=== PATIENT | female | born 2005 | race Caucasian/White ===

== ENCOUNTER 2023-03-03 09:05 | Outpatient (OUT) | payer BC, SELFPAY ==
[2023-03-03 09:48] LABS: Basophils Percent Auto 0.4 % (0.2-2.0); Eosinophils Absolute Auto 0.1 10^3/uL (0.0-0.7); Eosinophils Percent Auto 1.7 % (0.9-7.0); Hematocrit 43.6 % (36.0-48.0); Immature Granulocytes Abs Auto 0.01 10^3/uL (0.00-0.03); Immature Granulocytes Pct Auto 0.1 % (0.0-0.5); Lymphocytes Absolute Auto 4.3 10^3/uL (1.2-3.8); Lymphocytes Percent Auto 54.5 % (20.5-60.0); Mean Corpuscular HGB Conc 32.1 g/dL (29.9-35.2); Mean Corpuscular Hemoglobin 28.1 pg (26.7-34.0); Mean Corpuscular Volume 87.6 fL (81.0-99.0); Mean Platelet Volume 8.7 fL (9.5-13.5); Monocytes Absolute Auto 0.7 10^3/uL (0.3-0.8); Monocytes Percent Auto 8.8 % (1.7-12.0); Neutrophils Absolute Auto 2.7 10^3/uL (1.4-6.5); Neutrophils Percent Auto 34.5 % (43.0-75.0); Platelet Count 409 10^3/uL (150-450); Red Blood Count 4.98 10^6/uL (4.20-5.40); Red Cell Distribution Width 12.9 % (11.0-15.0); White Blood Count 7.8 10^3/uL (4.0-11.0)
[2023-03-03 10:15] LABS: Estimated Average Glucose 103 mg/dL; Glycohemoglobin A1C 5.2 % (4.5-6.2)
[2023-03-03 10:47] LABS: Alanine Aminotransferase 26 U/L (14-59); Albumin Level 3.8 g/dL (3.4-5.0); Alkaline Phosphatase 87 U/L (46-116); Anion Gap 12.9; Aspartate Amino Transferase 14 U/L (15-37); BUN Creatinine Ratio 22.7; Bilirubin Total 0.5 mg/dL (0.2-1.0); Carbon Dioxide 26.8 mmol/L (21.0-32.0); Chloride 100 mmol/L (98-107); Chol HDL Ratio 3.4; Cholesterol 204 mg/dL (104-227); Estimated GFR (African America >60 (>=60); Estimated GFR (Non-African Ame >60 (>=60); Free T3 3.13 pg/mL (2.91-4.70); Globulin 3.9 g/dL; Glucose 90 mg/dL (74-106); HDL Cholesterol 60 mg/dL (29-69); LDL Cholesterol Calculated 133.2 mg/dL; Potassium 3.7 mmol/L (3.5-5.1); Sodium 136 mmol/L (136-145); Total Protein 7.7 g/dL (6.4-8.2); Triglycerides 54 mg/dL (53-208); VLDL CHOLESTEROL 10.8 mg/dL
[2023-03-04 10:08] LABS: Insulin 9.1 uIU/mL (2.6-24.9)
== END 2023-03-03 09:06 | disposition home or self-care (01) ==
LOC: LAB 09:09
PROVIDERS: PCP Family Medicine; Visit Provider Family Medicine
DX: F32.9 Major depressive disorder, single episode, unspecified (principal); F41.9 Anxiety disorder, unspecified; G47.00 Insomnia, unspecified; E78.5 Hyperlipidemia, unspecified; R73.09 Other abnormal glucose; D64.9 Anemia, unspecified
CPT/HCPCS: 36415; 80053; 80061; 83036; 83525; 83540; 84436; 84443; 84481; 85025

== ENCOUNTER 2023-03-29 04:20 | Emergency (ER) | payer BC, SELFPAY ==
[2023-03-29 04:23] VITALS: BP 147/101; PULSE 127; RESP 18; TEMP 36.9; O2SAT 100; BMI 42.3
--- OUTSIDE RECORDS SUMMARY | 2023-03-29 04:24 | XMS_ITS | CCD ---
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 And Name Role Phone FELI GRICELDA P Consulting Unavailable FELI, GRICELDA P Attending Unavailable FELI, GRICELDA P Admitting Unavailable FELI, GRICELDA P Primary Care Unavailable HOY ., DR SEGOVIA Consulting Unavailable HOY ., DR SEGOVIA Attending Unavailable HOY ., DR SEGOVIA Admitting Unavailable FELI, GRICELDA P Primary Care Unavailable FELI, GRICELDA P Primary Care Unavailable FELI, GRICELDA P Consulting Unavailable FELI, GRICELDA P Attending Unavailable FELI, GRICELDA P Admitting Unavailable Problems Active Problems Problem Classification Problem Date Documented Da te Episodic/Chronic Residual codes; unclassified (1 source) Pain, unspecified; Translations: [PAIN UNSPECIFIED] Onset: 05-24-2022 Episodic Unclassified (4 sources) CONTACT W/AND (SUSP) EXPOS COVID-19; Translations: [CONTACT W/AND (SUSP) EXPOS COVID-19] Onset: 04-21-2022 Unclassified (4 sources) COUGH, UNSPECIFIED; Translations: [COUGH, UNSPECIFIED] Onset: 04-21-2022 Past or Other Problems Problem Classification Problem Date Documented Da te Episodic/Chronic Fever of unknown origin (4 sources) Fever, unspecified; Translations: [FEVER UNSPECIFIED] Onset: 01-06-2022 Episodic Malaise and fatigue (1 source) Other fatigue; Translations: [OTHER FATIGUE] Onset: 01-09-2022 Episodic Unclassified (1 source) CONTACT W/AND (SUSP) EXPOS COVID-19; Translations: [CONTACT W/AND (SUSP) EXPOS COVID-19] Onset: 05-23-2022 Unclassified (1 source) COUGH, UNSPECIFIED; Translations: [COUGH, UNSPECIFIED] Onset: 04-20-2022 Results Test Name Value Interpretation Reference Range Facil ity Covid-19 PCR (CVDTBH)on SARS-CoV-2 (COVID-19) RNA VAISHALI+probe Ql (Unsp spec) Not detected Normal NOT DETECTED [facility] Comment on above: Result Comment: When diagnostic testing is negative, the possibility of a false negative should be considered in the context of a patient's recent exposures and the presence of clinical signs and symptoms consistent with SARS-CoV-2. This test is not yet approved or cleared by the [place] FDA. When there are no FDA-approved or cleared tests available, and other criteria are met, FDA can make tests available under an emergency access mechanism called an Emergency Use Authorization (EUA). The EUA for this test is supported by the [place] of Health and Human Service's declaration that circumstances exist to justify the emergency use of in vitro diagnostics for the detection and/or diagnosis of the virus that causes COVID-19. This EUA will remain in effect for the duration of the COVID-19 declaration justifying emergency of IVDs, unless it is terminated or revoked by the FDA (after which the test may no longer be used). Performed By: #### C VDTBH #### [facility] [address] [place] [address] Dr. Damion Caceres INFLUENZA A AND B AGon 05-23 [facility] SEE BELOW Normal [facility] Comment on above: Result Comment: Nega tive for Flu A protein angiten. Infection due to Flu A cannot be ruled out. Flu A angiten in the sample may be below the detection limit of the test. Performed By: #### I NFLUAB #### [facility] [address] [place] [address] Dr. Damion [facility]ace[facility] SEE BELOW Normal [facility] Comment on above: Result Comment: Nega tive for Flu B protein antigen. Infection due to Flu B cannot be ruled out. Flu B antigen in the sample may be below the detection limit of the test. Performed By: #### I NFLUAB #### [facility] [address] [place] [address] Dr. Damion Caceres INFLUENZA A AG Negative Normal NEGATIVE SEE COMMENT [facility] Comment on above: Performed By: #### I NFLUAB #### [facility] [address] [place] [address] Dr. Damion Caceres INFLUENZA B AG Negative Normal NEGATIVE SEE COMMENT [facility] Comment on above: Performed By: #### I NFLUAB #### [facility] [address] [address] [address] Damion Caceres Covid-19 PCR (CVDTB)on SARS-CoV-2 (COVID-19) RNA VAISHALI+probe Ql (Unsp spec) Not detected Normal NOT DETECTED [facility] Comment on above: Result Comment: When diagnostic testing is negative, the possibility of a false negative should be considered in the context of a patient's recent exposures and the presence of clinical signs and symptoms consistent with SARS-CoV-2. This test is not yet approved or cleared by the [place] FDA. When there are no FDA-approved or cleared tests available, and other criteria are met, FDA can make tests available under an emergency access mechanism called an Emergency Use Authorization (EUA). The EUA for this test is supported by the [place] of Health and Human Service's declaration that circumstances exist to justify the emergency use of in vitro diagnostics for the detection and/or diagnosis of the virus that causes COVID-19. This EUA will remain in effect for the duration of the COVID-19 declaration justifying emergency of IVDs, unless it is terminated or revoked by the FDA (after which the test may no longer be used). Performed By: #### C VDTBH #### [facility] [address] [place] [address] Dr. Damion Caceres INFLUENZA A AND B AGon 04-20 INFLUANEGH SEE BELOW Normal [facility] Comment on above: Result Comment: Nega tive for Flu A protein angiten. Infection due to Flu A cannot be ruled out. Flu A angiten in the sample may be below the detection limit of the test. Performed By: #### I NFLUAB #### [facility] [address] [place] [address] Dr. Damion Caceres INFLUBNEGH SEE BELOW Normal [facility] Comment on above: Result Comment: Nega tive for Flu B protein antigen. Infection due to Flu B cannot be ruled out. Flu B antigen in the sample may be below the detection limit of the test. Performed By: #### I NFLUAB #### [facility] [address] [place] [address] Dr. Damion Caceres INFLUENZA A AG Negative Normal NEGATIVE SEE COMMENT [facility] Comment on above: Performed By: #### I NFLUAB #### [facility] [address] [place] [address] Dr. Damion Caceres INFLUENZA B AG Negative Normal NEGATIVE SEE COMMENT [facility] Comment on above: Performed By: #### I NFLUAB #### [facility] [address] [place] [address] Dr. Damion Caceres [facility]on 12-19 SARS-CoV-2 (COVID-19) RNA VAISHALI+probe Ql (Unsp spec) Not detected Normal NOT DETECTED [facility] Comment on above: Result Comment: This test is not yet approved or cleared by the [place] FDA. When there are no FDA-approved or cleared tests available, and other criteria are met, FDA can make tests available under an emergency access mechanism called an Emergency Use Authorization (EUA). The EUA for this test is supported by the Marketing Operations Manager of Health and Human Service's (HHS's) declaration that circumstances exist to justify the emergency use of in vitro diagnostics for the detection and/or diagnosis of the virus that causes COVID-19. This EUA will remain in effect (meaning this test can be used) for the duration of the COVID-19 declaration justifying emergency of IVDs, unless it is terminated or revoked by FDA (after which the test may no longer be used). When diagnostic testing is negative, the possibility of a false negative should be considered in the context of a patient's recent exposures and the presence of clinical signs and symptoms consistent with SARS-CoV-2. Performed By: #### C VDTBH #### [facility] [address] [place] [address] Dr. Damion Caceres INFLUENZA A AND B AGon 01-06 INFLUANEGH SEE BELOW Normal [facility] Comment on above: Result Comment: Nega tive for Flu A protein angiten. Infection due to Flu A cannot be ruled out. Flu A angiten in the sample may be below the detection limit of the test. Performed By: #### I NFLUAB #### [facility] [address] [place] [address] Dr. Damion Caceres INFLUBNEGH SEE BELOW Normal [facility] Comment on above: Result Comment: Nega tive for Flu B protein antigen. Infection due to Flu B cannot be ruled out. Flu B antigen in the sample may be below the detection limit of the test. Performed By: #### I NFLUAB #### [facility] [address] [place] [address] Dr. Damion Caceres INFLUENZA A AG Negative Normal NEGATIVE SEE COMMENT [facility] Comment on above: Performed By: #### I NFLUAB #### [facility] [address] [place] [address] Dr. Damion Caceres INFLUENZA B AG Negative Normal NEGATIVE SEE COMMENT [facility] Comment on above: Performed By: #### I NFLUAB #### [facility] [address] [place] [address] Dr. Damion Caceres INTERNAL CONTROLS Within Normal Limits Normal Wi thin Normal Limits [facility] Comment on above: Performed By: #### I NFLUAB #### [facility] [address] [place] [address] Dr. Damion Caceres Encounters Encounter Date Encounter Type Care Provider Facility Start: 05-23-2022 End: 05-23-2022 ambulatory GRICELDA EDMOND Facility:[facility] Start: 04-20-2022 End: 04-20-[address] LUCA PILLAI . Facility:[facility] Start: 01-06-2022 End: 01-06-2022 ambulatory GRICELDA EDMOND Facility:[facility] Payers Date Payer Category Payer Unknown [id number] 2003 Unknown [id number] 2003 Unknown [id number] 1961 Unknown [id number] Summary Purpose Family History No Family History Records Found Advance Directives No Advanced Directives Records Found Additional Source Comments INFORMATION SOURCE (unrecogn ized section and content) DATE CREATED AUTHOR 05/25/2022 [facility] FOR RECORDS PERTAINING TO PATIENTS WHO ARE OR HAVE BEEN ENROLLED IN A CHEMICAL DEPENDENCY/SUBSTANCEABUSE PROGRAM, SOME INFORMATION MAY BE OMITTED. This clinical summary was aggregated from multiple sources. Caution should be exercised in using it in the provision of clinical care. This summary normalizes information from multiple sources, and as a consequence, information in this document may materially change the coding, format and clinical context of patient data. In addition, data may be omitted in some cases. CLINICAL DECISIONS SHOULD BE BASED ON THE PRIMARY CLINICAL RECORDS. [facility] [employer] [facility]. provides no warranty or guarantee of the accuracy or completeness of information in this document.
--- NOTE | 2023-03-29 04:41 | ED_ITS ---
HPI - Skin/Abscess/Foreign Bdy General Chief complaint: Skin/Abscess/Foreign Body Stated complaint: earring embedded in L ear Time Seen by Provider: 03/29/23 04:36 Source: patient Mode of arrival: walk-in History of Present Illness HPI narrative: patient presents complaining that the back of her ear right is now embedded in her ear lobe. States she is not sure how long it has been there but she noticed a smell. No fever Related Data Allergies Allergy/AdvReac Type Severity Reaction Status Date / Time No Known Drug Allergies Allergy Verified 03/29/23 04:29 Review of Systems ROS Status of ROS 10 or more systems reviewed and unremark able except as noted in history and below PFSH PFSH Social History Smoking status: Former smoker Exam Constitutional Vital Signs, click to edit/add: Last Vital Signs Temp 98.4 F 03/29/23 04:23 Pulse 127 H 03/29/23 04:23 Resp 18 03/29/23 04:23 BP 147/101 H 03/29/23 04:23 Pulse Ox 100 03/29/23 04:23 O2 Del Method Room Air 03/29/23 04:23 Common normals: no apparent distress, average body habitus, oriented x3, no limitations, healthy appearing and alert HENMT Common normals: normocephalic and head/scalp atraumatic Other: FB palpable left ear lobe Eye Common normals: EOMs intact bilaterally and conjunctivae normal Respiratory Common normals: normal respiratory effort Cardio Common normals: regular rate, regular rhythm, S1 normal heart sound and S2 normal heart sound Extremity Common normals: normal to inspection and full ROM Neuro Common normals: oriented x3, CN's II-XII intact bilaterally, moves all extremities and no focal motor deficits Psych Appearance: grossly normal Course Vital Signs Vital signs: Vital Signs Temperature 98.4 F 03/29/23 04:23 Pulse Rate 127 H 03/29/23 04:23 Respiratory Rate 18 03/29/23 04:23 Blood Pressure 147/101 H 03/29/23 04:23 Pulse Oximetry 100 03/29/23 04:23 Oxygen Delivery Method Room Air 03/29/23 04:23 Temperature 98.4 F 03/29/23 04:23 Pulse Rate 127 H 03/29/23 04:23 Respiratory Rate 18 03/29/23 04:23 Blood Pressure 147/101 H 03/29/23 04:23 Pulse Oximetry 100 03/29/23 04:23 Oxygen Delivery Method Room Air 03/29/23 04:23 MDM - Skin/Abscess/Foreign Bdy MDM Narrative Medical decision making narrative: patient presents with FB embedded in her left ear lobe. removed as above. no obvious drainage or smell on my exam but will cover with short course of antibiotics given her history of foul smell from the site Discharge Plan Discharge Chief Complaint: Skin/Abscess/Foreign Body Clinical Impression: Foreign body in left ear lobe Instructions: Ear Foreign Body (ED) Referrals: Catrachito Marshall MD [Primary Care Provider] - 1 week Procedures ED Procedure Instructions Procedures Procedures: FB left ear lobe. able to find FB on palpation and then with pressure push it thru and out of the ear lobe. Patient tolerated well
[2023-03-29] MEDS: AMOXICILLIN/POTASSIUM CLAV 1 TAB TABLET PO (04:54)
== END 2023-03-29 05:12 | disposition home or self-care (01) ==
LOC: ER 04:22
PROVIDERS: Emergency Provider Internal Medicine; PCP Family Medicine
DX: T16.1XXA Foreign body in right ear, initial encounter (principal); W44.E4XA Non-magnetic metal jewelry entering into or through a natural orifice, initial encounter; Z87.891 Personal history of nicotine dependence
CPT/HCPCS: 99283

== ENCOUNTER 2023-06-15 03:03 | Emergency (ER) | payer BC, SELFPAY ==
[2023-06-15 03:09] VITALS: BP 128/75; PULSE 139; RESP 18; TEMP 37.7; O2SAT 100; BMI 48.3
--- OUTSIDE RECORDS SUMMARY | 2023-06-15 03:13 | XMS_ITS | CCD ---
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 Performed By: #### C VDTB #### [facility] [address] [place] [address] Dr. Damion Caceres INFLUENZA A AND B AGon 05-[facility] SEE BELOW Normal [facility] Comment on above: Result Comment: Nega tive for Flu A protein angiten. Infection due to Flu A cannot be ruled out. Flu A angiten in the sample may be below the detection limit of the test. Performed By: #### I NFLUAB #### [facility] [address] [place] [address] Dr. Dam[facility] SEE BELOW Normal The [facility] Comment on above: Result Comment: Nega tive for Flu B protein antigen. Infection due to Flu B cannot be ruled out. Flu B antigen in the sample may be below the detection limit of the test. Performed By: #### I NFLUAB #### [facility] [address] [place] [address] Dr. Damion Caceres INFLUENZA A AG Negative Normal NEGATIVE SEE COMMENT The [facility] Comment on above: Performed By: #### I NFLUAB #### [facility] [address] [place] [address] Dr. Damion Caceres INFLUENZA B AG Negative Normal NEGATIVE SEE COMMENT The [facility] Comment on above: Performed By: #### I NFLUAB #### [facility] [address] [place] [address] Dr. Damion Caceres [facility]on SARS-CoV-2 (COVID-19) RNA VAISHALI+probe Ql (Unsp spec) Not detected Normal NOT DETECTED [facility] Comment on above: Result Comment: When diagnostic [...] for this test is supported by the [place] of Health and Human Service's declaration that [...] used). Performed By: #### C VDTBH #### [facility] [address] [place] [address] Dr. Damion Caceres INFLUENZA A AND B AGon 04-[facility] SEE BELOW Normal The [facility] Comment on above: Result Comment: Nega tive for Flu A protein angiten. Infection due to Flu A cannot be ruled out. Flu A angiten in the sample may be below the detection limit of the test. Performed By: #### I NFLUAB #### [facility] [address] [place] [address] Dr. Damion Caceres INFLUBNEG SEE BELOW Normal [facility] Comment on above: Result Comment: Nega tive for Flu B protein antigen. Infection due to Flu B cannot be ruled out. Flu B antigen in the sample may be below the detection limit of the test. Performed By: #### I NFLUAB #### [facility] [address] [address] [address] Damion Caceres INFLUENZA A AG Negative Normal NEGATIVE SEE COMMENT [facility] Comment on above: Performed By: #### I NFLUAB #### [facility] [address] [address] [address] Damion Caceres INFLUENZA B AG Negative Normal NEGATIVE SEE COMMENT [facility] Comment on above: Performed By: #### I NFLUAB #### [facility] [address] [address] [address] Damion Caceres Covid-19 PCR ([facility]on 12-19 SARS-CoV-2 (COVID-19) RNA VAISHALI+probe Ql (Unsp spec) Not detected Normal NOT DETECTED [facility] Comment on above: Result Comment: This test is not yet approved or cleared by the [place] FDA. When there are no FDA-approved or cleared tests available, and other criteria are met, FDA can make tests available under an emergency access mechanism called an Emergency Use Authorization (EUA). The EUA for this test is supported by the Plastics Scientist of Health and Human Service's (HHS's) declaration [...] SARS-CoV-2. Performed By: #### C VDTBH #### [facility] [address] [place] [address] Dr. Damion Caceres INFLUENZA A AND B AGon 01-06 INFLUANEGH SEE BELOW Normal The [facility] Comment on above: Result Comment: Nega tive for Flu A protein angiten. Infection due to Flu A cannot be ruled out. Flu A angiten in the sample may be below the detection limit of the test. Performed By: #### I NFLUAB #### [facility] [address] [place] [address] Dr. Damion Caceres [facility] SEE BELOW Normal [facility] Comment on above: Result Comment: Nega tive for Flu B protein antigen. Infection due to Flu B cannot be ruled out. Flu B antigen in the sample may be below the detection limit of the test. Performed By: #### I NFLUAB #### [facility] [address] [address] [address] Damion Caceres INFLUENZA A AG Negative Normal NEGATIVE SEE COMMENT The [facility] Comment on above: Performed By: #### I NFLUAB #### [facility] [address] [place] [address] Dr. Damion Caceres INFLUENZA B AG Negative Normal NEGATIVE SEE COMMENT The [facility] Comment on above: Performed By: #### I NFLUAB #### [facility] [address] [place] [address] Dr. Damion Caceres INTERNAL CONTROLS Within Normal Limits Normal Wi thin Normal Limits The [facility] Comment on above: Performed By: #### I NFLUAB #### [facility] [address] [place] [address] Dr. Damion Caceres Encounters Encounter Date Encounter Type Care Provider Facility Start: 05-23-2022 End: 05-23-2022 ambulatory GRCIELDA EDMOND Facility:[facility] Start: 04-20-2022 End: 04-20-[address] LUCA PILLAI . Facility:[facility] Start: 01-06-2022 End: 01-06-2022 ambulatory GRICELDA EDMOND Facility:[facility] Payers Date Payer Category Payer Unknown [id number] .. [id number] 2003 Unknown [id number] [id number] 2003 Unknown [id number] 1961 Unknown [id number] Summary Purpose Family History No Family History Records Found Advance Directives No Advanced Directives Records Found Additional Source Comments INFORMATION SOURCE (unrecogn ized section and content) DATE CREATED AUTHOR 05/25/2022 [facility] FOR RECORDS PERTAINING TO PATIENTS WHO ARE [...] BE BASED ON THE PRIMARY CLINICAL RECORDS. [facility] [employer] [facility]. provides no warranty or guarantee of the accuracy or completeness of information in this document.
--- NOTE | 2023-06-15 03:17 | ECG_ITS ---
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
[2023-06-15 03:26] VITALS: O2SAT 100
[2023-06-15 04:16] LABS: Influenza Virus A Antigen Negative; Influenza Virus B Antigen Negative; Internal Control Within Normal Limits; SARS-CoV-2 Ag NEGATIVE (NEGATIVE)
--- NOTE | 2023-06-15 04:16 | ED_ITS ---
HPI - General Adult General Chief complaint: Shortness of Breath/Dyspnea Stated complaint: sob Time Seen by Provider: 06/15/23 03:04 Source: patient Mode of arrival: walk-in Limitations: no limitations History of Present Illness HPI narrative: This 17-year-old female who keeps but denies tobacco use presents for evaluation of 2 days of generalized illness with chills, sweats, nausea, diarrhea and cough, headache, sore throat and dizziness. She denies any chest pain. She denies the possibility of . She is not on control. She has no flank pain or urinary symptoms.She states when she coughs it makes her dizzy. She has not had any syncopal events in her cough is nonproductive. Related Data Home Medications ?Medication ?Instructions ?Recorded ?Confirmed No Known Home Medications 06/15/23 06/15/23 Allergies Allergy/AdvReac Type Severity Reaction Status Date / Time No Known Drug Allergies Allergy Verified 03/29/23 04:29 Review of Systems ROS Status of ROS 10 or more systems reviewed and unremark able except as noted in history and below [facility] Social History Smoking status: Former smoker Exam Narrative Exam Narrative: Nurses note and vital signs reviewed; She has a low-grade fever, is tachycardic with a pulse of 139, blood pressure and pulse ox are normal General: Obese female in no respiratory distress Skin: Warm, dry, no pallor noted. There is no rash noted. Head: Normocephalic, atraumatic Eye: Normal conjunctiva, no drainage, EOMI. PERRL Ears, Nose, Mouth, and Throat: oral mucosa is dry, posterior pharynx is not erythematous. There is no swelling of the tongue, uvula or pharyngeal soft tissues Neck: Supple, no meningeal signs, no anterior or posterior cervical lymphadenopathy Cardiovascular: Regular Rate and Rhythm, tachycardic in the 120s-130s, no murmurs, rubs or gallops appreciated Respiratory: Patient is in no distress, she is speaking in complete sentences, she has faint expiratory wheezing and coarse breath sounds Back: non-tender, no CVA tenderness bilaterally to percussion. GI: Normal bowel sounds, no tenderness to palpation, no masses appreciated. No rebound, guarding, or rigidity noted. Musculoskeletal: The patient has no evidence of calf tenderness, no pitting edema, symmetrical pulses noted bilaterally Neurological: A&O x4, normal speech Psychiatric: Cooperative Constitutional Vital Signs, click to edit/add: Last Vital Signs Temp 99.9 F 06/15/23 03:09 Pulse 139 H 06/15/23 03:09 Resp 18 06/15/23 03:09 BP 128/75 06/15/23 03:09 Pulse Ox 100 06/15/23 03:26 O2 Del Method Room Air 06/15/23 03:26 Course Vital Signs Vital signs: Vital Signs Temperature 99.9 F 06/15/23 03:09 Pulse Rate 139 H 06/15/23 03:09 Respiratory Rate 18 06/15/23 03:09 Blood Pressure 128/75 06/15/23 03:09 Pulse Oximetry 100 06/15/23 03:09 Oxygen Delivery Method Room Air 06/15/23 03:09 Temperature 99.9 F 06/15/23 03:09 Pulse Rate 139 H 06/15/23 03:09 Respiratory Rate 18 06/15/23 03:09 Blood Pressure 128/75 06/15/23 03:09 Pulse Oximetry 100 06/15/23 03:26 Oxygen Delivery Method Room Air 06/15/23 03:26 Medical Decision Making MDM Narrative Medical decision making narrative: 17-year-old female who is morbidly obese and vapes presents for evaluation of chills, dizziness, headache, nausea and diarrhea. She also has a cough. He complains of shortness of breath and pain in her chest with coughing. She also states that when she coughs she feels dizzy. She has not passed out. She is not on control. She has no lower 70 pain or swelling. She was notably tachycardic upon arrival with a pulse in the 120s to 130s. She has expiratory wheezing. Abdomen is soft and nontender.Low-grade fever the emergency department with a normal pulse ox. EKG was a sinus tachycardia with nonspecific ST changes. An IV was placed into medicated with IV fluids and Toradol. Routine labs are ordered and are reviewed. Electrolytes are normal. She is negative for COVID 19 and influenza. Strep testing is also negative. D dimer was elevated at .92. CTA of the chest was ordered and is negative for acute findings including pneumonia or PE. CT scan she was reevaluated. She is still tachycardic although less so and states she is feeling much better with less dizziness, no chest pain and her shortness of breath has improved. She will be given Tylenol, Zofran and additional bolus of normal saline. I explained to her that her symptoms are likely viral in nature. The plan will be discharged home with Zofran, Albuterol MDI, Tylenol and Motrin for ongoing symptoms, close follow-up with her family physician and return to the emergency department for worsening symptoms or any concerns. Medical Records Medical records narrative: [place] [id number] CT Scan Report Signed Patient: JUNIOR HERRERA MR#: [id number] : 2005 Acct:[id number] Age/Sex: 17 / F ADM Date: 06/15/23 Loc: ER Attending Dr: Ordering Physician: Mary Beal Date of Service: 06/15/23 Procedure(s): CT angio chest Accession Number(s): [id number] cc: Catrachito Marshall M.D.~ [facility] [place] [id number] Patient Name: JUNIOR HERRERA MRN: [id number] date: 2005 Sex: F Assigned Patient Location: ER Current Patient Location: ER Accession/Order Number: [id number] Exam Date: 06/15/2023 05:20 Report Date: 06/15/2023 05:48 At the request of: MARY BEAL Procedure: CT angio chest EXAM: CT angio chest HISTORY: R/O PE, elevated dimer, CP and tachycardia COMPARISON: None. TECHNIQUE: Following nonionic IV contrast, thin section axial scans obtained from thoracic inlet to upper abdomen. Coronal and sagittal reformatted images and MIP images obtained. This CT exam was performed using one or more of the following dose reduction techniques: Automated exposure control, adjustment of the mA and/or kV according to patient size, or use of iterative reconstruction technique. Thin section coronal and sagittal images were reconstructed from the axial data set. On a separate workstation, 3-D reconstructions obtained. All images were reviewed and interpreted. FINDINGS: Bolus opacification of the pulmonary arteries was adequate for purposes of diagnosis. There is no central, lobar, or segmental pulmonary arterial filling defect to suggest pulmonary embolus. The lungs are free of acute cardiopulmonary disease. No hilar or mediastinal lymphadenopathy. The heart and pericardium are unremarkable. There is no pericardial effusion. The thoracic aorta and great vessels are unremarkable. The pulmonary arteries are normal in appearance and configuration. There is no pleural effusion or mass. No pulmonary nodules or masses are identified. Normal adrenals. There is no body wall mass. There is no destructive osseous process. CT/CT angio chest IMPRESSION: Normal CTA of the chest without evidence of pulmonary emboli. Lab Data Lab results reviewed: Yes I reviewed the patient's lab results Labs: Lab Results 06/15/23 06/15/23 Range/Units 03:20 04:05 WBC 9.4 (4.0-11.0) 10^3/uL RBC 4.94 (4.20-5.40) 10^6/uL Hgb 13.6 (12.0-16.0) g/dL Hct 42.0 (36.0-48.0) % MCV 85.0 (81.0-99.0) fL MCH 27.5 (26.7-34.0) pg MCHC 32.4 (29.9-35.2) g/dL RDW 13.1 (11.0-15.0) % Plt Count 396 (150-450) 10^3/uL MPV 9.2 L (9.5-13.5) fL Neut % (Auto) 79.1 H (43.0-75.0) % Lymph % (Auto) 12.0 L (20.5-60.0) % Sanborn % (Auto) 8.3 (1.7-12.0) % Eos % (Auto) 0.1 L (0.9-7.0) % Baso % (Auto) 0.4 (0.2-2.0) % Neut # (Auto) 7.4 H (1.4-6.5) 10^3/uL Lymph # (Auto) 1.1 L (1.2-3.8) 10^3/uL Sanborn # (Auto) 0.8 (0.3-0.8) 10^3/uL Eos # (Auto) 0.0 (0.0-0.7) 10^3/uL Baso # (Auto) 0.0 (0.0-0.1) 10^3/uL Abs Immat Gran (auto) 0.01 (0.00-0.03) 10^3/uL Imm/Tot Granulo (auto) 0.1 (0.0-0.5) % D-Dimer 0.92 H* (<=0.59) mg/L FEU Sodium 135 L (136-145) mmol/L Potassium 3.7 (3.5-5.1) mmol/L Chloride 102 (98-107) mmol/L Carbon Dioxide 24.0 (21.0-32.0) mmol/L Anion Gap 12.7 BUN 14.0 (6.4-19.3) mg/dL Creatinine 0.93 (0.55-1.02) mg/dL Est GFR ( Amer) >60 (>=60) Est GFR (Non-Af Amer) >60 (>=60) BUN/Creatinine Ratio 15.1 Glucose 89 (74-106) mg/dL Calcium 8.7 (8.5-10.1) mg/dL Total Bilirubin 0.6 (0.2-1.0) mg/dL AST 14 L (15-37) U/L ALT 18 (14-59) U/L Alkaline Phosphatase 97 (46-116) U/L Total Protein 7.7 (6.4-8.2) g/dL Albumin 3.7 (3.4-5.0) g/dL Globulin 4.0 g/dL Albumin/Globulin Ratio 0.9 Influenza Type A Ag Negative Influenza Type B Ag Negative SARS-CoV-2 Ag (CV2AG) Negative (NEGATIVE) Streptococcus Screen Negative ECG Data Attestation: I personally reviewed and interpreted this ECG as follows: (Sinus tachycardia 130 beats for minute, normal axis, nonspecific ST changes, interpr etation limited by patient movement, no acute ST segment elevation or T-wave inversion) Discharge Plan Discharge Stand Alone Forms: Portal Instructions Chief Complaint: Shortness of Breath/Dyspnea Clinical Impression: Acute viral syndrome Patient Disposition: Home, Self-Care Time of Disposition Decision: 06:27 Condition: Good Prescriptions / Home Meds: No Action No Known Home Medications Print Language: Kosovan Instructions: Viral Syndrome (ED) Referrals: Catrachito Marshall MD [Primary Care Provider] - 1 week
[2023-06-15 04:21] LABS: Internal Control Within Normal Limits; Strep A Antigen Screen Negative
[2023-06-15 04:31] LABS: Alanine Aminotransferase 18 U/L (14-59); Albumin Globulin Ratio 0.9; Albumin Level 3.7 g/dL (3.4-5.0); Alkaline Phosphatase 97 U/L (46-116); Anion Gap 12.7; Aspartate Amino Transferase 14 U/L (15-37); BUN Creatinine Ratio 15.1; Bilirubin Total 0.6 mg/dL (0.2-1.0); Calcium 8.7 mg/dL (8.5-10.1); Chloride 102 mmol/L (98-107); Estimated GFR (African America >60 (>=60); Estimated GFR (Non-African Ame >60 (>=60); Glucose 89 mg/dL (74-106); Potassium 3.7 mmol/L (3.5-5.1); Sodium 135 mmol/L (136-145); Total Protein 7.7 g/dL (6.4-8.2)
[2023-06-15 04:34] LABS: D Dimer 0.92 mg/L FEU (<=0.59)
[2023-06-15] MEDS: KETOROLAC TROMETHAMINE 30 MG/ML VIAL IVP (04:35)
[2023-06-15] MEDS: 0.9 % SODIUM CHLORIDE 1,000 ML 1000 ML IV ×2 (04:35→06:12)
--- NOTE | 2023-06-15 04:49 | CT_ITS ---
The [address] [address] Patient Name: JUNIOR HERRERA MRN: [id number] date: 2005 Sex: F Assigned Patient Location: ER Current Patient Location: Accession/Order Number: [id number] Exam Date: 06/15/2023 05:20 Report Date: 06/15/2023 05:48 At the request of: MARY VILLA Procedure: CT angio chest EXAM: CT angio chest HISTORY: R/O PE, elevated dimer, CP and tachycardia COMPARISON: None. TECHNIQUE: Following nonionic IV contrast, thin section axial scans obtained from thoracic inlet to upper abdomen. Coronal and sagittal reformatted images and MIP images obtained. This CT exam was performed using one or more of the following dose reduction techniques: Automated exposure control, adjustment of the mA and/or kV according to patient size, or use of iterative reconstruction technique. Thin section coronal and sagittal images were reconstructed from the axial data set. On a separate workstation, 3-D reconstructions obtained. All images were reviewed and interpreted. FINDINGS: Bolus opacification of the pulmonary arteries was adequate for purposes of diagnosis. There is no central, lobar, or segmental pulmonary arterial filling defect to suggest pulmonary embolus. The lungs are free of acute cardiopulmonary disease. No hilar or mediastinal lymphadenopathy. The heart and pericardium are unremarkable. There is no pericardial effusion. The thoracic aorta and great vessels are unremarkable. The pulmonary arteries are normal in appearance and configuration. There is no pleural effusion or mass. No pulmonary nodules or masses are identified. Normal adrenals. There is no body wall mass. There is no destructive osseous process. CT/CT angio chest IMPRESSION: Normal CTA of the chest without evidence of pulmonary emboli. Electronically authenticated by: VAN BALTAZAR Date: 06/15/2023 05:48
[2023-06-15 05:58] LABS: Basophils Percent Auto 0.4 % (0.2-2.0); Eosinophils Percent Auto 0.1 % (0.9-7.0); Hemoglobin 13.6 g/dL (12.0-16.0); Immature Granulocytes Abs Auto 0.01 10^3/uL (0.00-0.03); Immature Granulocytes Pct Auto 0.1 % (0.0-0.5); Lymphocytes Absolute Auto 1.1 10^3/uL (1.2-3.8); Mean Corpuscular HGB Conc 32.4 g/dL (29.9-35.2); Mean Corpuscular Hemoglobin 27.5 pg (26.7-34.0); Mean Platelet Volume 9.2 fL (9.5-13.5); Monocytes Absolute Auto 0.8 10^3/uL (0.3-0.8); Monocytes Percent Auto 8.3 % (1.7-12.0); Neutrophils Absolute Auto 7.4 10^3/uL (1.4-6.5); Neutrophils Percent Auto 79.1 % (43.0-75.0); Platelet Count 396 10^3/uL (150-450); Red Blood Count 4.94 10^6/uL (4.20-5.40); Red Cell Distribution Width 13.1 % (11.0-15.0); White Blood Count 9.4 10^3/uL (4.0-11.0)
[2023-06-15] MEDS: ONDANSETRON PF 4 MG/2 ML VIAL IV (06:12)
[2023-06-15] MEDS: ACETAMINOPHEN 325 MG TABLET 650 MG PO (06:12)
--- NOTE | 2023-06-15 06:50 | PC.NURSE ---
Patient resting in bed, mother remains at bedside. Patient is informed that Dr. Beal has ordered a urine test to check for infection and she is asked if she can provide a sample. She states that she cannot at this time. She is aware that she should put the call light on when she can urinate. Second bag of fluids started, patient also medicated with Tylenol and zofran at this time.. She denies other needs.
[2023-06-15 07:01] VITALS: TEMP 37.4
[2023-06-15] MEDS: IPRATROPIUM/ALBUTEROL SULFATE 3 ML AMPUL.NEB IH (07:29)
== END 2023-06-15 07:02 | disposition home or self-care (01) ==
PROVIDERS: Emergency Provider Emergency Medicine; PCP Family Medicine
DX: B34.9 Viral infection, unspecified (principal); E66.01 Morbid (severe) obesity due to excess calories; F17.290 Nicotine dependence, other tobacco product, uncomplicated; Z20.822 Contact with and (suspected) exposure to COVID-19
CPT/HCPCS: 36415; 71275; 80053; 81001; 85025; 85378; 87070; 87804; 87811; 87880; 93005; 94640; 96361; 96374; 96375; 99285; Q9967

== ENCOUNTER 2024-01-02 14:15 | Outpatient (OUT) | payer BC, SELFPAY ==
--- NOTE | 2024-01-02 14:27 | XR_ITS ---
The [address] [address] Patient Name: JUNIOR HERRERA MRN: [id number] date: 2005 Sex: F Assigned Patient Location: [facility] Current Patient Location: Accession/Order Number: [id number] Exam Date: 01/02/2024 14:30 Report Date: 01/04/2024 07:35 At the request of: GRICELDA EDMOND Procedure: XR lumbar spine 2-3V EXAMINATION: XR lumbar spine 2-3V HISTORY: Paresthesia R20.2 COMPARISON: No relevant comparison available. FINDINGS: BONES: Normal. No significant spondylosis, scoliosis, fracture, or visible bony lesion. DISC SPACES: Normal. No significant disc height narrowing, subluxation, or endplate abnormality. PARASPINOUS: Negative. No paraspinous abnormality is seen. OTHER: Negative. XR/XR lumbar spine 2-3V IMPRESSION: No acute abnormality Electronically authenticated by: SANDEEP NICKERSON Date: 01/04/2024 07:35
--- OUTSIDE RECORDS SUMMARY | 2024-01-02 14:28 | XMS_ITS | CCD ---
Author Organization [facility] Care Team Providers Care Hostess Name Role Phone GRICELDA EDMOND Consulting Unavailable GRICELDA EDMOND P Attending Unavailable FELI GRICELDA P Admitting Unavailable FELI GRICELDA P Primary Care Unavailable HOY ., DR SEGOVIA Consulting Unavailable HOY ., DR SEGOVIA Attending Unavailable HOY ., DR SEGOVIA Admitting Unavailable FELI, GRCIELDA P Primary Care Unavailable FELI, GRICELDA P Primary Care Unavailable FELI GRICELDA P Consulting Unavailable FELI GRICELDA P Attending Unavailable FELI GRICELDA P Admitting Unavailable MISBAH KRAFT Attending Unavailable Problems Active Problems Problem Classification Problem [...] Interpretation Reference Range Facil ity Covid-19 PCR (CVDTB)on SARS-CoV-2 (COVID-19) RNA VAISHALI+probe Ql (Unsp spec) Not detected Normal NOT DETECTED The [facility] Comment on above: Result Comment: When diagnostic [...] for this test is supported by the [employer] of Health and Human Service's declaration that [...] used). Performed By: #### C VDTBH #### [facility] [address] [place] [address] Dr. Damion Caceres INFLUENZA A AND B AGon 05-23 [facility] SEE BELOW Normal [facility] Comment on above: Result Comment: Nega tive for Flu A protein angiten. Infection due to Flu A cannot be ruled out. Flu A angiten in the sample may be below the detection limit of the test. Performed By: #### I NFLUAB #### [facility] [address] [place] [address] Dr. Dam[facility] SEE BEL[facility] Normal [facility] Comment on above: Result Comment: Nega tive for Flu B protein antigen. Infection due to Flu B cannot be ruled out. Flu B antigen in the sample may be below the detection limit of the test. Performed By: #### I NFLUAB #### [facility] [address] [place] [address] Dr. Damion Caceres INFLUENZA A AG Negative Normal NEGATIVE SEE COMMENT [facility] Comment on above: Performed By: #### I NFLUAB #### [facility] [address] [place] [address] Dr. Damion Caceres INFLUENZA B AG Negative Normal NEGATIVE SEE COMMENT [facility] Comment on above: Performed By: #### I NFLUAB #### [facility] [address] [place] [address] [address] Damion Caceres Covid-19 PCR ([facility])on SARS-CoV-2 (COVID-19) RNA VAISHALI+probe Ql (Unsp spec) Not detected Normal NOT DETECTED [facility] Comment on above: Result Comment: When diagnostic [...] for this test is supported by the [place] of Health and Human Service's declaration that [...] used). Performed By: #### C VDTBH #### [facility] [address] [place] [address] Dr. Damion Caceres INFLUENZA A AND B AGon 04-[facility] SEE BEL[facility] Normal [facility] Comment on above: Result Comment: Nega tive for Flu A protein angiten. Infection due to Flu A cannot be ruled out. Flu A angiten in the sample may be below the detection limit of the test. Performed By: #### I NFLUAB #### [facility] [address] [place] [address] Dr. Damion Caceres INFLUBNEG SEE BELOW Normal [facility] Comment on above: Result Comment: Nega tive for Flu B protein antigen. Infection due to Flu B cannot be ruled out. Flu B antigen in the sample may be below the detection limit of the test. Performed By: #### I NFLUAB #### [facility] [address] [place] [address] Dr. Damion Caceres INFLUENZA A AG Negative Normal NEGATIVE SEE COMMENT [facility] Comment on above: Performed By: #### I NFLUAB #### [facility] [address] [place] [address] [address] Damion Caceres INFLUENZA B AG Negative Normal NEGATIVE SEE COMMENT [facility] Comment on above: Performed By: #### I NFLUAB #### [facility] [address] [place] [address] Dr. Damion Caceres Covid-19 PCR (CVDTB)on 12-19 SARS-CoV-2 (COVID-19) RNA VAISHALI+probe Ql (Unsp spec) Not detected Normal NOT DETECTED [facility] Comment on above: Result Comment: This test is not yet approved or cleared by the [place] FDA. When there are no FDA-approved or cleared tests available, and other criteria are met, FDA can make tests available under an emergency access mechanism called an Emergency Use Authorization (EUA). The EUA for this test is supported by the [employer] of Health and Human Service's (HHS's) declaration [...] SARS-CoV-2. Performed By: #### C VDTBH #### [facility] [address] [place] [address] Dr. Damion Caceres INFLUENZA A AND B AGon 01-06 [facility] SEE BELOW Normal [facility] Comment on above: Result Comment: Nega tive for Flu A protein angiten. Infection due to Flu A cannot be ruled out. Flu A angiten in the sample may be below the detection limit of the test. Performed By: #### I NFLUAB #### [facility] [address] [place] [address] [address] Damion [facility]ace[facility] SEE BELOW Normal [facility] Comment on above: Result Comment: Nega tive for Flu B protein antigen. Infection due to Flu B cannot be ruled out. Flu B antigen in the sample may be below the detection limit of the test. Performed By: #### I NFLUAB #### [facility] [address] [address] [address] Damion Caceres INFLUENZA A AG Negative Normal NEGATIVE SEE COMMENT [facility] Comment on above: Performed By: #### I NFLUAB #### [facility] [address] [place] [address] [address] Damion Caceres INFLUENZA B AG Negative Normal NEGATIVE SEE COMMENT [facility] Comment on above: Performed By: #### I NFLUAB #### [facility] [address] [place] [address] [address] Damion Caceres INTERNAL CONTROLS Within Normal Limits Normal Wi thin Normal Limits [facility] Comment on above: Performed By: #### I NFLUAB #### [facility] [address] [place] [address] Dr. Damion Caceres Encounters Encounter Date Encounter Type Care Provider Facility Start: 12-12-2023 End: 12-12-2023 ambulatory MISBAH KRAFT Not Available Start: 05-23-2022 End: 05-23-2022 ambulatory GRICELDA EDMOND Facility:[facility] Start: 04-20-2022 End: 04-20-[address] LUCA PILLAI . Facility:[facility] Start: 01-06-2022 End: 01-06-2022 ambulatory GRICELDA EDMOND Facility:[facility] Payers Date Payer Category Payer Unknown [id number] [id number] [id number] 2005 Unknown [id number] [id number] 2003 Unknown [id number] [id number] 1961 Unknown [id number] Summary Purpose Family History No Family History Records FoundNo Family History Records Found Advance Directives No Advanced Directives Records FoundNo Advanced Directives Records Found Additional Source Comments INFORMATION SOURCE (unrecogn ized section and content) DATE CREATED AUTHOR 05/25/2022 [facility] DATE CREATED AUTHOR AUTHOR'S RONA PURDY 12/14/2023 [facility] dical Specialists [facility] FOR RECORDS PERTAINING TO PATIENTS WHO ARE [...] BE BASED ON THE PRIMARY CLINICAL RECORDS. [employer] provides no warranty or guarantee of the accuracy or completeness of information in this document.
== END 2024-01-02 14:16 | disposition home or self-care (01) ==
LOC: RAD 14:17
PROVIDERS: PCP Family Medicine; Visit Provider Nurse Practitioner Family
DX: R20.2 Paresthesia of skin (principal)
CPT/HCPCS: 72100

== ENCOUNTER 2024-02-01 18:24 | Emergency (ER) | payer BC, SELFPAY ==
[2024-02-01 18:27] VITALS: BP 145/104; PULSE 107; TEMP 36.5; BMI 57.1
--- OUTSIDE RECORDS SUMMARY | 2024-02-01 18:29 | XMS_ITS | CCD ---
Author Organization [facility] Care Team Providers Care Component Assembler Name Role Phone SABINO EDMONDELA P Consulting Unavailable FELI GRICELDA P Attending Unavailable FELI, GRICELDA P Admitting Unavailable FELI, GRICELDA P Primary Care Unavailable ROSAS ., DR SEGOVIA Consulting Unavailable ROSAS ., DR SEGOVIA Attending Unavailable SPEEDYY ., DR SEGOVIA Admitting Unavailable FELI, GRICELDA P Primary Care Unavailable FELI, GRICELDA P Primary Care Unavailable FELI, GRICELDA P Consulting Unavailable FELI GRICELDA P Attending Unavailable FELI GRICELDA P Admitting Unavailable Unallocated , Noms Provider Primary Care Provi eliana MISBAH KRAFT Attending Unavailable MISBAH KRAFT Attending Unavailable Problems Active Problems Problem Classification Problem Date Documented Da te Episodic/Chronic Contraceptive and procreative management (1 source) Patient encounter status; Translations: [Encounter for other general counseling and advice on contraception] 01-04-2024 Episodic Menstrual disorders (1 source) Amenorrhea; Translations: [Amenorrhea, unspecified] 01-04-2024 Chronic Residual codes; unclassified (1 source) Pain, unspecified; [...] spec) Not detected Normal NOT DETECTED [facility] Comment on above: Result Comment: [...] for this test is supported by the [place] Gater of Health and Human Service's declaration that [...] used). Performed By: #### C VDTBH #### [facility] [address] [place] [address] Dr. Damion Caceres INFLUENZA A AND B AGon 05-23 INFLUBANNER SEE BELOW Normal [facility] Comment on above: Result Comment: Nega tive for Flu A protein angiten. Infection due to Flu A cannot be ruled out. Flu A angiten in the sample may be below the detection limit of the test. Performed By: #### I NFLUAB #### [facility] [address] [place] [address] Dr. Damion Caceres INFLUBNEG SEE BELOW Normal [facility] Comment on above: Result Comment: Nega tive for Flu B protein antigen. Infection due to Flu B cannot be ruled out. Flu B antigen in the sample may be below the detection limit of the test. Performed By: #### I NFLUAB #### [facility] [address] [place] [address] Dr. Damion Caceres INFLUENZA A AG Negative Normal NEGATIVE SEE COMMENT [facility] Comment on above: Performed By: #### I NFLUAB #### [facility] [address] [place] [address] Dr. Damion Caceres INFLUENZA B AG Negative Normal NEGATIVE SEE COMMENT [facility] Comment on above: Performed By: #### I NFLUAB #### [facility] [address] [place] [address] Dr. Damion Caceres [facility] PCR ([facility])on SARS-CoV-2 (COVID-19) RNA VAISHALI+probe Ql (Unsp spec) Not detected Normal NOT DETECTED [facility] Comment on above: Result Comment: [...] for this test is supported by the [place] of Health and Human Service's declaration that [...] used). Performed By: #### C VDTBH #### [facility] [address] [place] [address] Dr. Damion Caceres INFLUENZA A AND B AGon 04-20 INFLUANEGH SEE BELOW Normal [facility] Comment on above: Result Comment: Nega tive for Flu A protein angiten. Infection due to Flu A cannot be ruled out. Flu A angiten in the sample may be below the detection limit of the test. Performed By: #### I NFLUAB #### [facility] [address] [place] [address] Dr. Damion Caceres INFLUBNEGH SEE BELOW Normal [facility] Comment on above: Result Comment: Nega tive for Flu B protein antigen. Infection due to Flu B cannot be ruled out. Flu B antigen in the sample may be below the detection limit of the test. Performed By: #### I NFLUAB #### [facility] [address] [place] [address] Dr. Damion Caceres INFLUENZA A AG Negative Normal NEGATIVE SEE COMMENT [facility] Comment on above: Performed By: #### I NFLUAB #### [facility] [address] [place] [address] Dr. Damion Caceres INFLUENZA B AG Negative Normal NEGATIVE SEE COMMENT [facility] Comment on above: Performed By: #### I NFLUAB #### [facility] [address] [place] [address] Dr. Damion Caceres Covid-19 PCR ([facility])on 12-19 SARS-CoV-2 (COVID-19) RNA VAISHALI+probe Ql (Unsp spec) Not detected Normal NOT DETECTED [facility] Comment on above: Result Comment: This test is not yet approved or cleared by the [place] FDA. When there are no FDA-approved or cleared tests available, and other criteria are met, FDA can make tests available under an emergency access mechanism called an Emergency Use Authorization (EUA). The EUA for this test is supported by the [place] of Health and Human Service's (HHS's) declaration [...] consistent with SARS-CoV-2. Performed By: #### C VDTB #### [facility] [address] [place] [address] Dr. Damion Caceres INFLUENZA A AND B AGon 01-06 [facility] SEE BELOW Normal [facility] Comment on above: Result Comment: Nega tive for Flu A protein angiten. Infection due to Flu A cannot be ruled out. Flu A angiten in the sample may be below the detection limit of the test. Performed By: #### I NFLUAB #### [facility] [address] [place] [address] Dr. Damion Caceres [facility] SEE BELOW Normal [facility] Comment on above: Result Comment: Nega tive for Flu B protein antigen. Infection due to Flu B cannot be ruled out. Flu B antigen in the sample may be below the detection limit of the test. Performed By: #### I NFLUAB #### [facility] [address] [place] [address] Dr. Damion Caceres INFLUENZA A AG Negative Normal NEGATIVE SEE COMMENT [facility] Comment on above: Performed By: #### I NFLUAB #### [facility] [address] [place] [address] Dr. Damion Caceres INFLUENZA B AG Negative Normal NEGATIVE SEE COMMENT [facility] Comment on above: Performed By: #### I NFLUAB #### [facility] [address] [place] [address] Dr. Damion Caceres INTERNAL CONTROLS Within Normal Limits Normal Wi thin Normal Limits [facility] Comment on above: Performed By: #### I NFLUAB #### [facility] [address] [place] [address] Dr. Damion Caceres Vital Signs Date Time Vital Sign Value Performing Clinician Carmeli celestino 01-04-2024 13:53-0400 Body weight 174.18 kg Misbah Kraft MD Work Phone: [facility] 01-04-2024 13:53-0400 Diastolic blood pressure 80 mm[Hg] Misbah Kraft MD Work Phone: [facility] 01-04-2024 13:53-0400 Systolic blood pressure 120 mm[Hg] Misbah Kraft MD Work Phone: [facility] Encounters Encounter Date Encounter Type Care Provider Facility Start: 01-04-2024 End: 01-04-2024 Office outpatient visit 10 minutes Misbah Kraft MD Work Phone: [facility] Comment on above: Amenorrhea; Family planning Start: 01-04-2024 End: 01-04-2024 ambulatory MISBAH KRAFT Not Available Start: 12-12-2023 End: 12-12-2023 ambulatory MISBAH KRAFT Not Available Start: 05-23-2022 End: 05-23-2022 ambulatory GRICELDA EDMOND Facility:[facility] Start: 04-20-2022 End: 04-20-[address] LUCA PILLAI . Facility:[facility] Start: 01-06-2022 End: 01-06-2022 ambulatory GRICELDA EDMOND Facility:[facility] Plan of Treatment Date Care Activity Detail Author Start: 11-19-2023 Influenza vaccination Influenza Vacc ine (#1) [facility] Healthcare Payers Date Payer Category Payer [facility] [id number] 2003 Unknown [id number] 2003 Unknown [id number] 2003 Unknown [id number] 2003 Unknown [id number] 2003 Unknown [id number] 1959 Unknown [id number] Social History Date Type Detail Facility Start: 12-12-2023 Tobacco smoking status NHIS Never sm oked tobacco [facility] Start: 12-12-2023 Tobacco use and exposure Smoke less tobacco non-user [facility] Start: 01-04-2024 Alcoholic beverage intake Curr ent drinker of alcohol (finding) [facility] Start: 12-12-2023 End: 01-04-2024 [facility] Start: 12-12-2023 End: 01-04-2024 Alcohol Use Disorder Identification Test - Consumption [AUDIT-C] [facility] How often to you hav e a drink containing alcohol? Monthly or less [facility] How many standard dr inks containing alcohol do you have on a typical day? 1 or 2 [facility] How often do you hav e 6 or more drinks on 1 occasion? Less than monthly [facility] Start: 2005 Sex assigned at Not on file [facility] History of Present illness Narrative 01-04-2024 Misbah Kraft MD - 01/04/2024 1:45 PM EDT Note Date & Type Note Facility 01-04-2024 History of Presen t illness Narrative Images from the original note were not included. Misbah Kraft MD Obstetrics and Gynecology Patient: Jessica Baldwin : 2005 (18 y.o.) Yearly Wellness Exam Date: 12/12/2023 Reason for Visit - Chief Complaint Patient presents with Contraception Family planning Gynecologic Exam LMP: 11/17/2023 Complaints: Patient would like to discuss fertility and family planning. The patient reports having fertility issues and has been trying to get for the past year and a half without success. She is concerned about the possibility of having polycystic ovarian syndrome (PCOS) as her sister has been diagnosed with the condition. The patient has been experiencing symptoms such as lightheadedness and vomiting for a couple of weeks, raising the suspicion of a potential . Menses irregular menses The patient mentions feeling tired and has concerns about her fertility. She reports having irregular periods, with the most recent one being on November 16. She also experiences acne, which she is treating with a cream. The patient denies any hair growth. Her progesterone level was borderline at 3.8. She is interested in knowing if she will be able to have children in the future but is not currently trying to conceive. Visit Vitals BP 128/80 Wt 375 lb LMP 11/18/2023 (Exact Date) OB Status Having periods Smoking Status Never History of Present Illness, Associated Treatments and Results - OB History Para Term AB Living 0 0 0 0 0 0 SAB IAB Ectopic Multiple Live Births 0 0 0 0 0 Review of Systems - Constitutional: Negative. HENT: Negative. Eyes: Negative. Respiratory: Negative. Cardiovascular: Negative. Gastrointestinal: Negative. Endocrine: Negative. Genitourinary: Negative. Musculoskeletal: Negative. Skin: Negative. Allergic/Immunologic: Negative. Neurological: Negative. Hematological: Negative. Psychiatric/Behavioral: Negative. No Known Allergies No current outpatient medications on file. History reviewed. No pertinent past medical history. Past Surgical History: Procedure Laterality Date TONSILLECTOMY Family History Problem Relation Name Age of Onset Heart failure Mother Polycystic ovary syndrome Sister Crohn's disease Father's Brother Social History Tobacco Use Smoking Status Never Smokeless Tobacco Never Physical Exam - General appearance, mentation, extraocular movements, facial strength and movement, hearing, upper and lower extremity strength and tone, sensation to gross testing, coordination, and gait are normal or at baseline unless noted below. Physical Exam Constitutional: Appearance: Normal appearance. Genitourinary: Breasts: Breasts are soft. Right: Normal. Left: Normal. HENT: Head: Normocephalic and atraumatic. Pulmonary: Breath sounds: Normal breath sounds and air entry. Abdominal: Tenderness: There is no abdominal tenderness. Neurological: Mental Status: She is alert and oriented to person, place, and time. Psychiatric: Mood and Affect: Mood normal. Behavior: Behavior normal. Assessment/Plan ICD-10-CM 1. Encounter for gynecological examination without abnormal finding Z01.419 2. Family planning Z30.09 Exam performed that was unremarkable 1. Fertility concerns and possible PCOS: - Patient reports difficulty conceiving for the past year and a half and has a family history of PCOS (sister). - Plan: a) Order hormonal blood work to evaluate for PCOS. b) Schedule pelvic ultrasound to assess for polycystic ovarian disease. c) Follow-up appointment to discuss blood work and ultrasound results and brgin possible treatmenr 2. Possible : - Patient reports symptoms suggestive of (lightheadedness, nausea) for the past couple of weeks. - Plan: a) Order beta HCG quantitative blood test to confirm or rule out . b) Instruct patient to sign up for MyChart to access test results. 3. STD screening: - Patient requests STD screening due to past sexual activity. - Plan: a) Perform Pap smear during the visit. b) Order urine culture for STD screening. c) Order blood work for STD screening (including HIV, syphilis, hepatitis B and C). d) Follow-up appointment to discuss screening results and any necessary treatment. 4. Patient education: - Plan: a) Encourage patient to sign up for MyChart to access test results and medical information. b) Instruct patient to schedule follow-up appointments for discussing test results and further evaluation. Return 1 year/prn 5. Polycystic ovarian disease (PCOD) - soft signs: - Irregular periods: Yes - Acne: Yes, using cream for treatment - Hair growth: No - Plan: a) Monitor symptoms. b) Consider further evaluation if signs worsen or additional criteria are met. 6. Infertility concerns: - Progesterone level: Borderline at 3.8 - Plan: a) Reassure the patient that there is no significant evidence of infertility. b) Discuss the potential use of Clomid if the patient decides to pursue in the future. documented in this encounter [facility] Evaluation note Note Date & Type Note Facility Evaluation note Diagnosis Amenorrhea Absence of menstruation Family planning Other general counseling and advice for contraceptive management documented in this encounter [facility] Summary Purpose Family History No Family History Records FoundNo Family History Records Found Advance Directives No Advanced Directives Records FoundNo Advanced Directives Records Found Additional Source Comments INFORMATION SOURCE (unrecogn ized section and content) DATE CREATED AUTHOR 05/25/2022 [facility] DATE CREATED AUTHOR 'S ORGANIZ ATION 01/07/2024 [facility] EP[facility] Reason for Visit (unrecogniz ed section and content) Reason Comments Follow-up Care Teams (unrecognized sec tion and content) Component Assembler Relationship Specialty Start Date End Date Unallocated, Noms Provider, [address] [place] [address] PCP - General Family Medicine 01/04/24 FOR RECORDS PERTAINING TO PATIENTS WHO ARE [...] BE BASED ON THE PRIMARY CLINICAL RECORDS. [facility] [employer] [facility]. provides no warranty or guarantee of the accuracy or completeness of information in this document.
--- NOTE | 2024-02-01 18:45 | PC.NURSE ---
Cloudy yellow urine to lab
[2024-02-01 19:24] LABS: Bilirubin Urine NEGATIVE (NEGATIVE); Blood Urine TRACE-I (NEGATIVE); Clarity Urine CLEAR (CLEAR); Color Urine LT. YELLOW (YELLOW); Glucose Urine UA NEGATIVE (NEGATIVE); Ketones Urine NEGATIVE (NEGATIVE); Leukocyte Esterase Urine MODERATE (NEGATIVE); Nitrite Urine NEGATIVE (NEGATIVE); Protein Urine NEGATIVE (NEG/TRACE); Specific Gravity Urine 1.025 (1.005-1.025); Urobilinogen Urine 0.2 EU/dL (0.2-1.0)
[2024-02-01 19:26] LABS: HCG Qualitative Urine* NEGATIVE (NEGATIVE); Internal Control Within Normal Limits
[2024-02-01 19:27] LABS: Urine Microscopic Indicated YES
[2024-02-01 19:36] LABS: Bacteria Urine SMALL #/HPF (NONE SEEN); Cast Seen? NONE SEEN #/LPF (NONE SEEN); Crystals Seen? None Seen #/HPF (None Seen); Mucus Urine NONE SEEN (NONE SEEN); RBC Urine 0-2 #/HPF (0-2); Squamous Epithelial Cell Urine MANY #/LPF (NONE/RARE); Urine Culture Indicated YES
--- NOTE | 2024-02-01 19:54 | ED_ITS ---
HPI - Female Genitourinary General Chief complaint: Urogenital-Female Stated complaint: genital Time Seen by Provider: 02/01/24 18:41 Source: patient Mode of arrival: walk-in Limitations: no limitations History of Present Illness HPI Narrative: Patient is a 18-year-old female who presents to the emergency department for a 1 day history of burning and itching in the vaginal area. She denies any specific lesions. 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 She has no abdominal pain, fevers or vomiting. She is concerned about her vaginal odor. Related Data Home Medications ?Medication ?Instructions ?Recorded ?Confirmed desvenlafaxine succinate 50 mg 50 mg PO Q24H 02/01/24 02/01/24 tablet,extended release 24 hr Previous Rx's ?Medication ?Instructions ?Recorded doxycycline hyclate 100 mg tablet 100 mg PO BID 7 days #14 tabs 02/01/24 Allergies Allergy/AdvReac Type Severity Reaction Status Date / Time No Known Drug Allergies Allergy Verified 02/01/24 18:33 Review of Systems ROS Constitutional Denies: fever or chills Ears, nose, mouth, and throat Denies: throat pain Cardiovascular Denies: chest pain Respiratory Denies: shortness of breath or cough Gastrointestinal Denies: abdominal pain, nausea or vomiting Genitourinary Reports: vaginal discharge; Denies: urinary frequency Integumentary/Breast Denies: rash Neurological Denies: numbness in extremities or weakness in extremities Hematologic/Lymphatic Denies: easy bruising or easy bleeding PFSH PFSH Social History Smoking status: Former smoker Little interest or pleasure in doing things: not at all Feeling down, depressed, or hopeless: not at all Exam Narrative Exam Narrative: Gen.: Awake, alert, in no distress, morbidly obese female Head: Normocephalic, atraumatic ENT: Moist mucous membranes Respiratory: No respiratory distress Gastrointestinal: Abdomen is soft, nondistended and nontender to palpation : Vaginal discharge noted on speculum exam with no blistering or herpes like lesions. No cervical motion tenderness. Speculum exam performed with Brenda Sweeney RN at bedside throughout the duration of the exam Extremities: Moves extremities equally Psych: Normal mood and affect Neuro: No focal neuro deficit Skin: Warm, dry, intact Constitutional Vital Signs, click to edit/add: Last Vital Signs Temp 97.7 F 02/01/24 18:27 Pulse 107 H 02/01/24 18:27 Resp 20 02/01/24 18:27 BP 145/104 H 02/01/24 18:27 Course Vital Signs Vital signs: Vital Signs Temperature 97.7 F 02/01/24 18:27 Pulse Rate 107 H 02/01/24 18:27 Respiratory Rate 20 02/01/24 18:27 Blood Pressure 145/104 H 02/01/24 18:27 Temperature 97.7 F 02/01/24 18:27 Pulse Rate 107 H 02/01/24 18:27 Respiratory Rate 20 02/01/24 18:27 Blood Pressure 145/104 H 02/01/24 18:27 MDM - Female Genitourinary MDM Narrative Medical decision making narrative: Urine specimen shows bacteria but is contaminated with epithelial cells so we will wait for culture. Gonorrhea and chlamydia specimen was obtained through the patient's urine. Cervical culture was obtained, at this time we are not able to perform a wet prep due to equipment. Patient expresses concern for possible STD exposure so she was treated with Rocephin, Diflucan in the ER and placed on doxycycline for home for antibiotic coverage. She should follow-up with her tire center manager. Return to the ER if symptoms change or worsen SUPERVISED APC VISIT, PHYSICIAN ATTESTATION: Based on the medical record the care appears appropriate. ? Medical Records Attestation: I reviewed the patient's medical records. Lab Data Attestation: I reviewed the patient's lab results. Labs: Lab Results 02/01/24 Range/Units 18:40 Urine Color Lt. yellow (YELLOW) Urine Clarity Clear (CLEAR) Urine pH 6.0 (5.0-9.0) Ur Specific [place]cher 1.025 (1.005-1.025) Urine Protein Negative (NEG/TRACE) mg/dL Urine Glucose (UA) Negative (NEGATIVE) mg/dL Urine Ketones Negative (NEGATIVE) mg/dL Urine Occult Blood Trace-i (NEGATIVE) Urine Nitrite Negative (NEGATIVE) Urine Bilirubin Negative (NEGATIVE) Urine Urobilinogen 0.2 (0.2-1.0) EU/dL Ur Leukocyte Esterase Moderate A (NEGATIVE) Urine RBC 0-2 (0-2) #/HPF Urine WBC 10-20 A (NONE SEEN) #/HPF Ur Squamous Epith Cells Many A (NONE/RARE) #/LPF Urine Crystals None seen (None Seen) #/HPF Urine Bacteria Small A (NONE SEEN) #/HPF Urine Casts None seen (NONE SEEN) #/LPF Urine Mucus None seen (NONE SEEN) Ur Culture Indicated? Yes Urine HCG, Qual Negative (NEGATIVE) Discharge Plan Discharge Chief Complaint: Urogenital-Female Clinical Impression: Vaginitis Patient Disposition: Home, Self-Care Time of Disposition Decision: 19:52 Condition: Good Prescriptions / Home Meds: New doxycycline hyclate 100 mg tablet 100 mg PO BID 7 Days Qty: 14 0RF No Action desvenlafaxine succinate 50 mg tablet extended release 24 hr 50 mg PO Q24H Print Language: Swedish Instructions: Vaginal Discharge (ED) Referrals: Catrachito Marshall MD [Primary Care Provider] - 1 week MISBAH KRAFT [Physician] - As soon as possible
[2024-02-01] MEDS: FLUCONAZOLE 150 MG TABLET PO (20:21)
[2024-02-01] MEDS: CEFTRIAXONE 500 MG VIAL IM (20:21)
[2024-02-05 20:08] LABS: Neisseria gonorrhoeae, NAA Negative (Negative)
== END 2024-02-01 20:38 | disposition home or self-care (01) ==
PROVIDERS: Physician Assistant; Emergency Provider Emergency Medicine; PCP Family Medicine
DX: N76.0 Acute vaginitis (principal); Z87.891 Personal history of nicotine dependence; E66.01 Morbid (severe) obesity due to excess calories; Z68.43 Body mass index [BMI] 50.0-59.9, adult
CPT/HCPCS: 81001; 84703; 87070; 87086; 87150; 87491; 87591; 96372; 99285; J0696

== ENCOUNTER 2024-05-13 12:15 | Outpatient (OUT) | payer BC, SELFPAY ==
--- NOTE | 2024-05-13 12:45 | XR_ITS ---
The [address] [address] Patient Name: JUNIOR HERRERA MRN: [id number] date: 2005 Sex: F Assigned Patient Location: [facility] Current Patient Location: [facility] Accession/Order Number: [id number] Exam Date: 05/13/2024 14:13 Report Date: 05/13/2024 14:18 At the request of: LUCA PILLAI MD Procedure: XR knee FIONA 3V BILATERAL KNEES - 3 views each CLINICAL DATA: Bilateral lower extremity weakness and tingling for the past month. No reported injury. COMPARISON: None AP, lateral and internal oblique views were obtained on both sides. No acute fractures or dislocation are identified. There is a suspected benign fibrous cortical defect at the posterior metaphysis of the right tibia. No disproportionate joint space narrowing is seen. There is mild lateral tibiofemoral joint compartment marginal spurring on the right. No knee effusions or focal soft tissue swelling are noted. XR/XR knee FIONA 3V IMPRESSION: NO ACUTE BONY FINDINGS. Impression dictated by: Sandra Mcdonald M.D.05/13/2024 2:18 PM Dictation Location: [facility] Electronically authenticated by: [id number] Date: 05/13/2024 14:18
== END 2024-05-13 12:16 | disposition home or self-care (01) ==
PROVIDERS: PCP Family Medicine; Visit Provider Family Medicine
DX: M17.0 Bilateral primary osteoarthritis of knee (principal)
CPT/HCPCS: 73562

== ENCOUNTER 2024-06-29 15:14 | Emergency (ER) | payer BC, SELFPAY ==
[2024-06-29 15:17] VITALS: BP 128/98; PULSE 124; TEMP 36.9; O2SAT 98; BMI 44.3
--- OUTSIDE RECORDS SUMMARY | 2024-06-29 15:20 | XMS_ITS | CCD ---
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 Name Role Phone GRICELDA EDMOND Consulting Unavailable GRICELDA EDMOND P Attending Unavailable FELI GRICELDA P Admitting Unavailable FELI GRICELDA P Primary Care Unavailable ROSAS ., DR SEGOVIA Consulting Unavailable ROSAS ., DR SEGOVIA Attending Unavailable ROSAS ., DR SEGOVIA Admitting Unavailable FELI, GRICELDA P Primary Care Unavailable FELI GRICELDA P Primary Care Unavailable FELI GRICELDA P Consulting Unavailable FELI GRICELDA P Attending Unavailable GRICELDA EDMOND Admitting Unavailable Unallocated MD, [facility] Provider Primary Care Provi eliana MISBAH KRAFT Attending Unavailable MISBAH KRAFT Attending Unavailable Unavailable Primary Care Provider Unavailabl e Medications Current Medications Medication Drug Class(es) Dates Sig (Normalized) Sig (Original) clindamycin 20 mg/ml vaginal cream (1 source) Lincosamide Antibacterial Start: 12-15-2023 End: 12-22-2023 clindamycin (Cleocin) 2 % vaginal cream Indications: Bacterial Vaginosis Insert 1 applicator into the vagina at bedtime for 7 days 40 g 2 12/15/2023 12/22/2023 Active Problems Active Problems Problem Classification Problem Date Documented Date Episodic/Chronic Immunizations and screening for infectious disease (7 sources) Patient encounter status; Translations: [Encounter for other general counseling and advice on contraception] 01-04-2024 Episodic Inflammatory diseases of female pelvic organs (1 source) Acute vaginitis; Translations: [Acute vaginitis] 12-15-2023 Episodic Menstrual disorders (3 sources) Amenorrhea; Translations: [Amenorrhea, unspecified] 01-04-2024 Chronic Other endocrine disorders (2 sources) Disorder of endocrine system; Translations: [Endocrine disorder, unspecified] 12-12-2023 Episodic Other female genital disorders (2 sources) Vaginal discharge; Translations: [Other specified noninflammatory disorders of vagina] 12-12-2023 Episodic Residual codes; unclassified (1 source) Pain, unspecified; [...] Interpretation Reference Range Facil it[facility]on SARS-CoV-2 (COVID-19) RNA VAISHALI+probe Ql (Unsp spec) Not detected Normal NOT DETECTED [facility] Comment on above: Result Comment: When [...] for this test is supported by the Soliciting Freight Agent of Health and Human Service's declaration that [...] used). Performed By: #### C VDTB #### [facility] [address] [place] [address] Dr. Damion Caceres INFLUENZA A AND B AGon 05-23 [facility] SEE BELOW Normal [facility] Comment on above: Result Comment: Nega tive for Flu A protein angiten. Infection due to Flu A cannot be ruled out. Flu A angiten in the sample may be below the detection limit of the test. Performed By: #### I NFLUAB #### [facility] [address] [place] [address] Dr. [facility] Normal [facility] Comment on above: Result Comment: Nega tive for Flu B protein antigen. Infection due to Flu B cannot be ruled out. Flu B antigen in the sample may be below the detection limit of the test. Performed By: #### I NFLUAB #### [facility] [address] [place] [address] Dr. Damion Caceres INFLUENZA A AG Negative Normal NEGATIVE SEE COMMENT [facility] Comment on above: Performed By: #### I NFLUAB #### [facility] [address] [place] [address] Dr. Damion Caceres INFLUENZA B AG Negative Normal NEGATIVE SEE COMMENT [facility] Comment on above: Performed By: #### I NFLUAB #### [facility] [address] [place] [address] Dr. Damion Caceres Covid-19 PCR ([facility])on SARS-CoV-2 (COVID-19) RNA VAISHALI+probe Ql (Unsp spec) Not detected Normal NOT DETECTED [facility] Comment on above: Result Comment: When [...] for this test is supported by the Soliciting Freight Agent of Health and Human Service's declaration that [...] used). Performed By: #### C VDTBH #### [facility] [address] [place] [address] Dr. Damion Caceres INFLUENZA A AND B AGon 04-20 [facility] SEE BELOW Normal [facility] Comment on above: Result Comment: Nega tive for Flu A protein angiten. Infection due to Flu A cannot be ruled out. Flu A angiten in the sample may be below the detection limit of the test. Performed By: #### I NFLUAB #### [facility] [address] [place] [address] Dr. Damion Caceres INFLUBNEG SEE BELOW Normal [facility] Comment on above: Result Comment: Nega tive for Flu B protein antigen. Infection due to Flu B cannot be ruled out. Flu B antigen in the sample may be below the detection limit of the test. Performed By: #### I NFLUAB #### [facility] [address] [place] [address] Dr. Damion Caceres INFLUENZA A AG Negative Normal NEGATIVE SEE COMMENT [facility] Comment on above: Performed By: #### I NFLUAB #### [facility] [address] [place] [address] Dr. Damion Caceres INFLUENZA B AG Negative Normal NEGATIVE SEE COMMENT [facility] Comment on above: Performed By: #### I NFLUAB #### [facility] [address] [place] [address] Dr. Damion Caceres Covid-19 PCR ([facility])on 12-19 SARS-CoV-2 (COVID-19) RNA VAISHALI+probe Ql (Unsp spec) Not detected Normal NOT DETECTED [facility] Comment on above: Result Comment: This test is not yet approved or cleared by the [place] FDA. When there are no FDA-approved or cleared tests available, and other criteria are met, FDA can make tests available under an emergency access mechanism called an Emergency Use Authorization (EUA). The EUA for this test is supported by the Soliciting Freight Agent of Health and Human Service's (HHS's) declaration [...] SARS-CoV-2. Performed By: #### C VDTB #### [facility] [address] [place] [address] Dr. Damion Caceres INFLUENZA A AND B [facility] 01-06 [facility] SEE BELOW Normal [facility] Comment on above: Result Comment: Nega tive for Flu A protein angiten. Infection due to Flu A cannot be ruled out. Flu A angiten in the sample may be below the detection limit of the test. Performed By: #### I NFLUAB #### [facility] [address] [place] [address] Dr. Damion Caceres INFLUBANNER SEE BELOW Normal [facility] Comment on above: Result Comment: Nega tive for Flu B protein antigen. Infection due to Flu B cannot be ruled out. Flu B antigen in the sample may be below the detection limit of the test. Performed By: #### I NFLUAB #### [facility] [address] [place] [address] Dr. Damion Caceres INFLUENZA A AG Negative Normal NEGATIVE SEE COMMENT [facility] Comment on above: Performed By: #### I NFLUAB #### [facility] [address] [place] [address] Dr. Damion Caceres INFLUENZA B AG Negative Normal NEGATIVE SEE COMMENT [facility] Comment on above: Performed By: #### I NFLUAB #### [facility] [address] [place], [place] [address] Dr. Damion Caceres INTERNAL CONTROLS Within Normal Limits Normal Wi thin Normal Limits [facility] Comment on above: Performed By: #### I NFLUAB #### [facility] [address] [place], [place] [address] Dr. Damion Caceres Vital Signs Date Time Vital Sign Value Performing Clinician Faci lity 01-04-2024 13:53-0400 Body weight 174.18 kg Misbah Kraft MD Work Phone: [facility] 01-04-2024 13:53-0400 Diastolic blood pressure 80 mm[Hg] Misbah Kraft MD Work Phone: [facility] 01-04-2024 13:53-0400 Systolic blood pressure 120 mm[Hg] Misbah Kraft MD Work Phone: [facility] 12-12-2023 13:44-0400 Body weight 170.1 kg Misbah Kraft MD Work Phone: [facility] 12-12-2023 13:44-0400 Diastolic blood pressure 80 mm[Hg] Misbah Kraft MD Work Phone: [facility] 12-12-2023 13:44-0400 Systolic blood pressure 128 mm[Hg] Misbah Kraft MD Work Phone: [facility] Healthcare Encounters Encounter Date Encounter Type Care Provider Facility Start: 01-04-2024 End: 01-04-2024 Office outpatient visit 10 minutes Misbah Kraft MD Work Phone: [facility] Comment on above: Amenorrhea; Family planning Start: 01-04-2024 End: 01-04-2024 ambulatory MISBAH KRAFT Not Available Start: 12-15-2023 End: 12-15-2023 Orders Only Misbah Kraft MD Work Phone: [facility] Comment on above: Acute vaginitis (Dahiana obed Dx) Start: 12-12-2023 End: 12-12-2023 Initial preventive medicine new pt age 18-39yrs Misbah Kraft MD Work Phone: [facility] Comment on above: Hormone imbalance (P rimary Dx); Encounter for gynecological examination without abnormal finding; Family planning; Thyroid disorder screen; Screen for STD (sexually transmitted disease); Amenorrhea; Vaginal discharge Start: 12-12-2023 End: 12-12-2023 Patient encounter status Misbah Kraft MD Work Phone: [facility] Healthcare Work Phone: Start: 12-12-2023 End: 12-12-2023 ambulatory MISBAH KRAFT Not Available Start: 05-23-2022 End: 05-23-2022 ambulatory GRICELDA EDMOND Facility:[facility] Start: 04-20-2022 End: 04-20-[address] LUCA PILLAI . Facility: Start: 01-06-2022 End: 01-06-2022 ambulatory GRICELDA EDMOND Facility: Plan of Treatment Date Care Activity Detail Author Start: 01-04-2024 End: 01-04-2024 Patient encounter procedure 01/04/2024 1:45 PM EDT Office Visit [facility] [address] [place] [id number] Misbah Kraft MD [address] [place] [address] [facility] Start: 01-04-2024 End: 01-04-2024 Professional / ancillary services management 01/04/2024 1:00 PM EDT Ancillary Procedure [facility] [address] [place] [id number] [facility] Start: 12-12-2023 End: 12-11-2024 Cortisol Cortisol Lab Routine Hormone imbalance Expected: 12/12/2023 (Approximate), Expires: 12/11/2024 [facility] Comment on above: Expected: 12/12/2023 (Approximate), Expires: 12/11/2024 Start: 12-12-2023 End: 12-11-2024 DHEA-sulfate DHEA-sulfate Lab Routine Hormone imbalance Expected: 12/12/2023 (Approximate), Expires: 12/11/2024 [facility] Comment on above: Expected: 12/12/2023 (Approximate), Expires: 12/11/2024 Start: 12-12-2023 End: 12-11-2024 Estradiol Estradiol Lab Routine Hormone imbalance Expected: 12/12/2023 (Approximate), Expires: 12/11/2024 [facility] Healthcare Comment on above: Expected: 12/12/2023 (Approximate), Expires: 12/11/2024 Start: 12-12-2023 End: 12-11-2024 Estrone Estrone Lab Routine Hormone imbalance Expected: 12/12/2023 (Approximate), Expires: 12/11/2024 [facility] Comment on above: Expected: 12/12/2023 (Approximate), Expires: 12/11/2024 Start: 12-12-2023 End: 12-11-2024 Follicle stimulating hormone Follicle stimulating hormone Lab Routine Hormone imbalance Thyroid disorder screen Expected: 12/12/2023 (Approximate), Expires: 12/11/2024 [facility] Healthcare Comment on above: Expected: 12/12/2023 (Approximate), Expires: 12/11/2024 Start: 12-12-2023 End: 12-11-2024 hCG, quantitative hCG, quantitative Lab Routine Amenorrhea Expected: 12/12/2023 (Approximate), Expires: 12/11/2024 [facility] Healthcare Comment on above: Expected: 12/12/2023 (Approximate), Expires: 12/11/2024 Start: 12-12-2023 End: 12-11-2024 Hepatitis B virus surface Ag [Presence] in Serum or Plasma by Immunoassay Hepatitis B surface antigen Lab Routine Screen for STD (sexually transmitted disease) Expected: 12/12/2023 (Approximate), Expires: 12/11/2024 [facility] Healthcare Comment on above: Expected: 12/12/2023 (Approximate), Expires: 12/11/2024 Start: 12-12-2023 End: 12-11-2024 Hepatitis C virus Ab [Presence] in Serum or Plasma by Immunoassay Hepatitis C antibody Lab Routine Screen for STD (sexually transmitted disease) Expected: 12/12/2023 (Approximate), Expires: 12/11/2024 [facility] Healthcare Comment on above: Expected: 12/12/2023 (Approximate), Expires: 12/11/2024 Start: 12-12-2023 End: 12-11-2024 HIV-1/HIV-2 antigen/antibody combination immunoassay HIV-1 and HIV-2 antibodies Lab Routine Screen for STD (sexually transmitted disease) Expected: 12/12/2023 (Approximate), Expires: 12/11/2024 [facility] Healthcare Comment on above: Expected: 12/12/2023 (Approximate), Expires: 12/11/2024 Start: 12-12-2023 End: 12-11-2024 HSV 1 antibody, IgG HSV 1 antibody, IgG Lab Routine Screen for STD (sexually transmitted disease) Expected: 12/12/2023 (Approximate), Expires: 12/11/2024 [facility] Healthcare Comment on above: Expected: 12/12/2023 (Approximate), Expires: 12/11/2024 Start: 12-12-2023 End: 12-11-2024 HSV 2 antibody, IgG HSV 2 antibody, IgG Lab Routine Screen for STD (sexually transmitted disease) Expected: 12/12/2023 (Approximate), Expires: 12/11/2024 [facility] Healthcare Comment on above: Expected: 12/12/2023 (Approximate), Expires: 12/11/2024 Start: 12-12-2023 End: 12-11-2024 Luteinizing hormone Luteinizing hormone Lab Routine Hormone imbalance Thyroid disorder screen Expected: 12/12/2023 (Approximate), Expires: 12/11/2024 [facility] Healthcare Comment on above: Expected: 12/12/2023 (Approximate), Expires: 12/11/2024 Start: 12-12-2023 End: 12-11-2024 Progesterone Progesterone Lab Routine Hormone imbalance Expected: 12/12/2023 (Approximate), Expires: 12/11/2024 [facility] Healthcare Comment on above: Expected: 12/12/2023 (Approximate), Expires: 12/11/2024 Start: 12-12-2023 End: 12-11-2024 Reagin Ab [Presence] in Serum by RPR RPR Lab Routine Screen for STD (sexually transmitted disease) Expected: 12/12/2023 (Approximate), Expires: 12/11/2024 [facility] Healthcare Comment on above: Expected: 12/12/2023 (Approximate), Expires: 12/11/2024 Start: 12-12-2023 End: 12-11-2024 Sex hormone binding globulin Sex hormone binding globulin Lab Routine Hormone imbalance Expected: 12/12/2023 (Approximate), Expires: 12/11/2024 [facility] Comment on above: Expected: 12/12/2023 (Approximate), Expires: 12/11/2024 Start: 12-12-2023 End: 12-11-2024 Testosterone, free, total Testosterone, free, total Lab Routine Hormone imbalance Expected: 12/12/2023 (Approximate), Expires: 12/11/2024 [facility] Comment on above: Expected: 12/12/2023 (Approximate), Expires: 12/11/2024 Start: 12-12-2023 End: 12-11-2024 Thyrotropin [Units/volume] in Serum or Plasma TSH Lab Routine Hormone imbalance Thyroid disorder screen Expected: 12/12/2023 (Approximate), Expires: 12/11/2024 [facility] Work Phone: Comment on above: Expected: 12/12/2023 (Approximate), Expires: 12/11/2024 Start: 11-19-2023 Influenza vaccination Influenza Vacc ine (#1) [facility] miscellaneous test Damon mis cellaneous test Lab Routine Screen for STD (sexually transmitted disease) Amenorrhea Vaginal discharge Ordered: 12/12/2023 [facility] Comment on above: Ordered: 12/12/2023 NuSwab Vaginitis Plu s (VG+) NuSwab Vaginitis Plus (VG+) Microbiology Routine Screen for STD (sexually transmitted disease) Amenorrhea Vaginal discharge Ordered: 12/12/2023 [facility] Comment on above: Ordered: 12/12/2023 Payers Date Payer Category [facility]ayer [facility] [id number] 2017 Unknown BCBS BCBS xxxxxx [id number] 2017-Present [phone] [address] [place] [id number] 2003 Unknown [id number] 2003 Unknown [id number] 2003 Unknown [id number] 2003 Unknown [id number] 2003 Unknown [id number] 1959 Unknown [id number] Social History Date Type Detail Facility Start: 12-12-2023 Tobacco smoking status NHIS Never sm oked tobacco [facility] Start: 12-12-2023 Tobacco use and exposure Smoke less tobacco non-user [facility] Start: 12-12-2023 End: 01-04-2024 Alcoholic beverage intake Current drinker of alcohol (finding) [facility] Start: [...] b) Instruct patient to sign up for [employer] to access test results. 3. STD screening: [...] a) Encourage patient to sign up for [employer] to access test results and medical information. [...] future. documented in this encounter [facility] History of Present illness Narrative 12-15-2023 Misbah Kraft MD - 12/15/2023 7:24 PM EDT Note Date & Type Note Facility 12-15-2023 History of Presen t illness Narrative BV documented in this encounter [facility] History of Present illness Narrative 12-12-2023 Misbah Kraft MD - 12/12/2023 1:45 PM EDT Note Date & Type Note Facility 12-12-2023 History of Presen t illness Narrative Images from the original note were not included. Misabh Kraft MD Obstetrics and Gynecology Patient: Jessica Baldwin : 2005 (18 y.o.) Yearly Wellness Exam Date: 12/12/2023 Reason for Visit - Chief Complaint Patient presents with Contraception Family planning Gynecologic Exam LMP: 11/17/23 Complaints: Patient would like to discuss fertility [...] raising the suspicion of a potential . The patient also requests an STD screen due to a history of sexual activity and wants to ensure she is not carrying any infections. She is interested in both blood work and a culture for the STD screen. The patient is unable to provide a urine sample at the time of the visit. Visit Vitals BP 128/80 Wt 375 lb [...] results and further evaluation. Return 1 year/prn documented in this encounter [facility] Evaluation note Note Date & Type Note Facility Evaluation note Diagnosis Amenorrhea Absence of menstruation Family planning Other general counseling and advice for contraceptive management documented in this encounter [facility] Evaluation note Note Date & Type Note Facility Evaluation note Diagnosis Acute vaginitis- Primary Unspecified vaginitis and vulvovaginitis documented in this encounter [facility] Evaluation note Note Date & Type Note Facility Evaluation note Diagnosis Hormone imbalance- Primary Encounter for gynecological examination without abnormal finding Family planning Other general counseling and advice for contraceptive management Thyroid disorder screen Screening for thyroid disorder Screen for STD (sexually transmitted disease) Screening examination for venereal disease Amenorrhea Absence of menstruation Vaginal discharge Leukorrhea, not specified as infective documented in this encounter [facility] Summary Purpose Family History No Family History Records FoundNo Family History Records Found Advance Directives No Advanced Directives Records FoundNo Advanced Directives Records Found Additional Source Comments INFORMATION SOURCE (unrecogn ized section and content) DATE CREATED AUTHOR 05/25/2022 [facility] DATE CREATED AUTHOR AUTHOR'S ORGANIZ ATION 01/07/2024 [facility] EPIC Reason for Visit (unrecogniz ed section and content) Reason Comments Follow-up Reason Comments Contraception Family planning Gynecologic Exam Care Teams (unrecognized sec tion and content) 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 [facility]. provides no warranty or guarantee of the accuracy or completeness of information in this document.
--- NOTE | 2024-06-29 15:27 | ED.GENADUL1 ---
HPI HPI - General Adult General Chief complaint: Upper Respiratory Infection Stated complaint: DIZZINESS, VOMITING Time Seen by Provider: 06/29/24 15:15 Source: patient Mode of arrival: walk-in History of Present Illness HPI narrative: Patient is a 18-year-old female who presents to the emergency department for flulike illness over the last 2 days. She reports a temperature as high as 102.0 Fahrenheit yesterday. No Motrin or Tylenol taken today, she arrives to the ER afebrile. She reports dizziness, cough and congestion as well as vomiting and diarrhea. She has no concern for . No sick contacts in the home. No sputum production with coughing. She states she vapes daily. She has no abdominal pain. Related Data Previous Rx's ?Medication ?Instructions ?Recorded jywhvhcuvblzukz-iueolsljovphhsr-KX 10 ml PO Q6H PRN cold symptoms 06/29/24 2 mg-30 mg-10 mg/5 mL oral syrup #200 mL (Bromfed DM) dexamethasone 4 mg tablet 4 mg PO BID 5 days #10 tabs 06/29/24 ondansetron 4 mg disintegrating 4 mg PO Q6H PRN nausea and 06/29/24 tablet vomiting #12 tabs Allergies Allergy/AdvReac Type Severity Reaction Status Date / Time No Known Drug Allergies Allergy Verified 02/01/24 18:33 Opioid HPI Opioid Management Most Recent Opioid Data: Last Pain Scale 6 03/29/23 04:31 03/29/23 Review of Systems ROS Constitutional Reports: fever; Denies: chills Ears, nose, mouth, and throat Reports: nasal discharge and nasal congestion; Denies: throat pain Respiratory Reports: cough; Denies: shortness of breath Gastrointestinal Reports: nausea, vomiting and diarrhea; Denies: abdominal pain Integumentary/Breast Denies: rash Neurological Reports: dizziness Hematologic/Lymphatic Denies: easy bruising or easy bleeding PFSH PFSH Social History Smoking status: Former smoker Little interest or pleasure in doing things: not at all Feeling down, depressed, or hopeless: not at all Exam Narrative Exam Narrative: Gen.: Awake, alert, in no distress, morbidly obese female in no distress Head: Normocephalic, atraumatic ENT: Moist mucous membranes, bilateral TMs clear, no pharyngeal erythema Respiratory: No respiratory distress, lungs clear bilaterally Cardio: Tachycardia Gastrointestinal: Abdomen is soft, nondistended and nontender to palpation Extremities: Moves extremities equally Psych: Normal mood and affect Neuro: No focal neuro deficit Skin: Warm, dry, intact Constitutional Vital Signs, click to edit/add: Last Vital Signs Temp 98.4 F 06/29/24 15:17 Pulse 107 H 06/29/24 16:30 Resp 18 06/29/24 16:30 BP 115/90 06/29/24 16:30 Pulse Ox 100 06/29/24 16:30 O2 Del Method Room Air 06/29/24 15:17 Course Vital Signs Vital signs: Vital Signs Temperature 98.4 F 06/29/24 15:17 Pulse Rate 124 H 06/29/24 15:17 Respiratory Rate 22 H 06/29/24 15:17 Blood Pressure 128/98 H 06/29/24 15:17 Pulse Oximetry 98 06/29/24 15:17 Oxygen Delivery Method Room Air 06/29/24 15:17 Temperature 98.4 F 06/29/24 15:17 Pulse Rate 107 H 06/29/24 16:30 Respiratory Rate 18 06/29/24 16:30 Blood Pressure 115/90 06/29/24 16:30 Pulse Oximetry 100 06/29/24 16:30 Oxygen Delivery Method Room Air 06/29/24 15:17 Medical Decision Making MDM Narrative Medical decision making narrative: Patient is positive for COVID, labs are otherwise unremarkable. Chest x-ray reviewed by the radiologist with no evidence of acute cardiopulmonary changes. Patient's tachycardia improved after IV fluids and rest. She states she has a history of elevated heart rate in the past. She is hemodynamically stable, normal oxygenation and in no respiratory distress. She is discharged home with Decadron, Bromfed and Zofran to follow-up with PCP. Return to the ER if symptoms change or worsen. SHARED APC VISIT, PHYSICIAN ATTESTATION: [id number] I performed a substantive part of the MDM during the patient?s E/M visit. I personally evaluated and examined the patient. I personally made or approved the documented management plan and acknowledge its risk of complications. Medical Records Medical records reviewed: Yes I reviewed the patient's medical records Lab Data Lab results reviewed: Yes I reviewed the patient's lab results Labs: Lab Results 06/29/24 06/29/24 Range/Units 15:27 15:37 WBC 8.2 (4.0-11.0) 10^3/uL RBC 5.32 (4.20-5.40) 10^6/uL Hgb 14.4 (12.0-16.0) g/dL Hct 44.8 (36.0-48.0) % MCV 84.2 (81.0-99.0) fL MCH 27.1 (26.7-34.0) pg MCHC 32.1 (29.9-35.2) g/dL RDW 13.7 (11.0-15.0) % Plt Count 374 (150-450) 10^3/uL MPV 8.9 L (9.5-13.5) fL Neut % (Auto) 67.8 (43.0-75.0) % Lymph % (Auto) 19.6 L (20.5-60.0) % Reeves % (Auto) 11.6 (1.7-12.0) % Eos % (Auto) 0.4 L (0.9-7.0) % Baso % (Auto) 0.4 (0.2-2.0) % Neut # (Auto) 5.5 (1.4-6.5) 10^3/uL Lymph # (Auto) 1.6 (1.2-3.8) 10^3/uL Reeves # (Auto) 1.0 H (0.3-0.8) 10^3/uL Eos # (Auto) 0.0 (0.0-0.7) 10^3/uL Baso # (Auto) 0.0 (0.0-0.1) 10^3/uL Abs Immat Gran (auto) 0.02 (0.00-0.03) 10^3/uL Imm/Tot Granulo (auto) 0.2 (0.0-0.5) % Sodium 137 (136-145) mmol/L Potassium 3.9 (3.5-5.1) mmol/L Chloride 104 (98-107) mmol/L Carbon Dioxide 25.0 (21.0-32.0) mmol/L Anion Gap 11.9 BUN 10.0 (7.0-18.0) mg/dL Creatinine 0.89 (0.55-1.02) mg/dL Est GFR ( Amer) >60 (>=60 mL/min/1.73m^2) Est GFR (Non-Af Amer) >60 (>=60 mL/min/1.73m^2) BUN/Creatinine Ratio 11.2 Glucose 103 (74-106) mg/dL Calcium 9.1 (8.5-10.1) mg/dL Influenza Type A Ag Negative Influenza Type B Ag Negative SARS-CoV-2 Ag (CV2AG) Positive A (NEGATIVE) Imaging Data Chest x-ray: Attestation: I have reviewed the pertinent imaging results. Discharge Plan Discharge Chief Complaint: Upper Respiratory Infection Clinical Impression: COVID-19, Upper respiratory infection, Nausea, vomiting and diarrhea Patient Disposition: Home, Self-Care Time of Disposition Decision: 17:18 Condition: Good Prescriptions / Home Meds: New dexamethasone 4 mg tablet 4 mg PO BID 5 Days Qty: 10 0RF udqtzejsbpuqnah-xvztojwzj-NV [Bromfed DM] 2-30-10 mg/5 mL syrup 10 ml PO Q6H PRN (Reason: cold symptoms) Qty: 200 0RF ondansetron 4 mg tablet,disintegrating 4 mg PO Q6H PRN (Reason: nausea and vomiting) Qty: 12 0RF Print Language: Bulgarian Instructions: How to Recover from COVID-19 at Home (ED) Referrals: Catrachito Marshall MD [Primary Care Provider] - 1 week
[2024-06-29 15:45] LABS: Basophils Percent Auto 0.4 % (0.2-2.0); Eosinophils Percent Auto 0.4 % (0.9-7.0); Hematocrit 44.8 % (36.0-48.0); Hemoglobin 14.4 g/dL (12.0-16.0); Immature Granulocytes Abs Auto 0.02 10^3/uL (0.00-0.03); Immature Granulocytes Pct Auto 0.2 % (0.0-0.5); Lymphocytes Absolute Auto 1.6 10^3/uL (1.2-3.8); Lymphocytes Percent Auto 19.6 % (20.5-60.0); Mean Corpuscular HGB Conc 32.1 g/dL (29.9-35.2); Mean Corpuscular Hemoglobin 27.1 pg (26.7-34.0); Mean Corpuscular Volume 84.2 fL (81.0-99.0); Mean Platelet Volume 8.9 fL (9.5-13.5); Monocytes Percent Auto 11.6 % (1.7-12.0); Neutrophils Absolute Auto 5.5 10^3/uL (1.4-6.5); Neutrophils Percent Auto 67.8 % (43.0-75.0); Platelet Count 374 10^3/uL (150-450); Red Blood Count 5.32 10^6/uL (4.20-5.40); Red Cell Distribution Width 13.7 % (11.0-15.0); White Blood Count 8.2 10^3/uL (4.0-11.0)
[2024-06-29] MEDS: 0.9 % SODIUM CHLORIDE 1,000 ML 999 ML IV (15:48)
[2024-06-29] MEDS: ONDANSETRON PF 4 MG/2 ML VIAL IV (15:48)
[2024-06-29 15:54] LABS: Influenza Virus A Antigen Negative; Influenza Virus B Antigen Negative; Internal Control Within Normal Limits; SARS-CoV-2 Ag POSITIVE (NEGATIVE)
[2024-06-29 16:02] LABS: Anion Gap 11.9; BUN Creatinine Ratio 11.2; Calcium 9.1 mg/dL (8.5-10.1); Chloride 104 mmol/L (98-107); Estimated GFR (African America >60 (>=60 mL/min/1.73m^2); Estimated GFR (Non-African Ame >60 (>=60 mL/min/1.73m^2); Glucose 103 mg/dL (74-106); Potassium 3.9 mmol/L (3.5-5.1); Sodium 137 mmol/L (136-145)
[2024-06-29 16:30] VITALS: BP 115/90; PULSE 107; O2SAT 100
== END 2024-06-29 17:36 | disposition home or self-care (01) ==
PROVIDERS: Physician Assistant; Emergency Provider Emergency Medicine; PCP Family Medicine
DX: U07.1 COVID-19 (principal); R42 Dizziness and giddiness; R05.9 Cough, unspecified; R09.89 Other specified symptoms and signs involving the circulatory and respiratory systems; R11.10 Vomiting, unspecified; R19.7 Diarrhea, unspecified; J06.9 Acute upper respiratory infection, unspecified; R11.0 Nausea
CPT/HCPCS: 36415; 71045; 80048; 85025; 87804; 87811; 96361; 96374; 99285; J2405

== ENCOUNTER 2024-07-26 09:07 | Outpatient (OUT) | payer BC, SELFPAY ==
[2024-07-26 10:13] LABS: HCG Quantitative 4086 mIU/mL
== END 2024-07-26 09:08 | disposition home or self-care (01) ==
LOC: LAB 09:10
PROVIDERS: PCP Family Medicine; Visit Provider Specialist
DX: Z32.01 Encounter for pregnancy test, result positive (principal)
CPT/HCPCS: 36415; 84702

== ENCOUNTER 2024-07-30 14:10 | Outpatient (RCR) | payer BC, SELFPAY ==
[2024-07-30 15:23] LABS: HCG Quantitative 16480 mIU/mL
== END 2024-08-19 10:55 | disposition home or self-care (01) ==
LOC: LAB 14:10
PROVIDERS: PCP Family Medicine; Visit Provider Specialist
DX: Z30.09 Encounter for other general counseling and advice on contraception (principal)
CPT/HCPCS: 36415; 84702

== ENCOUNTER 2024-09-11 22:09 | Emergency (ER) | payer BC, SELFPAY ==
[2024-09-11 22:13] VITALS: BP 118/83; PULSE 111; TEMP 36.7; O2SAT 98; BMI 39.9
--- OUTSIDE RECORDS SUMMARY | 2024-09-11 22:16 | XMS_ITS | CCD ---
Author Organization [facility] Care Team Providers Care Inside Sales Advertising Executive Name Role Phone SABINO EDMONDELA P Consulting Unavailable FELI, GRICELDA P Attending Unavailable FELI, GRICELDA P Admitting Unavailable FELI, GRICELDA P Primary Care Unavailable ROSAS ., DR SEGOVIA Consulting Unavailable SPEEDYY ., DR SEGOVIA Attending Unavailable SPEEDYY ., DR SEGOVIA Admitting Unavailable FELI, GRICELDA P Primary Care Unavailable FELI, GRICELDA P Primary Care Unavailable FELI, GRICELDA P Consulting Unavailable FELI, GRICELDA P Attending Unavailable FELI, GRICELDA P Admitting Unavailable Unallocated MD, Noms Provider [facility] Unavailable Primary Care Provider Unavailabl e Unavailable Primary Care Provider Unavailabl e MISBAH KRAFT Attending Unavailable MISBAH KRAFT Attending Unavailable MISBAH KRAFT Attending Unavailable Medications Current Medications Medication Drug Class(es) Dates Sig (Normalized) Sig (Original) Blood Glucose Monitoring Suppl (True Metrix Air Glucose Meter) device (2 sources) Start: 09-04-2024 Blood Glucose Monitoring Suppl (True Metrix Air Glucose Meter) device Indications: First trimester ([facility]) , 11 weeks gestation of ([facility]) , Abnormal glucose affecting ([facility]) 1 Device 3 (three) times a week 1 each 09/04/2024 Active cephalexin 500 mg oral capsule (1 source) Cephalosporin Antibacterial Start: 08-07-2024 End: 08-17-2024 cephalexin (Keflex) 500 MG capsule Indications: Urinary tract infection without hematuria, site unspecified Take 1 capsule (500 mg) by mouth in the morning and 1 capsule (500 mg) at noon and 1 capsule (500 mg) in the evening and 1 capsule (500 mg) before bedtime. Do all this for 10 days. 40 capsule 08/07/2024 08/17/2024 Active clindamycin 20 mg/ml vaginal cream (1 source) Lincosamide Antibacterial Start: 12-15-2023 End: 12-22-2023 clindamycin (Cleocin) 2 % vaginal cream Indications: Bacterial Vaginosis Insert 1 applicator into the vagina at bedtime for 7 days 40 g 2 12/15/2023 12/22/2023 Active ondansetron 4 mg oral tablet (2 sources) Serotonin-3 Receptor Antagonist Start: 09-03-2024 End: 10-03-2024 take 1 tablet by mouth twice daily as needed for nausea ondansetron (Zofran) 4 MG tablet Indications: Hyperemesis Take 1 tablet (4 mg) by mouth 2 (two) times a day as needed for nausea 20 tablet 3 09/03/2024 10/03/2024 Active Vit-Fe Fumarate-FA ( PO) (3 sources) Vit-Fe Fumarate-FA ( PO) Take by mouth Active Problems Active Problems Problem Classification Problem Date Documented Date Episodic/Chronic Diabetes mellitus without complication (4 sources) Abnormal glucose level; Translations: [Abnormal glucose complicating ] 09-03-2024 Episodic Immunizations and screening for infectious disease (8 sources) Patient encounter status; Translations: [Encounter for other general counseling and advice on contraception] 01-04-2024 Episodic Inflammatory diseases of female pelvic organs (1 source) Acute vaginitis; Translations: [Acute vaginitis] 12-15-2023 Episodic Menstrual disorders (3 sources) Amenorrhea; Translations: [Amenorrhea, unspecified] 01-04-2024 Chronic Nausea and vomiting (2 sources) Hyperemesis; Translations: [Vomiting, unspecified] 09-03-2024 Episodic Other endocrine disorders (2 sources) Disorder of endocrine system; Translations: [Endocrine disorder, unspecified] 12-12-2023 Episodic Other female genital disorders (2 sources) Vaginal discharge; Translations: [Other specified noninflammatory disorders of vagina] 12-12-2023 Episodic Other nutritional; endocrine; and metabolic disorders (3 sources) Morbid obesity; Translations: [Body mass index (BMI) 60.0-69.9, adult] 09-04-2024 Chronic Other and delivery including normal (3 sources) Normal ; Translations: [Encounter for supervision of normal first , first trimester] 08-01-2024 Episodic Residual codes; unclassified (1 source) Pain, unspecified; Translations: [PAIN UNSPECIFIED] Onset: 05-24-2022 Episodic Residual codes; unclassified (2 sources) Gestation period, 11 weeks; Translations: [11 weeks gestation of ] 09-03-2024 Episodic Unclassified (4 sources) CONTACT W/AND (SUSP) EXPOS COVID-19; Translations: [CONTACT W/AND (SUSP) EXPOS COVID-19] Onset: 04-21-2022 Unclassified (4 sources) COUGH, UNSPECIFIED; Translations: [COUGH, UNSPECIFIED] Onset: 04-21-2022 Unclassified (4 sources) OB Reminders Onset: 08-01-2024 08-01-2024 Urinary tract infections (1 source) Urinary tract infectious disease; Translations: [Urinary tract infection, site not specified] 08-07-2024 Episodic Past or Other Problems Problem Classification Problem [...] Name Value Interpretation Reference Range Facil ity Urinalysis macro (dipstick) panel (U)Ordered By: Radha Grijalva on 09-03-2024 Bilirubin, UA Negative Negative - 4(70) +++ mg/dL [facility] Blood, UA Negative Negative - 50 Grady/mcL [facility] Clarity, UA Clear [facility] re Color, UA Yellow [facility] Glucose, UA Negative Negative - 2000(110) ++++ mg/dL [facility] Interpretation and review of laboratory results Normal [facility] Ketones, UA Negative Negative - 160(16) ++++ mg/dL [facility] Leukocytes, UA Negative Negative - 500+++ Tk/mcL [facility] Nitrite, UA Negative Negative - Positive [facility] pH, UA 5 5 - 9 [facility] Protein, UA Negative Negative - 2000(20) ++++ mg/dL [facility] Spec Grav, UA 1 1 - 1.03 [facility] Urobilinogen, UA 0.2 0.2 - 12 mg/dL [facility] PREG QUANT HCGon 025 HCG QUANTITATIVE 18991 mIU/mL [facility] ltare Comment on above: 5-50 0.2-1 WEEK 50-500 1-2 WEEKS 100-5,000 2-3 WEEKS 500-10,000 3-4 WEEKS 1,000-50,000 4-5 WEEKS 10,000-100,000 5-6 WEEKS 15,000-200,000 6-8 WEEKS 10,000-100,000 2-[facility] 025 HCG QUANTITATIVE 4086 mIU/mL [facility] Comment on above: 5-50 0.2-1 WEEK 50-500 1-2 WEEKS 100-5,000 2-3 WEEKS 500-10,000 3-4 WEEKS 1,000-50,000 4-5 WEEKS 10,000-100,000 5-6 WEEKS 15,000-200,000 6-8 WEEKS 10,000-100,000 2-3 [facility] ([facility])on SARS-CoV-2 (COVID-19) RNA VAISHALI+probe Ql (Unsp spec) Not detected Normal NOT DETECTED [facility] Comment on above: Result Comment: When [...] for this test is supported by the [place] of Health and Human Service's declaration that [...] used). Performed By: #### C VDTB #### [facility] [address] [place] [address] Dr. Damion Caceres INFLUENZA A AND B AGon 05-23 [facility] SEE BELOW Normal [facility] Comment on above: Result Comment: Nega tive for Flu A protein angiten. Infection due to Flu A cannot be ruled out. Flu A angiten in the sample may be below the detection limit of the test. Performed By: #### I NFLUAB #### [facility] [address] [place] [address] Dr. Damion Caceres INFLUBNEG SEE BELOW Normal [facility] Comment on above: Result Comment: Nega tive for Flu B protein antigen. Infection due to Flu B cannot be ruled out. Flu B antigen in the sample may be below the detection limit of the test. Performed By: #### I NFLUAB #### [facility] [address] [place] [address] Dr. Damion Caceres INFLUENZA A AG Negative Normal NEGATIVE SEE COMMENT [facility] Comment on above: Performed By: #### I NFLUAB #### [facility] [address] [place] [address] Dr. Damion Caceres INFLUENZA B AG Negative Normal NEGATIVE SEE COMMENT [facility] Comment on above: Performed By: #### I NFLUAB #### [facility] [address] [place] [address] Dr. Damion Caceres [facility]on SARS-CoV-2 (COVID-19) RNA VAISHALI+probe Ql (Unsp spec) Not detected Normal NOT DETECTED [facility] Comment on above: Result Comment: When [...] for this test is supported by the [place] of Health and Human Service's declaration that [...] used). Performed By: #### C VDTBH #### [facility] [address] [place] [address] Dr. Damion Caceres INFLUENZA A AND B AGon 04-20 [facility] SEE BELOW Normal [facility] Comment on above: Result Comment: Nega tive for Flu A protein angiten. Infection due to Flu A cannot be ruled out. Flu A angiten in the sample may be below the detection limit of the test. Performed By: #### I NFLUAB #### [facility] [address] [place] [address] Dr. [facility] Normal [facility] Comment on above: Result Comment: Nega tive for Flu B protein antigen. Infection due to Flu B cannot be ruled out. Flu B antigen in the sample may be below the detection limit of the test. Performed By: #### I NFLUAB #### [facility] [address] [place] [address] Dr. Damion Caceres INFLUENZA A AG Negative Normal NEGATIVE SEE COMMENT [facility] Comment on above: Performed By: #### I NFLUAB #### [facility] [address] [place] [address] Dr. Damion Caceres INFLUENZA B AG Negative Normal NEGATIVE SEE COMMENT [facility] Comment on above: Performed By: #### I NFLUAB #### [facility] [address] [place] [address] Dr. Damion Caceres Covid-19 PCR ([facility])on 12-19 SARS-CoV-2 (COVID-19) RNA VAISHALI+probe Ql (Unsp spec) Not detected Normal NOT DETECTED [facility] Comment on above: Result Comment: This test is not yet approved or cleared by the [place] FDA. When there are no FDA-approved or cleared tests available, and other criteria are met, FDA can make tests available under an emergency access mechanism called an Emergency Use Authorization (EUA). The EUA for this test is supported by the [place] of Health and Human Service's (HHS's) declaration [...] SARS-CoV-2. Performed By: #### C VDTBH #### [facility] [address] [place] [address] Dr. Damion Caceres INFLUENZA A AND B [facility] 01[facility]06 [facility] Normal [facility] Comment on above: Result Comment: Nega tive for Flu A protein angiten. Infection due to Flu A cannot be ruled out. Flu A angiten in the sample may be below the detection limit of the test. Performed By: #### I NFLUAB #### [facility] [address] [place] [address] Dr. Damion Caceres INFLUBNEG SEE BELOW Normal [facility] Comment on above: Result Comment: Nega tive for Flu B protein antigen. Infection due to Flu B cannot be ruled out. Flu B antigen in the sample may be below the detection limit of the test. Performed By: #### I NFLUAB #### [facility] [address] [place] [address] Dr. Damion Caceres INFLUENZA A AG Negative Normal NEGATIVE SEE COMMENT [facility] Comment on above: Performed By: #### I NFLUAB #### [facility] [address] [place] [address] Dr. Damion Caceres INFLUENZA B AG Negative Normal NEGATIVE SEE COMMENT [facility] Comment on above: Performed By: #### I NFLUAB #### [facility] [address] [place], [place] [address] Dr. Damion Caceres INTERNAL CONTROLS Within Normal Limits Normal Within Normal Limits [facility] Comment on above: Performed By: #### I NFLUAB #### [facility] [address] [place], [place] [address] Dr. Damion Caceres Vital Signs Date Time Vital Sign Value Performing Clinician Faci lity 09-03-2024 13:21-0400 Body weight 188.24 kg Misbah Kraft MD Work Phone: [facility] 09-03-2024 13:21-0400 Diastolic blood pressure 72 mm[Hg] Misbah Kraft MD Work Phone: [facility] 09-03-2024 13:21-0400 Systolic blood pressure 120 mm[Hg] Misbah Kraft MD Work Phone: [facility] 01-04-2024 13:53-0400 Body weight 174.18 kg Misbah Kraft MD Work Phone: [facility] 01-04-2024 13:53-0400 Diastolic blood pressure 80 mm[Hg] Misbah Kraft MD Work Phone: [facility] 01-04-2024 13:53-0400 Systolic blood pressure 120 mm[Hg] Misbah Kraft MD Work Phone: [facility] 12-12-2023 13:44-0400 Body weight 170.1 kg Misbah Kraft MD Work Phone: [facility] 12-12-2023 13:44-0400 Diastolic blood pressure 80 mm[Hg] Misbah Kraft MD Work Phone: [facility] 12-12-2023 13:44-0400 Systolic blood pressure 128 mm[Hg] Misbah Kraft MD Work Phone: [facility] Healthcare Encounters Encounter Date Encounter Type Care Provider Facility Start: 09-04-2024 End: 09-04-2024 Transcribe Orders Misbah Kraft MD Work Phone: [facility]erral [facility] Comment on above: APPOINTMENT SCHEDULI NG (Anatomy scan and MFM visit) Start: 09-03-2024 End: 09-03-2024 flow sheet Misbah Kraft MD Work Phone: [facility] Comment on above: GA: 11w1d Start: 09-03-2024 End: 09-03-2024 ambulatory MISBAH KRAFT Not Available Start: 08-07-2024 End: 08-07-2024 Orders Only Misbah Kraft MD Work Phone: [facility] Comment on above: Urinary tract infect ion without hematuria, site unspecified (Primary Dx) Start: 08-01-2024 End: 08-01-2024 flow sheet [facility] Start: 08-01-2024 End: 08-01-2024 ambulatory MISBAH KRAFT Not Available Start: 07-30-2024 End: 07-30-2024 [facility] Result Encounter Misbah Kraft MD Work Phone: [facility] External Department Unsolicited Start: 07-30-2024 End: 07-30-2024 [facility] Result Encounter Misbah Kraft MD Work Phone: [facility] External Department Unsolicited Start: 07-26-2024 End: 07-26-2024 [facility] Result Encounter Misbha Kraft MD Work Phone: [facility] External Department Unsolicited Start: 07-26-2024 End: 07-26-2024 [facility] Result Encounter Misbah Kraft MD Work Phone: [facility] External Department Unsolicited Start: 01-04-2024 End: 01-04-2024 Office outpatient visit 10 minutes Misbah Kraft MD Work Phone: [facility] Comment on above: Amenorrhea; Family planning Start: 01-04-2024 End: 01-04-2024 ambulatory MISBAH KRAFT Not Available Start: 12-15-2023 End: 12-15-2023 Orders Only Misbah Kraft MD Work Phone: [facility] Comment on above: Acute vaginitis (Dahiana obed Dx) Start: 12-12-2023 End: 12-12-2023 Initial preventive medicine new pt age 18-39yrs Misbah Kraft MD Work Phone: [facility] Comment on above: Hormone imbalance (P rimary Dx); Encounter for gynecological examination without abnormal finding; Family planning; Thyroid disorder screen; Screen for STD (sexually transmitted disease); Amenorrhea; Vaginal discharge Start: 12-12-2023 End: 12-12-2023 Patient encounter status Misbah Kraft MD Work Phone: [facility] Healthcare Work Phone: Start: 12-12-2023 End: 12-12-2023 ambulatory MISBAH KRAFT Not Available Start: 05-23-2022 End: 05-23-2022 ambulatory GRICELDA EDMOND Facility: Start: 04-20-2022 End: 04-20-[address] LUCA PILLAI . Facility: Start: 01-06-2022 End: 01-06-2022 ambulatory GRICELDA EDMOND Facility: Procedures Date Procedure Procedure Detail Performing Clinician Start: 09-03-2024 Urnls dip stick/tabl et rgnt non-auto w/o micrscp Misbah Kraft MD Work Phone: Start: 07-30-2024 [facility] PREG QUANT HCG Aicha Becker MD Work Phone: Start: 07-26-2024 [facility] PREG QUANT HCG Aicha Becker MD Work Phone: Plan of Treatment Date Care Activity Detail Author Start: 10-05-2053 Shingles (RZV) Vacci ne (1 of 2) Shingles (RZV) Vaccine (1 of 2) [facility] Start: 11-18-2024 Influenza vaccination Influenz a Vaccine (Season Ended) [facility] Start: 11-06-2024 End: 11-06-2024 ambulatory 11/06/2024 1:00 PM EDT SUPERVISOR HEADING Ultrasound [facility] [address] [place], [place] [id number] [facility] Start: 09-17-2024 End: 09-17-2024 Patient encounter procedure 09/17/2024 12:30 PM EDT Routine [facility] [address] [place] [address] Misbah Kraft MD [address] [place] [address] [facility] Start: 09-16-2024 End: 09-16-2024 Patient encounter procedure 09/16/2024 1:45 PM EDT Office Visit [facility] [address] [place] [phone] Zhanna Martinez MD [address] [place] [address] [facility] Start: 09-03-2024 End: 09-03-2024 ambulatory 09/03/2024 2:00 PM EDT Initial [facility] [address] [place] [address] Misbah Kraft MD [address] [place] [address] [facility] Start: 09-03-2024 End: 09-03-2024 Professional / ancillary services management 09/03/2024 1:00 PM EDT Ancillary Procedure [facility] [address] [place] [id number] [facility] Start: 08-26-2024 End: 08-26-2024 Professional / ancillary services management 08/26/2024 2:00 PM EDT Ancillary Procedure [facility] [address] [place] [address] [facility] Start: 08-01-2024 End: 08-01-2025 Bacteria identified in Urine by Culture Urine culture Microbiology Routine Encounter for supervision of normal first in first trimester Expected: 08/01/2024, Expires: 08/01/2025 [facility] Comment on above: Expected: 08/01/2024 , Expires: 08/01/2025 Start: 08-01-2024 End: 08-01-2025 Blood type and Indirect antibody screen panel - Blood Type and screen Lab Routine Encounter for supervision of normal first in first trimester Expected: 08/01/2024, Expires: 08/01/2025 [facility] Comment on above: Expected: 08/01/2024 , Expires: 08/01/2025 Start: 08-01-2024 End: 08-01-2025 CBC W Auto Differential panel - Blood CBC and differential Lab Routine Encounter for supervision of normal first in first trimester Expected: 08/01/2024, Expires: 08/01/2025 [facility] Healthcare Comment on above: Expected: 08/01/2024 , Expires: 08/01/2025 Start: 08-01-2024 End: 08-01-2025 DRUG SCREEN 17 W/CONF, UR DRUG SCREEN 17 W/CONF, UR Lab Routine Encounter for drug screening Expected: 08/01/2024, Expires: 08/01/2025 [facility] Comment on above: Expected: 08/01/2024 , Expires: 08/01/2025 Start: 08-01-2024 End: 08-01-2025 hCG, quantitative hCG, quantitative Lab Routine Encounter for supervision of normal first in first trimester Expected: 08/01/2024 (Approximate), Expires: 08/01/2025 [facility] Comment on above: Expected: 08/01/2024 (Approximate), Expires: 08/01/2025 Start: 08-01-2024 End: 08-01-2025 Hepatitis B virus surface Ag [Presence] in Serum or Plasma by Immunoassay Hepatitis B surface antigen Lab Routine Encounter for supervision of normal first in first trimester Expected: 08/01/2024, Expires: 08/01/2025 [facility] Healthcare Comment on above: Expected: 08/01/2024 , Expires: 08/01/2025 Start: 08-01-2024 End: 08-01-2025 Hepatitis C virus Ab [Presence] in Serum or Plasma by Immunoassay Hepatitis C antibody Lab Routine Encounter for supervision of normal first in first trimester Expected: 08/01/2024, Expires: 08/01/2025 [facility] Healthcare Comment on above: Expected: 08/01/2024 , Expires: 08/01/2025 Start: 08-01-2024 End: 08-01-2025 HIV-2 antigen assay HIV-2 antigen Lab Routine Encounter for supervision of normal first in first trimester Expected: 08/01/2024, Expires: 08/01/2025 [facility] Comment on above: Expected: 08/01/2024 , Expires: 08/01/2025 Start: 08-01-2024 End: 08-01-2025 Rpr (dx) w/refl titer and confirmatory testing Rpr (dx) w/refl titer and confirmatory testing Lab Routine Encounter for supervision of normal first in first trimester Expected: 08/01/2024, Expires: 08/01/2025 [facility] Comment on above: Expected: 08/01/2024 , Expires: 08/01/2025 Start: 08-01-2024 End: 08-01-2025 Rubella antibody, IgG Rubella antibody, IgG Lab Routine Encounter for supervision of normal first in first trimester Expected: 08/01/2024, Expires: 08/01/2025 [facility] Comment on above: Expected: 08/01/2024 , Expires: 08/01/2025 Start: 08-01-2024 End: 08-01-2025 Urinalysis complete panel - Urine Urinalysis with microscopic Lab Routine Encounter for supervision of normal first in first trimester Expected: 08/01/2024, Expires: 08/01/2025 [facility] Work Phone: Comment on above: Expected: 08/01/2024 , Expires: 08/01/2025 Start: 08-01-2024 End: 08-01-2024 ambulatory 08/01/2024 1:00 PM EDT Initial [facility] [address] [place] [address] [facility] Start: 01-04-2024 End: 01-04-2024 Patient encounter procedure 01/04/2024 1:45 PM EDT Office Visit [facility] [address] [place] [id number] Misbah Kraft MD [address] [place] [address] [facility] Start: 01-04-2024 End: 01-04-2024 Professional / ancillary services management 01/04/2024 1:00 PM EDT Ancillary Procedure [facility] [address] [place] [address] [facility] Start: 12-12-2023 End: 12-11-2024 Cortisol Cortisol Lab Routine Hormone imbalance Expected: 12/12/2023 (Approximate), Expires: 12/11/2024 [facility] Healthcare Comment on above: Expected: 12/12/2023 (Approximate), Expires: 12/11/2024 Start: 12-12-2023 End: 12-11-2024 DHEA-sulfate DHEA-sulfate Lab Routine Hormone imbalance Expected: 12/12/2023 (Approximate), Expires: 12/11/2024 [facility] Comment on above: Expected: 12/12/2023 (Approximate), Expires: 12/11/2024 Start: 12-12-2023 End: 12-11-2024 Estradiol Estradiol Lab Routine Hormone imbalance Expected: 12/12/2023 (Approximate), Expires: 12/11/2024 [facility] Healthcare Comment on above: Expected: 12/12/2023 (Approximate), Expires: 12/11/2024 Start: 12-12-2023 End: 12-11-2024 Estrone Estrone Lab Routine Hormone imbalance Expected: 12/12/2023 (Approximate), Expires: 12/11/2024 [facility] Healthcare Comment on above: Expected: 12/12/2023 (Approximate), Expires: 12/11/2024 Start: 12-12-2023 End: 12-11-2024 Follicle stimulating hormone Follicle stimulating hormone Lab Routine Hormone imbalance Thyroid disorder screen Expected: 12/12/2023 (Approximate), Expires: 12/11/2024 [facility] Healthcare Comment on above: Expected: 12/12/2023 (Approximate), Expires: 12/11/2024 Start: 12-12-2023 End: 12-11-2024 hCG, quantitative hCG, quantitative Lab Routine Amenorrhea Expected: 12/12/2023 (Approximate), Expires: 12/11/2024 [facility] Healthcare Comment on above: Expected: 12/12/2023 (Approximate), Expires: 12/11/2024 Start: 12-12-2023 End: 12-11-2024 Hepatitis B virus surface Ag [Presence] in Serum or Plasma by Immunoassay Hepatitis B surface antigen Lab Routine Screen for STD (sexually transmitted disease) Expected: 12/12/2023 (Approximate), Expires: 12/11/2024 [facility] Comment on above: Expected: 12/12/2023 (Approximate), Expires: 12/11/2024 Start: 12-12-2023 End: 12-11-2024 Hepatitis C virus Ab [Presence] in Serum or Plasma by Immunoassay Hepatitis C antibody Lab Routine Screen for STD (sexually transmitted disease) Expected: 12/12/2023 (Approximate), Expires: 12/11/2024 [facility] Healthcare Comment on above: Expected: 12/12/2023 (Approximate), Expires: 12/11/2024 Start: 12-12-2023 End: 12-11-2024 HIV-1/HIV-2 antigen/antibody combination immunoassay HIV-1 and HIV-2 antibodies Lab Routine Screen for STD (sexually transmitted disease) Expected: 12/12/2023 (Approximate), Expires: 12/11/2024 [facility] Comment on above: Expected: 12/12/2023 (Approximate), Expires: 12/11/2024 Start: 12-12-2023 End: 12-11-2024 HSV 1 antibody, IgG HSV 1 antibody, IgG Lab Routine Screen for STD (sexually transmitted disease) Expected: 12/12/2023 (Approximate), Expires: 12/11/2024 [facility] Comment on above: Expected: 12/12/2023 (Approximate), Expires: 12/11/2024 Start: 12-12-2023 End: 12-11-2024 HSV 2 antibody, IgG HSV 2 antibody, IgG Lab Routine Screen for STD (sexually transmitted disease) Expected: 12/12/2023 (Approximate), Expires: 12/11/2024 [facility] Comment on above: Expected: 12/12/2023 (Approximate), Expires: 12/11/2024 Start: 12-12-2023 End: 12-11-2024 Luteinizing hormone Luteinizing hormone Lab Routine Hormone imbalance Thyroid disorder screen Expected: 12/12/2023 (Approximate), Expires: 12/11/2024 [facility] Comment on above: Expected: 12/12/2023 (Approximate), Expires: 12/11/2024 Start: 12-12-2023 End: 12-11-2024 Progesterone Progesterone Lab Routine Hormone imbalance Expected: 12/12/2023 (Approximate), Expires: 12/11/2024 [facility] Comment on above: Expected: 12/12/2023 (Approximate), Expires: 12/11/2024 Start: 12-12-2023 End: 12-11-2024 Reagin Ab [Presence] in Serum by RPR RPR Lab Routine Screen for STD (sexually transmitted disease) Expected: 12/12/2023 (Approximate), Expires: 12/11/2024 [facility] Comment on above: Expected: 12/12/2023 (Approximate), Expires: 12/11/2024 Start: 12-12-2023 End: 12-11-2024 Sex hormone binding globulin Sex hormone binding globulin Lab Routine Hormone imbalance Expected: 12/12/2023 (Approximate), Expires: 12/11/2024 [facility] Comment on above: Expected: 12/12/2023 (Approximate), Expires: 12/11/2024 Start: 12-12-2023 End: 12-11-2024 Testosterone, free, total Testosterone, free, total Lab Routine Hormone imbalance Expected: 12/12/2023 (Approximate), Expires: 12/11/2024 [facility] Comment on above: Expected: 12/12/2023 (Approximate), Expires: 12/11/2024 Start: 12-12-2023 End: 12-11-2024 Thyrotropin [Units/volume] in Serum or Plasma TSH Lab Routine Hormone imbalance Thyroid disorder screen Expected: 12/12/2023 (Approximate), Expires: 12/11/2024 [facility] Work Phone: Comment on above: Expected: 12/12/2023 (Approximate), Expires: 12/11/2024 Start: 11-19-2023 COVID-19 Vaccine ( season) COVID-19 Vaccine ( season) [facility] Start: 11-19-2023 Influenza vaccination Influenza Vacc ine (#1) [facility] Start: 10-05-2022 Hepatitis A (HAV) Vaccine (optional start 19+ years) Hepatitis A (HAV) Vaccine (optional start 19+ years) [facility] Start: 10-05-2022 Hepatitis B vaccination Hepati tis B (HBV) Vaccine (1 of 3 - + 3-dose series) [facility] Start: 10-05-2021 Hepatitis C screening Hepatitis C An tibody [facility] Start: 10-05-2021 Screening for Chlamy victor manuel trachomatis STI Screening (Age 18-24) [facility] Start: 10-05-2021 Tdap Booster Tdap Booster [facility] Start: 2019 Meningococcal B (Bexsero,OMV) Vaccine (Optional,16-23 years) Meningococcal B (Bexsero,OMV) Vaccine (Optional,16-23 years) [facility] Start: 10-05-2018 HIV screening HIV Test [facility] Start: 10-05-2018 Vaccination for nicolas n papillomavirus HPV Vaccine (1 - 3-dose series) [facility] miscellaneous test Voltaire mis cellaneous test Lab Routine Screen for STD (sexually transmitted disease) Amenorrhea Vaginal discharge Ordered: 12/12/2023 [facility] Comment on above: Ordered: 12/12/2023 NuSwab Vaginitis Plu s (VG+) NuSwab Vaginitis Plus (VG+) Microbiology Routine Screen for STD (sexually transmitted disease) Amenorrhea Vaginal discharge Ordered: 12/12/2023 [facility] Comment on above: Ordered: 12/12/2023 NuSwab Vaginitis Plu s (VG+) NuSwab Vaginitis Plus (VG+) Microbiology Routine First trimester ([facility]) 11 weeks gestation of ([facility]) Ordered: 09/03/2024 [facility] Work Phone: Comment on above: Ordered: 09/03/2024 End: 04-02-2025 US for in second or third trimester [facility] SECOND/THIRD TRIMESTER OB Imaging Routine BMI 60.0-69.9, adult 1 Occurrences starting 09/04/2024 until 04/02/2025 [facility] Work Phone: Comment on above: 1 Occurrences starti ng 09/04/2024 until 04/02/2025 Payers Date Payer Category Payer [facility] [id number] 2017 Unknown BCBS BCBS xxxxxx [id number] 2017-Present [phone] [address] [place] [address] [id number] 2003 Unknown [id number] 2003 Unknown [id number] 2003 Unknown [id number] 2003 Unknown [id number] [id number] 2003 Unknown [id number] [id number] 2003 Unknown [id number] [id number] 2003 Unknown [id number] [id number] 2003 Unknown [id number] 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 [facility] Start: 09-04-2024 Sex Female (finding) [facility] Medical Equipment Procedure Code Equipment Code Equipment Origin al Text Equipment Identifier Dates Use as directed to test blood sugar three times per week [id number] Start: 09-03-2024 End: 09-03-2025 1 Device 3 (thre e) times a week [id number] Start: 09-04-2024 Goals Date Patient Goal Desired Activity /State Personal health goal Clinical Notes 12-12-2023 to 09-04-2024 Telephone Encounter - Kristina Larkin - 09/04/2024 3:12 PM EDTTelephone Encounter - Kristina Larkin - 09/04/2024 3:12 PM EDTPdevon Kraft MD - 09/03/2024 2:00 PM Marizol Joyner MA - 08/01/2024 1:00 PM EDT Note Date & Type Note Facility 09-04-2024 Note External referral re ceived for maternal medicine and ultrasound scheduling. Left message for patient to contact us to confirm visit. Due to limited availability visit scheduled when patient calls back [place] [phone] [facility] 09-04-2024 Telephone encount er Note External referral received for maternal medicine and ultrasound scheduling. Left message for patient to contact us to confirm visit. Due to limited availability visit scheduled when patient calls back [place] transfer to x [phone] [facility] 09-04-2024 Miscellaneous Notes Formattin g of this note might be different from the original. External referral received for maternal medicine and ultrasound scheduling. Left message for patient to contact us to confirm visit. Due to limited availability visit scheduled when patient calls back [place] x [phone] documented in this encounter [facility] 09-03-2024 History of Presen t illness Narrative Subjective Jessica Baldwin is a 18 y.o. [...] maintains hydration by drinking water and attempts to stay active through walking. OBSTETRICAL HISTORY: Obstetrics History discussed 1, Para 0 Gestational age: 11 weeks GYNECOLOGICAL HISTORY: Gynecology History discussed FAMILY HISTORY She reports no family history of chromosomal problems. The patient is a woman presenting for a routine visit. She reports experiencing severe nausea and vomiting, which has been significant enough to cause her to tail puller while driving on the highway. The patient mentions eating regularly [...] to 200 mg per day, lives in [place], and has cats at home. She has been advised to limit sweets, pastas, and [...] 2 (two) times a day as needed for nausea First trimester ([facility]) - POCT urinalysis dipstick manually resulted - NuSwab Vaginitis Plus (VG+) 11 weeks gestation of ([facility]) - POCT urinalysis dipstick manually resulted - NuSwab Vaginitis Plus (VG+) Immunizations: TDAP Labs ordered Daily vitamins prescribed First trimester screening and second trimester screening discussed. Patient decided to yes Follow up in 4 weeks for return OB visit. [facility] for BMI Assessment & Plan 1. . Her weight exceeds 400 pounds, placing her in a high-risk category for complications. The goal is for her to deliver vaginally, but there is an increased risk of requiring a due to her weight and potential gestational diabetes. Her hCG levels are within the normal range. She is Rh-negative, which necessitates the administration of RhoGAM in [...] A 20-week ultrasound will be scheduled at [facility]. Regular appointments every 2 to 3 weeks will be scheduled to monitor her blood pressure. A Glucola monitor will be provided for her to check her fasting glucose levels three times a week. An ultrasound will be performed in a month, followed by another one at 20 weeks if [facility] does not conduct it. Follow-up Follow up in 2 weeks. 1. High-risk : - Assessment: - Patient classified as high-risk due to obesity (>400 lbs) and potential for gestational diabetes - Higher risk of section - Severe nausea and vomiting reported, including an episode requiring patient to tail puller while driving - heart rate detected - Current blood pressure: 120/70 (within normal limits) - Plan: a) Monitor weight and blood pressure every 2 weeks b) Perform glucose monitoring 3 times per week (fasting) c) Schedule ultrasound in 1 month d) Plan for 20-week anatomy scan at [facility] e) Arrange for dietary consult f) Educate on dietary restrictions: - Limit caffeine intake to 200 mg daily - Avoid soft cheeses (brie, feta, queso), unpasteurized milk, raw eggs, uncooked sushi - Heat cold cuts to 350 F before consumption - Limit carbohydrate intake (sweets, pasta, bread) - Encourage protein intake and steamed vegetables g) Advise against changing cat litter due to toxoplasmosis risk h) Recommend avoiding hot tubs, saunas, tanning beds (core temperature should remain below 101 F) i) Administer Rhogam if vaginal bleeding occurs j) Consider vaginal delivery as primary goal, with awareness of increased risk 2. Nausea and vomiting of : [...] fasting glucose levels documented in this encounter [facility] 08-07-2024 History of Presen t illness Narrative UTI documented in this encounter [facility] 08-01-2024 History of Presen t illness Narrative Name: Jessica Baldwin Date/Time of Service:08/01/2024 2:13 PM :2005 Age: 18 y.o. Chief Complaint Chief Complaint Patient presents with Initial Visit Nurse Visit Jessica Baldwin is a 18 y.o. who presents for an initial visit. Pt had HCG drawn on 07/30/24 and was 16,480. Pt scheduled for OB US on 08/26/24. OB History Para Term AB Living 1 0 0 0 0 0 SAB IAB Ectopic Multiple Live Births 0 0 0 0 0 # Outcome Date GA Lbr Sahtya/2nd Weight Sex Type Anes PTL Lv 1 Current Past Medical / Surgical History Past Medical History: Diagnosis Date History of seizures as a child Vaccine for VZV (varicella-zoster virus) Past Surgical History: Procedure Laterality Date TONSILLECTOMY In childhood Family History Family History Problem Relation Name Age of Onset Heart failure Mother COPD Mother Hypertension Mother Hernia Mother Endometriosis Mother No Known Problems Father Polycystic ovary syndrome Sister Anemia Brother Crohn's disease Father's Brother Emphysema Maternal Grandmother COPD Maternal Grandmother Hypertension Maternal Grandfather Diabetes Maternal Grandfather Hypertension Paternal Grandmother Social History reports that she has never smoked. She has never used smokeless tobacco. She reports that she does not currently use alcohol. She reports that she does not currently use drugs after having used the following drugs: Marijuana. MEDICATIONS: No current outpatient medications on file prior to visit. No current facility-administered medications on file prior to visit. Allergies No Known Allergies Patient reports nausea and no vomiting. Discussed smaller meals, kamilah products, OTC Vitamin B6 50mg BID and Unisom 25mg BID Pt reports taking a daily vitamin Genetic and Chromosomal testing discussed. Pt was given brochure to [employer] insurance and discuss with PPJ at first appt. Last PAP: Under 21 ASSESSMENT / PLAN Labs Ordered to [facility] Appointments scheduled for OB US 08/26 and PPJ appt on 09/03. Jessica Joyner MA 08/01/2024 2:13 PM documented in this encounter [facility] 01-04-2024 History of Presen t illness Narrative [...] in the future. documented in this encounter [facility] 12-15-2023 History of Presen t illness Narrative BV documented in this encounter [facility] 12-12-2023 History of Presen t illness Narrative [...] Return 1 year/prn documented in this encounter [facility] Evaluation note Diagnosis Amenorrhea Absence of menstruation Family planning Other general counseling and advice for contraceptive management [facility] Diagnosis Acute vaginitis- Primary Unspecified vaginitis and vulvovaginitis [facility] Diagnosis Hormone imbalance- Primary Encounter for gynecological examination without abnormal finding Family planning Other general counseling and advice for contraceptive management Thyroid disorder screen Screening for thyroid disorder Screen for STD (sexually transmitted disease) Screening examination for venereal disease Amenorrhea Absence of menstruation Vaginal discharge Leukorrhea, not specified as infective [facility] Diagnosis Encounter for supervision of normal first in first trimester Encounter for drug screening [facility]* Diagnosis Urinary tract infection without hematuria, site unspecified- Primary [facility] Diagnosis Hyperemesis- Primary Persistent vomiting First trimester ([facility]) state, incidental 11 weeks gestation of ([facility]) Abnormal glucose affecting ([facility]) [facility] Diagnosis BMI 60.0-69.9, adult- Primary Body Mass Index 60.0-69.9, adult documented in this encounter [facility] Summary Purpose Family History No Family History Records FoundNo Family History Records FoundNo Family History Records Found Advance Directives No Advanced Directives Records FoundNo Advanced Directives Records FoundNo Advanced Directives Records Found Additional Source Comments INFORMATION SOURCE (unrecogn ized section and content) DATE CREATED AUTHOR 05/25/2022 [facility] DATE CREATED AUTHOR AUTHOR'S ORGANIZ ATION 09/06/2024 [facility] EPIC DATE CREATED AUTHOR AUTHOR'S ORGANIZ ATION 09/08/2024 [facility] Reason for Visit (unrecogniz ed section and content) Reason Comments Follow-up Reason Comments Contraception Family planning Gynecologic Exam Reason Comments Initial Visit Nurse Visit Reason Comments Routine Visit Patient present f or PNC, patient states she only has issues with nausea and vomiting. She does has the sickness feeling when waking up. P: NegG: Neg Reason Onset Date Comments APPOINTMENT SCHEDULING 09/04/2024 Anatomy s can and MFM visit Care Teams (unrecognized sec tion and content) [employer] Advertising Executive Relationship Specialty Start Date End Date Unallocated, Nicolás Roque MD [address] [place] [id number] PCP - General Family Medicine 01/04/24 [employer] Executive Relationship Specialty Start Date End Date Unallocated, Nicolás Roque MD [facility] [place] [address] PCP - General Family Medicine 01/04/24 [employer] Ad[employer] Executive Relationship Specialty Start Date End Date Unallocated, Nicolás Roque MD [facility] [place] [address] PCP - General Family Medicine 01/04/24 [employer] Advertising Executive Relationship Specialty Start Date End Date Unallocated, Nicolás Roque MD [facility] [place] [address] PCP - General Family Medicine 01/04/24 Inside [employer] Advertising Executive Relationship Specialty Start Date End Date Unallocated, [facility] [place] [address] PCP - General Family Medicine 01/04/24 Inside [employer] Advertising Executive Relationship Specialty Start Date End Date Unallocated, Nicolás Roque MD [address] [place] [address] PCP - General Family Medicine 01/04/24 FOR [...] BE BASED ON THE PRIMARY CLINICAL RECORDS. [facility] [employer] [facility]. provides no warranty or guarantee of the accuracy or completeness of information in this document.
--- NOTE | 2024-09-11 22:42 | ED.ABDPAIN1 ---
HPI - Abdominal Pain General Chief Complaint: Abdominal Pain Stated Complaint: Abdominal Pain Time Seen by Provider: 09/11/24 22:12 Source: patient Mode of arrival: walk-in Limitations: no limitations History of Present Illness HPI narrative: This 18-year-old female G1, P0 who is approximately [address] 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 The patient states the symptoms started today. She has had several episodes of diarrhea today. She has had nausea ongoing throughout her . She states she is high risk due to her weight. She has not recently been sexually active. She has not had any vaginal discharge odor itching or bleeding. She has had an ultrasound to verify this with her WOUND SPECIALIST. Related Data Home Medications ?Medication ?Instructions ?Recorded ?Confirmed ondansetron HCl 4 mg tablet 4 mg PO Q6H PRN nausea and vomiting 09/11/24 09/11/24 Allergies Allergy/AdvReac Type Severity Reaction Status Date / Time No Known Drug Allergies Allergy Verified 09/11/24 22:19 Review of Systems ROS Status of ROS 10 or more systems reviewed and unremarkable except as noted in history and below PFSH [facility] Social History Smoking status: Former smoker Little interest or pleasure in doing things: not at all Feeling down, depressed, or hopeless: not at all Exam Narrative Exam Narrative: Vital signs and Nursing Notes reviewed: Patient is afebrile, she is mildly tachycardic with a pulse of 111, blood pressure is normal at 118/83, she has not hypoxic with pulse ox of 98% on room air General: Awake, alert, oriented, no acute distress, lying comfortably on the stretcher HEENT: Normocephalic atraumatic, mucous membranes are moist and pink, eyes are clear, normal conjunctiva, vision is grossly intact Neck: Supple, no meningeal signs, no anterior or posterior cervical lymphadenopathy Chest: Lungs are clear to auscultation with good air entry, there is no wheezing rhonchi or rales appreciated no accessory muscle use, patient is speaking in complete sentences-no chest wall tenderness to palpation CVS: Regular rate and rhythm S1-S2 at 96 on my exam, no murmurs rubs or gallops, pulses are brisk and equal bilaterally ABD: Obese, soft, nondistended, no rebound guarding or rigidity. No reproducible tenderness. Extremities: Moving all extremities, no lower extremity tenderness or swelling noted, negative Homans' sign, pulses are brisk and equal bilaterally Skin: Normal in appearance without rash,pallor, petechiae or purpura Neuro: No focal deficits Constitutional Vital Signs, click to edit/add: Last Vital Signs Temp 98.1 F 09/11/24 22:13 Pulse 111 H 09/11/24 22:13 Resp 18 09/11/24 22:13 BP 118/83 09/11/24 22:13 Pulse Ox 98 09/11/24 22:13 O2 Del Method Room Air 09/11/24 22:13 Course Vital Signs Vital signs: Vital Signs Temperature 98.1 F 09/11/24 22:13 Pulse Rate 111 H 09/11/24 22:13 Respiratory Rate 18 09/11/24 22:13 Blood Pressure 118/83 09/11/24 22:13 Pulse Oximetry 98 09/11/24 22:13 Oxygen Delivery Method Room Air 09/11/24 22:13 Temperature 98.1 F 09/11/24 22:13 Pulse Rate 111 H 09/11/24 22:13 Respiratory Rate 18 09/11/24 22:13 Blood Pressure 118/83 09/11/24 22:13 Pulse Oximetry 98 09/11/24 22:13 Oxygen Delivery Method Room Air 09/11/24 22:13 MDM - Abdominal Pain MDM Narrative Medical decision making narrative: This 18-year-old female G1, P0 who is [address] Goodman in [place] presents for evaluation of generalized abdominal cramping. It is not localized to her pelvic area. She has been having diarrhea intermittently recently. She has not had any vaginal bleeding discharge odor or itching. She is not having any urinary symptoms or flank pain. She has not had a fever. She has had an ultrasound during this . She admits that she is high risk due to her weight. Her abdomen is obese, soft with no reproducible tenderness. Pelvic exam was deferred as she is not having any bleeding. She was medicated with Tylenol, Zofran and given oral fluids. Urinalysis was ordered. Her urine has 5-10 red blood cells and white blood cells but negative for nitrites and trace leukocyte esterase. I doubt this is the etiology of her symptoms but culture is pending. I explained to her that she will be called if any antibiotic is required. She is stable for discharge. I explained to her that ultrasound is not available at this time and at this time it does not appear that she is having a miscarriage and the likelihood of ectopic is minimal since she has had a normal ultrasound during this . She does have Zofran at home to use for nausea and I explained this can help with abdominal cramping as well. Lab Data Labs: Lab Results 09/11/24 Range/Units 22:54 Urine Color Yellow (YELLOW) Urine Clarity Clear (CLEAR) Urine pH 6.0 (5.0-9.0) Ur Specific Amelia 1.025 (1.005-1.025) Urine Protein Negative (NEG/TRACE) mg/dL Urine Glucose (UA) Negative (NEGATIVE) mg/dL Urine Ketones Negative (NEGATIVE) mg/dL Urine Occult Blood Negative (NEGATIVE) Urine Nitrite Negative (NEGATIVE) Urine Bilirubin Negative (NEGATIVE) Urine Urobilinogen 1.0 (0.2-1.0) EU/dL Ur Leukocyte Esterase Trace A (NEGATIVE) Urine RBC 5-10 A (0-2) #/HPF Urine WBC 5-10 A (NONE SEEN) #/HPF Ur Squamous Epith Cells Rare (NONE/RARE) #/LPF Urine Crystals Seen A (None Seen) #/HPF Calcium Oxalate Crystal Few Urine Bacteria Trace A (NONE SEEN) #/HPF Urine Casts None seen (NONE SEEN) #/LPF Urine Mucus None seen (NONE SEEN) Ur [place]icated[place] [place] Discharge Chief Complaint: Abdominal Pain Clinical Impression: Abdominal cramping complicating Patient Disposition: Home, Self-Care Time of Disposition Decision: 23:28 Condition: Good Prescriptions / Home Meds: No Action ondansetron HCl 4 mg tablet 4 mg PO Q6H PRN (Reason: nausea and vomiting) Print Language: Bhutanese Instructions: Abdominal Pain in (ED) Additional Instructions: Drink plenty of fluids to keep yourself hydrated. Follow-up closely with your WOUND SPECIALIST. Return to the emergency department as needed for increasing pain, vaginal bleeding or any concerns. Referrals: Catrachito Marshall MD [Primary Care Provider, Family Practice] - 1 week
[2024-09-11 23:01] LABS: Bilirubin Urine NEGATIVE (NEGATIVE); Blood Urine NEGATIVE (NEGATIVE); Clarity Urine CLEAR (CLEAR); Color Urine YELLOW (YELLOW); Glucose Urine UA NEGATIVE (NEGATIVE); Ketones Urine NEGATIVE (NEGATIVE); Leukocyte Esterase Urine TRACE (NEGATIVE); Nitrite Urine NEGATIVE (NEGATIVE); Protein Urine NEGATIVE (NEG/TRACE); Specific Gravity Urine 1.025 (1.005-1.025)
[2024-09-11 23:09] LABS: Bacteria Urine TRACE #/HPF (NONE SEEN); Calcium Oxalate Crystals Urine FEW; Cast Seen? NONE SEEN #/LPF (NONE SEEN); Crystals Seen? Seen #/HPF (None Seen); Mucus Urine NONE SEEN (NONE SEEN); Squamous Epithelial Cell Urine RARE #/LPF (NONE/RARE); Urine Culture Indicated YES-FRMC
[2024-09-11] MEDS: ONDANSETRON 4 MG RAPDIS TABLET SL (23:11)
[2024-09-11] MEDS: ACETAMINOPHEN 325 MG TABLET 650 MG PO (23:11)
== END 2024-09-11 23:35 | disposition home or self-care (01) ==
PROVIDERS: Emergency Provider Emergency Medicine; PCP Family Medicine
DX: O26.891 Other specified pregnancy related conditions, first trimester (principal); R10.84 Generalized abdominal pain; Z87.891 Personal history of nicotine dependence; Z3A.12 12 weeks gestation of pregnancy
CPT/HCPCS: 81001; 87086; 87088; 99284; Q0162

== ENCOUNTER 2024-09-13 14:40 | Emergency (ER) | payer BC, MEDICAID, SELFPAY ==
--- OUTSIDE RECORDS SUMMARY | 2024-06-30 11:41 | XMS_ITS ---
Author Organization [facility] in [place] Address [address] [place] [address] Care Team Providers Care Automatic Spreader Operator Name Role Phone Hira Marshall Primary Care Provider REASON FOR VISIT Covid (+) Medications Medication SIG (Take, Route, Fr equency, Duration) Notes Start Date End Date Status dexAMETHasone 6 MG 1 tablet Orally daily for 5 days 07/02/2024 Active Azithromycin 250 MG 2 tabs today then 1 tab Orally daily for 5 days 07/02/2024 Active Encounters Encounter Location Date Provider Diagnosis [facility] [address] [place] [address] 06/30/2024 Hira Marshall Plan Of Treatment Medication Medication Name Sig Start Date Stop Date Notes dexAMETHasone 6 MG 1 tablet Orally daily for 5 days 2024 Azithromycin 250 MG 2 tabs today then 1 tab Orally daily for 5 days 07/02/2024 Progress Notes * Jessica BALDWIN SDOB:[birth year] (18 yo F)Acc No.[id number]:06/30/2024 Patient: Jessica DOLAN :2005 A ge:18 Y S ex:Female Address:[address] [place] [id number] * Refills Start dexAMETHasone Tablet, 6 MG, Orally, 5 Tablet, 1 tablet, daily, 5 days Start Azithromycin Tablet, 250 MG, Orally, 6, 2 tabs today then 1 tab, daily, 5 days, Refills=0 * true * Date: Generated for Sandra terry/Mena/Salomonitting on: 0 09/13/2024 02:48 PM EDT
--- OUTSIDE RECORDS SUMMARY | 2024-07-02 06:29 | XMS_ITS ---
Author Organization [facility] in [place] Address [address] [place] [address] Care Team Providers Care Slice Plug Cutter Operator Name Role Phone Hira Marshall Primary Care Provider REASON FOR VISIT Covid Meds Encounters Encounter Location Date Provider Diagnosis [facility] [address] [place] [address] 07/02/2024 Hira Rolando Plan Of Treatment No Information Progress Notes * Jessica HERRERA SDOB:[birth year] (18 yo F)Acc No.[id number]:07/02/2024 Patient: Jessica DOLAN :2005 A ge:18 Y S ex:Female Address:[address] [place] [phone] * true * Date: Generated for Monai ng/Famaryloug/eTransmitting on: 0 09/13/2024 02:48 PM EDT
--- OUTSIDE RECORDS SUMMARY | 2024-09-03 13:00 | XMS_ITS | Encounter Summary ---
Author Organization [facility] Address [address] [facility] [place] [address] Care Team Providers Care Corporate Planning Manager Name Role Phone Unallocated, Noms Provider Primary Care Provi eliana Encounter Details Date Type Department Care Team (Latest Contact Info) Description 09/03/2024 1:00 PM EDT Ancillary Procedure [facility] [address] [facility] [address] [place] [id number] related condition in first trimester ([facility]); Uncertain dates, antepartum, first trimester ([facility]); Obesity in ([facility]) Social History Tobacco Use Types Packs/Day Years Used Date Smoking Tobacco: Never Smokeless Tobacco: Never Alcohol Use Standard Drinks/Week Comments Not Currently 0 (1 standard drink = 0.6 oz pure alcohol) Caffiene Intake- pt reports 1 can daily AUDIT-C Answer Date Recorded Q1: How often do you have a drink containing alc ohol? Monthly or less 12/12/2023 Q2: How many drinks containi ng alcohol do you have on a typical day when you are drinking? 1 or 2 12/12/2023 Q3: How often do you have si x or more drinks on one occasion? Less than monthly 12/12/2023 PHQ-2 Answer Date Recorded Patient Health Questionnaire-2 Score 0 01/04/2024 Estimated Date of Delivery Comme nts Yes 03/24/2025 Based on Ultraso und Sex and Gender Information Value Date Recorded Sex Assigned at Not on file Legal Sex Female 7:18 PM EDT Gender Identity Not on file Sexual Orientation Not on file Occupation Industry Job Start Date Job End Date Not on file Not on file Not on file Not on file documented as of this encounter Plan of Treatment Upcoming Encounters Date Type Department Care Team ([facility] Contact Info) Description 09/17/2024 12:30 PM EDT Routine [facility] [address] [place] [phone] Aleida Goodman MD [address] [place] [address] Pending Results Name Type Priority Associated Diagnoses Date /Time OB transvaginal Imaging Routine related condition in first trimester ([facility]) Uncertain dates, antepartum, first trimester ([facility]) Obesity in ([facility]) 09/03/2024 1:57 PM EDT documented as of this encounter Goals Goal Patient Goal Type Associated Problems Recent Progress Patient-Stated? Author Reminders Care Plan OB Reminders No Jessica Joyner MA documented as of this encounter Visit Diagnoses Diagnosis related condition in first trimester ([facility]) Uncertain dates, antepartum, first trimester ([facility]) Obesity in ([facility]) Obesity complicating , childbirth, or the puerperium, unspecified as to episode of care or not applicable documented in this encounter Additional Health Concerns Active Problems Noted Date Diagnosed Date OB Reminders 08/01/2024 documented as of this encounter Care Teams Corporate Planning Manager Relationship Specialty Start Date End Date Unallocated, Nicolás Roque, [address] [place] [address] PCP - General Family Medicine 01/04/24 documented as of this encounter
--- OUTSIDE RECORDS SUMMARY | 2024-09-03 14:00 | XMS_ITS | Encounter Summary ---
Author Organization [facility] Address [address] [place] [address] Care Team Providers Care Oracle Wms Consultant Name Role Phone Unallocated, Noms Provider Primary Care Provi eliana Reason for Referral * Consultation (Routine) - Authorized Specialty Diagnoses / Procedures Referred By Contfemi t Referred To Contact Nutrition Diagnoses Abnormal glucose affecting ([facility]) Procedures [facility] OFFICE/OUTPATIENT NEW HIGH MDM 60 MINUTES Aleida Goodman MD [address] [facility] [address] [place] [address] Phone: tel: fax: Savannah Baig [address] [place] [address] Phone: tel: fax: Referral ID Status Reason Start Date Expiration Date Visits Requested Visits Authorized [id number] Authorized Specialty Services Required 09/03/2024 03/02/2025 1 1 Reason for Visit * Reason Comments Routine Visit Patient present f or PNC, patient states she only has issues with nausea and vomiting. She does has the sickness feeling when waking up. P: NegG: Neg Encounter Details Date Type Department Care Team (Late st Contact Info) Description 09/03/2024 2:00 PM EDT Initial [facility] [address] [facility] [address] [place] [phone] Aleida Goodman MD [address] [facility] [address] [place] [address] GA: [id number] Social History Tobacco Use Types Packs/Day Years [...] on file documented as of this encounter Last Filed Vital Signs Vital Sign Reading Time Taken Comments Blood Pressure 120/72 09/03/2024 1:21 PM EDT Pulse - - Temperature - - Respiratory Rate - - Oxygen Saturation - - Inhaled Oxygen Concentration - - Weight 188 kg (415 lb) 09/03/2024 1:21 PM EDT Height - - Body Mass Index - - documented in this encounter Progress Notes * Aleida Goodman MD - 09/03/2024 2:00 PM EDT Subjective Jessica Baldwin is a 18 y.o. at Unknown with a working estimated date of delivery of Not found. who presents for an initial visit. This is planned. Her is complicated by: VD [id number] History of Present Illness The patient presents for evaluation of . She reports experiencing nausea and vomiting, for which she has not sought any treatment. She is uncertain about any weight loss due to these symptoms. She recalls an incident where she had to stop on the highway due to severe sickness after eating. She has a cat at home but does not change the litter box. She has reduced her caffeine intake and consumes caffeine-free soda. Her diet includes a significant amount of fruits and vegetables. She maintains hydration by drinking water and attempts tostay active through walking. OBSTETRICAL HISTORY: Obstetrics History discussed 1, Para 0 Gestational age: 11 weeks GYNECOLOGICAL HISTORY: Gynecology History discussed FAMILY HISTORY She reports no family history of chromosomal problems. The patient is a woman presenting for a routine visit. 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 The patient mentions eating regularly but does not specify if she has lost any weight due to these symptoms. The patient is considered high-risk due to her weight being over 400 pounds and having diabetes. She expresses concern about her ability to deliver at the current facility due to her weight. The patient also mentions using a home doppler to listen to the baby's heartbeat a few weeks ago. The patient's obstetric history indicates this is her first ( A0 L0). Her estimated due date is after March 2025. She has an increased risk of section due to diabetes. The patient's current medications include Tums for indigestion and GlycoLax. Her social history reveals that she limits caffeine intake to 200 mg per day, lives in [place], and has cats at home. Shehas been advised to limit sweets, pastas, and breads, and encouraged to consume steamed vegetables and protein. Review of systems is positive for nausea, vomiting, and indigestion. No other specific complaints or symptoms are reported by the patient during this visit. OB History Para Term AB Living 1 0 0 0 0 0 SAB IAB Ectopic Multiple Live Births 0 0 0 0 0 # Outcome Date GA Lbr Sathya/2nd Weight Sex Type Anes PTL Lv 1 Current Objective Physical Exam Pregravid BMI: 67 Physical Exam Constitutional: Appearance: Normal appearance. Genitourinary: Right Labia: No rash. Left Labia: No rash. No vaginal discharge. No vaginal prolapse present. No vaginal atrophy present. No cervical lesion. HENT: Head: Normocephalic and atraumatic. Neurological: Mental Status: She is alert and oriented to person, place, and time. Psychiatric: Mood and Affect: Mood normal. Behavior: Behavior normal. Labs Completed Assessment/Plan Diagnoses and all orders for this visit: Hyperemesis - ondansetron (Zofran) 4 MG tablet; Take 1 tablet (4 mg) by mouth 2 (two) times a day as needed fornausea First trimester ([facility]) - POCT urinalysis dipstick manually resulted - NuSwab Vaginitis Plus (VG+) 11 weeks gestation of ([facility]) - POCT urinalysis dipstick manually resulted - NuSwab Vaginitis Plus (VG+) Immunizations: TDAP Labs ordered Daily vitamins prescribed First trimester screening and second trimester screening discussed. Patient decided to yes Follow up in 4 weeks for return OB visit. [facility] co-management for BMI Assessment & Plan 1. . Her weight exceeds 400 pounds, placing her in a high-risk category for complications. Thegoal is for her to deliver vaginally, but there is an increased risk of requiring a due to her weight and potential gestational diabetes. Her hCG levels are within the normal range. She is Rh- negative, which necessitates the administration of RhoGAM in the event of any vaginal bleeding during . A prescription for Zofran will be provided to manage her nausea and vomiting. An early diabetic test will be conducted to rule out diabetes. A consultation with a bariatric specialist will be arranged around the 20th week of . She is advised to limit her caffeine intake to 200 mg per day and to avoid changing cat litter due to the risk of toxoplasmosis. Dietary recommendations include limiting sweets, pastas, breads, and certain vegetables, while ensuring adequate protein intake from sources such as chicken. She is also advised to avoid soft cheeses, unpasteurized milk, raw eggs, heating pads, saunas, hot tubs, tanning beds, and to maintain a core temperature below 101 degrees. She can consume up to 2 servings of fish per week and should avoid uncooked sushi. Tums can be used for indigestion relief. A 20-week ultrasound will be scheduled at [facility]. Regular appointments every 2 to 3 weeks will be scheduled to monitor her blood pressure. A Glucola monitor will be provided for her to check her fasting glucose levels three times a week. An ultrasound will be performed in a month, followed by another one at 20 weeks if [facility] does not conduct it. Follow-up Follow up in 2 weeks. 1. High-risk : - Assessment: - Patient classified as high-risk due to obesity (>400 lbs) and potential for gestational diabetes - Higher risk of section - Severe nausea and vomiting reported, including an episode requiring patient to stock puller while driving - heart rate detected - Current blood pressure: 120/70 (within normal limits) - Plan: a) Monitor weight and blood pressure every 2 weeks b) Perform glucose monitoring 3 times per week (fasting) c) Schedule ultrasound in 1 month d) Plan for 20-week anatomy scan at [facility] e) Arrange for dietary consult f) Educate on dietary restrictions: - Limit caffeine intake to 200 mg daily - Avoid soft cheeses (brie, feta, queso), unpasteurized milk, raw eggs, uncooked sushi - Heat cold cuts to 350??F before consumption - Limit carbohydrate intake (sweets, pasta, bread) - Encourage protein intake and steamed vegetables g) Advise against changing cat litter due to toxoplasmosis risk h) Recommend avoiding hot tubs, saunas, tanning beds (core temperature should remain below 101??F) i) Administer Rhogam if vaginal bleeding occurs j) Consider vaginal delivery as primary goal, with awareness of increased C- section risk 2. Nausea and vomiting of : - Assessment: Significant nausea and vomiting, severe enough to interfere with daily activities such as driving - Plan: a) Recommend Tums for indigestion b) Monitor for weight loss c) Educate on importance of maintaining hydration 3. Rash: - Assessment: Unspecified rash requiring further evaluation - Plan: a) Refer to dermatology for consultation and management 4. Rh-negative blood type: - Plan: a) Administer Rhogam if vaginal bleeding occurs (as mentioned in high-risk plan) Daily fasting glucose levels documented in this encounter Plan of Treatment Upcoming Encounters Date Type Department Care Team (Late st Contact Info) Description 09/17/2024 12:30 PM EDT Routine [facility] [address] [place] [phone] Aleida Goodman MD [address] [place] [address] Scheduled Referrals Name Type Priority Associated Diagnoses Order Schedule Ambulatory referral to Nutrition Services Outpatient Referral Routine Abnormal glucose affecting ([facility]) Expected: 09/03/2024 (Approximate), Expires: 03/05/2025 documented as of this encounter Goals Goal Patient Goal Type Associated Problems Recent Progress Patient-Stated? Author Reminders Care Plan OB Reminders Jessica Hernandez MA documented as of this encounter Procedures Procedure Name Priority Date/Time Associated Diagnosis Comments POCT URINALYSIS DIPSTICK Routine 09/03/2024 2:18 PM EDT First trimester ([facility]) 11 weeks gestation of ([facility]) NUSWAB VAGINITIS PLUS (VG+) Routine 09/03/2024 12:00 AM EDT First trimester ([facility]) 11 weeks gestation of ([facility]) documented in this encounter Results * POCT urinalysis dipstick manually resulted (09/03/2024 2:18 PM EDT) Color, UA Yellow Clarity, UA Clear Glucose, UA Negative Negative - 2000(110) ++++ mg/dL Bilirubin, UA Negative Negative - 4(70) +++ mg/dL Ketones, UA Negative Negative - 160(16) ++++ mg/dL Spec Grav, UA 1.000 1 - 1.03 Blood, UA Negative Negative - 50 Grady/mcL pH, UA 5.0 5 - 9 Protein, UA Negative Negative - 2000(20) ++++ mg/dL Urobilinogen, UA 0.2 0.2 - 12 mg/dL Leukocytes, UA Negative Negative - 500+++ Tk/mcL Nitrite, UA Negative Negative - Positive Urine 09/03/2024 2:18 PM EDT Aleida Goodman MD POINT OF CARE TEST ENTER/EDIT ORDERABLES Final Result * NuSwab Vaginitis Plus (VG+) (09/03/2024 12:00 AM EDT) Atopobium Vaginae Low - 0 Score [facility] BVAB 2 Low - 0 Score [facility] Megasphaera 1 Low - 0 Score [facility] Comment: Calculate total score by adding the 3 individual bacterial vaginosis (BV) marker scores together. Total score is interpreted as follows: Total score 0-1: Indicates the absence of BV. Total score 2: Indeterminate for BV. Additional clinical data should be evaluated to establish a diagnosis. Total score 3-6: Indicates the presence of BV. Cira Albicans, VAISHALI Negative Negative [facility] Cira Glabrata, VAISHALI Negative Negative [facility] Trich Vag By VAISHALI Negative Negative [facility] Chlamydia Trachomatis, VAISHALI Negative Negative [facility] Neisseria Gonorrhoeae, VAISHALI Negative Negative [facility] Swab Vaginal structure / Unknown 09/03/2024 09/03/2024 Comment:Vagina Narrative [facility] - 09/05/2024 6:07 AM EDT Test(s) 127121- Atopobium vaginae; 299660- BVAB 2; 603674- Megasphaera 1 was developed and its performance characteristics determined by [facility]. It has not been cleared or approved by the Food and Drug Administration. Test(s) 661660-Qrbtlsf albicans, VAISHALI; 207124-Iimbris glabrata, VAISHALI was developed and its performance characteristics determined by [facility]. It has not been cleared or approved by the Food and Drug Administration. Performed at: 01 - [facility] [id number] [employer]ist: Edwige Esquivel MD, Phone: [phone] us Aleida Goodman MD LAB MICROBIOLOGY - GENERAL ORD ERABLES Final Result [facility] documented in this encounter Visit Diagnoses Diagnosis Hyperemesis- Primary Persistent vomiting First trimester ([facility]) state, incidental 11 weeks gestation of ([facility]) Abnormal glucose affecting ([facility]) documented in this encounter Additional Health Concerns Active Problems Noted Date Diagnosed Date OB Reminders 08/01/2024 documented as of this encounter Care Teams Oracle W[employer] Consultant Relationship Specialty Start Date End Date Unallocated, Noms Provider, [place] [address] PCP - General Family Medicine 01/04/24 documented as of this encounter
--- OUTSIDE RECORDS SUMMARY | 2024-09-12 15:39 | XMS_ITS ---
Author Organization [facility] in [place] Address [address] [place] [address] Care Team Providers Care Clinical Biostatistician Name Role Phone Hira Marshall Primary Care Provider REASON FOR VISIT Culture Results- CHECK MONDAY Encounters Encounter Location Date Provider Diagnosis [facility] [address] [place] [address] 09/12/2024 Hira Rolando Plan Of Treatment No Information Progress Notes * Jessica BALDWIN SDOB:[birth year] (18 yo F)Acc No.[id number]:09/12/2024 UNLOCKED PROGRESS NOTE Patient: Clare HURTADO Jessica S :2005 A ge:18 Y S ex:Female Address:[address] [place] [id number] * * Date:
--- OUTSIDE RECORDS SUMMARY | 2024-09-13 14:49 | XMS_ITS | Encounter Summary ---
Author Organization [facility] Address [address] [facility] [place] [address] Care Team Providers Care Matrix Bath Attendant Name Role Phone Unallocated, Noms Provider Primary Care Provi eliana Encounter Details Date Type Department Care Team (Latest Contact Info) Description 09/03/2024 Travel Social History Tobacco Use Types Packs/Day Years [...] Upcoming Encounters Date Type Department Care Team ( st Contact Info) Description 09/17/2024 12:30 PM EDT Routine [facility] [address] [place] [id number] Aleida Goodman MD [address] [facility] [address] [place] [address] documented as of this encounter Goals Goal Patient Goal Type Associated Problems Recent Progress Patient-Stated? Author Reminders Care Plan OB Reminders Jessica Hernandez MA documented as of this encounter Visit Diagnoses Not on filedocumented in this encounter Additional Health Concerns Active Problems Noted Date Diagnosed Date OB Reminders 08/01/2024 documented as of this encounter Care Teams Matrix Bath Attendant Relationship Specialty Start Date End Date Unallocated, Noms Provider, [address] [place] [address] PCP - General Family Medicine 01/04/24 documented as of this encounter
--- OUTSIDE RECORDS SUMMARY | 2024-09-13 14:49 | XMS_ITS | Clinical Summary ---
Author Organization [facility] Address [address] [place] [address] Care Team Providers Care Associate Professor Of Education Name Role Phone Unallocated, Noms Provider Primary Care Provi eliana Allergies No known active allergies Medications Vit-Fe Fumarate-FA ( PO) Take by mouth Ac tive ondansetron (Zofran) 4 MG tabletIndication s:Hyperemesis Take 1 tablet (4 mg) by mouth 2 (two) times a day as needed for nausea 20 tablet 3 5 10/04/19 25 Active Blood Glucose Monitoring Suppl (True Metrix Air Glucose Meter) deviceIndication s:First trimester (HHS-HCC),11 weeks gestation of ([facility]),Abnorm al glucose affecting ([facility]) 1 Device 3 (three) times a week 1 each 5 Active glucose blood (True Metrix Blood Glucose Test) test stripIndications :First trimester (HHS-HCC),11 weeks gestation of (HHS-HCC),Abnorm al glucose affecting (HHS-HCC) Use as directed to test blood sugar three times per week 50 each 3 5 09/04/19 26 Active Lancets 30G miscIndications: First trimester (HHS-HCC),11 weeks gestation of (HHS-HCC),Abnorm al glucose affecting ([facility]) 1 Device 3 (three) times a week 100 each 1 5 Active cephalexin (Keflex) 500 MG capsuleIndicatio ns:Urinary tract infection without hematuria, site unspecified Take 1 capsule (500 mg) by mouth in the morning and 1 capsule (500 mg) at noon and 1 capsule (500 mg) in the evening and 1 capsule (500 mg) before bedtime. Do all this for 10 days. 40 capsule 08/18/19 25 Encounters Date Type Department Care Team Description 09/12/2024 Telephone [facility] [address] [place] [address] Aleida Goodman MD 09/09/2024 Telephone [facility] [address] [place] [address] Aleida Goodman MD 09/03/2024 2:00 PM EDT Initial [facility] [address] [place] [address] Aleida Goodman MD [place]: 11w1d 09/03/2024 1:00 PM EDT Ancillary Procedure [facility] [address] [place] [address] related condition in first trimester ([facility]); Uncertain dates, antepartum, first trimester ([facility]); Obesity in ([facility]) 09/03/2024 Telephone [facility] [address] [place] [address] Aleida Goodman MD 09/03/2024 Abstract [facility] [address] [place] [address] Aleida Goodman MD 09/03/2024 Travel 08/07/2024 Orders Only [facility] [address] [place] [address] Aleida Goodman MD Urinary tract infection without hematuria, site unspecified (Primary Dx) 08/01/2024 1:00 PM EDT Initial [facility] [address] [place] [address] [place]: 6w3d 08/01/2024 Travel 07/30/2024 Clinisync Result Encounter [facility] External Department Unsolicited Aleida Goodman MD 07/29/2024 Orders Only [facility] [address] [place] [address] Aleida Goodman MD Family planning 07/29/2024 Results Follow-Up [facility] [address] [place] [address] Aleida Goodman MD 07/26/2024 Clinisync Result Encounter [facility] External Department Unsolicited Aleida Goodman MD 07/26/2024 Telephone [facility] [address] [facility] [address] [place] [address] Aleida Goodman MD from Last 3 Months Family History Medical History Relation Name Comments Anemia Brother No Known Problems Father Crohn's disease Father's Brother Diabetes Maternal Grandfather Hypertension Maternal Grandfather COPD Maternal Grandmother Emphysema Maternal Grandmother COPD Mother Endometriosis Mother Heart failure Mother Hernia Mother Hypertension Mother Hypertension Paternal Grandmother Polycystic ovary syndrome Sister Relation Name Status Comments Brother x1 Father Alive Father's Brother Alive Maternal Grandfather Alive Maternal Grandmother Alive Mother Alive Paternal Grandfather Paternal Grandmother Alive Sister Alive x1 Social History Tobacco Use Types Packs/Day Years Used Date Smoking Tobacco: Never Smokeless Tobacco: Never Tobacco Cessation:Counseling Given: Not Answered Alcohol Use Standard Drinks/Week Comments Not Currently [...] file Not on file Not on file Last Filed Vital Signs Vital Sign Reading Time Taken Comments Blood Pressure 120/72 09/03/2024 1:21 PM EDT Pulse - - Temperature - - Respiratory Rate - - Oxygen Saturation - - Inhaled Oxygen Concentration - - Weight 188 kg (415 lb) 09/03/2024 1:21 PM EDT Height 167.6 cm (5' 6 ) 08/11/2021 12:00 PM EDT Body Mass Index - - Plan of Treatment Upcoming Encounters Date Type Department Care Team (Late st Contact Info) Description 09/17/2024 12:30 PM EDT Routine [facility] [address] [place] [address] Aleida Goodman MD [address] [place] [address] Health Maintenance Due Date Last Done Comments Influenza Vaccine (Season Ended) 2024 Goals Goal Patient Goal Type Associated Problems Recent Progress Patient-Stated? Author Reminders Care Plan OB Reminders No Jessica Joyner MA Procedures Procedure Name Priority Date/Time Associated Diagnosis Comments POCT URINALYSIS DIPSTICK Routine 09/03/2024 2:18 PM EDT First trimester ([facility]) 11 weeks gestation of ([facility]) NUSWAB VAGINITIS PLUS (VG+) Routine 09/03/2024 12:00 AM EDT First trimester ([facility]) 11 weeks gestation of ([facility]) URINE CULTURE CLEAN CATCH REFLEX Routine 08/01/2024 2:23 PM EDT UR MICROSCOPIC REFLEX Routine 08/01/2024 2:23 PM EDT HCG, TOTAL, QN Routine 08/01/2024 2:23 PM EDT Encounter for supervision of normal first in first trimester ([facility]) RPR (DX) W/REFL TITER AND CONFIRMATORY TESTING Routine 08/01/2024 2:23 PM EDT Encounter for supervision of normal first in first trimester ([facility]) HYPERCOAG PANEL INTERP Routine 08/01/2024 2:23 PM EDT Encounter for supervision of normal first in first trimester ([facility]) DRUG SCREEN 17 W/CONF, UR Routine 08/01/2024 2:23 PM EDT Encounter for drug screening HEPATITIS C ANTIBODY Routine 08/01/2024 2:23 PM EDT Encounter for supervision of normal first in first trimester ([facility]) CBC (INCLUDES DIFF/PLT) Routine 08/01/2024 2:23 PM EDT Encounter for supervision of normal first in first trimester ([facility]) BLOOD TYPE AND SCREEN GEL Routine 08/01/2024 2:23 PM EDT Encounter for supervision of normal first in first trimester ([facility]) HEPATITIS B SURFACE ANTIGEN W/REFL CONFIRM Routine 08/01/2024 2:23 PM EDT Encounter for supervision of normal first in first trimester ([facility]) RUBELLA AB (IGG), IMMUNE STATUS Routine 08/01/2024 2:23 PM EDT Encounter for supervision of normal first in first trimester ([facility]) URINALYSIS, COMPLETE Routine 08/01/2024 2:23 PM EDT Encounter for supervision of normal first in first trimester ([facility]) CULTURE, URINE, ROUTINE Routine 08/01/2024 2:23 PM EDT Encounter for supervision of normal first in first trimester ([facility]) [facility] PREG QUANT HCG Routine 07/30/2024 2: 24 PM EDT [facility] PREG QUANT HCG Routine 07/26/2024 9: 16 AM EDT from Last 3 Months Results * POCT urinalysis dipstick manually resulted [...] [facility] - 09/05/2024 6:07 AM EDT Test(s) 621697- Atopobium vaginae; 843551- BVAB 2; 753554- Megasphaera 1 was developed and its performance characteristics determined by [facility]. It has not been cleared or approved by the Food and Drug Administration. Test(s) 506946-Udopegh albicans, VAISHALI; 200695-Rcrasxu glabrata, VAISHALI was developed and its performance characteristics determined by [facility]. It has not been cleared or approved by the Food and Drug Administration. Performed at: 01 - [facility] [address] [place] [id number] Managing Director Atlas: Edwige Esquivel MD, Phone: [phone] us Aleida Goodman MD LAB MICROBIOLOGY - GENERAL ORD ERABLES Final Result [facility] * DRUG SCREEN 17 W/CONF, UR (08/01/2024 2:23 PM EDT) [facility] CREATININE 82 >=20 mg/dL [facility] Comment:REFERENCE RANGE: Ref Range>=20 ETHANOL BIOMARKERS IA Negative CUTOFF:5 00 ng/mL [facility] AMPHETAMINES IA Negative CUTOFF:3 00 ng/mL [facility] BARBITURATES IA Negative CUTOFF:2 00 ng/mL [facility] BENZODIAZEPINES IA Negative CUTOFF:5 0 ng/mL [facility] COCAINE METABOLITE IA Negative CUTOFF:1 50 ng/mL [facility] PHENCYCLIDINE IA Negative CUTOFF:2 5 ng/mL [facility] CANNABINOIDS IA Negative CUTOFF:2 0 ng/mL [facility] 6-ACETYLMORPHINE IA Negative CUTOFF:1 0 ng/mL [facility] OPIATE CLASS IA Negative CUTOFF:1 00 ng/mL [facility] OXYCODONE CLASS IA Negative CUTOFF:1 00 ng/mL [facility] METHADONE IA Negative CUTOFF:1 00 ng/mL [facility] FENTANYL IA Negative CUTOFF:2 .0 ng/mL [facility] BUPRENORPHINE IA Negative CUTOFF:5 .0 ng/mL [facility] TRAMADOL IA Negative CUTOFF:2 00 ng/mL [facility] PROPOXYPHENE IA Negative CUTOFF:3 00 ng/mL [facility] TAPENTADOL IA Negative CUTOFF:2 00 ng/mL [facility] NICOTINE METABOLITE Negative [facility] COTININE Not Detected ng/mL [facility] 08/01/2024 2:23 PM EDT 08/01/2024 Narrative [facility] - 08/06/2024 10:07 AM EDT Test(s) 691683-SYBVXGK BIOMARKERS IA; 085108-KJPXZRCB IA; 881820- TAPENTADOL IA was developed and its performance characteristics determined by [facility]. It has not been cleared or approved by the Food and Drug Administration. Performed at: 01 - [facility] [address] [place] [id number] Managing Director Atlas: Clara Abad [facility], Phone: [phone] Specimen Comment: ToxAssure, ToxAssure FLEX or MAT drug testing: Specimen Comment: -Technical component - Data analysis performed at Specimen Comment: [address], [place] [address]. Aleida Goodman MD LAB BLOOD ORDERABLES Final Res ult Performing Organization Address City/[facility]/ZIP Co de Phone Number [facility] * (ABNORMAL) Urine Culture Clean Catch Reflex (08/01/2024 2:23 PM EDT) Ur Cult 1 Comment(A ) [facility] Comment: Beta hemolytic Streptococcus, group B Penicillin and ampicillin are drugs of choice for treatment of beta-hemolytic streptococcal infections. Susceptibility testing of penicillins and other beta-lactam agents approved by the FDA for treatment of beta-hemolytic streptococcal infections need not be performed routinely because nonsusceptible isolates are extremely rare in any beta-hemolytic streptococcus and have not been reported for Streptococcus pyogenes (group A). (CLSI) 25,000-50,000 colony forming units per mL 08/01/2024 2:23 PM EDT 08/01/2024 Narrative [facility] - 08/06/2024 10:07 AM EDT Performed at: 02 - [address] [id number] Managing Director Atlas: Kennedy Gary PhD, Phone: [phone] Aleida Goodman MD LAB URINE ORDERABLES Final Res ult Performing Organization Address [facility]/ZIP Co de Phone Number [facility] * Ur Microscopic Reflex (08/01/2024 2:23 PM EDT) WBC Ur None seen 0 - 5 /hpf [facility] RBC Ur None seen 0 - 2 /hpf [facility] Epithelial Cells (non renal) Ur 0-10 0 - 10 /hpf [facility] Casts Ur None seen None seen /lpf [facility] Bacteria Ur Few None seen/Few [facility] 08/01/2024 2:23 PM EDT 08/01/2024 Narrative [facility] - 08/06/2024 10:07 AM EDT Performed at: [facility] [id number] Managing Director Atlas: Kennedy Gary PhD, Phone: [phone] Aleida Goodman MD LAB URINE ORDERABLES Final Res ult Performing Organization Address [facility] Co de Phone Number [facility] * Rpr (dx) w/refl titer and confirmatory testing (08/01/2024 2:23 PM EDT) RPR Non Reactive Non Reactive [facility] Blood Venous blood specimen / Unknown 08/01/2024 2:23 PM EDT 08/01/2024 Narrative [facility] - 08/06/2024 10:07 AM EDT Performed at: [facility] [address] [id number] Managing Director Atlas: Kennedy Gary PhD, Phone: [phone] Specimen Comment: ToxAssure, Tox[facility]ure FLEX or MAT drug testing: Specimen Comment: -Technical component - Data analysis performed at Specimen Comment: [address] [place] [address]. Aleida Goodman MD LAB BLOOD ORDERABLES Final Res ult Performing Organization Address City/[facility]/ZIP Co de Phone Number [facility] * Hepatitis C antibody (08/01/2024 2:23 PM EDT) Hep C Virus Ab Non Reactive Non Reactive [facility] Comment: HCV antibody alone does not differentiate between previously resolved infection and active infection. Equivocal and Reactive HCV antibody results should be followed up with an HCV RNA test to support the diagnosis of active HCV infection. Blood Venous blood specimen / Unknown 08/01/2024 2:23 PM EDT 08/01/2024 Narrative [facility] - 08/06/2024 10:07 AM EDT Performed at: [address] [id number] Managing Director Atlas: Kennedy Gary PhD, Phone: [phone] Specimen Comment: [facility]Assure, [facility] FLEX or MAT drug testing: Specimen Comment: -Technical component - Data analysis performed at Specimen Comment: [address] [facility], [place] [address]. Aleida Goodman MD LAB BLOOD ORDERABLES Final Res ult Performing Organization Address [facility] Co de Phone Number [facility] * HIV-2 antigen (08/01/2024 2:23 PM EDT) Pathologist [facility] HIV Scr 4th Gen Non Reactive Non Reactive [facility] Comment: HIV-1/HIV-2 antibodies and HIV-1 p24 antigen were NOT detected. There is no laboratory evidence of HIV infection. HIV Negative Blood Venous blood specimen / Unknown 08/01/2024 2:23 PM EDT 08/01/2024 Narrative [facility] - 08/06/2024 10:07 AM EDT Performed at: [address] [id number] Managing Director Atlas: Kennedy Gary PhD, Phone: [phone] Specimen Comment: ToxAssure, T[facility] FLEX or MAT drug testing: Specimen Comment: -Technical component - Data analysis performed at Specimen Comment: [address] [facility], [place] [address]. Aleida Goodman MD LAB BLOOD ORDERABLES Final Res ult Performing Organization Address [facility] Co de Phone Number [facility] * Rubella antibody, IgG (08/01/2024 2:23 PM EDT) Rubella IgG Abs 3.43 Immune >0.99 index [facility] Comment: Non-immune <0.90 Equivocal 0.90 - 0.99 Immune >0.99 Blood Venous blood specimen / Unknown 08/01/2024 2:23 PM EDT 08/01/2024 Narrative [facility] - 08/06/2024 10:07 AM EDT Performed at: 02 - [address] [id number] Managing Director Atlas: Kennedy Gary PhD, Phone: [phone] Specimen Comment: ToxAssure, Tox[facility]ure FLEX or MAT drug testing: Specimen Comment: -Technical component - Data analysis performed at Specimen Comment: [address] [place] [address]. Aleida Goodman MD LAB BLOOD ORDERABLES Final Res ult Performing Organization Address [facility] de Phone Number [facility] * Hepatitis B surface antigen (08/01/2024 2:23 PM EDT) [facility] Hep B Surf Ag Scr Negative Negative [facility] Blood Venous blood specimen / Unknown 08/01/2024 2:23 PM EDT 08/01/2024 Narrative [facility] - 08/06/2024 10:07 AM EDT Performed at: 02 - [address] [id number] Managing Director Atlas: Kennedy Gary PhD, Phone: [phone] Specimen Comment: ToxAssure, ToxAssure FLEX or MAT drug testing: Specimen Comment: -Technical component - Data analysis performed at Specimen Comment: [address] [place] [address]. [place] Aleida Goodman MD LAB BLOOD ORDERABLES Final Res ult Performing Organization Address [facility] de Phone Number [facility] * (ABNORMAL) Urinalysis with microscopic (08/01/2024 2:23 PM EDT) [facility] Specific [place] Urine 1.015 1.005 - 1.030 [facility] pH Urine 7.0 5.0 - 7.5 [facility] Color Urine Yellow Yellow [facility] Appearance Urine Clear Clear [facility] WBC Esterase Urine Trace(A) Negative [facility] Protein Urine Negative Negative/Tra ce [facility] Glucose Urine Negative Negative [facility] Ketones Urine Negative Negative [facility] Occult Blood Urine Negative Negative [facility] Bilirubin Urine Negative Negative [facility] Urobilinogen,Se mi-Qn Urine 0.2 0.2 - 1.0 mg/dL [facility] Nitrite Urine Negative Negative [facility] Ur Microscopic See below: [facility] Comment:Microscopic was trang cated and was performed. Urine Urine specimen obtained by clean catch procedure / Unknown 08/01/2024 2:23 PM EDT 08/01/2024 Narrative [facility] - 08/06/2024 10:07 AM EDT Performed at: [address] [id number] Managing Director Atlas: Kennedy Gary PhD, Phone: [phone] Specimen Comment: ToxAssure, ToxAssure FLEX or MAT drug testing: Specimen Comment: -Technical component - Data analysis performed at Specimen Comment: [address] , [place] [address]. Aleida Goodman MD LAB URINE ORDERABLES Final Res ult [facility] * CBC and differential (08/01/2024 2:23 PM EDT) WBC 9.0 3.4 - 10.8 x10E3/uL [facility] RBC 5.00 3.77 - 5.28 x10E6/uL [facility] Hgb 13.6 11.1 - 15.9 g/dL [facility] Hct 42.7 34.0 - 46.6 % [facility] MCV 85 79 - 97 fL [facility] MCH 27.2 26.6 - 33.0 pg [facility] MCHC 31.9 31.5 - 35.7 g/dL [facility] RDW 14.0 11.7 - 15.4 % [facility] Platelets 392 150 - 450 x10E3/uL [facility] Neutrophils 61 Not Estab. % [facility] Lymphs 28 Not Estab. % [facility] Monocytes 9 Not Estab. % [facility] Eos 1 Not Estab. % [facility] Basos 0 Not Estab. % [facility] Neutrophils Abs 5.5 1.4 - 7.0 x10E3/uL [facility] Lymphs Abs 2.5 0.7 - 3.1 x10E3/uL [facility] MonocytesAbs 0.8 0.1 - 0.9 x10E3/uL [facility] Eos Abs 0.1 0.0 - 0.4 x10E3/uL [facility] Baso Abs 0.0 0.0 - 0.2 x10E3/uL [facility] Immature Granulocytes 1 Not Estab. % [facility] Immature Grans Abs 0.1 0.0 - 0.1 x10E3/uL [facility] Blood Venous blood specimen / Unknown 08/01/2024 2:23 PM EDT 08/01/2024 Narrative [facility] - 08/06/2024 10:07 AM EDT Performed at: 02 - [facility] [address] [id number] Managing Director Atlas: Kennedy Gary PhD, Phone: [phone] Specimen Comment: ToxAssure, ToxAssure FLEX or MAT drug testing: Specimen Comment: -Technical component - Data analysis performed at Specimen Comment: [address] [place] [address], [place] [address]. Aleida Goodman MD LAB BLOOD ORDERABLES Final Res ult Performing Organization Address [facility] de Phone Number [facility] * Type and screen (08/01/2024 2:23 PM EDT) ABO Grouping A [facility] Rh Factor Negative [facility] Comment: Please note: Prior records for this patient's ABO / Rh type are not available for additional verification. Antibody Screen Negative Negative [facility] Blood Venous blood specimen / Unknown 08/01/2024 2:23 PM EDT 08/01/2024 Narrative [facility] - 08/06/2024 10:07 AM EDT Performed at: 02 - [facility] [id number] Managing Director Atlas: Kennedy Gary PhD, Phone: [phone] Specimen Comment: ToxAssure, T[facility]ure FLEX or MAT drug testing: Specimen Comment: -Technical component - Data analysis performed at Specimen Comment: [address] [place] [address], [place] [phone]. us Aleida Goodman MD LAB BLOOD ORDERABLES Final Res ult Performing Organization Address [facility] Co de Phone Number [facility] * (ABNORMAL) Urine culture (08/01/2024 2:23 PM EDT) Urine Cult Rt Status Final report(A) [facility] Urine Urine specimen obtained by clean catch procedure / Unknown 08/01/2024 2:23 PM EDT 08/01/2024 Comment:UR Narrative [facility] - 08/06/2024 10:07 AM EDT Performed at: 02 - [address] [id number] Managing Director Atlas: Kennedy Gary PhD, Phone: [phone] Specimen Comment: ToxAssure, ToxAssure FLEX or MAT drug testing: Specimen Comment: -Technical component - Data analysis performed at Specimen Comment: [address] [facility], [place] [address]. us Aleida Goodman MD LAB MICROBIOLOGY - GENERAL ORD ERABLES Final Result [facility] * hCG, quantitative (08/01/2024 2:23 PM EDT) hCG Beta Subunit Qn 26,823 mIU/mL [facility] Comment: Female (Non-) 0 - 5 (Postmenopausal) 0 - 8 Female () Weeks of Gestation 3 6 - 71 4 10 - 750 5 517 - 3138 6 158 - 59391 7 7134 -309337 8 22400 -831220 9 00473 -627382 10 87871 -825507 12 04850 -904767 14 85504 - 06149 15 17587 - 90392 16 8568 - 32429 17 0475 - 83902 18 5661 - 23586 Results confirmed on dilution. Guille ECLIA methodology Blood Venous blood specimen / Unknown 08/01/2024 2:23 PM EDT 08/01/2024 Narrative [facility] - 08/02/2024 6:07 AM EDT Performed at: - [facility] [id number] Managing Director Atlas: Kennedy Gary PhD, Phone: [phone] us Aleida Goodman MD LAB BLOOD ORDERABLES Final Res ult Performing Organization Address [facility] de Phone Number [facility] * [facility] PREG QUANT HCG (07/30/2024 2:24 PM EDT) Only the most recent of2 resultswithin the time period is included. HCG QUANTITATIVE 16,480 mIU/mL [facility] Comment: 5-50 0.2-1 WEEK 50-500 1-2 WEEKS 100-5,000 2-3 WEEKS 500-10,000 3-4 WEEKS 1,000-50,000 4-5 WEEKS 10,000-100,000 5-6 WEEKS 15,000-200,000 6-8 WEEKS 10,000-100,000 2-3 MONTHS 07/30/2024 2:24 PM EDT 07/30/2024 2:25 PM EDT Narrative [facility] - 07/30/2024 3:23 PM EDT Aleida Goodman MD CLINIS[facility]NC Final Result Performing Organization Address [facility] de Phone Number [facility] from Last 3 Months Additional Health Concerns Active Problems Noted Date Diagnosed Date OB Reminders 08/01/2024 Insurance [facility] [place] [place] Care Teams Associate Professor Of Education Relationship Specialty Start Date End Date Unallocated, [facility], [address] [place] [address] PCP - General Family Medicine 01/04/24
--- OUTSIDE RECORDS SUMMARY | 2024-09-13 14:49 | XMS_ITS | Encounter Summary ---
Author Organization [facility] Address [address] [place] [address] Care Team Providers Care Telemetry Rn Name Role Phone Unallocated, Noms Provider Primary Care Provi eliana Encounter Details Date Type Department Care Team ([facility] st Contact Info) Description 09/12/2024 Telephone [facility] [address] [place] [id number] Aleida Goodman MD [address] [facility] [address] [place] [address] Social History Tobacco Use Types Packs/Day Years [...] on file documented as of this encounter Miscellaneous Notes * Telephone Encounter - Jessica Joyner MA - 09/12/2024 4:27 PM EDT Spoke with pt, advs can leave another brochure for testing at front desk person for her to pick out hand, pt states she will get at her next appt on 09/17. * Telephone Encounter - Meghan Gutiérrez - 09/12/2024 12:25 PM EDT Patient called wanting to know if she can get the testing done that's done at 12 weeks. The patientneeds the number so she can see if her insurance covers it. Please call back the patient. The patient did state if her phone sends numbers straight to voicemail if it isn't saved into her phone. Please leave a voicemail and she will call back right away. documented in this encounter Plan of Treatment Upcoming Encounters Date Type Department Care Team (Late st Contact Info) Description 09/17/2024 12:30 PM EDT Routine [facility] [address] [place] [address] Aleida Goodman MD [address] [facility] [address] [place] [address] documented as of this encounter Goals Goal Patient Goal Type Associated Problems Recent Progress Patient-Stated? Author Reminders Care Plan OB Reminders No Jessica Joyner MA documented as of this encounter Visit Diagnoses Not on filedocumented in this encounter Additional Health Concerns Active Problems Noted Date Diagnosed Date OB Reminders 08/01/2024 documented as of this encounter Care Teams Telemetry Rn Relationship Specialty Start Date End Date Unallocated, Noms Provider, [address] [place] [address] PCP - General Family Medicine 01/04/24 documented as of this encounter
--- OUTSIDE RECORDS SUMMARY | 2024-09-13 14:49 | XMS_ITS | Encounter Summary ---
Author Organization [facility] Address [address] [place] [address] Care Team Providers [employer] Guest Coordinator Name Role Phone Unallocated, Noms Provider Primary Care Provi eliana Encounter Details Date Type Department Care Team ([facility] Contact Info) Description 09/03/2024 Abstract [facility] [address] [facility] [address] [place] [phone] Aleida Goodman MD [address] [facility] [address] [place] [address] Social History Tobacco Use Types Packs/Day Years [...] Upcoming Encounters Date Type Department Care Team ([facility] Contact Info) Description 09/17/2024 12:30 PM EDT Routine [facility] [address] [place] [phone] Aleida Goodman MD [address] [place] [address] documented as of this encounter Goals Goal Patient Goal Type Associated Problems Recent Progress Patient-Stated? Author Reminders Care Plan OB Reminders No Jessica Joyner MA documented as of this encounter Visit Diagnoses Not on filedocumented in this encounter Additional Health Concerns Active Problems Noted Date Diagnosed Date OB Reminders 08/01/2024 documented as of this encounter Care Teams International Guest Coordinator Relationship Specialty Start Date End Date Unallocated, Noms Jude, [address] [place] [address] PCP - General Family Medicine 01/04/24 documented as of this encounter
--- OUTSIDE RECORDS SUMMARY | 2024-09-13 14:49 | XMS_ITS | Patient Health Record ---
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 Operator Name Role Phone Hira Pillai Primary Care Provider Gladys Cutler Unavailable [phone] Allergies No Known Allergies Results Component Value Reference Range Notes XR lumbar spine 2-3V Reviewed date:01/04/2024 12:57:53 PM Interpretation: Performing Lab: Notes/Report: Source Facility: [place] [address] XRay Report Signed Patient: JUNIOR BALDWIN MR#: [id number] : 2005 Acct:[id number] Age/Sex: 18 / F ADM Date: 01/02/24 Loc: RAD Attending Dr: GLADYS CUTLER Ordering Physician: GLADYS CUTLER Date of Service: 01/02/24 Procedure(s): XR lumbar spine 2-3V Accession Number(s): [id number] cc: GLADYS CUTLER ; uLca Pillai M.D. [address] [address] Patient Name: JUNIOR BALDWIN MRN: [id number] date: 2005 Sex: F Assigned Patient Location: RAD Current Patient Location: Accession/Order Number: [id number] Exam Date: 01/02/2024 14:30 Report Date: 01/04/2024 07:35 At the request of: GLADYS CUTLER Procedure: XR lumbar spine 2-3V EXAMINATION: XR lumbar spine 2-3V HISTORY: Paresthesia R20.2 COMPARISON: No relevant comparison available. FINDINGS: BONES: Normal. No significant spondylosis, scoliosis, fracture, or visible bony lesion. DISC SPACES: Normal. No significant disc height narrowing, subluxation, or endplate abnormality. PARASPINOUS: Negative. No paraspinous abnormality is seen. OTHER: Negative. XR/XR lumbar spine 2-3V IMPRESSION: No acute abnormality Electronically authenticated by: SANDEEP NICKERSON Date: 01/04/2024 07:35 Dictated By: Sandeep Nickerson M.D. Signed By: 01/04/24737 DD/ 4 TD/TT: Keno Writer/Runner: [place] [address] XRay Report Signed Patient: JUNIOR BALDWIN MR#: [id number] : 2005 Acct:[id number] Age/Sex: 18 / F ADM Date: 01/02/24 Loc: RAD Attending Dr: GLADYS CUTLER Ordering Physician: GLADYS CUTLER Date of Service: 01/02/24 Procedure(s): XR lum bar spine 2-3V Accession Number(s): [id number] cc: GLADYS CUTLER ; Luca Pillai M.D. [facility] [place] [id number] Patient Name: JUNIOR BALDWIN MRN: [id number] date: 2005 Sex: F Assigned Patient Location: RAD Current Patient Location: Accession/Order Numb er: [id number] Exam Date: 14:30 Report Date: 01/04/2024 07:35 At the request of: GLADYS CUTLER Procedure: XR lumbar spine 2-3V EXAMINATION: XR lumb ar spine 2-3V HISTORY: Paresthesia R20.2 COMPARISON: No relev ant comparison available. FINDINGS: BONES: Normal. No significant spondylosis, scoliosis, fracture, or visible bony lesion. DISC SPACES: Normal. No significant disc height narrowing, subluxation, or endplate abnormality. PARASPINOUS: Negativ e. No paraspinous abnormality is seen. OTHER: Negative. X R/XR lumbar spine 2-3V IMPRESSION: No acute abnormality Electronically authenticated by: SANDEEP NICKERSON Date: 01/04/2024 07:35 Dictated By: Preston Nickerson M.D. Signed By: 01/04/2438 DD/ 4 TD/TT: Keno Writer/Runner: UA (CLEAN or CATCH) EXECUTIVE ADMINISTRATIVE ASSISTANT or M ICRO IF IND. Reviewed date:02/04/2024 02:11:53 PM Interpretation: Performing Lab: Notes/Report: [facility] , Color Urine LT. YELLOW YELLOW Clarity Urine CLEAR CLEAR Specific [place] Urine 1.025 1.005-1.025 pH Urine 6.0 5.0-9.0 Protein Urine NEGATIVE NEG/TRACE mg/dL Glucose Urine UA NEGATIVE NEGATIVE mg/dL Bilirubin Urine NEGATIVE NEGATIVE Ketones Urine NEGATIVE NEGATIVE mg/dL Blood Urine TRACE-I NEGATIVE Nitrite Urine NEGATIVE NEGATIVE Urobilinogen Urine 0.2 0.2-1.0 EU/dL Leukocyte Esterase Urine MODERATE NEGATIVE Urine Microscopic Indicated YES Performing Lab: see note - [facility] LB URINE MICROSCOPIC ONLY Reviewed date:02/04/2024 02:11:53 PM Interpretation: Performing Lab: Notes/Report: [facility] , WBC Urine 10-20 NONE SEEN #/HPF RBC Urine 0-2 0-2 #/HPF Bacteria Urine SMALL NONE SEEN #/HPF Mucus Urine NONE SEEN NONE SEEN Squamous Epithelial Cell Urine MANY NONE/RARE #/LPF Crystals Seen? None Seen None Seen #/HPF Cast Seen? NONE SEEN NONE SEEN #/LPF Urine Culture Indicated YES Performing Lab: see note - [facility] LB Chlamydia/GC Amplification Reviewed date:02/06/2024 08:35:27 PM Interpretation: Performing Lab: Notes/Report: urine [facility] , Chlamydia trachomatis, VAISHALI Negative Negative Neisseria gonorrhoeae, VAISHALI Negative Negative Performed at: = - [facility] [place] Dining Server: Edwige Esquivel MD, Phone: [phone] [address] [place] [address] [place] [phone] Performing Lab: see note LC - [facility] LB HCG Qualitative Urine Reviewed date:02/04/2024 02:11:53 PM Interpretation: Performing Lab: Notes/Report: [facility] , HCG Qualitative Urine* NEGATIVE NEGATIVE Performing Lab: see note ML - [facility] LB Urine Culture, Routine Reviewed date:02/04/2024 02:11:53 PM Interpretation: Performing Lab: Notes/Report: [facility] , Urine Culture, Routine See Below For Report Urine Culture, Routine Isolated Organism: Beta hemolytic Strep group B : O:BETAGB Urine Culture, Routine *ABNORMAL* Urine Culture, Routine Isolated Organism: Beta hemolytic Strep group B : O:BETAGB Urine Culture, Routine 50,000-100,000 co lony forming units per mL Urine Culture, Routine Isolated Organism: Beta hemolytic Strep group B : O:BETAGB Urine Culture, Routine Penicillin and ampicillin are drugs of choice for Urine Culture, Routine Isolated Organism: Beta hemolytic Strep group B : O:BETAGB Urine Culture, Routine treatment of beta-hemolytic streptococcal infections. Urine Culture, Routine Isolated Organism: Beta hemolytic Strep group B : O:BETAGB Urine Culture, Routine Susceptibility te sting of penicillins and other beta- Urine Culture, Routine Isolated Organism: Beta hemolytic Strep group B : O:BETAGB Urine Culture, Routine lactam agents diony roved by the FDA for treatment of Urine Culture, Routine Isolated Organism: Beta hemolytic Strep group B : O:BETAGB Urine Culture, Routine beta-hemolytic streptococcal infections need not be Urine Culture, Routine Isolated Organism: Beta hemolytic Strep group B : O:BETAGB Urine Culture, Routine performed routine ly because nonsusceptible isolates Urine Culture, Routine Isolated Organism: Beta hemolytic Strep group B : O:BETAGB Urine Culture, Routine are extremely rar e in any beta-hemolytic streptococcus Urine Culture, Routine Isolated Organism: Beta hemolytic Strep group B : O:BETAGB Urine Culture, Routine and have not been reported for Streptococcus pyogenes Urine Culture, Routine Isolated Organism: Beta hemolytic Strep group B : O:BETAGB Urine Culture, Routine (group A). (CLSI) Urine Culture, Routine Isolated Organism: Beta hemolytic Strep group B : O:BETAGB Urine Culture, Routine Urine Culture, Routine Isolated Organism: Beta hemolytic Strep group B : O:BETAGB Urine Culture, Routine Mixed urogenital maki Urine Culture, Routine Isolated Organism: Beta hemolytic Strep group B : O:BETAGB Urine Culture, Routine 10,000-25,000 col kayce forming units per mL Urine Culture, Routine Isolated Organism: Beta hemolytic Strep group B : O:BETAGB Urine Culture, Routine Beta hemolytic St rep group B Urine Culture, Routine Isolated Organism: Beta hemolytic Strep group B : O:BETAGB Urine Culture, Routine See Below For Report Urine Culture, Routine Isolated Organism: Beta hemolytic Strep group B : O:BETAGB Urine Culture, Routine Performed at: - [facility] [place] Urine Culture, Routine Isolated Organism: Beta hemolytic Strep group B : O:BETAGB Urine Culture, Routine [address], [place] [id number] Urine Culture, Routine Isolated Organism: Beta hemolytic Strep group B : O:BETAGB Urine Culture, Routine Dining Server: Bud Gary PhD, Phone: [phone] Urine Culture, Routine Isolated Organism: Beta hemolytic Strep group B : O:BETAGB Performing Lab: see note LC - [facility] LB SEE REPORT - Environmental Education Specialist Id information not found for OBX-specific 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 CBC AUTO DIFF Reviewed date:06/30/2024 03:42:34 PM Interpretation: Performing Lab: Notes/Report: [facility] , White Blood Count 8.2 4.0-11.0 10 3/uL Red Blood Count 5.32 4.20-5.40 10 6/uL Hemoglobin 14.4 12.0-16.0 g/dL Hematocrit 44.8 36.0-48.0 % Mean Corpuscular Volume 84.2 81.0-99.0 fL Mean Corpuscular Hemoglobin 27.1 26.7-34.0 pg Mean Corpuscular HGB Conc 32.1 29.9-35.2 g/dL Red Cell Distribution Width 13.7 11.0-15.0 % Platelet Count 374 150-450 10 3/uL Mean Platelet Volume 8.9 9.5-13.5 fL Neutrophils Percent Auto 67.8 43.0-75.0 % Lymphocytes Percent Auto 19.6 20.5-60.0 % Monocytes Percent Auto 11.6 1.7-12.0 % Eosinophils Percent Auto 0.4 0.9-7.0 % Basophils Percent Auto 0.4 0.2-2.0 % Immature Granulocytes Pct Auto 0.2 0.0-0.5 % Neutrophils Absolute Auto 5.5 1.4-6.5 10 3/uL Lymphocytes Absolute Auto 1.6 1.2-3.8 10 3/uL Monocytes Absolute Auto 1.0 0.3-0.8 10 3/uL Eosinophils Absolute Auto 0.0 0.0-0.7 10 3/uL Basophils Absolute Auto 0.0 0.0-0.1 10 3/uL Immature Granulocytes Abs Auto 0.02 0.00-0.03 10 3/uL Performing Lab: see note ML - [facility] LB PREG QUANT HCG Reviewed date:07/26/2024 01:09:24 PM Interpretation: Performing Lab: Notes/Report: [facility] HCG Quantitative 4086 10,000-100,000 2-3 MONTHS 5-50 0.2-1 WEEK 10,000-100,000 5-6 WEEKS 100-5,000 2-3 WEEKS 15,000-200,000 6-8 WEEKS 50-500 1-2 WEEKS 500-10,000 3-4 WEEKS 1,000-50,000 4-5 WEEKS Performing Lab: see note ML - [facility] PREG QUANT HCG Reviewed date:07/30/2024 03:50:29 PM Interpretation: Performing Lab: Notes/Report: [facility] , HCG Quantitative 01768 10,000-100,000 2-3 MONTHS 1,000-50,000 4-5 WEEKS 50-500 1-2 WEEKS 500-10,000 3-4 WEEKS 100-5,000 2-3 WEEKS 15,000-200,000 6-8 WEEKS 5-50 0.2-1 WEEK 10,000-100,000 5-6 WEEKS Performing Lab: see note - [facility] UA RANDOM W or MICROSCOPIC Reviewed date:09/12/2024 07:41:19 PM Interpretation: Performing Lab: Notes/Report: [facility] , Color Urine YELLOW YELLOW Clarity Urine CLEAR CLEAR Specific [place] Urine 1.025 1.005-1.025 pH Urine 6.0 5.0-9.0 Protein Urine NEGATIVE NEG/TRACE mg/dL Glucose Urine UA NEGATIVE NEGATIVE mg/dL Bilirubin Urine NEGATIVE NEGATIVE Ketones Urine NEGATIVE NEGATIVE mg/dL Blood Urine NEGATIVE NEGATIVE Nitrite Urine NEGATIVE NEGATIVE Urobilinogen Urine 1.0 0.2-1.0 EU/dL Leukocyte Esterase Urine TRACE NEGATIVE WBC Urine 5-10 NONE SEEN #/HPF RBC Urine 5-10 0-2 #/HPF Bacteria Urine TRACE NONE SEEN #/HPF Mucus Urine NONE SEEN NONE SEEN Squamous Epithelial Cell Urine RARE NONE/RARE #/LPF Crystals Seen? Seen None Seen #/HPF Calcium Oxalate Crystals Urine FEW Cast Seen? NONE SEEN NONE SEEN #/LPF Urine Culture Indicated YES-[facility] Performing Lab: see note ML - [facility] Urine Culture - [facility] Reviewed date:09/12/2024 07:41:19 PM Interpretation: Performing Lab: Notes/Report: [facility] Urine Culture - [facility] See Below For Report PEND Pending - Specimen sent to [facility]^Pending - Specimen sent to [facility] Urine Culture - [facility] Performing Lab: see note ML - [facility] SARS-CoV-2 Ag* Reviewed date:06/30/2024 03:42:34 PM Interpretation: Performing Lab: Notes/Report: [facility] , SARS-CoV-2 Ag POSITIVE NEGATIVE authorized by the FDA under an Emergency Use Authorization emergency use of in vitro diagnostic tests for detection terminated or authorization is revoked sooner. authorized for the duration of the declaration that viruses or pathogens. The emergency use of this test is and/or diagnosis of Covid-19 under section 564(b)(1) of the Act, 21 U.S.C. 360bbb-3(b)(1), unless the declaration is the detection of proteins from SARS-CoV-2, not for any other complexity testing. This test has been authorized only for (EUA) for use by authorized laboratories certified under CLIA that meet the requirements to perform moderate or high circumstances exist justifying the authorization of This test has not been FDA cleared or approved, but has been Performing Lab: see note ML - [facility] PROF CHEM 8 (BAS METB) Reviewed date:06/30/2024 03:42:34 PM Interpretation: Performing Lab: Notes/Report: [facility] , Sodium 137 136-145 mmol/L Potassium 3.9 3.5-5.1 mmol/L Chloride 104 98-107 mmol/L Carbon Dioxide 25.0 21.0-32.0 mmol/L Anion Gap 11.9 Glucose 103 74-106 mg/dL Blood Urea Nitrogen 10.0 7.0-18.0 mg/dL Creatinine 0.89 0.55-1.02 mg/dL Estimated GFR ( Candis >60 >=60 mL/min/1.73m 2 Estimated GFR (Non- Jacque >60 >=60 mL/min/1.73m 2 BUN Creatinine Ratio 11.2 Calcium 9.1 8.5-10.1 mg/dL Performing Lab: see note ML - [facility] LB INFLUENZA A AND B AG Reviewed date:06/30/2024 03:42:34 PM Interpretation: Performing Lab: Notes/Report: [facility] , Influenza Virus A Antigen Negative below the detection limit of the test. Negative for Flu A protein antigen. Infection due to Flu A cannot be ruled out. Flu A antigen in the sample may be Influenza Virus B Antigen Negative below the detection limit of the test. Negative for Flu B protein antigen. Infection due to Flu B cannot be ruled out. Flu B antigen in the sample may be Performing Lab: see note ML - [facility] LB XR knee FIONA 3V Reviewed date:05/13/2024 08:34:54 PM Interpretation: Performing Lab: Notes/Report: Source Facility: [place] [address] XRay Report Signed Patient: JUNIOR BALDWIN MR#: [id number] : 2005 Acct:[id number] Age/Sex: 18 / F ADM Date: 05/13/24 Loc: RAD Attending Dr: Luca Pillai M.D. Ordering Physician: Luca Pillai M.D. Date of Service: 05/13/24 Procedure(s): XR knee FIONA 3V Accession Number(s): [id number] cc: Luca Pillai M.D. [place] [address] Patient Name: JUNIOR BALDWIN MRN: [id number] date: 2005 Sex: F Assigned Patient Location: [facility] Current Patient Location: [facility] Accession/Order Number: [id number] Exam Date: 05/13/2024 14:13 Report Date: 05/13/2024 14:18 At the request of: LUCA PILLAI MD Procedure: XR knee FIONA 3V BILATERAL KNEES - 3 views each CLINICAL DATA: Bilateral lower extremity weakness and tingling for the past month. No reported injury. COMPARISON: None AP, lateral and internal oblique views were obtained on both sides. No acute fractures or dislocation are identified. There is a suspected benign fibrous cortical defect at the posterior metaphysis of the right tibia. No disproportionate joint space narrowing is seen. There is mild lateral tibiofemoral joint compartment marginal spurring on the right. No knee effusions or focal soft tissue swelling are noted. XR/XR knee FIONA 3V IMPRESSION: NO ACUTE BONY FINDINGS. Impression dictated by: Sandra Mcdonald M.D.05/13/2024 2:18 PM Dictation Location: [place] [address] Electronically authenticated by: [id number] Y Date: 05/13/2024 14:18 Dictated By: Sandra Mcdonald M.D. Signed By: 05/13/24 1421 DD/ 1418 TD/TT: Keno Writer/Runner: [place] [address] XRay Report Signed Patient: JUNIOR BALDWIN MR#: [id number] : 2005 Acct:[id number] Age/Sex: 18 / F ADM Date: 05/13/24 Loc: [facility] Attending Dr: Edenilson Pillai M.D. Ordering Physician: Luca Pillai M.D. Date of Service: 05/13/24 Procedure(s): XR kne e FIONA 3V Accession Number(s): [id number] cc: Luca Pillai M.D. [place] [address] Patient Name: JUNIOR BALDIWN MRN: [id number] date: 2005 Sex: F Assigned Patient Location: [facility] Current Patient Location: [facility] Accession/Order Numb er: [id number] Exam Date: 05/13/2024 14:13 Report Date: 05/13/2024 14:18 At the request of: LUCA PILLAI MD Procedure: XR knee B [place] 3V BILATERAL KNEES - 3 views each CLINICAL DATA: Bilat eral lower extremity weakness and tingling for the past month. No reported injury. COMPARISON: None AP, lateral and inte rnal oblique views were obtained on both sides. No acute fractures or disloca tion are identified. There is a suspected benign fibrous cortical defect at t he posterior metaphysis of the right tibia. No disproportionate altagracia nt space narrowing is seen. There is mild lateral tibiofemoral joint compartment marginal spurring on the right. No knee effusions or focal s oft tissue swelling are noted. X R/XR knee FIONA 3V IMPRESSION: NO ACUTE BONY FINDINGS. Impression dictated by: Sandra Mcdonald M.D.05/13/2024 2:18 PM Dictation Location: [place] Electronically authenticated by: [id number] Y Date: 05/13/2024 14:18 Dictated By: Sandra Mcdonald M.D. Signed By: 05/13/24 1421 DD/ 1418 TD/TT: Keno Writer/Runner: Genital Culture, Routine Reviewed date:02/06/2024 08:35:27 PM Interpretation: Performing Lab: Notes/Report: [facility] , Genital Culture, Routine See Below For Report Isolated Organism: Yeast,, : O:BETAGB Isolated O:ROMANSH Genital Culture, Routine Genital Culture, Routine *ABNORMAL* Isolated Organism: Yeast,, : O:BETAGB Isolated O:ROMANSH Genital Culture, Routine Genital Culture, Routine isolated Isolated Organism: Yeast,, : O:BETAGB Isolated O:ROMANSH Genital Culture, Routine Genital Culture, Routine Request for further identification must be made Isolated Organism: Yeast,, : O:BETAGB Isolated O:ROMANSH Genital Culture, Routine Genital Culture, Routine within 1 week. Isolated Organism: Yeast,, : O:BETAGB Isolated O:ROMANSH Genital Culture, Routine Genital Culture, Routine Moderate growth Isolated Organism: Yeast,, : O:BETAGB Isolated O:ROMANSH Genital Culture, Routine Genital Culture, Routine Organism: Beta hemolytic Strep group B : Isolated Organism: Yeast,, : O:BETAGB Isolated O:ROMANSH Genital Culture, Routine Genital Culture, Routine *ABNORMAL* Isolated Organism: Yeast,, : O:BETAGB Isolated O:ROMANSH Genital Culture, Routine Genital Culture, Routine Penicillin and ampicillin are drugs of choice for Isolated Organism: Yeast,, : O:BETAGB Isolated O:ROMANSH Genital Culture, Routine Genital Culture, Routine treatment of beta-hemolytic streptococcal infections. Isolated Organism: Yeast,, : O:BETAGB Isolated O:ROMANSH Genital Culture, Routine Genital Culture, Routine Susceptibility testing of penicillins and other beta- Isolated Organism: Yeast,, : O:BETAGB Isolated O:ROMANSH Genital Culture, Routine Genital Culture, Routine lactam agents approved by the FDA for treatment of Isolated Organism: Yeast,, : O:BETAGB Isolated O:ROMANSH Genital Culture, Routine Genital Culture, Routine beta-hemolytic streptococcal infections need not be Isolated Organism: Yeast,, : O:BETAGB Isolated O:ROMANSH Genital Culture, Routine Genital Culture, Routine performed routinely because nonsusceptible isolates Isolated Organism: Yeast,, : O:BETAGB Isolated O:ROMANSH Genital Culture, Routine Genital Culture, Routine are extremely rare in any beta-hemolytic streptococcus Isolated Organism: Yeast,, : O:BETAGB Isolated O:ROMANSH Genital Culture, Routine Genital Culture, Routine and have not been reported for Streptococcus pyogenes Isolated Organism: Yeast,, : O:BETAGB Isolated O:ROMANSH Genital Culture, Routine Genital Culture, Routine (group A). (CLSI) Isolated Organism: Yeast,, : O:BETAGB Isolated O:ROMANSH Genital Culture, Routine Genital Culture, Routine Heavy growth Isolated Organism: Yeast,, : O:BETAGB Isolated O:ROMANSH Genital Culture, Routine Genital Culture, Routine Specimen stability note: A swab transport (ie., ESwab, Isolated Organism: Yeast,, : O:BETAGB Isolated O:ROMANSH Genital Culture, Routine Genital Culture, Routine Amies agar gel) received by the lab more than 24 hours Isolated Organism: Yeast,, : O:BETAGB Isolated O:ROMANSH Genital Culture, Routine Genital Culture, Routine after collection may result in reduced recovery of Isolated Organism: Yeast,, : O:BETAGB Isolated O:ROMANSH Genital Culture, Routine Genital Culture, Routine Neisseria gonorrhoeae (GC). (This is informational Isolated Organism: Yeast,, : O:BETAGB Isolated O:ROMANSH Genital Culture, Routine Genital Culture, Routine only and may not apply to this specimen.) Isolated Organism: Yeast,, : O:BETAGB Isolated O:ROMANSH Genital Culture, Routine Genital Culture, Routine Beta hemolytic Strep group B Isolated Organism: Yeast,, : O:BETAGB Isolated O:ROMANSH Genital Culture, Routine Genital Culture, Routine Yeast,, Isolated Organism: Yeast,, : O:BETAGB Isolated O:ROMANSH Genital Culture, Routine Genital Culture, Routine Organism: Yeast,, : Isolated Organism: Yeast,, : O:BETAGB Isolated O:ROMANSH Genital Culture, Routine Genital Culture, Routine *ABNORMAL* Isolated Organism: Yeast,, : O:BETAGB Isolated O:ROMANSH Genital Culture, Routine Genital Culture, Routine isolated Isolated Organism: Yeast,, : O:BETAGB Isolated O:ROMANSH Genital Culture, Routine Genital Culture, Routine Request for further identification must be made Isolated Organism: Yeast,, : O:BETAGB Isolated O:ROMANSH Genital Culture, Routine Genital Culture, Routine within 1 week. Isolated Organism: Yeast,, : O:BETAGB Isolated O:ROMANSH Genital Culture, Routine Genital Culture, Routine Moderate growth Isolated Organism: Yeast,, : O:BETAGB Isolated O:ROMANSH Genital Culture, Routine Genital Culture, Routine Organism: Beta hemolytic Strep group B : Isolated Organism: Yeast,, : O:BETAGB Isolated O:ROMANSH Genital Culture, Routine Genital Culture, Routine *ABNORMAL* Isolated Organism: Yeast,, : O:BETAGB Isolated O:ROMANSH Genital Culture, Routine Genital Culture, Routine Penicillin and ampicillin are drugs of choice for Isolated Organism: Yeast,, : O:BETAGB Isolated O:ROMANSH Genital Culture, Routine Genital Culture, Routine treatment of beta-hemolytic streptococcal infections. Isolated Organism: Yeast,, : O:BETAGB Isolated O:ROMANSH Genital Culture, Routine Genital Culture, Routine Susceptibility testing of penicillins and other beta- Isolated Organism: Yeast,, : O:BETAGB Isolated O:ROMANSH Genital Culture, Routine Genital Culture, Routine lactam agents approved by the FDA for treatment of Isolated Organism: Yeast,, : O:BETAGB Isolated O:ROMANSH Genital Culture, Routine Genital Culture, Routine beta-hemolytic streptococcal infections need not be Isolated Organism: Yeast,, : O:BETAGB Isolated O:ROMANSH Genital Culture, Routine Genital Culture, Routine performed routinely because nonsusceptible isolates Isolated Organism: Yeast,, : O:BETAGB Isolated O:ROMANSH Genital Culture, Routine Genital Culture, Routine are extremely rare in any beta-hemolytic streptococcus Isolated Organism: Yeast,, : O:BETAGB Isolated O:ROMANSH Genital Culture, Routine Genital Culture, Routine and have not been reported for Streptococcus pyogenes Isolated Organism: Yeast,, : O:BETAGB Isolated O:ROMANSH Genital Culture, Routine Genital Culture, Routine (group A). (CLSI) Isolated Organism: Yeast,, : O:BETAGB Isolated O:ROMANSH Genital Culture, Routine Genital Culture, Routine Heavy growth Isolated Organism: Yeast,, : O:BETAGB Isolated O:ROMANSH Genital Culture, Routine Genital Culture, Routine Isolated Organism: Yeast,, : O:BETAGB Isolated O:ROMANSH Genital Culture, Routine Genital Culture, Routine Routine genital maki. Isolated Organism: Yeast,, : O:BETAGB Isolated O:ROMANSH Genital Culture, Routine Genital Culture, Routine Moderate growth Isolated Organism: Yeast,, : O:BETAGB Isolated O:ROMANSH Genital Culture, Routine Genital Culture, Routine Specimen stability note: A swab transport (ie., ESwab, Isolated Organism: Yeast,, : O:BETAGB Isolated O:ROMANSH Genital Culture, Routine Genital Culture, Routine Amies agar gel) received by the lab more than 24 hours Isolated Organism: Yeast,, : O:BETAGB Isolated O:ROMANSH Genital Culture, Routine Genital Culture, Routine after collection may result in reduced recovery of Isolated Organism: Yeast,, : O:BETAGB Isolated O:ROMANSH Genital Culture, Routine Genital Culture, Routine Neisseria gonorrhoeae (GC). (This is informational Isolated Organism: Yeast,, : O:BETAGB Isolated O:ROMANSH Genital Culture, Routine Genital Culture, Routine only and may not apply to this specimen.) Isolated Organism: Yeast,, : O:BETAGB Isolated O:ROMANSH Genital Culture, Routine Genital Culture, Routine See Below For Report Isolated Organism: Yeast,, : O:BETAGB Isolated O:ROMANSH Genital Culture, Routine Genital Culture, Routine See Below For Report Isolated Organism: Yeast,, : O:BETAGB Isolated O:ROMANSH Genital Culture, Routine Genital Culture, Routine Performed at: [facility] Isolated Organism: Yeast,, : O:BETAGB Isolated O:ROMANSH Genital Culture, Routine Genital Culture, Routine [address] [place], [place] [id number] Isolated Organism: Yeast,, : O:BETAGB Isolated O:ROMANSH Genital Culture, Routine Genital Culture, Routine Dining Server: Kennedy Gary PhD, Phone: [phone] Isolated Organism: Yeast,, : O:BETAGB Isolated O:ROMANSH Genital Culture, Routine Performing Lab: see note - [facility] SEE REPORT - Environmental Education Specialist Id information not found for OBX-specific 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 Reason For Referral No Information Medications Medication SIG (Take, Route, Fr equency, Duration) Notes Start Date End Date Status tiZANidine HCl 4 MG 2 tabs Orally qhs for 30 days 05/13/2024 Active dexAMETHasone 6 MG 1 tablet Orally rommel y for 5 days 07/02/2024 Active Wegovy 0.25 MG/0.5ML 0.25 mg Subcutaneou s weely for 30 days 05/13/2024 Active Azithromycin 250 MG 2 tabs today then 1 tab Orally daily for 5 days 07/02/2024 Active Meloxicam 15 MG 1 tablet Orally Once a day for 30 days 05/13/2024 Active Saxenda 18 MG/3ML Inject 0.6ml Subcuta neous once daily for 7 days- increase by 0.6ml weekly for 4 weeks for 30 days Active Social History Tobacco Use: Social History Observation Description Date Details (start date - stop date) Current Smoker 03/20/2020 - NA Tobacco Use/Smoking Question Answer Notes Patient is a current smoker When did you start smoking? 03/20/2020 How often do you smoke cigarettes? every day How soon after you wake up d o you smoke your first cigarette? 31-60 minutes Additional Findings: Tobacco User User of moist powdered tobacco Alcohol Screen (Audit-C) Question Answer Notes Did you have a drink contain ing alcohol in the past year? Yes How often did you have 6 or more drinks on one occasion in the past year? Never (0 point) How many drinks did you have on a typical day when you were drinking in the past year? 1 or 2 drinks (0 point) How often did you have a dri nk containing alcohol in the past year? Less than monthly (1 point) Points 1 Interpretation Negative AUDIT-C (Standard) Question Answer Notes Did you have a drink contain ing alcohol in the past year? Yes How often did you have six o r more drinks on one occasion in the past year? 2 to 4 times a month (2 points) How many drinks did you have on a typical day when you were drinking in the past year? 5 or 6 drinks (2 points) How often did you have a dri nk containing alcohol in the past year? 2 to 4 times a month (2 points) Points 6 Interpretation Positive Problems Problem Type SNOMED Code ICD Code Onset Dates Problem Status W/U Status Risk Notes Problem Shortness of breath (727533623) Shortness of breath (R06.02) Active confirmed Problem Snoring (26809768) Snoring (R06.83) Active conf irmed Problem Migraine variant with headache (disorder) (779839833) Migraine headache (G43.909) Active confirmed Problem Obesity (819286622) Obesity (E66.9) Active confirmed Problem Anxiety (92156030) Anxiety (F41.9) Active confi rmed Problem Depression (332248593) Depression (F32.9) Active confirmed Problem Insomnia (979960900) Insomnia (G47.00) Active confirmed Problem Eczema (76918305) Eczema (L30.9) Active confirm ed Problem Well adult (535724710) Well adult (Z00.00) Active confirmed Problem Paresthesia (60988651) Paresthesia (R20.2) Active confirmed Problem Spina bifida without hydrocephalus (97727044) Arnold-Chiari malformation (Q07.00) Active confirmed Problem Osteoarthritis of knee (810479678) Knee arthropathy (M17.10) Active confirmed Vital Signs Blood pressure diastolic 80 mm Hg 05/13/2024 Height 68 in 05/13/2024 Blood pressure systolic 132 mm Hg 05/13/2024 Weight 411 lbs 05/13/2024 BMI 62.49 kg/m2 05/13/2024 Encounters Encounter Location Date Provider Diagnosis [address] [place] [address] 01/02/2024 Gladys Omayra Pain in right thigh M79.651 and Paresthesia R20.2 [facility] [address] [place] [address] 05/13/2024 Hira Pillai Knee arthropathy M17.10 and Obesity E66.9 [facility] [address] [place] [address] 01/04/2024 Gladys Omayra [facility] [address] [place] [address] 02/05/2024 Hira Pillai [facility] [address] [place] [address] 05/13/2024 Hira Pillai [facility] [address] [place] [address] 05/16/2024 Hira Pillia [facility] [address] [place] [address] 06/30/2024 Hira Pillai [facility] [address] [place] [facility] [address] 07/02/2024 Hira Pillai [facility] [address] [place] [address] 09/12/2024 Hira Pillai Assessments Encounter Date Diagnosis (ICD Code) Assessment Notes Treatment Notes Treatment Clinical Notes Section Notes 01/02/2024 Pain in right thigh (ICD-10 - M79.651) 01/02/2024 Paresthesia (ICD-10 - R20.2) 05/13/2024 Knee arthropathy (ICD-10 - M17.10) 05/13/2024 Obesity (ICD-10 - E66.9) Plan Of Treatment Pending Test Test Name Order Date CMP (COMPLETE METABOLIC PANEL) 3 HEMOGLOBIN A1C (GLYCO) 03/02/2023 IRON, TOTAL 03/02/2023 LIPID PANEL (CHOL/TRIG/HDL/LDL) 03/02/20 23 CBC WITH DIFF 03/02/2023 Insulin Level 03/02/2023 XR KNEE LT 3V 05/13/2024 XR KNEE RT 3V 05/13/2024 THYROID PANEL (T4/TSH/FREE T3) 3 Insurance Providers Payer Name Payer Address Payer Phone Subscriber Number Group Number Insured Name Patient Relationship to Insured Coverage Start Date Coverage End Date [employer]AT[employer] JU[employer] [address] [place] [address] [id number] [place] Child - Insured does not have Financial Responsibility (includes legally adopted child) Medical (General) History Medical History History ICD Code Arnold-Chiari malformation Q07.00 Migraine headache G43.909 Snoring R06.83 Eczema L30.9 Fatigue R53.83 Snoring R06.83 Migraine G43.909 Snoring R06.83 Eczema L30.9 Surgical History Surgery Date(Month/Year) T&A 12/2010 Hospitalization History Reason Date(Month/Year) see above
--- OUTSIDE RECORDS SUMMARY | 2024-09-13 14:49 | XMS_ITS | Clinical Summary ---
Author Organization [facility] Address [address] [place] [address] Care Team Providers Care Golf Manager Name Role Phone Catrachito Marshall MD Primary Care Provider [phone] Social History Tobacco Use Types Packs/Day Years Used Date Smoking Tobacco: Never Assessed Comments Unknown Sex and Gender Information Value Date Recorded Sex Assigned at Not on file Legal Sex Female 4:37 PM EDT Gender Identity Not on file Sexual Orientation Not on file Plan of Treatment Health Maintenance Due Date Last Done Comments Peds To Adult Transition Initial Discussion 2015 Peds To Adult Transition Annual Assessment 10/05/2017 HPV Vaccine (1 - 3-dose series) 10/05/2018 Meningococcal B Vaccine (1 of 2 - Standard) 2019 Anxiety Screening 10/05/2021 Chlamydia Screening (18-24) 10/05/2021 Depression Screening 10/05/2021 GC (Gonorrhea) Screening (18-24) 10/05/2021 HIV Screening 10/05/2021 Hepatitis C Screening 10/05/2021 DTaP,Tdap,Td Vaccine (1 - Tdap) 10/05/2022 Hepatitis B Vaccine (1 of 3 - 19+ 3-dose series) 10/05 Covid-19 Vaccine ( - 2023- season) 2023 Influenza Vaccine (Season Ended) 2024 Insurance BLUE CARD PPO OOS Care Teams Golf Manager Relationship Specialty Start Date End Date Catrachito Marshall MD PCP - General Family Medicine 07/18/14
--- OUTSIDE RECORDS SUMMARY | 2024-09-13 14:49 | XMS_ITS | Encounter Summary ---
Author Organization [facility] Address [address] [place] [address] Care Team Providers Care In School Suspension Coordinator Name Role Phone Unallocated, Noms Provider Primary Care Provi eliana Encounter Details Date Type Department Care Team ([facility] Contact Info) Description 09/09/2024 Telephone [facility] [address] [facility] [address] [place] [phone] Aleida Goodman MD [address] [facility] [address] [place] [address] Social History Tobacco Use Types Packs/Day Years [...] encounter Miscellaneous Notes * Telephone Encounter - Aleida Goodman MD - 09/09/2024 4:12 PM EDT Yes 12w as well * Telephone Encounter - Jessica Joyner MA - 09/09/2024 3:54 PM EDT Ty with MFM called asking if [facility] wants pt to have a 12 week OB US as well? Advs all referral was for was co consult management of pt BMI and the 20 week OB US. Msg sent to [facility] to clarify. documented in this encounter Plan of Treatment Upcoming Encounters Date Type Department Care Team (Late st Contact Info) Description 09/17/2024 12:30 PM EDT Routine [facility] [address] [place] [address] Aleida Goodman MD [address] [facility] [address] [facility] [address] [place] [address] documented as of this encounter Goals Goal Patient Goal Type Associated Problems Recent Progress Patient-Stated? Author Reminders Care Plan OB Reminders No Jessica Joyner MA documented as of this encounter Visit Diagnoses Not on filedocumented in this encounter Additional Health Concerns Active Problems Noted Date Diagnosed Date OB Reminders 08/01/2024 documented as of this encounter Care Teams In School Suspension Coordinator Relationship Specialty Start Date End Date Unallocated, Noms MD [address] [place] [address] PCP - General Family Medicine 01/04/24 documented as of this encounter
--- OUTSIDE RECORDS SUMMARY | 2024-09-13 14:49 | XMS_ITS | Encounter Summary ---
Author Organization [facility] Address [address] [place] [address] Care Team Providers Care Ultrasound Manager Name Role Phone Unallocated, Noms Provider Primary Care Provi eliana Encounter Details Date Type Department Care Team ([facility] Contact Info) Description 09/03/2024 Telephone [facility] [address] [facility] [address] [place] [phone] Aleida Goodman MD [address] [facility] [address] [place] [address] Social History Tobacco Use Types Packs/Day Years [...] Upcoming Encounters Date Type Department Care Team ([facility] Contact Info) Description 09/17/2024 12:30 PM EDT Routine [facility] [address] [place] [phone] Aleida Goodman MD [address] [place] [address] documented as of this encounter Goals Goal Patient Goal Type Associated Problems Recent Progress Patient-Stated? Author Reminders Care Plan OB Reminders No Jessica Joyner MA documented as of this encounter Visit Diagnoses Not on filedocumented in this encounter Additional Health Concerns Active Problems Noted Date Diagnosed Date OB Reminders 08/01/2024 documented as of this encounter Care Teams Ultrasound Manager Relationship Specialty Start Date End Date Unallocated, Noms Jude, [address] [place] [address] PCP - General Family Medicine 01/04/24 documented as of this encounter
[2024-09-13 14:54] VITALS: BP 144/82; PULSE 90; TEMP 36.9; O2SAT 99; BMI 40.2
--- OUTSIDE RECORDS SUMMARY | 2024-09-13 15:06 | XMS_ITS | CCD ---
Author Organization [facility] Care Team Providers Care Technical Account Executive Name Role Phone FELI, GRICELDA P Consulting Unavailable FELI, GRICELDA [...] Unavailable FELI, GRICELDA P Admitting Unavailable Unallocated , Noms Provider Primary Care [facility] Unavailable Primary Care Provider Unavailabl e Unavailable Primary Care Provider Unavailabl e MISBAH KRAFT Attending Unavailable MISBAH KRAFT Attending Unavailable MISBAH KRAFT Attending Unavailable Teresa Beal DO Attending Provider Medications Current Medications Medication Drug Class(es) Dates Sig (Normalized) Sig (Original) Blood Glucose Monitoring Suppl (True Metrix Air Glucose Meter) device (2 sources) Start: 09-04-2024 Blood Glucose Monitoring Suppl (True Metrix Air Glucose Meter) device Indications: First trimester ([facility]) , 11 weeks gestation of ([facility]) , Abnormal glucose affecting ([facility]) 1 Device 3 (three) times a week [...] UA Negative Negative - 4(70) +++ mg/dL [facility] Healthcare Blood, UA Negative Negative - 50 Grady/mcL [facility] Clarity, UA Clear [facility] Color, UA Yellow [facility] Glucose, UA Negative Negative - 2000(110) ++++ mg/dL [facility] Interpretation and review of laboratory results Normal [facility] Ketones, UA Negative Negative - 160(16) ++++ mg/dL [facility] Leukocytes, UA Negative Negative - 500+++ Tk/mcL [facility] Nitrite, UA Negative Negative - Positive [facility] pH, UA 5 5 - 9 [facility] Protein, UA Negative Negative - 1999(20) ++++ mg/dL [facility] Spec Grav, UA 1 1 - 1.03 [facility] Urobilinogen, UA 0.2 0.2 - 12 mg/dL [facility] PREG QUANT HCGon 025 HCG QUANTITATIVE 51393 mIU/mL [facility] ltare Comment on above: 5-50 0.2-1 WEEK 50-500 1-2 WEEKS 100-5,000 2-3 WEEKS 500-10,000 3-4 WEEKS 1,000-50,000 4-5 WEEKS 10,000-100,000 5-6 WEEKS 15,000-200,000 6-8 WEEKS 10,000-100,000 2-3 [facility]H PREG QUANT HCGon 025 HCG QUANTITATIVE 4086 mIU/mL [facility] ltare Comment on above: 5-50 0.2-1 WEEK 50-500 1-2 WEEKS 100-5,000 2-3 WEEKS 500-10,000 3-4 WEEKS 1,000-50,000 4-5 WEEKS 10,000-100,000 5-6 WEEKS 15,000-200,000 6-8 WEEKS 10,000-100,000 2-3 [facility]on SARS-CoV-2 (COVID-19) RNA VAISHALI+probe Ql (Unsp spec) Not detected Normal NOT DETECTED [facility] Comment on above: Result Comment: When diagnostic [...] for this test is supported by the Driver Courier of Health and Human Service's declaration that [...] used). Performed By: #### C VDTB #### [facility] [address] [place] [address] Dr. Damion Caceres INFLUENZA A AND B AGon 05-23 [facility] SEE BELOW Normal [facility] Comment on above: Result Comment: Nega tive for Flu A protein angiten. Infection due to Flu A cannot be ruled out. Flu A angiten in the sample may be below the detection limit of the test. Performed By: #### I NFLUAB #### [facility] [address] [place] [address] Dr. Damion [facility]ace[facility] Normal [facility] Comment on above: Result Comment: Nega tive for Flu B protein antigen. Infection due to Flu B cannot be ruled out. Flu B antigen in the sample may be below the detection limit of the test. Performed By: #### I NFLUAB #### [facility] [address] [place] [address] Dr. Damion Caceres INFLUENZA A AG Negative Normal NEGATIVE SEE COMMENT [facility] Comment on above: Performed By: #### I NFLUAB #### [facility] [address] [place] [address] Dr. Damion Caceres INFLUENZA B AG Negative Normal NEGATIVE SEE COMMENT [facility] Comment on above: Performed By: #### I NFLUAB #### [facility] [address] [place] [address] Dr. Damion Caceres Covid-19 PCR ([facility])on SARS-CoV-2 (COVID-19) RNA VAISHALI+probe Ql (Unsp spec) Not detected Normal NOT DETECTED [facility] Comment on above: Result Comment: When diagnostic [...] for this test is supported by the Driver Courier of Health and Human Service's declaration that [...] used). Performed By: #### C VDTBH #### [facility] [address] [place] [address] Dr. Damion Caceres INFLUENZA A AND B AGon 04-20 [facility] SEE BELOW Normal [facility] Comment on above: Result Comment: Nega tive for Flu A protein angiten. Infection due to Flu A cannot be ruled out. Flu A angiten in the sample may be below the detection limit of the test. Performed By: #### I NFLUAB #### [facility] [address] [place] [address] Dr. Damion Caceres INFLUBNEG SEE BELOW Normal [facility] Comment on above: Result Comment: Nega tive for Flu B protein antigen. Infection due to Flu B cannot be ruled out. Flu B antigen in the sample may be below the detection limit of the test. Performed By: #### I NFLUAB #### [facility] [address] [place] [address] Dr. Damion Caceres INFLUENZA A AG Negative Normal NEGATIVE SEE COMMENT [facility] Comment on above: Performed By: #### I NFLUAB #### [facility] [address] [place] [address] Dr. Damion Caceres INFLUENZA B AG Negative Normal NEGATIVE SEE COMMENT [facility] Comment on above: Performed By: #### I NFLUAB #### [facility] [address] [place] [address] Dr. Damion Caceres Covid-19 PCR ([facility])on 12-19 SARS-CoV-2 (COVID-19) RNA VAISHALI+probe Ql (Unsp spec) Not detected Normal NOT DETECTED [facility] Comment on above: Result Comment: This test is not yet approved or cleared by the [place] FDA. When there are no FDA-approved or cleared tests available, and other criteria are met, FDA can make tests available under an emergency access mechanism called an Emergency Use Authorization (EUA). The EUA for this test is supported by the Driver Courier of Health and Human Service's (HHS's) declaration [...] SARS-CoV-2. Performed By: #### C VDTBH #### [facility] [address] [place] [address] Dr. Damion Caceres INFLUENZA A AND B AGon 01-06 [facility] Normal [facility] Comment on above: Result Comment: Nega tive for Flu A protein angiten. Infection due to Flu A cannot be ruled out. Flu A angiten in the sample may be below the detection limit of the test. Performed By: #### I NFLUAB #### [facility] [address] [place] [address] Dr. Damion Caceres INFLUBNEG SEE BELOW Normal [facility] Comment on above: Result Comment: Nega tive for Flu B protein antigen. Infection due to Flu B cannot be ruled out. Flu B antigen in the sample may be below the detection limit of the test. Performed By: #### I NFLUAB #### [facility] [address] [place] [address] Dr. Damion Caceres INFLUENZA A AG Negative Normal NEGATIVE SEE COMMENT [facility] Comment on above: Performed By: #### I NFLUAB #### [facility] [address] [place], [place] [address] Dr. Damion Caceres INFLUENZA B AG Negative Normal NEGATIVE SEE COMMENT [facility] Comment on above: Performed By: #### I NFLUAB #### [facility] [address] [place], [place] [address] Dr. Damion Caceres INTERNAL CONTROLS Within Normal Limits Normal Within Normal Limits [facility] Comment on above: Performed By: #### I NFLUAB #### [facility] [address] [place], [place] [address] Dr. Damion Caceres Vital Signs Date Time Vital Sign Value Performing Clinician Faci lity 09-03-2024 13:21-0400 Body weight 188.24 kg Misbah Kraft MD Work Phone: [facility] 09-03-2024 13:21-0400 Diastolic blood pressure 72 mm[Hg] Misbah Kraft MD Work Phone: [facility] 09-03-2024 13:21-0400 Systolic blood pressure 120 mm[Hg] Misbah Kraft MD Work Phone: [facility] 01-04-2024 13:53-0400 Body weight 174.18 kg Misbah Kraft MD Work Phone: [facility] 01-04-2024 13:53-0400 Diastolic blood pressure 80 mm[Hg] Misbah Kraft MD Work Phone: [facility] 01-04-2024 13:53-0400 Systolic blood pressure 120 mm[Hg] Misbah Kraft MD Work Phone: [facility] 12-12-2023 13:44-0400 Body weight 170.1 kg Misbah Kraft MD Work Phone: [facility] 12-12-2023 13:44-0400 Diastolic blood pressure 80 mm[Hg] Misbah Kraft MD Work Phone: [facility] 12-12-2023 13:44-0400 Systolic blood pressure 128 mm[Hg] Misbah Kraft MD Work Phone: [facility] Healthcare Encounters Encounter Date Encounter Type Care Provider Facility Start: 09-11-2024 End: 09-11-2024 ambulatory Teresa Beal DO Work Phone: [facility] Work Phone: Start: 09-11-2024 End: 09-11-2024 Departed Referred Teresa Beal DO -[facility] Work Phone: Start: 09-04-2024 End: 09-04-2024 Transcribe Orders Misbah Kraft MD Work Phone: [facility] Comment on above: APPOINTMENT ADAM VARNER (Anatomy scan and MFM visit) Start: 09-03-2024 End: 09-03-2024 flow sheet Misbah Kraft MD Work Phone: [facility] Comment on above: GA: 11w1d Start: 09-03-2024 End: 09-03-2024 ambulatory MISBAH KRAFT Not Available Start: 08-07-2024 End: 08-07-2024 Orders Only Misbah Kraft MD Work Phone: [facility] Comment on above: Urinary tract infect ion without hematuria, site unspecified (Primary Dx) Start: 08-01-2024 End: 08-01-2024 flow sheet [facility] Nurse [facility] Start: 08-01-2024 End: 08-01-2024 ambulatory MISBAH KRAFT Not Available Start: 07-30-2024 End: 07-30-2024 [facility] Result Encounter Misbah Kraft MD Work Phone: [facility] Unsolicited Start: 07-30-2024 End: 07-30-2024 [facility] Result Encounter Misbah Kraft MD Work Phone: [facility] Unsolic[facility] Start: 07-26-2024 End: 07-26-2024 [facility] Result Encounter Misbah Kraft MD Work Phone: [facility]solic[facility] Start: 07-26-2024 End: 07-26-2024 [facility] Result Encounter Misbah Kraft MD Work Phone: [facility]solicited Start: 01-04-2024 End: 01-04-2024 Office outpatient visit 10 minutes Misbah Kraft MD Work Phone: [facility] Comment on above: Amenorrhea; Family planning Start: 01-04-2024 End: 01-04-2024 ambulatory MISBAH KRAFT Not Available Start: 12-15-2023 End: 12-15-2023 Orders Only Misbah Kraft MD Work Phone: [facility] Comment on above: Acute vaginitis (Dahiana obed Dx) Start: 12-12-2023 End: 12-12-2023 Initial preventive medicine new pt age 18-39yrs Misbah Kraft MD Work Phone: [facility] Comment on above: Hormone imbalance (P rimary Dx); Encounter for gynecological examination without abnormal finding; Family planning; Thyroid disorder screen; Screen for STD (sexually transmitted disease); Amenorrhea; Vaginal discharge Start: 12-12-2023 End: 12-12-2023 Patient encounter status Misbah Kraft MD Work Phone: [facility] Work Phone: Start: 12-12-2023 End: 12-12-2023 ambulatory MISBAH KRAFT Not Available Start: 05-23-2022 End: 05-23-2022 ambulatory GRICELDA EDMOND Facility:[facility] Start: 04-20-2022 End: 04-20-[address] LUCA PILLAI . Facility:[facility] Start: 01-06-2022 End: 01-06-2022 ambulatory GRICELDA EDMOND Facility:[facility] Procedures Date Procedure Procedure Detail Performing Clinician [...] 2) Shingles (RZV) Vaccine (1 of 2) [facility] Start: 11-18-2024 Influenza vaccination Influenz a Vaccine (Season Ended) [facility] Start: 11-06-2024 End: 11-06-2024 ambulatory 11/06/2024 1:00 PM EDT [employer] Ultrasound [facility] [address] [place] [address] [facility] Start: 09-17-2024 End: 09-17-2024 Patient encounter procedure 09/17/2024 12:30 PM EDT Routine [facility] [address] [place] [phone] Misbah Kraft MD [address] [place] [address] [facility] Start: 09-16-2024 End: 09-16-2024 Patient encounter procedure 09/16/2024 1:45 PM EDT Office Visit [facility] [address] [place], [place] [id number] Zhanna Martinez MD [address] [place] [id number] [facility] Start: 09-11-[address] [facility] Start: 09-11-2024 Bacteria identified in Urine by Culture Urine Culture [facility] Start: 09-03-2024 End: 09-03-2024 ambulatory 09/03/2024 2:00 PM EDT Initial [facility] [address] [place] [phone] Misbah Kraft MD [address] [place] [address] [facility] Start: 09-03-2024 End: 09-03-2024 Professional / ancillary services management 09/03/2024 1:00 PM EDT Ancillary Procedure [facility] [address] [place] [address] [facility] Start: 08-26-2024 End: 08-26-2024 Professional / ancillary services management 08/26/2024 2:00 PM EDT Ancillary Procedure [facility] [address] [place] [id number] [facility] Start: 08-01-2024 End: 08-01-2025 Bacteria identified in Urine by Culture Urine culture Microbiology Routine Encounter for supervision of normal first in first trimester Expected: 08/01/2024, Expires: 08/01/2025 [facility] Healthcare Comment on above: Expected: 08/01/2024 , Expires: 08/01/2025 Start: 08-01-2024 End: 08-01-2025 Blood type and Indirect antibody screen panel - Blood Type and screen Lab Routine Encounter for supervision of normal first in first trimester Expected: 08/01/2024, Expires: 08/01/2025 [facility] Healthcare Comment on above: Expected: 08/01/2024 , Expires: 08/01/2025 Start: 08-01-2024 End: 08-01-2025 CBC W Auto Differential panel - Blood CBC and differential Lab Routine Encounter for supervision of normal first in first trimester Expected: 08/01/2024, Expires: 08/01/2025 [facility] Healthcare Comment on above: Expected: 08/01/2024 , Expires: 08/01/2025 Start: 08-01-2024 End: 08-01-2025 DRUG SCREEN 17 W/CONF, UR DRUG SCREEN 17 W/CONF, UR Lab Routine Encounter for drug screening Expected: 08/01/2024, Expires: 08/01/2025 [facility] Healthcare Comment on above: Expected: 08/01/2024 , Expires: 08/01/2025 Start: 08-01-2024 End: 08-01-2025 hCG, quantitative hCG, quantitative Lab Routine Encounter for supervision of normal first in first trimester Expected: 08/01/2024 (Approximate), Expires: 08/01/2025 [facility] Healthcare Comment on above: Expected: 08/01/2024 (Approximate), Expires: 08/01/2025 Start: 08-01-2024 End: 08-01-2025 Hepatitis B virus surface Ag [Presence] in Serum or Plasma by Immunoassay Hepatitis B surface antigen Lab Routine Encounter for supervision of normal first in first trimester Expected: 08/01/2024, Expires: 08/01/2025 [facility] Comment on above: Expected: 08/01/2024 , Expires: 08/01/2025 Start: 08-01-2024 End: 08-01-2025 Hepatitis C virus Ab [Presence] in Serum or Plasma by Immunoassay Hepatitis C antibody Lab Routine Encounter for supervision of normal first in first trimester Expected: 08/01/2024, Expires: 08/01/2025 [facility] Comment on above: Expected: 08/01/2024 , Expires: 08/01/2025 Start: 08-01-2024 End: 08-01-2025 HIV-2 antigen assay HIV-2 antigen Lab Routine Encounter for supervision of normal first in first trimester Expected: 08/01/2024, Expires: 08/01/2025 [facility] Comment on above: Expected: 08/01/2024 , Expires: 08/01/2025 Start: 08-01-2024 End: 08-01-2025 Rpr (dx) w/refl titer and confirmatory testing Rpr (dx) w/refl titer and confirmatory testing Lab Routine Encounter for supervision of normal first in first trimester Expected: 08/01/2024, Expires: 08/01/2025 [facility] Comment on above: Expected: 08/01/2024 , Expires: 08/01/2025 Start: 08-01-2024 End: 08-01-2025 Rubella antibody, IgG Rubella antibody, IgG Lab Routine Encounter for supervision of normal first in first trimester Expected: 08/01/2024, Expires: 08/01/2025 [facility] Comment on above: Expected: 08/01/2024 , Expires: 08/01/2025 Start: 08-01-2024 End: 08-01-2025 Urinalysis complete panel - Urine Urinalysis with microscopic Lab Routine Encounter for supervision of normal first in first trimester Expected: 08/01/2024, Expires: 08/01/2025 [facility] Work Phone: Comment on above: Expected: 08/01/2024 , Expires: 08/01/2025 Start: 08-01-2024 End: 08-01-2024 ambulatory 08/01/2024 1:00 PM EDT Initial [facility] [address] [place] [address] [facility] Start: 01-04-2024 End: 01-04-2024 Patient encounter procedure 01/04/2024 1:45 PM EDT Office Visit [facility] [address] [place] [address] Misbah Kraft MD [address] [place] [address] [facility] Start: 01-04-2024 End: 01-04-2024 Professional / ancillary services management 01/04/2024 1:00 PM EDT Ancillary Procedure [facility] [address] [place] [phone] [facility] Start: 12-12-2023 End: 12-11-2024 Cortisol Cortisol Lab Routine Hormone imbalance Expected: 12/12/2023 (Approximate), Expires: 12/11/2024 [facility] Comment on above: Expected: 12/12/2023 (Approximate), Expires: 12/11/2024 Start: 12-12-2023 End: 12-11-2024 DHEA-sulfate DHEA-sulfate Lab Routine Hormone imbalance Expected: 12/12/2023 (Approximate), Expires: 12/11/2024 [facility] Comment on above: Expected: 12/12/2023 (Approximate), Expires: 12/11/2024 Start: 12-12-2023 End: 12-11-2024 Estradiol Estradiol Lab Routine Hormone imbalance Expected: 12/12/2023 (Approximate), Expires: 12/11/2024 [facility] Comment on above: Expected: 12/12/2023 (Approximate), Expires: 12/11/2024 Start: 12-12-2023 End: 12-11-2024 Estrone Estrone Lab Routine Hormone imbalance Expected: 12/12/2023 (Approximate), Expires: 12/11/2024 [facility] Comment on above: Expected: 12/12/2023 (Approximate), Expires: 12/11/2024 Start: 12-12-2023 End: 12-11-2024 Follicle stimulating hormone Follicle stimulating hormone Lab Routine Hormone imbalance Thyroid disorder screen Expected: 12/12/2023 (Approximate), Expires: 12/11/2024 [facility] Healthcare Comment on above: Expected: 12/12/2023 (Approximate), Expires: 12/11/2024 Start: 12-12-2023 End: 12-11-2024 hCG, quantitative hCG, quantitative Lab Routine Amenorrhea Expected: 12/12/2023 (Approximate), Expires: 12/11/2024 [facility] Healthcare Comment on above: Expected: 12/12/2023 (Approximate), Expires: 12/11/2024 Start: 12-12-2023 End: 12-11-2024 Hepatitis B virus surface Ag [Presence] in Serum or Plasma by Immunoassay Hepatitis B surface antigen Lab Routine Screen for STD (sexually transmitted disease) Expected: 12/12/2023 (Approximate), Expires: 12/11/2024 [facility] Healthcare Comment on above: Expected: 12/12/2023 (Approximate), Expires: 12/11/2024 Start: 12-12-2023 End: 12-11-2024 Hepatitis C virus Ab [Presence] in Serum or Plasma by Immunoassay Hepatitis C antibody Lab Routine Screen for STD (sexually transmitted disease) Expected: 12/12/2023 (Approximate), Expires: 12/11/2024 [facility] Healthcare Comment on above: Expected: 12/12/2023 (Approximate), Expires: 12/11/2024 Start: 12-12-2023 End: 12-11-2024 HIV-1/HIV-2 antigen/antibody combination immunoassay HIV-1 and HIV-2 antibodies Lab Routine Screen for STD (sexually transmitted disease) Expected: 12/12/2023 (Approximate), Expires: 12/11/2024 [facility] Healthcare Comment on above: Expected: 12/12/2023 (Approximate), Expires: 12/11/2024 Start: 12-12-2023 End: 12-11-2024 HSV 1 antibody, IgG HSV 1 antibody, IgG Lab Routine Screen for STD (sexually transmitted disease) Expected: 12/12/2023 (Approximate), Expires: 12/11/2024 [facility] Healthcare Comment on above: Expected: 12/12/2023 (Approximate), Expires: 12/11/2024 Start: 12-12-2023 End: 12-11-2024 HSV 2 antibody, IgG HSV 2 antibody, IgG Lab Routine Screen for STD (sexually transmitted disease) Expected: 12/12/2023 (Approximate), Expires: 12/11/2024 [facility] Healthcare Comment on above: Expected: 12/12/2023 (Approximate), Expires: 12/11/2024 Start: 12-12-2023 End: 12-11-2024 Luteinizing hormone Luteinizing hormone Lab Routine Hormone imbalance Thyroid disorder screen Expected: 12/12/2023 (Approximate), Expires: 12/11/2024 [facility] Comment on above: Expected: 12/12/2023 (Approximate), Expires: 12/11/2024 Start: 12-12-2023 End: 12-11-2024 Progesterone Progesterone Lab Routine Hormone imbalance Expected: 12/12/2023 (Approximate), Expires: 12/11/2024 [facility] Healthcare Comment on above: Expected: 12/12/2023 (Approximate), Expires: 12/11/2024 Start: 12-12-2023 End: 12-11-2024 Reagin Ab [Presence] in Serum by RPR RPR Lab Routine Screen for STD (sexually transmitted disease) Expected: 12/12/2023 (Approximate), Expires: 12/11/2024 [facility] Healthcare Comment on above: Expected: 12/12/2023 (Approximate), Expires: 12/11/2024 Start: 12-12-2023 End: 12-11-2024 Sex hormone binding globulin Sex hormone binding globulin Lab Routine Hormone imbalance Expected: 12/12/2023 (Approximate), Expires: 12/11/2024 [facility] Healthcare Comment on above: Expected: 12/12/2023 (Approximate), Expires: 12/11/2024 Start: 12-12-2023 End: 12-11-2024 Testosterone, free, total Testosterone, free, total Lab Routine Hormone imbalance Expected: 12/12/2023 (Approximate), Expires: 12/11/2024 [facility] Healthcare Comment on above: Expected: 12/12/2023 (Approximate), Expires: 12/11/2024 Start: 12-12-2023 End: 12-11-2024 Thyrotropin [Units/volume] in Serum or Plasma TSH Lab Routine Hormone imbalance Thyroid disorder screen Expected: 12/12/2023 (Approximate), Expires: 12/11/2024 [facility] Work Phone: Comment on above: Expected: 12/12/2023 (Approximate), Expires: 12/11/2024 Start: 11-19-2023 COVID-19 Vaccine ( season) [facility] Start: 11-19-2023 Influenza vaccination Influenza Vacc ine (#1) [facility] Start: 10-05-2022 Hepatitis A (HAV) Vaccine (optional start 19+ years) Hepatitis A (HAV) Vaccine (optional start 19+ years) [facility] Start: 10-05-2022 Hepatitis B vaccination Hepati tis B (HBV) Vaccine (1 of 3 - 19+ 3-dose series) [facility] Start: 10-05-2021 Hepatitis C screening Hepatitis C An tibody [facility] Start: 10-05-2021 Screening for Chlamy victor manuel trachomatis STI Screening (Age 18-24) [facility] Start: 10-05-2021 Tdap Booster Tdap Booster [facility] [place] Start: 2019 Meningococcal B (Bexsero,OMV) Vaccine (Optional,16-23 years) Meningococcal B (Bexsero,OMV) Vaccine (Optional,16-23 years) [facility] Start: 10-05-2018 HIV screening HIV Test [facility] Start: 10-05-2018 Vaccination for nicolas n papillomavirus HPV Vaccine (1 - 3-dose series) [facility] miscellaneous test [place] mis cellaneous test Lab Routine Screen for STD (sexually transmitted disease) Amenorrhea Vaginal discharge Ordered: 12/12/2023 [facility] Comment on above: Ordered: 12/12/2023 NuSwab Vaginitis Plu s (VG+) NuSwab Vaginitis Plus (VG+) Microbiology Routine Screen for STD (sexually transmitted disease) Amenorrhea Vaginal discharge Ordered: 12/12/2023 [facility] Comment on above: Ordered: 12/12/2023 NuSwab Vaginitis Plu s (VG+) NuSwab Vaginitis Plus (VG+) Microbiology Routine First trimester ([facility]) 11 weeks gestation of ([facility]) Ordered: 09/03/2024 [facility] Work Phone: Comment on above: Ordered: 09/03/2024 End: 04-02-2025 US for in second or third trimester ALF SECOND/THIRD TRIMESTER OB Imaging Routine BMI 60.0-69.9, adult 1 Occurrences starting 09/04/2024 until 04/02/2025 [facility] [email or web address] Work Phone: Comment on above: 1 Occurrences starti ng 09/04/2024 until 04/02/2025 Payers Date Payer Category Payer [facility] [id number] 2017 Unknown BCBS BCBS xxxxxx [id number] 2017-Present [phone] [address] [place] [address] [id number] 2003 Unknown [id number] 2003 Unknown [id number] 2003 Unknown [id number] 2003 Unknown [id number] 1259 2003 Unknown [id number] 1259 2003 Unknown [id number] 1259 2003 Unknown [id number] 1259 2003 Unknown [id number] 1259 1959 Unknown [id number] Social History Date Type Detail Facility Start: 12-12-2023 Tobacco smoking status NCIS Never smoked tobacco [facility] Start: 12-12-2023 Tobacco use and exposure Smokeless tobacco non-user [facility] Start: 12-12-2023 End: 01-04-2024 Alcoholic beverage intake Current drinker of alcohol (finding) [facility] Start: 12-12-2023 End: 01-04-2024 History of Social function [facility] Start: 12-12-2023 End: 01-04-2024 Alcohol Use Disorder [...] 2003 Sex assigned at Not on file [facility] Start: 08-01-2024 End: 09-03-2024 Alcoholic beverage intake Ex-drinker (finding) [facility] Start: 08-01-2024 Alcohol Comment Caffiene Intake- pt reports 1 can daily [facility] Start: 07-01-2024 [facility] Tobacco smoking stat [facility] Tobacco smoking consumption unknown [facility] Start: 09-04-2024 Sex Female (finding) [facility] Start: 2003 Sex Assigned At Female [facility] Medical Equipment Procedure Code Equipment Code Equipment Origin al Text Equipment Identifier Dates Use as directed to test blood sugar three times per week [id number] Start: 09-03-2024 End: 09-03-2025 1 Device 3 (thre e) times a week [id number] Start: 09-04-2024 Goals Date Patient Goal Desired Activity /State Personal health goal Clinical Notes 12-12-2023 to 09-04-2024 Telephone Encounter - Kristina Larkin - 09/04/2024 3:12 PM EDTTelephone Encounter - Kristina Larkin - 09/04/2024 3:12 PM EDTPdevon Kraft MD - 09/03/2024 2:00 PM EDTTrandee Joyner MA - 08/01/2024 1:00 PM EDT Note Date & Type Note Facility 09-04-2024 Note External referral re ceived for maternal medicine and ultrasound scheduling. Left message for patient to contact us to confirm visit. Due to limited availability visit scheduled when patient calls back [place] x [phone] [facility] 09-04-2024 Telephone encount er Note External referral received for maternal medicine and ultrasound scheduling. Left message for patient to contact us to confirm visit. Due to limited availability visit scheduled when patient calls back please transfer to x [phone] [facility] 09-04-2024 Miscellaneous Notes Formattin g of this note might be different from the original. External referral received for maternal medicine and ultrasound scheduling. Left message for patient to contact us to confirm visit. 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 The patient [...] to 200 mg per day, lives in [place], and has cats at home. She has [...] day as needed for nausea First trimester ([facility]) - POCT urinalysis dipstick manually resulted - NuSwab Vaginitis Plus (VG+) 11 weeks gestation of ([facility]) - POCT urinalysis dipstick manually resulted - NuSwab Vaginitis Plus (VG+) Immunizations: TDAP Labs ordered Daily vitamins prescribed First trimester screening and second trimester screening discussed. Patient decided to yes Follow up in 4 weeks for return OB visit. [facility] co-management for BMI Assessment & Plan 1. [...] A 20-week ultrasound will be scheduled at [facility]. Regular appointments every 2 to 3 weeks will be scheduled to monitor her blood pressure. A Glucola monitor will be provided for her to check her fasting glucose levels three times a week. An ultrasound will be performed in a month, followed by another one at 20 weeks if [facility] does not conduct it. Follow-up Follow up in 2 weeks. 1. High-risk : - Assessment: - Patient classified as high-risk due to obesity (>400 lbs) and potential for gestational diabetes - Higher risk of section - Severe nausea and vomiting reported, including an episode requiring patient to pull worker while driving - heart rate detected - Current blood pressure: 120/70 (within normal limits) - Plan: a) Monitor weight and blood pressure every 2 weeks b) Perform glucose monitoring 3 times per week (fasting) c) Schedule ultrasound in 1 month d) Plan for 20-week anatomy scan at [facility] e) Arrange for dietary consult f) Educate [...] fasting glucose levels documented in this encounter [facility] 08-07-2024 History of Presen t illness Narrative UTI documented in this encounter [facility] 08-01-2024 History of Presen t illness Narrative [...] testing discussed. Pt was given brochure to [employer] insurance and discuss with PPJ at first appt. Last PAP: Under 21 ASSESSMENT / PLAN Labs Ordered to [facility] Appointments scheduled for OB US 08/26 and PPJ appt on 09/03. Jessica Joyner MA 08/01/2024 2:13 PM documented in this encounter [facility] 01-04-2024 History of Presen t illness Narrative [...] b) Instruct patient to sign up for [facility] to access test results. 3. STD screening: [...] a) Encourage patient to sign up for [facility] to access test results and medical information. [...] in the future. documented in this encounter [facility] 12-15-2023 History of Presen t illness Narrative BV documented in this encounter [facility] 12-12-2023 History of Presen t illness Narrative [...] b) Instruct patient to sign up for [facility] to access test results. 3. STD screening: [...] a) Encourage patient to sign up for [facility] to access test results and medical information. b) Instruct patient to schedule follow-up appointments for discussing test results and further evaluation. Return 1 year/prn documented in this encounter [facility] Evaluation note Diagnosis Amenorrhea Absence of [...] ([facility]) state, incidental 11 weeks gestation of ([facility]) Abnormal glucose affecting ([facility]) [facility] Diagnosis BMI 60.0-69.9, adult- Primary Body Mass Index 60.0-69.9, adult [facility] Work Phone: Reason for referral (narrative)No reason for referral information availableOhiohealth [facility] Work Phone: Summary Purpose Family History Relationship Condition Age at Onset Recorded Date/T herbert mother Heart disease Unknown Chronic obstructive pulmonary disease Unk nown Advance Directives No Advanced Directives Records FoundNo Advanced Directives Records FoundNo Advanced Directives Records Found Additional Source Comments INFORMATION SOURCE (unrecogn ized section and content) DATE CREATED AUTHOR 05/25/2022 [facility] DATE CREATED AUTHOR AUTHOR'S ORGANIZ ATION 09/06/2024 [facility] DATE CREATED AUTHOR AUTHOR'S ORGANIZ ATION 09/08/2024 [facility] [employer] Reason for Visit (unrecogniz ed section [...] Care Teams (unrecognized sec tion and content) Technical Account Executive Relationship Specialty Start Date End Date Unallocated, Nicolás Roque MD [address] [place] [address] PCP - General Family Medicine 01/04/24 Technical Account Executive Relationship Specialty Start Date End Date Unallocated, MD [address] [place] [address] PCP - General Family Medicine 01/04/24 Technical Account Executive Relationship Specialty Start Date End Date Unallocated, Nicolás Roque MD [address] [place] [address] PCP - General Family Medicine 01/04/24 Technical Account Executive Relationship Specialty Start Date End Date Unallocated, Nicolás Roque MD [address] [place] [address] PCP - General Family Medicine 01/04/24 Technical Account Executive Relationship Specialty Start Date End Date Unallocated, Nicolás Roque MD [address] [place] [address] PCP - General Family Medicine 01/04/24 Technical Account Executive Relationship Specialty Start Date End Date Unallocated, Nicoáls Roque MD [address] [place] [address] PCP - General Family Medicine 01/04/24 Team Status: Inactive Member Role Status Dates Teresa Beal DO Attending Provider Active Start: September 11, 2024 End: September 11, 2024 Goals (unrecognized section and content) Goals may be documented in a n alternate section FOR RECORDS PERTAINING TO PATIENTS WHO ARE [...] BE BASED ON THE PRIMARY CLINICAL RECORDS. [facility]. provides no warranty or guarantee of the accuracy or completeness of information in this document.
[2024-09-13] MEDS: 0.9 % SODIUM CHLORIDE 1,000 ML 1000 ML IV (15:41)
[2024-09-13 15:44] LABS: Basophils Percent Auto 0.3 % (0.2-2.0); Eosinophils Absolute Auto 0.1 10^3/uL (0.0-0.7); Eosinophils Percent Auto 0.7 % (0.9-7.0); Hematocrit 41.2 % (36.0-48.0); Hemoglobin 13.8 g/dL (12.0-16.0); Immature Granulocytes Abs Auto 0.02 10^3/uL (0.00-0.03); Immature Granulocytes Pct Auto 0.2 % (0.0-0.5); Lymphocytes Percent Auto 19.4 % (20.5-60.0); Mean Corpuscular HGB Conc 33.5 g/dL (29.9-35.2); Mean Corpuscular Hemoglobin 28.1 pg (26.7-34.0); Mean Corpuscular Volume 83.9 fL (81.0-99.0); Mean Platelet Volume 9.2 fL (9.5-13.5); Monocytes Percent Auto 9.1 % (1.7-12.0); Neutrophils Absolute Auto 7.3 10^3/uL (1.4-6.5); Neutrophils Percent Auto 70.3 % (43.0-75.0); Platelet Count 331 10^3/uL (150-450); Red Blood Count 4.91 10^6/uL (4.20-5.40); White Blood Count 10.4 10^3/uL (4.0-11.0)
[2024-09-13 16:14] LABS: Alanine Aminotransferase 58 U/L (14-59); Albumin Globulin Ratio 0.7; Albumin Level 2.9 g/dL (3.4-5.0); Alkaline Phosphatase 103 U/L (46-116); Anion Gap 13.2; Aspartate Amino Transferase 25 U/L (15-37); BUN Creatinine Ratio 9.1; Bilirubin Total 0.4 mg/dL (0.2-1.0); Carbon Dioxide 23.4 mmol/L (21.0-32.0); Chloride 103 mmol/L (98-107); Estimated GFR (African America >60 (>=60 mL/min/1.73m^2); Estimated GFR (Non-African Ame >60 (>=60 mL/min/1.73m^2); Globulin 4.2 g/dL; Glucose 87 mg/dL (74-106); Potassium 3.6 mmol/L (3.5-5.1); Sodium 136 mmol/L (136-145); Total Protein 7.1 g/dL (6.4-8.2)
--- NOTE | 2024-09-13 16:24 | ED.ABDPAIN1 ---
HPI - Abdominal Pain General Chief Complaint: Abdominal Pain Stated Complaint: ABDOMINAL PAIN - 13 WEEKS PREG Time Seen by Provider: 09/13/24 14:55 Source: patient Mode of arrival: walk-in Limitations: no limitations History of Present Illness HPI narrative: 18-year-old female presents here with a chief complaint of abdominal cramping. She states she is currently approximately 13 weeks . She is a patient of Dr. Goodman. She states she has had abdominal cramping for the last couple of days. She does admit to drinking plenty of fluids. She denies any vaginal bleeding or discharge. She has had a ultrasound confirming single live intrauterine . She denies any fevers or chills. Related Data Home Medications ?Medication ?Instructions ?Recorded ?Confirmed ondansetron HCl 4 mg tablet 4 mg PO Q6H PRN nausea and vomiting 09/11/24 09/11/24 Allergies Allergy/AdvReac Type Severity Reaction Status Date / Time No Known Drug Allergies Allergy Verified 09/13/24 14:54 Review of Systems ROS Status of ROS 10 or more systems reviewed and unremarkable except as noted in history and below PFSH PFS Social History Smoking status: Former smoker Little interest or pleasure in doing things: not at all Feeling down, depressed, or hopeless: not at all Exam Narrative Exam Narrative: All Systems are negative except as noted/marked.All systems reviewed and otherwise negative Nurses note and vital signs reviewed and patient is not hypoxic. General: The patient appears well and in no apparent distress. Patient is resting comfortably on cart. Skin: Warm, dry, no pallor noted. There is no rash noted. Head: Normocephalic, atraumatic Eye: Normal conjunctiva, no drainage, EOMI. PERRL Ears, Nose, Mouth, and Throat: oral mucosa is moist. Nares patent. Mouth without vesicles. Ear canals patent. Tm's without Erythema Cardiovascular: Regular Rate and Rhythm Respiratory: Patient is in no distress, no accessory muscle use, lungs are clear to auscultation, no wheezing, rales or rhonchi Back: non-tender, no CVA tenderness bilaterally to percussion. GI: Normal bowel sounds, no tenderness to palpation, no masses appreciated. No rebound, guarding, or rigidity noted. Musculoskeletal: The patient has no evidence of calf tenderness, no pitting edema, symmetrical pulses noted bilaterally Neurological: A&O x4, normal speech Psychiatric: Cooperative Constitutional Vital Signs, click to edit/add: Last Vital Signs Temp 98.4 F 09/13/24 14:54 Pulse 90 09/13/24 14:54 Resp 20 09/13/24 14:54 BP 144/82 H 09/13/24 14:54 Pulse Ox 99 09/13/24 14:54 O2 Del Method Room Air 09/13/24 14:54 Course Vital Signs Vital signs: Vital Signs Temperature 98.4 F 09/13/24 14:54 Pulse Rate 90 09/13/24 14:54 Respiratory Rate 20 09/13/24 14:54 Blood Pressure 144/82 H 09/13/24 14:54 Pulse Oximetry 99 09/13/24 14:54 Oxygen Delivery Method Room Air 09/13/24 14:54 Temperature 98.4 F 09/13/24 14:54 Pulse Rate 90 09/13/24 14:54 Respiratory Rate 20 09/13/24 14:54 Blood Pressure 144/82 H 09/13/24 14:54 Pulse Oximetry 99 09/13/24 14:54 Oxygen Delivery Method Room Air 09/13/24 14:54 MDM - Abdominal Pain MDM Narrative Medical decision making narrative: 18-year-old female presents here with a chief complaint of abdominal cramping. She states she is currently approximately 13 weeks . She is a patient of Dr. Goodman. She states she has had abdominal cramping for the last couple of days. She does admit to drinking plenty of fluids. She denies any vaginal bleeding or discharge. She has had a ultrasound confirming single live intrauterine . She denies any fevers or chills. Prompt emergency room, IV was established. CBC BMP urine analysis were all obtained. Patient is doing well she was given a liter of fluids and states her cramping is improved. I was able to get a heart tone of 144. Patient states she felt much better she just wanted to hear a heartbeat. Patient is going to follow-up with Dr. Goodman as scheduled and states she is then following up with Dr. Vargas's office mid September. Reasons to return to the emergency room were discussed Differential Diagnosis Differential diagnosis: Likely other (bleeding in , abdominal pain ) Medical Records Attestation: I reviewed the patient's medical records. Lab Data Attestation: I reviewed the patient's lab results. Labs: Lab Results 09/13/24 Range/Units 15:23 WBC 10.4 (4.0-11.0) 10^3/uL RBC 4.91 (4.20-5.40) 10^6/uL Hgb 13.8 (12.0-16.0) g/dL Hct 41.2 (36.0-48.0) % MCV 83.9 (81.0-99.0) fL MCH 28.1 (26.7-34.0) pg MCHC 33.5 (29.9-35.2) g/dL RDW 14.0 (11.0-15.0) % Plt Count 331 (150-450) 10^3/uL MPV 9.2 L (9.5-13.5) fL Neut % (Auto) 70.3 (43.0-75.0) % Lymph % (Auto) 19.4 L (20.5-60.0) % [place] % (Auto) 9.1 (1.7-12.0) % Eos % (Auto) 0.7 L (0.9-7.0) % Baso % (Auto) 0.3 (0.2-2.0) % Neut # (Auto) 7.3 H (1.4-6.5) 10^3/uL Lymph # (Auto) 2.0 (1.2-3.8) 10^3/uL [place] # (Auto) 1.0 H (0.3-0.8) 10^3/uL Eos # (Auto) 0.1 (0.0-0.7) 10^3/uL Baso # (Auto) 0.0 (0.0-0.1) 10^3/uL Abs Immat Gran (auto) 0.02 (0.00-0.03) 10^3/uL Imm/Tot Granulo (auto) 0.2 (0.0-0.5) % Sodium 136 (136-145) mmol/L Potassium 3.6 (3.5-5.1) mmol/L Chloride 103 (98-107) mmol/L Carbon Dioxide 23.4 (21.0-32.0) mmol/L Anion Gap 13.2 BUN 5.0 L (7.0-18.0) mg/dL Creatinine 0.55 (0.55-1.02) mg/dL Est GFR ( Amer) >60 (>=60 mL/min/1.73m^2) Est GFR (Non-Af Amer) >60 (>=60 mL/min/1.73m^2) BUN/Creatinine Ratio 9.1 Glucose 87 (74-106) mg/dL Calcium 9.0 (8.5-10.1) mg/dL Total Bilirubin 0.4 (0.2-1.0) mg/dL AST 25 (15-37) U/L ALT 58 (14-59) U/L Alkaline Phosphatase 103 (46-116) U/L Total Protein 7.1 (6.4-8.2) g/dL Albumin 2.9 L (3.4-5.0) g/dL Globulin 4.2 g/dL Albumin/Globulin Ratio 0.7 Discharge Plan Discharge Chief Complaint: Abdominal Pain Clinical Impression: Abdominal cramping complicating Patient Disposition: Home, Self-Care Time of Disposition Decision: 16:39 Condition: Good Prescriptions / Home Meds: No Action ondansetron HCl 4 mg tablet 4 mg PO Q6H PRN (Reason: nausea and vomiting) Print Language: Iraqi Instructions: Abdominal Pain in (ED) Referrals: Catrachito Marshall MD [Primary Care Provider, Family Practice] - 1 week Aleida Goodman MD [Physician] - 09/17/24 Referral Note: as scheduled Discharge Date/Time: 09/13/24 17:06
== END 2024-09-13 17:06 | disposition home or self-care (01) ==
PROVIDERS: Physician Assistant; Emergency Provider Emergency Medicine; PCP Family Medicine
DX: O26.892 Other specified pregnancy related conditions, second trimester (principal); R10.9 Unspecified abdominal pain; Z3A.13 13 weeks gestation of pregnancy; Z87.891 Personal history of nicotine dependence
CPT/HCPCS: 36415; 80053; 81001; 84703; 85025; 99284

== ENCOUNTER 2024-10-29 23:42 | Emergency (ER) | payer BC, MEDICAID, SELFPAY ==
--- OUTSIDE RECORDS SUMMARY | 2024-10-16 18:18 | XMS_ITS | Continuity of Care Document ---
Author Organization [facility] Address [address] [place] [address] Phone Care Team Providers Care Welding Rod Coater Name Role Phone Teresa Bealpatience DELANEY Attending Provider [phone] Catrachito Marshall MD Primary Care Provider Tano Simon DO Emergency Provider Care Teams Patient Care Team Team Status: Active Member Role Status Dates Catrahcito Marshall MD Primary Care Provider Active Visit Care Team Team Status: Inactive Member Role Status Dates Teresa Beal DO Attending Provider Active Start: September 11, 2024 End: September 11, 2024 Patient Care Team Team Status: Inactive Member Role Status Dates Catrachito Marshall MD Primary Care Provider Active Start: October 16, 2024 End: October 16, 2024 Tano Smion DO Emergency Provider Active St art: October 16, 2024 End: October 16, 2024 Chief Complaint and Reason for Visit Chief Complaint Admit Date Unknown September 11, 2024 10:5 4pm 18 wks not feeling baby move October 16, 2024 6:23pm Allergies, Adverse Reactions, Alerts Allergen Type Severity Reaction Last Updated Verified Status No Known Allergies Allergy Unknown October 16, 2024 6:57p m Yes Active Social History Smoking Status Status Start Date End Date Date of Observa tion Never smoked tobacco (finding) October 16, 2024 10:08pm Observation Status Observation Response Date of Response Legal Sex Female (finding) Sex Assigned At Female 2005 Status Y October 16, 2024 Family History Relationship Condition Age at Onset Recorded Date/T herbert mother Heart disease Unknown Chronic obstructive pulmonary disease Unk nown Problems Active Problems Medical Problem Onset Date Status Unknown Active Procedures Procedure Date Performed Status Urine Culture September 11, 2024 completed US OB limited October 16, 2024 7:57pm completed Urine Culture October 16, 2024 active Relevant Diagnostic Tests and/or Laboratory Data Laboratory Results Test Collection Date/Time Result Date/Time Result Interpretation Reference Range Result Comment Performing Site Urine Color October 16, 2024 7:04pm October 16, 2024 8:20pm Yellow Yellow [facility] [id number] [address] [place] [address] Urine Appearance October 16, 2024 7:04pm October 16, 2024 8:20pm Cloudy Abnormal (applies to non-numeric results) Clear [facility] [id number] [address] [facility] [address] Urine Specific [place] October 16, 2024 7:04pm October 16, 2024 8:20pm 1.016 1.001-1.03 0 [facility] [id number] [address] [facility] [address] Urine pH October 16, 2024 7:04pm October 16, 2024 8:20pm 6.0 5.0-9.0 [facility] [id number] [address] [facility] [address] Urine Leukocyte Esterase October 16, 2024 7:04pm October 16, 2024 8:20pm 3+ Above high normal Negative [facility] [id number] [address] [facility] [address] Urine Nitrite October 16, 2024 7:04pm October 16, 2024 8:20pm Negative Negative [facility] [id number] [address] [place] [address] Urine Protein October 16, 2024 7:04pm October 16, 2024 8:20pm Negative mg/dL Negative [facility] [id number] [address] [facility] [address] Urine Glucose (UA) October 16, 2024 7:04pm October 16, 2024 8:20pm Normal mg/dL Normal [facility] [id number] [address] [place] [address] Urine Ketones October 16, 2024 7:04pm October 16, 2024 8:20pm Negative Negative [facility] [id number] [address] [facility] [address] Urine Urobilinoge n October 16, 2024 7:04pm October 16, 2024 8:20pm Normal mg/dL Normal [facility] [id number] [address] [facility] [address] Urine Bilirubin October 16, 2024 7:04pm October 16, 2024 8:20pm Negative Negative [facility] [id number] [address] [facility] [address] Urine Occult Blood October 16, 2024 7:04pm October 16, 2024 8:20pm Negative Negative [facility] [id number] [address] [facility] [address] Urine RBC October 16, 2024 7:04pm October 16, 2024 8:31pm 3-4 [HPF] 0-4 [facility] [id number] [address] [facility] [address] Urine WBC October 16, 2024 7:04pm October 16, 2024 8:31pm 10-19 [HPF] Above high normal 0-4 [facility] [id number] [address] [facility] [address] Urine Squamous Epithelial Cells October 16, 2024 7:04pm October 16, 2024 8:31pm 5-9 [HPF] Above high normal 0-2 [facility] [id number] [address] [facility] [address] Urine Bacteria October 16, 2024 7:04pm October 16, 2024 8:31pm 3+ [HPF] Above high normal None Seen [facility] [id number] [address] [facility] [address] Urine Hyaline Casts October 16, 2024 7:04pm October 16, 2024 8:31pm 0-8 [LPF] 0-8 [facility] [id number] [address] [facility] [address] Urine Mucus October 16, 2024 7:04pm October 16, 2024 8:31pm Rare [LPF] [facility] [id number] [address] [facility] [address] Microbiology Results Procedure Source Result Collection Date/Time Result Date/Time Result Comment Performing Site Urine Culture Urine Strep agalactiae - (group b) September 11, 2024 10:54pm September 14, 2024 2:22pm [facility] [id number] [address] [place] [address] Diagnostic Imaging Reports Author Bradley Mccloud [facility] Report Date/Time October 16, 2024 9:30 pm [facility] [address] [address] Ultrasound Report Signed Patient: Jessica Baldwin MR#: [id number] : 2005 Acct:[id number] Age/Sex: 19 / F ADM Date: 5 Loc: ER Room: Type: PRE ER Attending Dr: Ordering Provider: MELANIA CARRANZA Date of Service: 10/16/24 US/US OB limited: OB/Uterine Contractions Copies to: MELANIA CARRANZA~ Obstetrical ultrasound INDICATION: Lack of movement today, COMPARISON: None FINDINGS: Single live intrauterine gestation in vertex/variable presentation. heart rate 152 beats per minutes. Placenta posterior and location. Cervix is not visualized. Ovary is not visualized. Cul-de-sac is not visualized. Symmetric and cardiac motion documented. The following measurements were obtained: BPD 3.65 cm gestation: 17w2d weeks/days head circumference 13.79 cm gestation: 17w2d weeks/days abd. circumference 11.28 cm gestation: 17w1d weeks/days femur length 2.37 cm gestation: 17w1d weeks/days US/US OB limited IMPRESSION: Single live 8 week gestation of 7 weeks 2 days gestational age. heart rate of 152 bpm. Impression dictated by: Bradley Mccloud M.D. 10/16/2024 9:30 PM Dictation Location: [place] [address] Tech: Andria Alfredo Transcribed By: CHRISTY 10/16/242129 Dictated By: Bradley Mccloud MD 10/16/242127 Signed By: <Electronically signed by Bradely Mccloud MD in [place]> 10/16/242129 Vital Signs Vital Reading Result Reference Range Collection Date/Time Height 70 [in_i] October 16, 2024 7:03pm Weight 188.60 kg October 16, 2024 7:03pm Body Temperature 98.2 [degF] 97.6-99.0 October 16, 2024 7:03pm Heart Rate 117 /min 60-100 October 16, 2024 8:01pm Respiratory rate 22 /min 12-24 October 16, 2024 8:01pm Oxygen saturation by Pulse oximetry 100 % 95-100 October 16, 2024 8:01 pm BP Systolic 130 mm[Hg] 100-140 October 16, 2024 8:01pm BP Diastolic 79 mm[Hg] 60-100 October 16, 2024 8:01pm Advance Directives Advance Directive Response Recorded Date/ Time Advance Directives No October 16 10:11pm Insurance Providers Guarantor Jessica Baldwin Address [address] [place] [address] Contact Info. Home Phone: Payer Policy Id Subscriber's Name Subscriber Id Effectiv e Date Expiration Date Yaneli ORDOÑEZ [id number] 001 Jovan Baldwin [id number] Encounters Encounter Location(s) Arrival/Admit Date Discharge/Depart Date Provider(s) Departed Referred -[facility] September 11, 2024 10:54pm September 11, 2024 10:55pm Teresa Beal DO Departed Emergency -Emergency Room October 16, 2024 6:23pm October 16, 2024 10:17pm Plan of Treatment Future Tests Future scheduled test information is unavailable Pending Tests Test Name Ordered Date Scheduled Date Corrected White Blood Count October 16, 2024 8:47 pm Uncorrected WBC Count October 16, 2024 8:47pm Red Blood Count October 16, 2024 8:47pm Hemoglobin October 16, 2024 8:47pm Hematocrit October 16, 2024 8:47pm Mean Corpuscular Volume October 16, 2024 8:47pm Mean Corpuscular Hemoglobin October 16, 2024 8:47 pm Mean Corpuscular Hemoglobin Concent October 16, 025 8:47pm Red Cell Distribution Width October 16, 2024 8:47 pm Platelet Count October 16, 2024 8:47pm Mean Platelet Volume October 16, 2024 8:47pm Neutrophils (%) (Auto) October 16, 2024 8:47pm Lymphocytes (%) (Auto) October 16, 2024 8:47pm Monocytes (%) (Auto) October 16, 2024 8:47pm Eosinophils (%) (Auto) October 16, 2024 8:47pm Basophils (%) (Auto) October 16, 2024 8:47pm Nucleated RBC Relative Count (auto) October 16, 8:47pm Neutrophils # (Auto) October 16, 2024 8:47pm Lymphocytes # (Auto) October 16, 2024 8:47pm Monocytes # (Auto) October 16, 2024 8:47pm Eosinophils # (Auto) October 16, 2024 8:47pm Basophils # (Auto) October 16, 2024 8:47pm Urine Culture October 16, 2024 7:04pm Glucose Level October 16, 2024 8:47pm Blood Urea Nitrogen October 16, 2024 8:47pm Creatinine October 16, 2024 8:47pm Estimated GFR (CKD-EPI) October 16, 2024 8:47pm Sodium Level October 16, 2024 8:47pm Potassium Level October 16, 2024 8:47pm Chloride Level October 16, 2024 8:47pm Carbon Dioxide Level October 16, 2024 8:47pm Anion Gap October 16, 2024 8:47pm Calcium Level October 16, 2024 8:47pm Total Protein October 16, 2024 8:47pm Albumin October 16, 2024 8:47pm Globulin October 16, 2024 8:47pm Albumin/Globulin Ratio October 16, 2024 8:47pm Total Bilirubin October 16, 2024 8:47pm Aspartate Amino Transf (AST/SGOT) October 16 8:47pm Alanine Aminotransferase (ALT/SGPT) October 16 8:47pm Alkaline Phosphatase October 16, 2024 8:47pm Pharmacy Creatinine Clearance (Chem October 16 8:47pm Future Visits Future appointment information is unavailable Referrals to Other Providers Reason for Referral Referral Start Date Provider Provider Contact Information Provider Address [facility] [employer] [facility] [employer] Work Phone: [address] [address] Fina Capps MD Work Phone: [address] [facility] [phone] Future Procedures Procedure Name Ordered Date Scheduled Date Urine Culture October 16, 2024 8:08pm September 7:04pm Complete Blood Count Auto Diff October 16, 2024 8 :47pm October 16, 2024 8:47pm Future Medications Future medication information is unavailable Patient Instructions Instruction Admit Date - The Fifth Month October 16, 025 6:23pm
--- OUTSIDE RECORDS SUMMARY | 2024-10-22 13:30 | XMS_ITS | Encounter Summary ---
Author Organization [facility] Address [address] [facility] [place] [address] Care Team Providers Care Blender / Cook Name Role Phone Unallocated, Noms Provider Primary Care Provi eliana Reason for Visit * Reason Comments Routine Visit Patient present f or PNC, patient complains of stomach pressure. Patient states she was seen [place] [facility] [place] and was given keflex, (per mom, patient does not finish any of her medications, mom stated patient took 2 pills and didn't complete it) P: +2G: +2 Encounter Details Date Type Department Care Team (Latest Contact Info) Description 10/22/2024 1:30 PM EDT Routine [facility] BRIGIDA [address] [facility] [address] [place] [phone] Aleida Goodman MD [address] [facility] [address] [place] [address] Trauma (Primary Dx); Second trimester ([facility]); 18 weeks gestation of ([facility]); Hyperemesis; HGSIL (high grade 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; Vulvar lesion; Abnormal glucose affecting ([facility]) Social History Tobacco Use Types Packs/Day Years [...] Sign Reading Time Taken Comments Blood Pressure 128/76 10/22/2024 1:34 PM EDT Pulse - - Temperature - - Respiratory Rate - - Oxygen Saturation - - Inhaled Oxygen Concentration - - Weight 187 kg (413 lb) 10/22/2024 1:34 PM EDT Height - - Body Mass Index - - documented in this encounter Progress Notes * Aleida Goodman MD - 10/22/2024 1:30 PM EDT Subjective Jessica Baldwin is a 19 y.o. at 18w1d with a working estimated date of delivery of 03/24/2025, by Ultrasound who presents for a routine visit. She denies vaginal bleeding, leakage of fluid, decreased movements, or contractions. Trauma Her is complicated by: VD [id number] Hidradenitis Pelvic pain with Er Gerd History of Present Illness Chief Complaint Concern about heartbeat, nausea and vomiting, accidental double dose of hydroxyzine, racing heart, pressure below waist, weight loss History of Present Illness Jessica, a patient, presents with multiple concerns including inability to detect heartbeat, weight loss, daily vomiting, and lower abdominal pressure. She reports experiencing a panicattack after accidentally taking hydroxyzine twice, which she took while shopping for her sister onbed rest. She attempted to counteract the tiredness from hydroxyzine with Red Bull, resulting in a racing heart and anticipated high blood pressure. The patient expresses anxiety about not being able to detect the baby's heartbeat on her home Doppler. This led to a nearly 6-day stay at [facility]. She mentions a fall on the deck, after which they couldn't immediately detect the heartbeat. Jessica reports losing weight and experiencing daily vomiting. She was prescribed antibiotics for rubegitis and describes a pressure- like pain belowher waist. The patient had a recent healthcare interaction where she was not allowed to accompany someone (possibly her child) into the examination room. She reports being told that everything's good but expresses concern about not receiving tests for potential bleeding between her ears or recessed eye. Jessica is worried about the baby's nutrient intake and requests another ultrasound in 1-2 weeks to check growth, as her last ultrasound was on 09/30. She mentions difficulty detecting the heartbeat on her home Doppler and seeks reassurance about when she should be able to hear it. She also mentions being told she had a urinary tract infection and questions whether she should continue taking Keflex. Objective Physical Exam Expected Total Weight Gain: 11 lb-19 lb Pregravid BMI: 67.01 Labs Urine dip: Lab Results Component Value Date KETONESU Negative 09/30/2024 PROTEINUR Negative 08/01/2024 GLUCOSEUR 2+ 09/30/2024 LEUKOCYTESUR Negative 09/30/2024 Lab Results Component Value Date HGB 13.6 08/01/2024 HCT 42.1 09/30/2024 LABANTI Negative 08/01/2024 LABRPR Non Reactive 08/01/2024 HEPBSAG Negative 08/01/2024 RUBELLAIGGQT 3.43 08/01/2024 Assessment/Plan Diagnoses and all orders for this visit: Trauma - Hemoglobin, Second trimester ([facility]) - POCT urinalysis dipstick manually resulted 18 weeks gestation of ([facility]) - POCT urinalysis dipstick manually resulted Hyperemesis HGSIL (high grade 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 Vulvar lesion Abnormal glucose affecting ([facility]) Continue vitamin. Labs reviewed. Rhogam A- GTT completed 10/01/23- Normal. Follow up in 2 weeks for a routine visit. Assessment & Plan 1. Assessment: Patient is currently , with concerns about well-being. Unable to detect heartbeat with home Doppler, which led to a 6-hour hospital stay at [facility]. Recent fall on deck raised additional concerns. Last ultrasound was on 09/30. Clinician reassured that everything sounds good, but patient expresses anxiety about health and nutrient intake. Plan: - Schedule follow-up ultrasound in 1-2 weeks to check growth - Educate patient on expected timeline for detecting heartbeat with home Doppler (typically after 20 weeks) - Instruct patient on proper placement of Doppler for current gestational age (low, in hairline, middle) 2. Nausea and Vomiting in Assessment: Patient reports daily vomiting and significant weight loss. Previously prescribed medication for this issue, but patient is non-compliant with medication regimen. Plan: - Prescribe Zofran for nausea management - Educate patient on importance of medication compliance for symptom management - Monitor weight at follow-up appointments 3. Urinary Tract Infection Assessment: Patient reports being diagnosed with a urinary tract infection. Currently prescribed Keflex but unsure if she should continue taking it. Plan: - Continue Keflex as prescribed to complete full course of antibiotics - Educate patient on importance of completing antibiotic course to prevent systemic infection 4. Anxiety Assessment: Patient has a history of panic attacks and reports a recent episode where she accidentally took hydroxyzine twice. Used energy drinks to counteract medication-induced drowsiness, resulting in tachycardia and perceived hypertension. Plan: - Educate patient on proper use of hydroxyzine and potential risks of combining with energy drinks - Discuss alternative coping strategies for anxiety management during documented in this encounter Plan of Treatment Upcoming Encounters Date Type Department Care Team (Late st Contact Info) Description 11/05/2024 12:30 PM EDT Ancillary Procedure [facility] [address] [place] [phone] 11/05/2024 1:30 PM EDT Routine [facility] [address] [place] [phone] Aleida Goodman MD [address] [place] [address] Scheduled Orders Name Type Priority Associated Diagnoses Orde r Schedule Hemoglobin, Lab Routine Trauma Ordered: 10/22/2024 documented as of this encounter Goals Goal Patient Goal Type Associated Problems Recent Progress Patient-Stated? Author Reminders Care Plan OB Reminders Jessica Hernandez MA documented as of this encounter Procedures Procedure Name Priority Date/Time Associated Diagnosis Comments POCT URINALYSIS DIPSTICK Routine 10/22/2024 1:50 PM EDT Second trimester ([facility]) 18 weeks gestation of ([facility]) documented in this encounter Results * (ABNORMAL) POCT urinalysis dipstick manually resulted (10/22/2024 1:50 PM EDT) Color, UA Yellow Clarity, UA Cloudy Glucose, UA 2+ Negative - 2000(110) ++++ mg/dL Bilirubin, UA Negative Negative - 4(70) +++ mg/dL Ketones, UA Negative Negative - 160(16) ++++ mg/dL Spec Grav, UA 1.000 1 - 1.03 Blood, UA Negative Negative - 50 Grady/mcL pH, UA 6.0 5 - 9 Protein, UA 2+ Negative - 2000(20) ++++ mg/dL Urobilinogen, UA 0.2 0.2 - 12 mg/dL Leukocytes, UA 1+ Negative - 500+++ Tk/mcL Nitrite, UA Negative Negative - Positive Urine 10/22/2024 1:50 PM EDT Aleida Goodman MD POINT OF CARE TEST ENTER/EDIT ORDERABLES Final Result documented in this encounter Visit Diagnoses Diagnosis Trauma- Primary Injury, other and unspecified, unspecified site Second trimester ([facility]) state, incidental 18 weeks gestation of ([facility]) Hyperemesis Persistent vomiting HGSIL (high grade 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 Vulvar lesion Other specified noninflammatory disorder of vulva and perineum Abnormal glucose affecting ([facility]) documented in this encounter Additional Health Concerns Active Problems Noted Date Diagnosed Date OB Reminders 08/01/2024 documented as of this encounter Care Teams Blender / Cook Relationship Specialty Start Date End Date Unallocated, Noms Provider, MD [address] [place], [place] [id number] PCP - General Family Medicine 01/04/24 documented as of this encounter
--- OUTSIDE RECORDS SUMMARY | 2024-10-29 23:48 | XMS_ITS | CCD ---
Author Organization [facility] Care Team Providers Care Patient Account Representative Name Role Phone FELI, GRICELDA P Consulting Unavailable FELI, GRICELDA P Attending Unavailable FELI, GRICELDA P Admitting Unavailable FELI, GRICELDA P Primary Care Unavailable ROSAS ., DR SEGOVIA Consulting Unavailable HOY ., DR SEGOVIA Attending Unavailable HOY ., DR SEGOVIA Admitting Unavailable FELI, GRICELDA P Primary Care Unavailable FELI, GRICELDA P Primary Care Unavailable FELI, GRICELDA P Consulting Unavailable FELI, GRICELDA P Attending Unavailable FELI, GRICELDA P Admitting Unavailable Unallocated , Noms Provider Primary Care Provi eliana Unavailable Primary Care Provider Unavailabl e Unavailable Primary Care Provider Unavailabl e Teresa Beal DO Attending Provider Luca Marshall MD Primary Care Provider [phone] MISBAH KRAFT Attending Unavailable MISBAH KRAFT Attending Unavailable MISBAH KRAFT Attending Unavailable MISBAH KRAFT Attending Unavailable MISBAH KRAFT Attending Unavailable Luca Marshall MD Primary Care Provider [phone] Tano Simon DO Emergency Provider Luca Marshall Primary Care Unavailable Tano Simon Attending Unavailable Tano Simon Admitting Unavailable Teresa Beal Attending Unavailable Teresa Beal Admitting Unavailable Medications Current Medications Medication Drug Class(es) Dates Sig (Normalized) Sig (Original) Blood Glucose Monitoring Suppl (True Metrix Air Glucose Meter) device (9 sources) Start: 09-04-2024 Blood Glucose Monitoring Suppl (True Metrix Air Glucose Meter) device Indications: First trimester (HHS-HCC) , 11 weeks gestation of (HHS-HCC) , Abnormal glucose affecting (HHS-HCC) 1 Device 3 (three) times a week [...] 12/22/2023 Active ondansetron 4 mg oral tablet (6 sources) Serotonin-3 Receptor Antagonist Start: 09-03-2024 End: 10-03-2024 take 1 tablet by mouth twice daily as needed for nausea ondansetron (Zofran) 4 MG tablet Indications: Hyperemesis Take 1 tablet (4 mg) by mouth 2 (two) times a day as needed for nausea 20 tablet 3 09/03/2024 10/03/2024 Active Vit-Fe Fumarate-FA ( PO) (10 sources) Vit-Fe Fumarate-FA ( PO) Take by mouth Active Problems Active Problems Problem Classification Problem Date Documented Date Episodic/Chronic Cancer of cervix (6 sources) High grade squamous intraepithelial lesion on cervical Papanicolaou smear; Translations: [High grade squamous intraepithelial lesion on cytologic smear of cervix (HGSIL)] 09-17-2024 Episodic Diabetes mellitus without complication (8 sources) Abnormal glucose level; Translations: [Abnormal glucose complicating ] 09-03-2024 Episodic Immunizations and screening for infectious disease (10 sources) Patient encounter status; Translations: [Encounter for other general counseling and advice on contraception] 01-04-2024 Episodic Inflammatory diseases of female pelvic organs (1 source) Acute vaginitis; Translations: [Acute vaginitis] 12-15-2023 Episodic Menstrual disorders (3 sources) Amenorrhea; Translations: [Amenorrhea, unspecified] 01-04-2024 Chronic Nausea and vomiting (8 sources) Hyperemesis; Translations: [Vomiting, unspecified] 09-03-2024 Episodic Other endocrine disorders (2 sources) Disorder of endocrine system; Translations: [Endocrine disorder, unspecified] 12-12-2023 Episodic Other female genital disorders (2 sources) Vaginal discharge; Translations: [Other specified noninflammatory disorders of vagina] 12-12-2023 Episodic Other female genital disorders (6 sources) Lesion of vulva; Translations: [Other specified noninflammatory disorders of vulva and perineum] 09-17-2024 Episodic Other injuries and conditions due to external causes (2 sources) Traumatic injury; Translations: [Injury, unspecified, initial encounter] 10-22-2024 Episodic Other nutritional; endocrine; and metabolic disorders (3 sources) Morbid obesity; Translations: [Body mass index (BMI) 60.0-69.9, adult] 09-04-2024 Chronic Other and delivery including normal (10 sources) Normal ; Translations: [Encounter for supervision of normal first , first trimester] 08-01-2024 Episodic Residual codes; unclassified (1 source) Pain, unspecified; Translations: [PAIN UNSPECIFIED] Onset: 05-24-2022 Episodic Residual codes; unclassified (2 sources) Gestation period, 11 weeks; Translations: [11 weeks gestation of ] 09-03-2024 Episodic Residual codes; unclassified (2 sources) Gestation period, 13 weeks; Translations: [13 weeks gestation of ] 09-16-2024 Episodic Residual codes; unclassified (2 sources) Gestation period, 15 weeks; Translations: [15 weeks gestation of ] 09-27-2024 Episodic Residual codes; unclassified (2 sources) Gestation period, 18 weeks; Translations: [18 weeks gestation of ] 10-18-2024 Episodic Unclassified (4 sources) CONTACT W/AND (SUSP) EXPOS COVID-19; Translations: [CONTACT W/AND (SUSP) EXPOS COVID-19] Onset: 04-21-2022 Unclassified (4 sources) COUGH, UNSPECIFIED; Translations: [COUGH, UNSPECIFIED] Onset: 04-21-2022 Unclassified (11 sources) OB Reminders Onset: 08-01-2024 08-01-2024 Urinary [...] Results Test Name Value Interpretation Reference Range Facility Urinalysis macro (dipstick) panel (U)on 10-22-2024 Bilirubin, UA Negative Negative - 4(70) +++ mg/dL [facility] Blood, UA Negative Negative - 50 Grady/mcL [facility] Clarity, UA Cloudy [facility] Color, UA Yellow [facility] Glucose, UA 2+ Negative - 1999(110) ++++ mg/dL [facility] Interpretation and review of laboratory results Abnormal [facility] Ketones, UA Negative Negative - 160(16) ++++ mg/dL [facility] Leukocytes, UA 1+ Negative - 500+++ Tk/mcL [facility] Nitrite, UA Negative Negative - Positive [facility] pH, UA 6 5 - 9 [facility] Protein, UA 2+ Negative - 1999(20) ++++ mg/dL [facility] Spec Grav, UA 1 1 - 1.03 [facility] Urobilinogen, UA 0.2 0.2 - 12 mg/dL [facility] CNPNon 10-18-2024 CNPN Telephone (OBGYF2) JUNIOR BALDWIN ([id number]) 1 F Date Time Provider Department 10/18/24 [facility] OB MFM OBGYF2 During your visit today, we recorded the following information about you: Kta Dietrich MA 10/18/2024 3:38 PM Signed 3rd and final attempt to call and schedule pt re: referral from [facility]. No answer, LVM informing pt and asking to call back to schedule. Kat Dietrich MA Allergies As of Date: 10/18/2024 (Not on File) Date Reviewed: Never Reviewed Reason for Visit: Appointment [186] Problem List As Of Date: 10/18/2024 (None) Encounter Status:Closed by KAT DIETRICH on 10/18/24 Normal [facility] Appearance of UrineOrdered B y: PROVIDER TEMP on 10-16-2024 Appearance (U) Cloudy Critically abnormal Clear [facility] Comment on above: Order Comment: Name Collection Type:: Voided Performed By: #### C UU, ADDONUAPLUS #### [facility] [address] [place] [address] [place] Bacteria [Presence] in Urine by AutomatedOrdered By: PROVIDER TEMP on 10-16-2024 Bacteria Auto Ql (U) 3+ [HPF] High None Seen [facility] Bilirubin Test strip Ql (U)O rdered By: PROVIDER TEMP on 10-16-2024 Bilirubin Ql (U) Negative Negative [facility] Color of Urine by AutoOrdere d By: PROVIDER TEMP on 10-16-2024 Color (U) Yellow Normal Yellow [facility] Comment on above: Order Comment: Name Collection Type:: Voided Performed By: #### C UU, ADDONUAPLUS #### [facility] [address] [place], [place] [id number] [place] Dipstick and Microscopicon 0 10-16-2024 Bacteria,Urine 3+ [HPF] Normal None Seen [facility] Comment on above: Order Comment: Name Collection Type:: Voided Performed By: #### C UU, ADDONUAPLUS #### [place] [address] [place] Bilirubin,Urine Negative Normal Negative [facility] Comment on above: Order Comment: Name Collection Type:: Voided Performed By: #### C UU, ADDONUAPLUS #### [address] Glucose Ql (U) Normal Normal Normal [facility] Comment on above: Order Comment: Name Collection Type:: Voided Performed By: #### C UU, ADDONUAPLUS #### [place] [address] [place] Hyaline Casts,Urine 0-8 Normal 0-8 [facility] Comment on above: Order Comment: Name Collection Type:: Voided Performed By: #### C UU, ADDONUAPLUS #### [place] [address] [place] Mucus,Urine Rare Normal [facility] Comment on above: Order Comment: Name Collection Type:: Voided Result Comment: PERF ORMED BY: [place] [address] PATHOLOGIST POULTRY FARMER AMY SANTOS M.D. Performed By: #### C UU, ADDONUAPLUS #### [place] [address] [place] Nitrite,Urine Negative Normal Negative [facility] Comment on above: Order Comment: Name Collection Type:: Voided Performed By: #### C UU, ADDONUAPLUS #### [place] [address] [place] Occult Blood,Urine Negative Normal Negative [facility] Comment on above: Order Comment: Name Collection Type:: Voided Result Comment: PERF ORMED BY: [place] [address] PATHOLOGIST POULTRY FARMER AMY SANTOS M.D. Performed By: #### C UU, ADDONUAPLUS #### [place] [address] [place] Protein,Urine Negative Normal Negative [facility] Comment on above: Order Comment: Name Collection Type:: Voided Performed By: #### C UU, ADDONUAPLUS #### [address] RBC,Urine 3-4 Normal 0-4 [facility] Comment on above: Order Comment: Name Collection Type:: Voided Performed By: #### C UU, ADDONUAPLUS #### [address] Specificy [place],Urine 1.016 Normal 1.001-1.030 [facility] Comment on above: Order Comment: Name Collection Type:: Voided Performed By: #### C UU, ADDONUAPLUS #### [address] Squamous Epithelial Cell,Urine 5-9 Normal 0-2 [facility] Comment on above: Order Comment: Name Collection Type:: Voided Performed By: #### C UU, ADDONUAPLUS #### [address] Urobilinogen,Urine Normal Normal Normal [facility] Comment on above: Order Comment: Name Collection Type:: Voided Performed By: #### C UU, ADDONUAPLUS #### [address] WBC,Urine 10-19 Normal 0-4 [facility] Comment on above: Order Comment: Name Collection Type:: Voided Performed By: #### C UU, ADDONUAPLUS #### [address] Epithelial cells.squamous [# /area] in Urine sediment by Automated countOrdered By: PROVIDER TEMP on 10-16-2024 Epithelial cells.squamous Auto (Urine sed) [#/Area] 5-9 [HPF] High 0-2 [facility] Erythrocytes [#/area] in Uri ne sediment by Automated countOrdered By: PROVIDER TEMP on 10-16-2024 RBC Auto (Urine sed) [#/Area] 3-4 [HPF] 0-4 [facility] Glucose [Mass/volume] in Uri ne by Test stripOrdered By: PROVIDER TEMP on 10-16-2024 Glucose Test strip (U) [Mass/Vol] Normal mg/dL Normal [facility] Hemoglobin Test strip Ql (U) Ordered By: PROVIDER TEMP on 10-16-2024 Hemoglobin Ql (U) Negative Negative [facility] Hyaline casts [#/area] in Ur ine sediment by Automated countOrdered By: PROVIDER TEMP on 10-16-2024 Hyaline casts Auto (Urine sed) [#/Area] 0-8 [LPF] 0-8 [facility] Ketones [Presence] in Urine by Test stripOrdered By: PROVIDER TEMP on 10-16-2024 Ketones Ql (U) Negative Normal Negative [facility] Comment on above: Order Comment: Name Collection Type:: Voided Performed By: #### C UU, ADDONUAPLUS #### [facility] [address] [place] [address] [place] Leukocyte esterase [Presence ] in Urine by Test stripOrdered By: PROVIDER TEMP on 10-16-2024 Leukocyte esterase Test strip Ql (U) 3+ Normal Negative [facility] Comment on above: Order Comment: Name Collection Type:: Voided Performed By: #### C UU, ADDONUAPLUS #### [facility] [address] [place] [address] [place] Leukocytes [#/area] in Urine sediment by Automated countOrdered By: PROVIDER TEMP on 10-16-2024 WBC Auto (Urine sed) [#/Area] 10-19 [HPF] High 0-4 [facility] Mucus [Presence] in Urine by AutomatedOrdered By: PROVIDER TEMP on 10-16-2024 Mucus Auto Ql (U) Rare [LPF] [facility] Nitrite Test strip Ql (U)Ord ered By: PROVIDER TEMP on 10-16-2024 Nitrite Ql (U) Negative Negative [facility] Protein Test strip (U) [Mass /Vol]Ordered By: PROVIDER TEMP on 10-16-2024 Protein (U) [Mass/Vol] Negative Negative [facility] Specific gravity Test strip (U) [Rel density]Ordered By: PROVIDER TEMP on 07-30-2025 Specific gravity (U) [Rel density] 1.016 1.001-1.030 [facility] US OB limitedon 10-16-2024 US OB limited [facility] Main [address] [address] Ultrasound Report Signed Patient: Junior Baldwin MR#: [id number] : 2005 Acct:[id number] Age/Sex: 19 / F ADM Date: 10/16/24 Loc: ER Room: Type: PRE ER Attending Dr: Ordering Provider: MELANIA CARRANZA Date of Service: 10/16/24 US/US OB limited: OB/Uterine Contractions Copies to: MELANIA CARRANZA Obstetrical ultrasound INDICATION: Lack of movement today, [...] Mccloud M.D. 10/16/2024 9:30 PM Dictation Location: [place] [address] Tech: Andria Alfredo Transcribed By: CHRISTY 10/16/242129 Dictated By: Bradley Mccloud MD 10/16/242127 Signed By: 10/16/242129 Normal [facility] Urine Cultureon 10-16-2024 Bacteria identified Cx Nom (U) ORGANISM: Strep agalactiae - (group b) (O:STRAGA) [place] Count 75,000 PERFORMED BY: [place] [address] PATHOLOGIST POULTRY FARMER AMY SANTOS M.D. Normal [facility] Comment on above: Performed By: #### C UU, ADDONUAPLUS #### [facility] [address] [place] [id number] [facility] Urobilinogen Test strip (U) [Mass/Vol]Ordered By: PROVIDER TEMP on 10-16-2024 Urobilinogen (U) [Mass/Vol] Normal mg/dL Normal [facility] pH of Urine by Test stripOrd ered By: PROVIDER TEMP on 10-16-2024 pH (U) 6.0 [pH] Normal 5.0-9.0 [facility] Comment on above: Order Comment: Name Collection Type:: Voided Performed By: #### C UU, ADDONUAPLUS #### [facility] [address] [place] [id number] [facility] 10-07-2024 CNPN Telephone (OBGYF2) JUNIOR BALDWIN ([id number]) 1 F Date Time Provider Department 10/07/24 [facility] OB MFM OBGYF2 During your visit today, we recorded the following information about you: Kat Dietrich MA 10/07/2024 10:30 AM Signed 2nd attempt to contact pt re: referral from [facility]. No answer, LVM asking pt to call back and schedule. Kat Dietrich MA Allergies As of Date: 10/07/2024 (Not on File) Date Reviewed: Never Reviewed Reason for Visit: Appointment [186] Problem List As Of Date: 10/07/2024 (None) Encounter Status:Closed by KAT DIETRICH on 10/07/24 [facility] DENNYJUNIOR ([id number]) 1 F Date Time Provider Department 10/02/24 [facility] OB MFM OBGYF2 During your visit today, we recorded the following information about you: Kat Dietrich MA 10/02/2024 1:45 PM Signed Called pt re: referral from [facility]. No answer, LVM asking pt to call back and schedule. Kat Dietrich MA Allergies As of Date: 10/02/2024 (Not on File) Date Reviewed: Never Reviewed Reason for Visit: Appointment [186] Problem List As Of Date: 10/02/2024 (None) Encounter Status:Closed by KAT DIETRICH on 10/02/24 Normal [facility] Telephone Encounteron 2024 Band Splitter Authentication Interface Message Text NO SHOW , OB FOLLOW-UP, AND NEW OB APPOINTMENTS Patient appeared on /no show report Patient NO SHOWED NEW OB HR appointment on 09/30/24. After chart review pt is est at [facility] has been seen and has upcoming apt schd. Called patient :LVM with phone number to call back and reschd apt if this is something that is still needed. Normal [facility] Urinalysis macro (dipstick) panel (U)on 09-30-2024 Bilirubin, UA Negative Negative - 4(70) +++ mg/dL [facility] Blood, UA Negative Negative - 50 Grady/mcL [facility] Clarity, UA Clear [facility] Color, UA Yellow [facility] Glucose, UA 2+ Negative - 2000(110) ++++ mg/dL [facility] Interpretation and review of laboratory results Abnormal [facility] Ketones, UA Negative Negative - 160(16) ++++ mg/dL [facility] Leukocytes, UA Negative Negative - 500+++ Tk/mcL [facility] Nitrite, UA Negative Negative - Positive [facility] pH, UA 6 5 - 9 [facility] Protein, UA 1+ Negative - 2000(20) ++++ mg/dL [facility] Spec Grav, UA 1 1 - 1.03 [facility] Urobilinogen, UA 0.2 0.2 - 12 mg/dL [facility] Telephone Encounteron 2024 Band Splitter Authentication Interface Message Text 2nd attempt to contact not needed after chart review pt has upcoming apt schd. Closing encounter Future Appointments (next 10) Provider Department Center 09/30/2024 2:15 PM Zhanna Martinez MD [facility] 11/06/2024 1:00 PM RESIDENTIAL ROOM 6 [facility] Normal [facility] Laboratoryon 09-21-2024 Chr 13+18+21+X+Y aneuploidy Dosage of chromosome-specific cfDNA Ql (cfDNA) Negative [facility] Citation Justin (Reference lab test) Comment [facility] Comment on above: 1. chris Chinchilla. Norma Med. 2012;14(3):296-305. 2. Brayan PINTO, et al. Prenat Diag. 2013;33(6):591-597. 3. Dusty Momin, et al. Clin Chem. 2015 Apr;61(4):608-616. 4. Filomena JOHN, et al. Norma Med. 2011;13(11):913-920. 5. ACOG/SMFM Practice Bulletin No. 226, Dec 2019. Trisomy 18 risk Dosage of chromosome-specific cfDNA Ql (Plasma cell-free+WBC DNA) [Interp] Negative [facility] Laboratory - Miscellaneous t estson 09-21-2024 Laboratory comment Justin (Report) Comment [facility] Comment on above: The MaterniT(R) 21 P PAULINA laboratory-developed test (LDT) analyzes circulating cell-free DNA from a maternal blood sample. This test is used for screening purposes and not diagnostic. Clinical correlation is recommended. Validation data on twin pregnancies is limited and the ability of this test to detect aneuploidy in higher multiple gestations has not yet been validated. director executive communications name Nom (Provider) Comment [facility] Comment on above: This specimen showed an expected representation of chromosome 21, 18 and 13 material. Clinical correlation is suggested. Feliberto Rodriguez MD , PhD, Director, [facility] Reference Lab Test Method Comment [facility] Comment on above: See Notes Circulating cell-free DNA was purified from the plasma component of maternal blood. The extracted DNA was then converted into a genomic DNA library for aneuploidy analysis of chromosomes 21, 18, and 13 via next generation sequencing.[1] Optional findings based on the test order include sex chromosome aneuploidy (SCA)[2], and enhanced sequencing series (ESS)[3], which will only be reported on as an additional finding when an abnormality is detected. SCA testing includes information on X and Y representation, while ESS testing includes deletions in selected regions (22q, 15q, 11q, 8q, 5p, 4p, 1p) and trisomy of chromosomes 16 and 22. Service comment (Unsp spec) [Interp] Comment [facility] Comment on above: See Notes [employer] is a subsidiary of [employer], using the brand [employer]. This test was developed and its performance characteristics determined by [employer]. It has not been cleared or approved by the Food and Drug Administration. This laboratory is certified under the Clinical Laboratory Improvement Amendments (CLIA) as qualified to perform high complexity clinical laboratory testing and accredited by the [employer] (CAP). If there is future clinical need for adding MaterniT GENOME testing, this specimen will be available until term. [facility] samples will not be retained beyond 60 days. [facility] patients will have to send a new sample for re-sequencing ([facility] Test Code: 421293). Laboratory - Molecular patho logyon 09-21-2024 Cell-free DNA./Cell-free DNA.total Dosage of chromosome-specific cfDNA (cfDNA) [Molar fraction] 11% [facility] Chr 21 trisomy Dosage of chromosome-specific cfDNA Ql (cfDNA) Negative [facility] Chr X and Y aneuploidy risk Sequencing Ql (cfDNA) [Interp] Not detected [facility] Monosomy X risk Dosage of chromosome-specific cfDNA Ql (Plasma cell-free+WBC DNA) [Interp] Not detected [facility] Sex Dosage of chromosome-specific cfDNA Nom (cfDNA) Comment [facility] Comment on above: Consistent with Fema [facility] Test performance information Justin (Unsp spec) Comment [facility] Comment on above: The performance rey acteristics of the MaterniT(R) 21 PLUS laboratory-developed test (LDT) have been determined in a clinical validation study with women at increased risk for chromosomal aneuploidy.[1-4] Trisomy 13 risk Dosage of chromosome-specific cfDNA Ql (cfDNA) [Interp] Negative [facility] No Panel Informationon 09-21 Gest Age >or= 9wk: MT21 Yes [facility] Gestational age Estimated from conception date Rose [facility] Limitations of Test MT21 Comment [facility] Comment on above: While the results of these tests are highly reliable, discordant results, including inaccurate sex prediction, may occur due to placental, maternal, or mosaicism or neoplasm; vanishing twin; prior maternal organ transplant; or other causes. These tests are screening tests and not diagnostic; they do not replace the accuracy and precision of diagnosis with CVS or amniocentesis. A patient with a positive test result should be referred for genetic counseling and offered invasive diagnosis for confirmation of test results.[5] The results of this testing, including the benefits and limitations, should be discussed with a qualified healthcare provider. management decisions, including termination of the , should not be based on the results of these tests alone. The healthcare provider is responsible for the use of this information in the management of their patient. Sex chromosomal aneuploidies are not reportable for known multiple gestations. A negative result does not ensure an unaffected nor does it exclude the possibility of other chromosomal abnormalities or defects which are not a part of these tests. An uninformative result may be reported, the causes of which may include, but are not limited to, insufficient sequencing coverage, noise or artifacts in the region, amplification or sequencing bias, or insufficient fraction. These tests are not intended to identify pregnancies at risk for neural tube defects or ventral wall defects. Testing for whole chromosome abnormalities (including sex chromosomes) and for subchromosomal abnormalities could lead to the potential discovery of both and maternal genomic abnormalities that could have major, minor, or no, clinical significance. Evaluating the significance of a positive or a non-reportable result may involve both invasive testing and additional studies on the mother. Such investigations may lead to a diagnosis of maternal chromosomal or subchromosomal abnormalities, which on occasion may be associated with benign or malignant maternal neoplasms. These tests may not accurately identify triploidy, balanced rearrangements, or the precise location of subchromosomal duplications or deletions; these may be detected by diagnosis with CVS or amniocentesis. The ability to report results may be impacted by maternal BMI, maternal weight, maternal systemic lupus erythematosus (SLE) and/or by certain pharmaceutical agents such as low molecular weight heparin (for example: Lovenox(R), Xaparin(R), Clexane(R) and Fragmin(R)). Neg Predictive Value [facility] Note [facility] Comment on above: The Negative Predict jag Value (NPV) for trisomy 21, 18, and 13 is greater than 99%. The NPV for SCA and ESS cannot be calculated as SCA and ESS are only reported when an abnormality is detected. Perf Characteristics [facility] Note [facility] Comment on above: ! Sex ! Accuracy: 99.4% ! ! ! ! Region (associated syndrome) ! Est. Sens# ! Est. Spec ! ! ! ! Trisomy 21 (Down Syndrome) ! 99.1% ! 99.9% ! ! ! ! Trisomy 18 (Silverman Syndrome) ! >99.9% ! 99.6% ! ! ! ! Trisomy 13 (Patau Syndrome) ! 91.7% ! 99.7% ! ! ! ! Sex Chromosome Aneuploidies## ! 96.2% ! 99.7% ! ! ! * As reported in ISCA database nstd37 [https://www.ncbi.nlm.nih.gov/dbvar/studies/nstd37/ ] # Estimated Sensitivity. Sensitivity estimated across the observed size distribution of each syndrome [per ISCA database nstd37] and across the range of fractions observed in routine clinical NIPT. Actual sensitivity can also be influenced by other factors such as the size of the event, total sequence counts, amplification bias, or sequence bias. ## Rose gestation only. Pos Predictive Value MT21 N/A [facility] Performed at: 01 - [facility] [address] [place] [address] [id number] Customer Service Analyst: Feliberto Huddleston, Phone: [phone] [facility] Interdisciplinary Note - Nut ritionon 09-18-2024 Interdisciplinary Note - Nutrition Interdisciplinary Note - Nutrition Junior was scheduled for initial MNT visit today at 11:15AM. She was a no show for her appointment. MD office notified [phone]. Discussed w the nurse, Aviva, at providers office in [place]. [address] name and number provided for any additional information. Explained pt can make another appointment and I will be happy to see her. Normal [facility] Comment on above: Result Comment: Elec tronically Signed By: Jovanni AYON, PAWEL, SONNY, Savannah\.br\Date and Time Signed: 09/18/24 12:04 EDT Laboratory - Microbiology an d Antimicrobial susceptibilityon 09-18-2024 HSV 1 IgG IA Ql Non-Reactive Non Reactive [facility] Comment on above: Please note refere nce interval change HSV-1 IgG testing performed using the [employer] HSV-1 IgG assay. HSV 2 IgG IA Ql Non-Reactive Non Reactive [facility] Comment on above: Please note refere nce interval change Current guidelines and recommendations do not recommend routine screening for HSV-2 in asymptomatic individuals, including those that are . The detection of HSV-2 IgG antibodies in a single sample indicates previous exposure to HSV-2 but does not give information as to the site of HSV infection or the timing of exposure. The predictive value of positive and negative results depends on the population's prevalence and the pretest likelihood of HSV-2. HSV-2 IgG testing performed using the [employer] HSV-2 IgG assay. No Panel Informationon 09-18 Performed at: [address] [place] [address] [id number] Customer Service Analyst: Kennedy Gary PhD, Phone: [phone] [facility] Telephone Encounteron 2024 Band Splitter Authentication Interface Message Text NO SHOW , OB FOLLOW-UP, AND NEW OB APPOINTMENTS Patient appeared on /no show report Patient NO SHOWED NEW OB HR appointment on 09/16/24. After chart review pt is established at [facility]. Called patient: LVM to call back if apt is still in need of rescheduling 1st attempt to contact [facility] macro (dipstick) panel (U)on 09-17-2024 Bilirubin, UA Negative Negative - 4(70) +++ mg/dL [facility] Blood, UA Negative Negative - 50 Grady/mcL [facility] Clarity, UA Clear [facility] Color, UA Yellow [facility] Glucose, UA 2+ Negative - 2000(110) ++++ mg/dL [facility] Interpretation and review of laboratory results Normal [facility] Ketones, UA Negative Negative - 160(16) ++++ mg/dL [facility] Leukocytes, UA Negative Negative - 500+++ Tk/mcL [facility] Nitrite, UA Negative Negative - Positive [facility] pH, UA 7 5 - 9 [facility] Protein, UA Negative Negative - 2000(20) ++++ mg/dL [facility] Spec Grav, UA 1 1 - 1.03 [facility] Urobilinogen, UA 0.2 0.2 - 12 mg/dL [facility] Urine Cultureon 09-11-2024 Bacteria identified Cx Nom (U) ORGANISM: Strep agalactiae - (group b) (O:STRAGA) [place] Count 20,000 PERFORMED BY: [facility] [address] [place] [address] PATHOLOGIST POULTRY FARMER AMY SANTOS M.D. Normal [facility] Comment on above: Performed By: #### C UU #### [facility] [address] Urine cultureOrdered By: Marija Beal on 09-11-2024 Bacteria identified Cx Nom (U) Strep agalactiae - (group b) Abnormal [facility] Urinalysis macro (dipstick) panel (U)Ordered By: Radha Grijalva on 09-03-2024 Bilirubin, UA Negative Negative - 4(70) +++ mg/dL [facility] Blood, UA Negative Negative - 50 Grady/mcL [facility] Clarity, UA Clear [facility] Color, UA Yellow [facility] Glucose, UA Negative Negative - 2000(110) ++++ mg/dL [facility] Interpretation and review of laboratory results Normal [facility] Ketones, UA Negative Negative - 160(16) ++++ mg/dL [facility] Leukocytes, UA Negative Negative - 500+++ Tk/mcL [facility] Nitrite, UA Negative Negative - Positive [facility] pH, UA 5 5 - 9 [facility] Protein, UA Negative Negative - 2000(20) ++++ mg/dL [facility] Spec Grav, UA 1 1 - 1.03 [facility] Urobilinogen, UA 0.2 0.2 - 12 mg/dL [facility] TB PREG QUANT HCGon 025 HCG QUANTITATIVE 93564 mIU/mL [facility] Comment on above: 5-50 0.2-1 WEEK 50-500 1-2 WEEKS 100-5,000 2-3 WEEKS 500-10,000 3-4 WEEKS 1,000-50,000 4-5 WEEKS 10,000-100,000 5-6 WEEKS 15,000-200,000 6-8 WEEKS 10,000-100,000 2-3 MONTHS [facility] PREG QUANT HCGon 025 HCG QUANTITATIVE 4086 mIU/mL [facility] Comment on above: 5-50 0.2-1 WEEK 50-500 1-2 WEEKS 100-5,000 2-3 WEEKS 500-10,000 3-4 WEEKS 1,000-50,000 4-5 WEEKS 10,000-100,000 5-6 WEEKS 15,000-200,000 6-8 WEEKS 10,000-100,000 2-3 MONTHS [facility] Covid-19 PCR ([facility])on SARS-CoV-2 (COVID-19) RNA VAISHALI+probe Ql (Unsp spec) Not detected Normal NOT DETECTED [facility] Comment on above: Result Comment: [...] for this test is supported by the [place] of Health and Human Service's declaration that [...] used). Performed By: #### C VDTBH #### [facility] [address] [place] [address] Dr. Damion Caceres INFLUENZA A AND B AGon 05-23 [facility] SEE BELOW Normal [facility] Comment on above: Result Comment: Nega tive for Flu A protein angiten. Infection due to Flu A cannot be ruled out. Flu A angiten in the sample may be below the detection limit of the test. Performed By: #### I NFLUAB #### [facility] [address] [place] [address] Dr. [facility] Normal [facility] Comment on above: Result Comment: Nega tive for Flu B protein antigen. Infection due to Flu B cannot be ruled out. Flu B antigen in the sample may be below the detection limit of the test. Performed By: #### I NFLUAB #### [facility] [address] [place] [address] Dr. Damion Caceres INFLUENZA A AG Negative Normal NEGATIVE SEE COMMENT [facility] Comment on above: Performed By: #### I NFLUAB #### [facility] [address] [place] [address] Dr. Damion Caceres INFLUENZA B AG Negative Normal NEGATIVE SEE COMMENT [facility] Comment on above: Performed By: #### I NFLUAB #### [facility] [address] [place] [address] Dr. Damion Caceres Covid-19 PCR ([facility])on SARS-CoV-2 (COVID-19) RNA VAISHALI+probe Ql (Unsp spec) Not detected Normal NOT DETECTED [facility] Comment on above: Result Comment: [...] for this test is supported by the [place] Health and Human Service's declaration that [...] used). Performed By: #### C VDTBH #### [facility] [address] [place] [address] Dr. Damion Caceres INFLUENZA A AND B AGon 04-20 [facility] SEE BELOW Normal [facility] Comment on above: Result Comment: Nega tive for Flu A protein angiten. Infection due to Flu A cannot be ruled out. Flu A angiten in the sample may be below the detection limit of the test. Performed By: #### I NFLUAB #### [facility] [address] [place] [address] Dr. Dam[facility]ace[facility] Normal [facility] Comment on above: Result Comment: Nega tive for Flu B protein antigen. Infection due to Flu B cannot be ruled out. Flu B antigen in the sample may be below the detection limit of the test. Performed By: #### I NFLUAB #### [facility] [address] [place] [address] Dr. Damion Caceres INFLUENZA A AG Negative Normal NEGATIVE SEE COMMENT [facility] Comment on above: Performed By: #### I NFLUAB #### [facility] [address] [place] [address] Dr. Damion Caceres INFLUENZA B AG Negative Normal NEGATIVE SEE COMMENT [facility] Comment on above: Performed By: #### I NFLUAB #### [facility] [address] [place] [address] Dr. Damion Caceres Covid-19 PCR ([facility])on 12-19 SARS-CoV-2 (COVID-19) RNA VAISHALI+probe Ql (Unsp spec) Not detected Normal NOT DETECTED [facility] Comment on above: Result Comment: This test is not yet approved or cleared by the [place] FDA. When there are no FDA-approved or cleared tests available, and other criteria are met, FDA can make tests available under an emergency access mechanism called an Emergency Use Authorization (EUA). The EUA for this test is supported by the [place] of Health and Human Service's (HHS's) declaration [...] SARS-CoV-2. Performed By: #### C VDTB #### [facility] [address] [place] [address] Dr. Damion Caceres INFLUENZA A AND B AGon 01-06 [facility] SEE BELOW Normal [facility] Comment on above: Result Comment: Nega tive for Flu A protein angiten. Infection due to Flu A cannot be ruled out. Flu A angiten in the sample may be below the detection limit of the test. Performed By: #### I NFLUAB #### [facility] [address] [place] [address] Dr. [facility] Normal [facility] Comment on above: Result Comment: Nega tive for Flu B protein antigen. Infection due to Flu B cannot be ruled out. Flu B antigen in the sample may be below the detection limit of the test. Performed By: #### I NFLUAB #### [facility] [address] [place] [address] Dr. Damion Caceres INFLUENZA A AG Negative Normal NEGATIVE SEE COMMENT [facility] Comment on above: Performed By: #### I NFLUAB #### [facility] [address] [place] [address] Dr. Damion Caceres INFLUENZA B AG Negative Normal NEGATIVE SEE COMMENT [facility] Comment on above: Performed By: #### I NFLUAB #### [facility] [address] [place] [address] Dr. Damion Caceres INTERNAL CONTROLS Within Normal Limits Normal Wi thin Normal Limits [facility] Comment on above: Performed By: #### I NFLUAB #### [facility] [address] [place] [address] Dr. Damion Caceres Vital Signs Date Time Vital Sign Value Performing Clinician Facility 10-22-2024 13:34-0400 Body weight 187.34 kg Misbah Kraft MD Work Phone: [facility] 10-22-2024 13:34-0400 Diastolic blood pressure 76 mm[Hg] Misbah Kraft MD Work Phone: [facility] 10-22-2024 13:34-0400 Systolic blood pressure 128 mm[Hg] Misbah Kraft MD Work Phone: [facility] 10-16-2024 20:01-0400 Diastolic blood pressure 79 mm[Hg] Luca Marshall MD Work Phone: [facility] 10-16-2024 20:01-0400 Heart rate 117 /min Luca Marshall MD Work Phone: [facility] 10-16-2024 20:01-0400 Respiratory rate 22 /min Luca Marshall MD Work Phone: [facility] 10-16-2024 20:01-0400 SaO2% (BldA) [Mass fraction] 100 % Luca Marshall MD Work Phone: [facility] 10-16-2024 20:01-0400 Systolic blood pressure 130 mm[Hg] Luca Marshall MD Work Phone: [facility] 10-16-2024 19:03-0400 Body height 177.8 cm Luca Marshall MD Work Phone: [facility] 10-16-2024 19:03-0400 Body temperature 98.2 [degF] Luca Marshall MD Work Phone: [facility] 10-16-2024 19:03-0400 Body weight 188.6 kg Luca Marshall MD Work Phone: [facility] 09-30-2024 13:23-0400 Body weight 189.15 kg Misbah Kraft MD Work Phone: [facility] 09-30-2024 13:23-0400 Diastolic blood pressure 82 mm[Hg] Misbah Kraft MD Work Phone: [facility] 09-30-2024 13:23-0400 Systolic blood pressure 124 mm[Hg] Misbah Kraft MD Work Phone: [facility] 09-17-2024 12:47-0400 Body weight 188.24 kg Misbah Kraft MD Work Phone: [facility] 09-17-2024 12:47-0400 Diastolic blood pressure 74 mm[Hg] Misbah Kraft MD Work Phone: [facility] 09-17-2024 12:47-0400 Systolic blood pressure 126 mm[Hg] Misbah Kraft MD Work Phone: [facility] 09-03-2024 13:21-0400 Body weight 188.24 kg Misbah Kraft MD Work Phone: [facility] 09-03-2024 13:21-0400 Diastolic blood pressure 72 mm[Hg] Misbah Kraft MD Work Phone: [facility] 09-03-2024 13:21-0400 Systolic blood pressure 120 mm[Hg] Misbah Kraft MD Work Phone: [facility] 01-04-2024 13:53-0400 Body weight 174.18 kg Misbah Kraft MD Work Phone: [facility] 01-04-2024 13:53-0400 Diastolic blood pressure 80 mm[Hg] Misbah Kraft MD Work Phone: [facility] 01-04-2024 13:53-0400 Systolic blood pressure 120 mm[Hg] Misbah Kraft MD Work Phone: [facility] 12-12-2023 13:44-0400 Body weight 170.1 kg Misbah Kraft MD Work Phone: [facility] 12-12-2023 13:44-0400 Diastolic blood pressure 80 mm[Hg] Misbah Kraft MD Work Phone: [facility] 12-12-2023 13:44-0400 Systolic blood pressure 128 mm[Hg] Misbah Kraft MD Work Phone: [facility] Healthcare Encounters Encounter Date Encounter Type Care Provider Facility Start: 10-22-2024 End: 10-22-2024 Bamboo flowsheet Misbah Kraft MD Work Phone: [facility] Start: 10-22-2024 End: 10-22-2024 Bamboo flowsheet Misbah Kraft MD Work Phone: [facility] Start: 10-22-2024 End: 10-22-2024 flow sheet Misbah Kraft MD Work Phone: [facility] Comment on above: Trauma (Primary Dx); Second trimester ([facility]); 18 weeks gestation of ([facility]); Hyperemesis; HGSIL (high grade 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; Vulvar lesion; Abnormal glucose affecting ([facility]) Start: 10-18-2024 End: 10-18-2024 Telephone encounter [facility] Work Phone: [facility] Comment on above: Appointment Start: 10-16-2024 End: 10-16-2024 Emergency department patient visit Luca Marshall MD Work Phone: -Emergency Room Work Phone: Start: 10-07-2024 End: 10-07-2024 Telephone encounter [facility] Work Phone: [facility] Comment on above: Appointment Start: 10-02-2024 End: 10-02-2024 Telephone encounter [facility] Work Phone: [facility] Comment on above: Appointment Start: 10-01-2024 End: 10-01-2024 Transcribe Orders Radiographer Cardiac Catheterization Transcribe Provider [facility] Start: 09-30-2024 End: 09-30-2024 flow sheet Misbah Kraft MD Work Phone: [facility] OB Comment on above: Second trimester pre gnancy ([facility]); 15 weeks gestation of ([facility]); Hyperemesis; HGSIL (high grade 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; Vulvar lesion; Abnormal glucose affecting ([facility]) Start: 09-30-2024 End: 09-30-2024 ambulatory MISBAH KRAFT Not Available Start: 09-18-2024 End: 09-19-2024 Pre-admission assessment MISBAH KRAFT [facility] Start: 09-17-2024 End: 09-17-2024 flow sheet Misbah Kraft MD Work Phone: [facility] OB Comment on above: HGSIL (high grade sq uamous intraepithelial lesion) on Pap smear of cervix (Primary Dx); Second trimester ([facility]); 13 weeks gestation of ([facility]); Hyperemesis; Vulvar lesion; Encounter for screening for chromosomal anomalies ([facility]) Start: 09-17-2024 End: 09-17-2024 ambulatory MISBAH KRAFT Not Available Start: 09-11-2024 End: 09-11-2024 ambulatory Teresa Beal [facility] Work Phone: Start: 09-11-2024 End: 09-11-2024 Departed Referred Teresa Beal [facility] Work Phone: Start: 09-04-2024 End: 09-04-2024 Transcribe Orders Misbah Kraft MD Work Phone: [facility] Service Comment on above[facility] Start: 09-03-2024 End: 09-03-2024 flow sheet Misbah Kraft MD Work Phone: [facility] OB Comment on above: GA: 11w1d Start: 09-03-2024 End: 09-03-2024 ambulatory MISBAH KRAFT Not Available Start: 08-07-2024 End: 08-07-2024 Orders Only Misbah Kraft MD Work Phone: [facility] OB Comment on above: Urinary tract infect ion without hematuria, site unspecified (Primary Dx) Start: 08-01-2024 End: 08-01-2024 flow sheet [facility] Start: 08-01-2024 End: 08-01-2024 ambulatory MISBAH KRAFT Not Available Start: 07-30-2024 End: 07-30-2024 Clinisync Result Encounter Misbah Kraft MD Work Phone: [facility] External Department Unsolicited Start: 07-30-2024 End: 07-30-2024 Clinisync Result Encounter Misbah Kraft MD Work Phone: [facility] External Department Unsolicited Start: 07-26-2024 End: 07-26-2024 Clinisync Result Encounter Misbah Kraft MD Work Phone: [facility] External Department Unsolicited Start: 07-26-2024 End: 07-26-2024 Clinisync Result Encounter Misbah Kraft MD Work Phone: [facility] External Department Unsolicited Start: 01-04-2024 End: 01-04-2024 Office outpatient visit 10 minutes Misbah Kraft MD Work Phone: [facility] OB Comment on above: Amenorrhea; Family planning Start: 01-04-2024 End: 01-04-2024 ambulatory MISBAH KRAFT Not Available Start: 12-15-2023 End: 12-15-2023 Orders Only Misbah Kraft MD Work Phone: [facility] OB Comment on above: Acute vaginitis (Dahiana obed Dx) Start: 12-12-2023 End: 12-12-2023 Initial preventive medicine new pt age 18-39yrs Misbah Kraft MD Work Phone: [facility] Comment on above: Hormone imbalance (P rimary Dx); Encounter for gynecological examination without abnormal finding; Family planning; Thyroid disorder screen; Screen for STD (sexually transmitted disease); Amenorrhea; Vaginal discharge Start: 12-12-2023 End: 12-12-2023 Patient encounter status Misbah Kraft MD Work Phone: [facility] Work Phone: Start: 12-12-2023 End: 12-12-2023 ambulatory MISBAH KRAFT Not Available Start: 05-23-2022 End: 05-23-2022 ambulatory GRICELDA EDMOND Facility:[facility] Start: 04-20-2022 End: 04-20-[address] LUCA MARSHALL . Facility:[facility] Start: 01-06-2022 End: 01-06-2022 ambulatory GRICELDA EDMOND Facility:[facility] Procedures Date Procedure Procedure Detail Performing Clinician Start: 10-22-2024 Urnls dip stick/tabl et rgnt non-auto w/o micrscp Misbah Kraft MD Work Phone: Start: 10-16-2024 Ultrasound scan - obstetric Luca Marshall MD Work Phone: Start: 09-30-2024 Urnls dip stick/tabl et rgnt non-auto w/o micrscp Misbah Kraft MD Work Phone: Start: 09-17-2024 chromosomal aneuploidy genomic seq analys Misbah Kraft MD Work Phone: Start: 09-17-2024 HSV 1 AND 2 AB, IGG Luis Enrique Kraft MD Work Phone: Start: 09-17-2024 Urnls dip stick/tabl et rgnt non-auto w/o micrscp Misbah Kraft MD Work Phone: Start: 09-11-2024 Urine culture Luca blancas MD Work Phone: Start: 09-03-2024 Urnls dip stick/tabl et rgnt non-auto w/o micrscp Misbah Kraft MD Work Phone: Start: 07-30-2024 [facility] PREG QUANT HCG Aicha Becker MD Work Phone: Start: 07-26-2024 [facility] PREG QUANT HCG Aicha Becker MD Work Phone: Plan of Treatment Date Care Activity Detail Author Start: 10-05-2078 RSV Vaccine (1 - 1-d ose 75+ series) RSV Vaccine (1 - 1-dose 75+ series) [facility] Start: 10-05-2053 Shingles (RZV) Vacci ne (1 of 2) Shingles (RZV) Vaccine (1 of 2) [facility] Start: 11-11-2026 Urine microalbumin profile DTaP,Tdap,Td Vaccine (6 - Td or Tdap) 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 [facility] [address] [place], [place] [id number] [facility] Start: 11-05-2024 End: 11-05-2024 Patient encounter procedure [facility] Start: 11-05-2024 End: 11-05-2024 Professional / ancillary services management [facility] Start: 10-22-2024 End: 10-22-2024 Patient encounter procedure [facility] Comment on above: Second trimester pre gnancy ([facility]); 18 weeks gestation of ([facility]); Hyperemesis; HGSIL (high grade 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 Start: 09-30-2024 End: 09-30-2025 Blood count hematocrit Hematocrit Lab Routine 15 weeks gestation of ([facility]) Abnormal glucose affecting ([facility]) Expected: 09/30/2024 (Approximate), Expires: 09/30/2025 [facility] Comment on above: Expected: 09/30/2024 (Approximate), Expires: 09/30/2025 Start: 09-30-2024 End: 09-30-2025 Measurement of glucose 1 hour after glucose challenge for glucose tolerance test GTT, 1 hour Lab Routine 15 weeks gestation of ([facility]) Abnormal glucose affecting ([facility]) Expected: 09/30/2024 (Approximate), Expires: 09/30/2025 [facility] Work Phone: Comment on above: Expected: 09/30/2024 (Approximate), Expires: 09/30/2025 Start: 09-30-2024 End: 09-30-2024 Patient encounter procedure 09/30/2024 1:15 PM EDT Routine [facility] [address] [place] [phone] Misbah Kraft MD [address] [place] [address] [facility] Start: 09-30-2024 End: 09-30-2024 Professional / ancillary services management 09/30/2024 12:30 PM EDT Ancillary Procedure [facility] [address] [place] [phone] [facility] Start: 09-17-2024 End: 09-17-2024 Patient encounter procedure 09/17/2024 12:30 PM EDT Routine [facility] [address] [place] [phone] Misbah Kraft MD [address] [place] [address] [facility] Start: 09-16-2024 End: 09-16-2024 Patient encounter procedure 09/16/2024 1:45 PM EDT Office Visit [facility] [address] [place] [address] Zhanna Martinez MD [address] [place] [address] [facility] Start: 09-11-2024 Urine culture [facility] Start: 09-11-2024 Bacteria identified in Urine by Culture Urine Culture [facility] Start: 09-03-2024 End: 09-03-2024 ambulatory 09/03/2024 2:00 PM EDT Initial [facility] [address] [place] [phone] Misbah Kraft MD [address] [place] [address] [facility] Start: 09-03-2024 End: 09-03-2024 Professional / ancillary services management 09/03/2024 1:00 PM EDT Ancillary Procedure [facility] [address] [place] [phone] [facility] Start: 08-26-2024 End: 08-26-2024 Professional / ancillary services management 08/26/2024 2:00 PM EDT Ancillary Procedure [facility] [address] [place] [address] [facility] Start: 08-01-2024 End: 08-01-2025 Bacteria identified in Urine by Culture Urine culture Microbiology Routine Encounter for supervision of normal first in first trimester Expected: 08/01/2024, Expires: 08/01/2025 [facility] Comment on above: Expected: 08/01/2024 , Expires: 08/01/2025 Start: 08-01-2024 End: 08-01-2025 Blood type and Indirect antibody screen panel - Blood Type and screen Lab Routine Encounter for supervision of normal first in first trimester Expected: 08/01/2024, Expires: 08/01/2025 [facility] Comment on above: Expected: 08/01/2024 , Expires: 08/01/2025 Start: 08-01-2024 End: 08-01-2025 CBC W Auto Differential panel - Blood CBC and differential Lab Routine Encounter for supervision of normal first in first trimester Expected: 08/01/2024, Expires: 08/01/2025 [facility] Comment on above: Expected: 08/01/2024 , Expires: 08/01/2025 Start: 08-01-2024 End: 08-01-2025 DRUG SCREEN 17 W/CONF, UR DRUG SCREEN 17 W/CONF, UR Lab Routine Encounter for drug screening Expected: 08/01/2024, Expires: 08/01/2025 [facility] Comment on above: Expected: 08/01/2024 , Expires: 08/01/2025 Start: 08-01-2024 End: 08-01-2025 hCG, quantitative hCG, quantitative Lab Routine Encounter for supervision of normal first in first trimester Expected: 08/01/2024 (Approximate), Expires: 08/01/2025 [facility] Comment on above: Expected: 08/01/2024 (Approximate), Expires: 08/01/2025 Start: 08-01-2024 End: 08-01-2025 Hepatitis B virus surface Ag [Presence] in Serum or Plasma by Immunoassay Hepatitis B surface antigen Lab Routine Encounter for supervision of normal first in first trimester Expected: 08/01/2024, Expires: 08/01/2025 [facility] Comment on above: Expected: 08/01/2024 , Expires: 08/01/2025 Start: 08-01-2024 End: 08-01-2025 Hepatitis C virus Ab [Presence] in Serum or Plasma by Immunoassay Hepatitis C antibody Lab Routine Encounter for supervision of normal first in first trimester Expected: 08/01/2024, Expires: 08/01/2025 [facility] Comment on above: Expected: 08/01/2024 , Expires: 08/01/2025 Start: 08-01-2024 End: 08-01-2025 HIV-2 antigen assay HIV-2 antigen Lab Routine Encounter for supervision of normal first in first trimester Expected: 08/01/2024, Expires: 08/01/2025 [facility] Comment on above: Expected: 08/01/2024 , Expires: 08/01/2025 Start: 08-01-2024 End: 08-01-2025 Rpr (dx) w/refl titer and confirmatory testing Rpr (dx) w/refl titer and confirmatory testing Lab Routine Encounter for supervision of normal first in first trimester Expected: 08/01/2024, Expires: 08/01/2025 [facility] Comment on above: Expected: 08/01/2024 , Expires: 08/01/2025 Start: 08-01-2024 End: 08-01-2025 Rubella antibody, IgG Rubella antibody, IgG Lab Routine Encounter for supervision of normal first in first trimester Expected: 08/01/2024, Expires: 08/01/2025 [facility] Comment on above: Expected: 08/01/2024 , Expires: 08/01/2025 Start: 08-01-2024 End: 08-01-2025 Urinalysis complete panel - Urine Urinalysis with microscopic Lab Routine Encounter for supervision of normal first in first trimester Expected: 08/01/2024, Expires: 08/01/2025 [facility] Work Phone: Comment on above: Expected: 08/01/2024 , Expires: 08/01/2025 Start: 08-01-2024 End: 08-01-2024 ambulatory 08/01/2024 1:00 PM EDT Initial [facility] [address] [place] [address] [facility] Start: 01-04-2024 End: 01-04-2024 Patient encounter procedure 01/04/2024 1:45 PM EDT Office Visit [facility] [address] [place] [address] Misbah Kraft MD [address] [place] [address] [facility] Start: 01-04-2024 End: 01-04-2024 Professional / ancillary services management 01/04/2024 1:00 PM EDT Ancillary Procedure [facility] [address] [place] [address] [facility] Start: 12-12-2023 End: 12-11-2024 Cortisol Cortisol Lab Routine Hormone imbalance Expected: 12/12/2023 (Approximate), Expires: 12/11/2024 [facility] Comment on above: Expected: 12/12/2023 (Approximate), Expires: 12/11/2024 Start: 12-12-2023 End: 12-11-2024 DHEA-sulfate DHEA-sulfate Lab Routine Hormone imbalance Expected: 12/12/2023 (Approximate), Expires: 12/11/2024 [facility] Comment on above: Expected: 12/12/2023 (Approximate), Expires: 12/11/2024 Start: 12-12-2023 End: 12-11-2024 Estradiol Estradiol Lab Routine Hormone imbalance Expected: 12/12/2023 (Approximate), Expires: 12/11/2024 [facility] Comment on above: Expected: 12/12/2023 (Approximate), Expires: 12/11/2024 Start: 12-12-2023 End: 12-11-2024 Estrone Estrone Lab Routine Hormone imbalance Expected: 12/12/2023 (Approximate), Expires: 12/11/2024 [facility] Comment on above: Expected: 12/12/2023 (Approximate), Expires: 12/11/2024 Start: 12-12-2023 End: 12-11-2024 Follicle stimulating hormone Follicle stimulating hormone Lab Routine Hormone imbalance Thyroid disorder screen Expected: 12/12/2023 (Approximate), Expires: 12/11/2024 [facility] Comment on above: Expected: 12/12/2023 (Approximate), Expires: 12/11/2024 Start: 12-12-2023 End: 12-11-2024 hCG, quantitative hCG, quantitative Lab Routine Amenorrhea Expected: 12/12/2023 (Approximate), Expires: 12/11/2024 [facility] Comment on above: Expected: 12/12/2023 (Approximate), Expires: 12/11/2024 Start: 12-12-2023 End: 12-11-2024 Hepatitis B virus surface Ag [Presence] in Serum or Plasma by Immunoassay Hepatitis B surface antigen Lab Routine Screen for STD (sexually transmitted disease) Expected: 12/12/2023 (Approximate), Expires: 12/11/2024 [facility] Comment on above: Expected: 12/12/2023 (Approximate), Expires: 12/11/2024 Start: 12-12-2023 End: 12-11-2024 Hepatitis C virus Ab [Presence] in Serum or Plasma by Immunoassay Hepatitis C antibody Lab Routine Screen for STD (sexually transmitted disease) Expected: 12/12/2023 (Approximate), Expires: 12/11/2024 [facility] Comment on above: Expected: 12/12/2023 (Approximate), Expires: 12/11/2024 Start: 12-12-2023 End: 12-11-2024 HIV-1/HIV-2 antigen/antibody combination immunoassay HIV-1 and HIV-2 antibodies Lab Routine Screen for STD (sexually transmitted disease) Expected: 12/12/2023 (Approximate), Expires: 12/11/2024 [facility] Comment on above: Expected: 12/12/2023 (Approximate), Expires: 12/11/2024 Start: 12-12-2023 End: 12-11-2024 HSV 1 antibody, IgG HSV 1 antibody, IgG Lab Routine Screen for STD (sexually transmitted disease) Expected: 12/12/2023 (Approximate), Expires: 12/11/2024 [facility] Comment on above: Expected: 12/12/2023 (Approximate), Expires: 12/11/2024 Start: 12-12-2023 End: 12-11-2024 HSV 2 antibody, IgG HSV 2 antibody, IgG Lab Routine Screen for STD (sexually transmitted disease) Expected: 12/12/2023 (Approximate), Expires: 12/11/2024 [facility] Comment on above: Expected: 12/12/2023 (Approximate), Expires: 12/11/2024 Start: 12-12-2023 End: 12-11-2024 Luteinizing hormone Luteinizing hormone Lab Routine Hormone imbalance Thyroid disorder screen Expected: 12/12/2023 (Approximate), Expires: 12/11/2024 [facility] Comment on above: Expected: 12/12/2023 (Approximate), Expires: 12/11/2024 Start: 12-12-2023 End: 12-11-2024 Progesterone Progesterone Lab Routine Hormone imbalance Expected: 12/12/2023 (Approximate), Expires: 12/11/2024 [facility] Comment on above: Expected: 12/12/2023 (Approximate), Expires: 12/11/2024 Start: 12-12-2023 End: 12-11-2024 Reagin Ab [Presence] in Serum by RPR RPR Lab Routine Screen for STD (sexually transmitted disease) Expected: 12/12/2023 (Approximate), Expires: 12/11/2024 [facility] Comment on above: Expected: 12/12/2023 (Approximate), Expires: 12/11/2024 Start: 12-12-2023 End: 12-11-2024 Sex hormone binding globulin Sex hormone binding globulin Lab Routine Hormone imbalance Expected: 12/12/2023 (Approximate), Expires: 12/11/2024 [facility] Comment on above: Expected: 12/12/2023 (Approximate), Expires: 12/11/2024 Start: 12-12-2023 End: 12-11-2024 Testosterone, free, total Testosterone, free, total Lab Routine Hormone imbalance Expected: 12/12/2023 (Approximate), Expires: 12/11/2024 [facility] Comment on above: Expected: 12/12/2023 (Approximate), Expires: 12/11/2024 Start: 12-12-2023 End: 12-11-2024 Thyrotropin [Units/volume] in Serum or Plasma TSH Lab Routine Hormone imbalance Thyroid disorder screen Expected: 12/12/2023 (Approximate), Expires: 12/11/2024 [facility] Work Phone: Comment on above: Expected: 12/12/2023 (Approximate), Expires: 12/11/2024 Start: 11-19-2023 Covid-19 Vaccine ( season) Covid-19 Vaccine ( season) [facility] Start: 11-19-2023 COVID-19 Vaccine ( season) COVID-19 Vaccine ( season) [facility] Start: 11-19-2023 Influenza vaccination Influenza Vacc ine (#1) [facility] Start: 10-05-2022 Hepatitis A (HAV) Va ccine (optional start 19+ years) Hepatitis A (HAV) Vaccine (optional start 19+ years) [facility] Start: 10-05-2022 Hepatitis B vaccination Hepati tis B (HBV) Vaccine (1 of 3 - 19+ 3-dose series) [facility] Start: 10-05-2022 Hepatitis B Vaccine (1 of 3 - 19+ 3-dose series) Hepatitis B Vaccine (1 of 3 - + 3-dose series) [facility] Start: 10-05-2022 Urine microalbumin profile DTaP,Tdap,Td Vaccine (1 - Tdap) [facility] Start: 10-05-2021 Anxiety Screening Anxiety Screening [facility] Start: 10-05-2021 Depression Screening Depression Scre ening [facility] Start: 10-05-2021 GC (Gonorrhea) Scree martina (18-24) GC (Gonorrhea) Screening (18-24) [facility] Start: 10-05-2021 [facility] C screening [facility] Start: 10-05-2021 HIV screening HIV Screening [facility] Start: 10-05-2021 Screening for Chlamy victor manuel trachomatis [facility] Start: 10-05-2021 Tdap Booster Tdap Booster [facility] Start: 2019 Meningococcal B (Bexsero,OMV) Vaccine (Optional,16-23 years) Meningococcal B (Bexsero,OMV) Vaccine (Optional,16-23 years) [facility] Start: 2019 Meningococcal B Vacc ine (1 of 2 - Standard) Meningococcal B Vaccine (1 of 2 - Standard) [facility] Start: 10-05-2018 HIV screening HIV Test [facility] Start: 10-05-2018 HPV Vaccine (1 - 3-d ose series) HPV Vaccine (1 - 3-dose series) [facility] Start: 10-05-2018 Vaccination for nicolas n papillomavirus HPV Vaccine (1 - 3-dose series) [facility] Start: 10-05-2017 Peds To Adult Transi tion Annual Assessment Peds To Adult Transition Annual Assessment [facility] Start: 2015 Peds To Adult Transi tion Initial Discussion Peds To Adult Transition Initial Discussion [facility] Albumin/Globulin ratio [facility] Anion gap measurement [facility] Basophils [#/volume] in Blood by Automated count [facility] Basophils/100 leukoc ytes in Blood by Automated count [facility] Eosinophils/100 leukocytes in Blood by Automated count [facility] Erythrocyte distribu tion width [Ratio] by Automated count [facility] Erythrocytes [#/volu me] in Blood [facility] Globulin [Mass/volum e] in Serum [facility] Hematocrit [Volume Fraction] of Blood [facility] Hemoglobin [Mass/vol ume] in Blood [facility] Hemoglobin, Hemoglobin, fe claudio Lab Routine Trauma Ordered: 10/22/2024 [facility] Work Phone: Comment on above: Ordered: 10/22/2024 Leukocytes [#/volume ] corrected for nucleated erythrocytes in Blood by Automated coun [facility] Leukocytes [#/volume ] in Blood [facility] Lymphocytes [#/volum e] in Blood by Automated count [facility] Lymphocytes/100 leukocytes in Blood by Automated count [facility] Herbert miscellaneous test [place] mis cellaneous test Lab Routine Screen for STD (sexually transmitted disease) Amenorrhea Vaginal discharge Ordered: 12/12/2023 [facility] Comment on above: Ordered: 12/12/2023 MCH [Entitic mass] b y Automated count [facility] MCHC [Mass/volume] b y Automated count [facility] MCV [Entitic volume] by Automated count [facility] Monocytes [#/volume] in Blood by Automated count [facility] Monocytes/100 leukoc ytes in Blood by Automated count [facility] Neutrophils [#/volum e] in Blood by Automated count [facility] Neutrophils/100 leukocytes in Blood by Automated count [facility] Nucleated erythrocyt es [Presence] in Blood by Automated count [facility] NuSwab Vaginitis Plu s (VG+) NuSwab Vaginitis Plus (VG+) Microbiology Routine Screen for STD (sexually transmitted disease) Amenorrhea Vaginal discharge Ordered: 12/12/2023 [facility] Comment on above: Ordered: 12/12/2023 NuSwab Vaginitis Plu s (VG+) Nuab Vaginitis Plus (VG+) Microbiology Routine First trimester ([facility]) 11 weeks gestation of ([facility]) Ordered: 09/03/2024 [facility] Work Phone: Comment on above: Ordered: 09/03/2024 Patient Education - Th e Fifth Month [facility] Work Phone: Patient referral [facility] Work Phone: Platelet mean volume [Entitic volume] in Blood by Automated count [facility] Platelets [#/volume] in Blood [facility] End: 04-02-2025 US for in second or third trimester RESIDENTIAL SECOND/THIRD TRIMESTER OB Imaging Routine BMI 60.0-69.9, adult 1 Occurrences starting 09/04/2024 until 04/02/2025 [employer] Work Phone: Comment on above: 1 Occurrences starti ng 09/04/2024 until 04/02/2025 Payers Date Payer Category Payer Self-pay 2024 Medicaid [id number] 2024 Medicaid [id number] 2017 [facility] [id number] 2017 Unknown BCBS BCBS [id number] 2017-Present [phone] [address] [place] [address] [id number] 2003 Unknown [id number] 93 2003 Unknown [id number] 93 2003 Unknown [id number] 93 2003 Unknown [id number] 259 2003 Unknown [id number] 259 2003 Unknown [id number] 259 2003 Unknown [id number] 259 2003 Unknown [id number] [id number] 259 2003 Unknown [id number] [id number] 259 2003 Unknown [id number] [id number] 259 2003 Unknown [id number] 259 1959 Unknown [id number] Private Health Insurance [id number] Unknown [id number] 31 Social History Date Type Detail Facility Start: 12-12-2023 End: 10-16-2024 Tobacco smoking status NHIS Never smoked tobacco [facility] Start: 12-12-2023 [...] on file [facility] Start: 08-01-2024 End: 10-22-2024 Alcoholic beverage intake Ex-drinker (finding) [facility] Start: 08-01-2024 Alcohol Comment Caffiene Intake- pt reports 1 can daily [facility] Start: 07-01-2024 [facility] Start: 09-04-2024 Sex Female (finding) [facility] Start: 2005 Sex Assigned At Female [facility] Tobacco smoking status [facility] Medical Equipment Procedure Code Equipment Code Equipment Origin al Text Equipment Identifier Dates Use as directed to test blood sugar three times per week [id number] Start: 09-03-2024 End: 09-03-2025 1 Device 3 (thre e) times a week [id number] Start: 09-04-2024 Goals Date Patient Goal Desired Activity /State Personal health goal Clinical Notes 12-12-2023 to 10-22-2024 Misbah Kraft MD - 10/22/2024 1:30 PM EDTTelephone Encounter - Kat Dietrich MA - 10/18/2024 3:37 PM EDTTelephone Encounter - Kat Dietrich MA - 10/18/2024 3:37 PM EDT Note Date & Type Note Facility 10-22-2024 History of Present illness Narrative Subjective Junior Baldwin is a 19 y.o. at 18w1d [...] waist, weight loss History of Present Illness Junior, a patient, presents with multiple concerns including inability to detect heartbeat, weight loss, daily vomiting, and lower abdominal pressure. She reports experiencing a panic attack after accidentally taking hydroxyzine twice, which she took while shopping for her sister on bed rest. She attempted to counteract the tiredness from hydroxyzine with Red Bull, resulting in a racing heart and anticipated high blood pressure. The patient expresses anxiety about not being able to detect the baby's heartbeat on her home Doppler. This led to a nearly 6-day stay at [facility]. She mentions a fall on the deck, after which they couldn't immediately detect the heartbeat. Junior reports losing weight and experiencing daily vomiting. She was prescribed antibiotics for rubegitis and describes a pressure-like pain below her waist. The patient had a recent healthcare interaction where she was not allowed to accompany someone (possibly her child) into the examination room. She reports being told that everything's good but expresses concern about not receiving tests for potential bleeding between her ears or recessed eye. Junior is worried about the baby's nutrient intake [...] this visit: Trauma - Hemoglobin, Second trimester ([facility]) - POCT urinalysis dipstick manually resulted 18 weeks gestation of ([facility]) - POCT urinalysis dipstick manually resulted Hyperemesis HGSIL (high grade 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 Vulvar lesion Abnormal glucose affecting ([facility]) Continue vitamin. Labs reviewed. Rhogam A- GTT completed 10/01/23- Normal. Follow up in 2 weeks for a routine visit. Assessment & Plan 1. Assessment: Patient is currently , with concerns about well-being. Unable to detect heartbeat with home Doppler, which led [facility]. Recent fall on deck raised additional concerns. [...] anxiety management during documented in this encounter [facility] 10-18-2024 Telephone encounter Note 3rd and final attempt to call and schedule pt re: referral from [facility]. No answer, LVM informing pt and asking to call back to schedule. Kat Dietrich MA [facility] 10-18-2024 Miscellaneous Notes 3rd and final attempt to call and schedule pt re: referral from [facility]. No answer, LVM informing pt and asking to call back to schedule. Kat Dietrich MA documented in this encounter [facility] 10-16-2024 Radiology Diagnostic study note [facility] [place] [address] Ultrasound Report Signed Patient: Junior Baldwin MR#: [id number] : 2005 Acct:[id number] Age/Sex: 19 / F ADM Date: 5 [...] Mccloud M.D. 10/16/2024 9:30 PM Dictation Location: [employer] Tech: Andria Harter Transcribed By: CHRISTY 10/16/[id number] Dictated By: Bradley Mccloud MD 10/16/242127 Signed By: 10/16/242129 [facility] Work Phone: 10-07-2024 Telephone encounter Note 2nd attempt to contact pt re: referral from [facility] No answer, LVM asking pt to call back and schedule. Kat Dietrich MA [facility] 10-07-2024 Miscellaneous Notes 2nd attempt to contact pt re: referral from [facility]. No answer, LVM asking pt to call back and schedule. Kat Dietrich MA documented in this encounter [facility] 10-02-2024 Telephone encounter Note Called pt re: referral from [facility]. No answer, LVM asking pt to call back and schedule. Kat Dietrich MA [facility] 10-02-2024 Miscellaneous Notes Called pt re: referral from [facility]. No answer, LVM asking pt to call back and schedule. Kat Dietrich MA documented in this encounter [facility] 09-30-2024 History of Present illness Narrative Subjective Junior Baldwin is a 18 y.o. at 15w0d with a working estimated date of delivery of 03/24/2025, by Ultrasound who presents for a routine visit. She denies vaginal bleeding, leakage of fluid, decreased movements, or contractions. Her is complicated by: VD BMI67 Hidradenitis Pelvic pain with Er Gerd History of Present Illness Objective Physical Exam Expected Total Weight Gain: 11 lb-19 lb Pregravid BMI: 67.01 Labs Urine dip: Lab Results Component Value Date KETONESU Negative 09/17/2024 PROTEINUR Negative 08/01/2024 GLUCOSEUR 2+ 09/17/2024 LEUKOCYTESUR Negative 09/17/2024 Lab Results Component Value Date HGB 13.6 08/01/2024 HCT 42.7 08/01/2024 LABANTI Negative 08/01/2024 LABRPR Non Reactive 08/01/2024 HEPBSAG Negative 08/01/2024 RUBELLAIGGQT 3.43 08/01/2024 The most recent ultrasound study is not finalized Assessment/Plan Diagnoses and all orders for this visit: Second trimester ([facility]) - POCT urinalysis dipstick manually resulted 15 weeks gestation of ([facility]) - POCT urinalysis dipstick manually resulted - GTT, 1 hour; Future - Hematocrit; Future Hyperemesis HGSIL (high grade 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 Vulvar lesion Abnormal glucose affecting ([facility]) - GTT, 1 hour; Future - Hematocrit; Future Continue vitamin. Labs reviewed. Rhogam A- GTT to be completed today Incomplete anatomy US-referral to [facility] for completed survey Follow up in 2 weeks for a routine visit. Assessment & Plan documented in this encounter [facility] 09-17-2024 History of Present illness Narrative Subjective Junior S Denny is a 18 y.o. at 13w1d with a working estimated date of delivery of 03/24/2025, by Ultrasound who presents for a routine visit. She denies vaginal bleeding, leakage of fluid, decreased movements, or contractions. Her is complicated by: VD [id number] Hidradenitis Pelvic pain with Er History of Present Illness The patient is at approximately 13 weeks gestation presenting for follow-up. She reports a recent episode of stomach pains that prompted a visit to the clinic last Miguel A. The patient describes a skin condition, possibly hidradenitis, characterized by white lesions that may boil and appear under her stomach. These lesions are exacerbated by sweating and friction from clothing. The patient admits to being a peanut picker, which worsens the condition. The lesions come and go, and she plans to take a picture of them at her next visit. . The patient's obstetric history indicates this is her first ( A0 L0). Her medical history includes hidradenitis suppurativa. The patient is considering taking baby aspirin to protect from preeclampsia. The patient reports positive for stomach pain in the gastrointestinal system review, and positive for sweating and boils under the stomach in the skin review. Objective Physical Exam Expected Total Weight Gain: 11 lb-19 lb Pregravid BMI: 67.01 Labs Urine dip: Lab Results Component Value Date KETONESU Negative 09/03/2024 PROTEINUR Negative 08/01/2024 GLUCOSEUR Negative 09/03/2024 LEUKOCYTESUR Negative 09/03/2024 Lab Results Component Value Date HGB 13.6 08/01/2024 HCT 42.7 08/01/2024 LABANTI Negative 08/01/2024 LABRPR Non Reactive 08/01/2024 HEPBSAG Negative 08/01/2024 RUBELLAIGGQT 3.43 08/01/2024 The most recent ultrasound study is not finalized Assessment/Plan Diagnoses and all orders for this visit: HGSIL (high grade 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 Second trimester ([facility]) - POCT urinalysis dipstick manually resulted 13 weeks gestation of ([facility]) - POCT urinalysis dipstick manually resulted Hyperemesis Vulvar lesion - HSV 1 AND 2 AB, IGG; Future Encounter for screening for chromosomal anomalies ([facility]) - [id number] PLUS Core+SCA; Future Continue vitamin. Labs reviewed. Rhogam to be ordered at 24 weeks, A- GTT to be completed gibson Follow up in 2 weeks for a routine visit. Assessment & Plan 1. : - Approximately 13 weeks gestation - heartbeat detected on previous visit - Blood pressure reported as great today - Family history of hypertension (impwso-mt-uty's blood pressure 126%, units unclear) - Plan: a) Schedule ultrasound for next available appointment b) Schedule anatomy scan ultrasound in 7 weeks c) Obtain chromosomal blood test today (results expected in 2 weeks, includes gender determination) d) Start baby aspirin for preeclampsia prevention 3. Skin Lesions: - Possibly consistent with hidradenitis suppurativa - White initially, then forming abcess - Occurring under the stomach where pants rub - Patient admits to picking at lesions - Plan:HSV titers ordered for recurrent lesions a) Advise against picking at lesions b) Request patient to take pictures of lesions for next visit documented in this encounter [facility] 09-04-2024 Note External referral re ceived for maternal medicine and ultrasound scheduling. Left message for patient to contact us to confirm visit. Due to limited availability visit scheduled when patient calls back please transfer to x [phone] [facility] 09-04-2024 Telephone encounter Note External referral received for maternal medicine and ultrasound scheduling. Left message for patient to contact us to confirm visit. Due to limited availability visit scheduled when patient calls back please transfer to x [phone] [facility] 09-04-2024 Miscellaneous Notes External referral received for maternal medicine and ultrasound scheduling. Left message for patient to contact us to confirm visit. Due to limited availability visit scheduled when patient calls back please transfer to x [phone] documented in this encounter [facility] 09-03-2024 History of Present illness Narrative Subjective Junior Baldwin is a 18 y.o. at Unknown [...] been significant enough to cause her to dust puller while driving on the highway. The [...] to 200 mg per day, lives in [place], and has cats at home. She has [...] day as needed for nausea First trimester ([facility]) - POCT urinalysis dipstick manually resulted - NuSwab Vaginitis Plus (VG+) 11 weeks gestation of ([facility]) - POCT urinalysis dipstick manually resulted - [...] A 20-week ultrasound will be scheduled at [facility]. Regular appointments every 2 to 3 weeks will be scheduled to monitor her blood pressure. A Glucola monitor will be provided for her to check her fasting glucose levels three times a week. An ultrasound will be performed in a month, followed by another one at 20 weeks if [facility] does not conduct it. Follow-up Follow up in 2 weeks. 1. High-risk : - Assessment: - Patient classified as high-risk due to obesity (>400 lbs) and potential for gestational diabetes - Higher risk of section - Severe nausea and vomiting reported, including an episode requiring patient to dust puller while driving - heart rate detected - Current blood pressure: 120/70 (within normal limits) - Plan: a) Monitor weight and blood pressure every 2 weeks b) Perform glucose monitoring 3 times per week (fasting) c) Schedule ultrasound in 1 month d) Plan for 20-week anatomy scan at [facility] e) Arrange for dietary consult f) [...] fasting glucose levels documented in this encounter [facility] 08-07-2024 History of Present illness Narrative UTI documented in this encounter [facility] 08-01-2024 History of Present illness Narrative Name: Junior Baldwin Date/Time of Service:08/01/2024 2:13 PM :2005 Age: 18 y.o. Chief Complaint Chief Complaint Patient presents with Initial Visit Nurse Visit Junior Baldwin is a 18 y.o. who presents [...] testing discussed. Pt was given brochure to [employer] and discuss with PPJ at first appt. Last PAP: Under 21 ASSESSMENT / PLAN Labs Ordered to [facility] Appointments scheduled for OB US 08/26 and PPJ appt on 09/03. Jessica Joyner MA 08/01/2024 2:13 PM documented in this encounter [facility] 01-04-2024 History of Present illness Narrative Images from the original note were not included. Misbah Kraft MD Obstetrics and Gynecology Patient: Junior Baldwin : 2005 (18 y.o.) Yearly Wellness [...] b) Instruct patient to sign up for [employer] to access test results. 3. STD screening: [...] a) Encourage patient to sign up for [employer] to access test results and medical information. [...] in the future. documented in this encounter [facility] 12-15-2023 History of Present illness Narrative BV documented in this encounter [facility] 12-12-2023 History of Present illness Narrative Images from the original note were not included. Misbah Kraft MD Obstetrics and Gynecology Patient: Junior Baldwin : 2005 (18 y.o.) Yearly Wellness [...] b) [facility]. 3. STD screening: [...] Return 1 year/prn documented in this encounter [facility] Evaluation + Plan note No data available for this section [facility] Evaluation note Diagnosis Amenorrhea Absence of menstruation [...] ([facility]) state, incidental 11 weeks gestation of ([facility]) Abnormal glucose affecting ([facility]) [facility] Diagnosis BMI 60.0-69.9, adult- Primary Body Mass Index 60.0-69.9, adult [facility] Work Phone: Evaluation note* Diagnosis HGSIL (high grade 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- Primary Second trimester ([facility]) state, incidental 13 weeks gestation of ([facility]) Hyperemesis Persistent vomiting Vulvar lesion Other specified noninflammatory disorder of vulva and perineum Encounter for screening for chromosomal anomalies ([facility]) [facility] Diagnosis Second trimester ([facility]) state, incidental 15 weeks gestation of ([facility]) Hyperemesis Persistent vomiting HGSIL (high grade 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 Vulvar lesion Other specified noninflammatory disorder of vulva and perineum Abnormal glucose affecting ([facility]) documented in this encounter [facility] note* Diagnosis Trauma- Primary Injury, other and unspecified, unspecified site Second trimester ([facility]) state, incidental 18 weeks gestation of ([facility]) Hyperemesis Persistent vomiting HGSIL (high grade 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 Vulvar lesion Other specified noninflammatory disorder of vulva and perineum Abnormal glucose affecting ([facility]) documented in this encounter [facility]ospital Discharge instructions No data available for this section [facility] Progress note No data available for this section [facility] Reason for referral (narrative)No reason for referral information availableMer[facility] Work Phone: Summary Purpose Family History Relationship Condition Age at Onset Recorded Date/T herbert mother Heart disease Unknown Chronic obstructive pulmonary disease Unk nown Advance Directives Advance Directive Response Recorded Date/ Time Advance Directives No October 16 10:11pm Additional Source Comments INFORMATION SOURCE (unrecogn ized section and content) DATE CREATED AUTHOR 05/25/2022 [facility] DATE CREATED AUTHOR AUTHOR'S ORGANIZ ATION 09/20/2024 [facility] DATE CREATED AUTHOR AUTHOR'S ORGANIZ ATION 10/03/2024 [facility] EPIC DATE CREATED AUTHOR AUTHOR'S ORGANIZ ATION 10/05/2024 [facility] DATE CREATED AUTHOR AUTHOR'S ORGANIZ ATION 10/19/2024 [facility] DATE CREATED AUTHOR AUTHOR'S ORGANIZ ATION 10/21/2024 [facility] Reason for Visit (unrecogniz ed section and [...] 09/04/2024 Anatomy s can and MFM visit Reason Comments Routine Visit Patient present f or PNC, patient states she was seen at [facility] she states she was there for stomach cramps. Patient also stated she doesn't like her weight being talked about out loud, I advised patient that we have to educate her on the risk she can come across being over weight and . P: NegG: +1 Reason Comments Routine Visit Patient present f or PNC, patient denies any issues or complaints at this time. Patient states she had a fall but no issues with at this time. P: +1G: +2 Reason Comments Appointment Reason Comments Routine Visit Patient present f or PNC, patient complains of stomach pressure. Patient states she was seen @ [facility] for UTI and was given keflex, (per mom, patient does not finish any of her medications, mom stated patient took 2 pills and didn't complete it) P: +2G: +2 Care Teams (unrecognized sec tion and content) Patient Account Representative Relationship Specialty Start Date End Date Unallocated, Nicolás Roque MD [facility] [place] [address] PCP - General Family Medicine 01/04/24 Patient Account Representative Relationship Specialty Start Date End Date Unallocated, Nicolás Roque MD [facility] [address] [facility] [address] PCP - General Family Medicine 01/04/24 Patient Account Representative Relationship Specialty Start Date End Date Unallocated, Nicolás Roque MD [facility] [address] [facility] [place] [place] [address] PCP - General Family Medicine 01/04/24 Patient Account Representative Relationship Specialty Start Date End Date Unallocated, Nicolás Roque MD [facility] [address] [facility] [place] [place] [address] PCP - General Family Medicine 01/04/24 Patient Account Representative Relationship Specialty Start Date End Date Unallocated, Nicolás Roque MD [facility] [address] [facility] [place] [address] PCP - General Family Medicine 01/04/24 Patient Account Representative Relationship Specialty Start Date End Date Unallocated, Nicolás Roque MD [facility] [address] [facility] [place] [address] PCP - General Family Medicine 01/04/24 Team Status: Inactive Member Role Status Dates Teresa Beal DO Attending Provider Active Start: September 11, 2024 End: September 11, 2024 Patient Account Representative Relationship Specialty Start Date End Date Unallocated, Nicolás Roque MD [facility] [address] [facility] [place] [address] PCP - General Family Medicine 01/04/24 Patient Account Representative Relationship Specialty Start Date End Date Unallocated, Nicolás Roque MD [facility] [address] [place] [address] PCP - General Family Medicine 01/04/24 Patient Account Representative Relationship Specialty Start Date End Date Luca Marshall MD PCP - General Family Medicine 07/18/14 Patient Account Representative Relationship Specialty Start Date End Date Luca Marshall MD PCP - General Family Medicine 07/18/14 Patient Account Representative Relationship Specialty Start Date End Date Luca Marshall MD PCP - General Family Medicine 07/18/14 Team Status: Active Member Role Status Dates Luca Marshall MD Primary Care Provider Active Team Status: Inactive Member Role Status Dates Luca Marshall MD Primary Care Provider Active Start: October 16, 2024 End: October 16, 2024 Tano Simon DO Emergency Provider Active St art: October 16, 2024 End: October 16, 2024 Patient Account Representative Relationship Specialty Start Date End Date Luca Marshall MD PCP - General Family Medicine 07/18/14 Patient Account Representative Relationship Specialty Start Date End Date Unallocated, Nicolás Roque MD [address] [place] [address] PCP - General Family Medicine 01/04/24 Patient Account Representative Relationship Specialty Start Date End Date Unallocated, Nicolás Roque MD [address] [facility] [place] [address] PCP - General Family Medicine 01/04/24 Goals (unrecognized section and content) Goals may be documented in a n alternate section No data available for this sectionGoals may be documented in an alternate section Source Comments (unrecognize d section and content) In the event this informatio n is protected by the Federal Confidentiality of Alcohol and Drug Abuse Patient Records regulations: The Federal rules restrict any use of the information to criminally investigate or prosecute any alcohol or drug abuse patient.[facility] CenterIn the event this information is protected by the Federal Confidentiality of Alcohol and Drug Abuse Patient Records regulations: The Federal rules restrict any use of the information to criminally investigate or prosecute any alcohol or drug abuse patient.[facility] CenterIn the event this information is protected by the Federal Confidentiality of Alcohol and Drug Abuse Patient Records regulations: The Federal rules restrict any use of the information to criminally investigate or prosecute any alcohol or drug abuse patient.[facility] CenterIn the event this information is protected by the Federal Confidentiality of Alcohol and Drug Abuse Patient Records regulations: The Federal rules restrict any use of the information to criminally investigate or prosecute any alcohol or drug abuse patient.[facility] FOR RECORDS PERTAINING TO PATIENTS WHO ARE [...] THE PRIMARY CLINICAL RECORDS. [facility] [employer] [facility]. provides no warranty or guarantee of the accuracy or completeness of information in this document.
[2024-10-29 23:49] VITALS: BP 154/81; PULSE 105; TEMP 36.9; O2SAT 100; BMI 44.1
--- OUTSIDE RECORDS SUMMARY | 2024-10-29 23:49 | XMS_ITS | Encounter Summary ---
Author Organization [facility] Address [address] [place] [address] Care Team Providers Care Pump Room Operator Name Role Phone Unallocated, Noms Provider Primary Care Provi eliana Reason for Visit * Reason Onset Date Comments Results 09/17/2024 Encounter Details Date Type Department Care Team (Late st Contact Info) Description 09/17/2024 Results Follow-Up MAURICIO ALLRED [address] [facility] [address] [place] [phone] Aleida Goodman MD [address] [facility] [address] [place] [address] Social History Tobacco Use Types Packs/Day Years [...] encounter Miscellaneous Notes * Telephone Encounter - Radha Grijalva MA - 10/24/2024 11:19 AM EDT Patient was seen 10/22/24 and this was discussed. Closing TE * Telephone Encounter - Radha Grijalva MA - 10/18/2024 9:12 AM EDT 2nd Attempt: Left detailed msg informing patient of results from vaginal swab. Advised patient if she had any questions or concerns to give our office a call. Monday - 8- and Monday 8-12 @ [phone]. ----- Message from Dr. Aleida Goodman sent at 09/17/2024 2:09 PM EDT ----- Please order glucola ----- Message ----- From: Radha Grijalva MA Sent: 09/17/2024 1:34 PM EDT To: Aleida Goodman MD * Telephone Encounter - Radha Grijalva MA - 10/11/2024 9:58 AM EDT 1st Attempt: Left msg for patient to return call to discuss results. ----- Message from Dr. Aleida Goodman sent at 09/17/2024 2:09 PM EDT ----- Please order glucola ----- Message ----- From: Radha Grijalva MA Sent: 09/17/2024 1:34 PM EDT To: Aleida Goodman MD * Result Encounter Note - Aleida Goodman MD - 09/17/2024 2:09 PM EDT Please order glucola documented in this encounter Plan of Treatment Upcoming Encounters Date Type Department Care Team (Late st Contact Info) Description 11/05/2024 12:30 PM EDT Ancillary Procedure [facility] [place] [facility] [address] [place] [phone] 11/05/2024 1:30 PM EDT Routine [facility] [place] [facility] [address] [place] [phone] Aleida Goodman MD [address] [place] [address] documented as of this encounter Goals Goal Patient Goal Type Associated Problems Recent Progress Patient-Stated? Author Reminders Care Plan OB Reminders Jessica Hernandez MA documented as of this encounter Visit Diagnoses Not on filedocumented in this encounter Additional Health Concerns Active Problems Noted Date Diagnosed Date OB Reminders 08/01/2024 documented as of this encounter Care Teams Pump Room Operator Relationship Specialty Start Date End Date Unallocated, Nomsalima Roque MD [address] [place] [address] PCP - General Family Medicine 01/04/24 documented as of this encounter
--- OUTSIDE RECORDS SUMMARY | 2024-10-29 23:49 | XMS_ITS | Clinical Summary ---
Author Organization [facility] Address [address] [place], [place] [id number] Care Team Providers Care Field Aide Name Role Phone Catrachito Marshall MD Primary Care Provider [phone] Encounters Date Type Department Care Team Description 10/18/2024 Telephone Maternal Medicine [id number] [place] [address] Mfm, Fv Ob Appointment 10/07/2024 Telephone Maternal Medicine [address] [place] [address] [place] [phone] Mfm, Fv Ob Appointment 10/02/2024 Telephone Maternal Medicine [address] [place] [address] Mfm, Fv Ob Appointment 10/01/2024 Transcribe Orders Maternal Medicine [address] [place] [address] [id number] Provider, Machine Cementer And Folder Transcribe Encounter for follow-up ultrasound of anatomy (HCC) (Primary Dx); Obesity affecting in first trimester, unspecified obesity type (HCC) from Last 3 Months Social History Tobacco Use Types Packs/Day Years Used Date Smoking Tobacco: Never Assessed Estimated Date of Delivery Comme nts Yes 03/24/2025 Based on Ultraso und Sex and Gender Information Value Date Recorded Sex Assigned at Not on file Legal Sex Female 4:37 PM EDT Gender Identity Not on file Sexual Orientation Not on file Plan of Treatment Health Maintenance Due Date Last Done Comments Peds To Adult Transition Ini tial Discussion 2015 Peds To Adult Transition Antonia ual Assessment 10/05/2017 HPV Vaccine (1 - 3-dose series) 10/05/2018 Meningococcal B Vaccine (1 o f 2 - Standard) 2019 Anxiety Screening 10/05/2021 Chlamydia Screening (18-24) 10/05/2021 Depression Screening 10/05/2021 GC (Gonorrhea) Screening (18-24) 10/05/2021 HIV Screening 10/05/2021 Hepatitis C Screening 10/05/2021 Cervical Cancer Screening 10/05/2024 Influenza Vaccine (#1) 2024 DTaP,Tdap,Td Vaccine (6 - Td or Tdap) 11/11/2026 11/11/2016, 07/10/2008, 04/15/2004, Additional history exists RSV Vaccine (1 - 1-dose 75+ series) 10/05/2078 Hepatitis B Vaccine Completed 04/15/2004, 02/09/2004, 2003 Insurance [employer] Care Teams Field Aide Relationship Specialty Start Date End Date Catrachito Marshall MD PCP - General Family Medicine 07/18/14
--- OUTSIDE RECORDS SUMMARY | 2024-10-29 23:49 | XMS_ITS | Encounter Summary ---
Author Organization [facility] Address [address] [place] [id number] Care Team Providers Care Pump Servicer Supervisor Name Role Phone Catrachito Marshall MD Primary Care Provider [phone] Source Comments In the event this information is protected by the Federal Confidentiality of Alcohol and Drug AbusePatient Records regulations: The Federal rules restrict any use of the information to criminally investigate or prosecute any alcohol or drug abuse patient.[facility] Reason for Visit * Reason Comments Appointment Encounter Details Date Type Department Care Team (Late st Contact Info) Description 10/18/2024 Telephone Maternal Medicine [id number] [address] [phone] [place], [place] [id number] [place] [address] Appointment Social History Tobacco Use Types Packs/Day Years Used Date Smoking Tobacco: Never Assessed Estimated Date of Delivery Comme nts Yes 03/24/2025 Based on Ultraso und Sex and Gender Information Value Date Recorded Sex Assigned at Not on file Legal Sex Female 4:37 PM EDT Gender Identity Not on file Sexual Orientation Not on file documented as of this encounter Miscellaneous Notes * Telephone Encounter - Kathi Dietrich MA - 10/18/2024 3:37 PM EDT 3rd and final attempt to call and schedule pt re: referral from [facility]. No answer, LVM informing pt and asking to call back to schedule. Kathi Dietrich MA documented in this encounter Plan of Treatment Not on file documented as of this encounter Visit Diagnoses Not on filedocumented in this encounter Care Teams Pump Servicer Supervisor Relationship Specialty Start Date End Date Catrachito Marshall MD PCP - General Family Medicine 07/18/14 documented as of this encounter
--- OUTSIDE RECORDS SUMMARY | 2024-10-29 23:49 | XMS_ITS | Encounter Summary ---
Author Organization [facility] Address [address] [place] [address] Care Team Providers Care Inside Sales Territory Manager Name Role Phone Unallocated, Noms Provider Primary Care Provi eliana Encounter Details Date Type Department Care Team (Late st Contact Info) Description 09/17/2024 Abstract [facility] Mann[facility]okeberonica ALLRED [address] [facility] [address] [place] [address] Aleida Goodman MD [address] [facility] [address] [place] [address] Social History Tobacco Use Types Packs/Day Years [...] Description 11/05/2024 12:30 PM EDT Ancillary Procedure ARABELL[facility]lare Almonte BRIGIDA [address] [place] [phone] 11/05/2024 1:30 PM EDT Routine MAURICIO ALLRED [address] [place] [phone] Aleida Goodman MD [address] [place] [address] documented as of this encounter Goals Goal Patient Goal Type Associated Problems Recent Progress Patient-Stated? Author Reminders Care Plan OB Reminders Jessica Hernandez MA documented as of this encounter Visit Diagnoses Not on filedocumented in this encounter Additional Health Concerns Active Problems Noted Date Diagnosed Date OB Reminders 08/01/2024 documented as of this encounter Care Teams Inside Sales Territory Manager Relationship Specialty Start Date End Date Unallocated, Mauricio Roque MD [address] [place] [address] PCP - General Family Medicine 01/04/24 documented as of this encounter
--- OUTSIDE RECORDS SUMMARY | 2024-10-29 23:49 | XMS_ITS | Encounter Summary ---
Author Organization [facility] Address [address] [place] [address] Care Team Providers Care Human Resources Assistant Manager Name Role Phone Unallocated, Noms Provider Primary Care Provi eliana Encounter Details Date Type Department Care Team (Late st Contact Info) Description 09/03/2024 Abstract [facility] Mann[facility]unter[place]beronica ALLRED [address] [facility] [address] [place] [address] Aleida Goodman MD [address] [facility] [address] [place] [address] Social History Tobacco Use Types Packs/Day Years [...] 11/05/2024 12:30 PM EDT Ancillary Procedure ARABELLAClare [employer] BRIGIDA [address] [place] [phone] 11/05/2024 1:30 PM EDT Routine MAURICIO ALLRED [address] [place] [phone] Aleida Goodman MD [address] [place] [address] documented as of this encounter Goals Goal Patient Goal Type Associated Problems Recent Progress Patient-Stated? Author Reminders Care Plan OB Reminders Jessica Hernandez MA documented as of this encounter Visit Diagnoses Not on filedocumented in this encounter Additional Health Concerns Active Problems Noted Date Diagnosed Date OB Reminders 08/01/2024 documented as of this encounter Care Teams Human Resources Assistant Manager Relationship Specialty Start Date End Date Unallocated, Mauricio Roque MD [address] [place] [address] PCP - General Family Medicine 01/04/24 documented as of this encounter
--- OUTSIDE RECORDS SUMMARY | 2024-10-29 23:49 | XMS_ITS | Clinical Summary ---
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 Name Role Phone Unallocated, Noms Provider Primary Care Provi elaina Allergies No known active allergies Medications Vit-Fe Fumarate-FA ( PO) Take by mouth Ac tive Blood Glucose Monitoring Suppl (True Metrix Air Glucose Meter) deviceIndicatio ns:First trimester ([facility]),11 weeks gestation of ([facility]),Abnor mal glucose affecting ([facility]) 1 Device 3 (three) times a week 1 each 5 Active glucose blood (True Metrix Blood Glucose Test) test stripIndication s:First trimester ([facility]),11 weeks gestation of ([facility]),Abnor mal glucose affecting ([facility]) Use as directed to test blood sugar three times per week 50 each 3 5 09/04/19 26 Active Lancets 30G miscIndications :First trimester ([facility]),11 weeks gestation of ([facility]Abnor mal glucose affecting ([facility]) 1 Device 3 (three) times a week 100 each 1 5 Active ondansetron (Zofran) 4 MG tabletIndicatio ns:Hyperemesis Take 1 tablet (4 mg) by mouth 2 (two) times a day as needed for nausea 20 tablet 3 5 10/04/19 25 Encounters Date Type Department Care Team Description 10/22/2024 1:30 PM EDT Routine [facility] [address] [place] [phone] Aleida Goodman MD Trauma (Primary Dx); Second trimester ([facility]); 18 weeks gestation of ([facility]); Hyperemesis; HGSIL (high grade 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; Vulvar lesion; Abnormal glucose affecting ([facility]) 10/22/2024 Bamboo flowsheet [facility] [address] [place] [address] Aleida Goodman MD 10/22/2024 Travel 10/21/2024 Telephone [facility] [address] [place] [phone] Elaine James RN 09/30/2024 1:15 PM EDT Routine [facility] [address] [place] [phone] Aleida Goodman MD Second trimester ([facility]); 15 weeks gestation of ([facility]); Hyperemesis; HGSIL (high grade 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; Vulvar lesion; Abnormal glucose affecting ([facility]) 09/30/2024 12:30 PM EDT Ancillary Procedure [facility] [address] [place] [phone] related condition in second trimester ([facility]); Obesity affecting in second trimester, unspecified obesity type ([facility]); Ultrasound scan done for inability to hear heart tones ([facility]) 09/30/2024 Abstract [facility] [address] [place] [address] Aleida Goodman MD 09/30/2024 Travel 09/23/2024 Telephone [facility] [address] [place] [address] Shira Shirley, CONCRETE BLOCK LAYER Results 09/18/2024 Telephone [facility] [place] [facility] [address] [place] [address] Aleida Goodman MD 09/17/2024 12:45 PM EDT Routine [facility] [address] [place] [address] Aleida Goodman MD HGSIL (high grade 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 (Primary Dx); Second trimester ([facility]); 13 weeks gestation of ([facility]); Hyperemesis; Vulvar lesion; Encounter for screening for chromosomal anomalies ([facility]) 09/17/2024 Results Follow-Up [facility] [address] [place] [address] Aleida Goodman MD 09/17/2024 Travel 09/17/2024 Abstract [facility] [address] [place] [address] Aleida Goodman MD 09/12/2024 Telephone [facility] [address] [place] [address] Aleida Goodman MD 09/09/2024 Telephone [facility] [address] [place] [address] Aleida Goodman MD 09/03/2024 2:00 PM EDT Initial [facility] [address] [place] [address] Aleida Goodman MD [place]: 11w1d 09/03/2024 1:00 PM EDT Ancillary Procedure [facility] [address] [place] [phone] related condition in first trimester ([facility]); Uncertain dates, antepartum, first trimester ([facility]); Obesity in ([facility]) 09/03/2024 Telephone [facility] [address] [place] [address] Aleida Goodman MD 09/03/2024 Abstract [facility] [address] [place] [phone] Aleida Goodman MD 09/03/2024 Travel 08/07/2024 Orders Only [facility] [address] [place] [phone] Aleida Goodman MD Urinary tract infection without hematuria, site unspecified (Primary Dx) 08/01/2024 1:00 PM EDT Initial [facility] [address] [place] [phone] [place]: 6w3d 08/01/2024 Travel 07/30/2024 Clinisync Result Encounter [facility] External Department Unsolicited Aleida Goodman MD 07/29/2024 Orders Only [facility] [address] [place] [phone] Aleida Goodman MD Family planning 07/29/2024 Results Follow-Up [facility] [address] [place] [phone] Aleida Goodman MD from Last 3 Months [...] (413 lb) 10/22/2024 1:34 PM EDT Height 167.6 cm (5' 6 ) 08/11/2021 12:00 PM EDT Body Mass Index - - Plan of Treatment Upcoming Encounters Date Type Department Care Team (Late st Contact Info) Description 11/05/2024 12:30 PM EDT Ancillary Procedure [facility] [address] [place] [phone] 11/05/2024 1:30 PM EDT Routine [facility] [address] [place] [phone] Aleida Goodman MD [address] [place] [address] Health Maintenance Due Date Last Done Comments Influenza Vaccine (#1) 2024 Goals Goal Patient Goal Type Associated Problems Recent Progress Patient-Stated? Author Reminders Care Plan OB Reminders No Jessica Joyner MA Procedures Procedure Name Priority Date/Time Associated Diagnosis Comments POCT URINALYSIS DIPSTICK Routine 10/22/2024 1:50 PM EDT Second trimester ([facility] 18 weeks gestation of ([facility]) US OB TRANSVAGINAL Routine 10/01/2024 1: 36 PM EDT related condition in first trimester ([facility]) Uncertain dates, antepartum, first trimester ([facility]) Obesity in ([facility]) HEMATOCRIT Routine 09/30/2024 3:20 PM EDT 15 weeks gestation of ([facility]) Abnormal glucose affecting ([facility]) GLUCOSE TOLERANCE, 1 HOUR Routine 09/30/2024 3:20 PM EDT 15 weeks gestation of ([facility]) Abnormal glucose affecting ([facility]) US OB 14+ WEEKS ANATOMY SCAN Routine 09/30/2024 3:13 PM EDT related condition in second trimester ([facility]) Obesity affecting in second trimester, unspecified obesity type ([facility]) Ultrasound scan done for inability to hear heart tones ([facility]) POCT URINALYSIS DIPSTICK Routine 09/30/2024 1:53 PM EDT Second trimester ([facility]) 15 weeks gestation of ([facility]) [id number] PLUS CORE+SCA Routine 09/17/2024 1:44 PM EDT Encounter for screening for chromosomal anomalies ([facility]) HSV 1 AND 2 AB, IGG Routine 09/17/2024 1 :44 PM EDT Vulvar lesion POCT URINALYSIS DIPSTICK Routine 09/17/2024 1:33 PM EDT Second trimester ([facility]) 13 weeks gestation of ([facility]) POCT URINALYSIS DIPSTICK Routine 09/03/2024 2:18 PM EDT First trimester ([facility]) 11 weeks gestation of ([facility]) NUSWAB VAGINITIS PLUS (VG+) Routine 09/03/2024 12:00 AM EDT First trimester ([facility]) 11 weeks gestation of ([facility]) URINE CULTURE CLEAN CATCH REFLEX Routine 08/01/2024 2:23 PM EDT UR MICROSCOPIC REFLEX Routine 08/01/2024 2:23 PM EDT HCG, TOTAL, QN Routine 08/01/2024 2:23 PM EDT Encounter for supervision of normal first in first trimester ([facility]) RPR (DX) W/REFL TITER AND CONFIRMATORY TESTING Routine 08/01/2024 2:23 PM EDT Encounter for supervision of normal first in first trimester ([facility]) HYPERCOAG PANEL INTERP Routine 08/01/2024 2:23 PM EDT Encounter for supervision of normal first in first trimester ([facility]) DRUG SCREEN 17 W/CONF, UR Routine 08/01/2024 2:23 PM EDT Encounter for drug screening HEPATITIS C ANTIBODY Routine 08/01/2024 2:23 PM EDT Encounter for supervision of normal first in first trimester ([facility]) CBC (INCLUDES DIFF/PLT) Routine 08/01/2024 2:23 PM EDT Encounter for supervision of normal first in first trimester ([facility]) BLOOD TYPE AND SCREEN GEL Routine 08/01/2024 2:23 PM EDT Encounter for supervision of normal first in first trimester ([facility]) HEPATITIS B SURFACE ANTIGEN W/REFL CONFIRM Routine 08/01/2024 2:23 PM EDT Encounter for supervision of normal first in first trimester ([facility]) RUBELLA AB (IGG), IMMUNE STATUS Routine 08/01/2024 2:23 PM EDT Encounter for supervision of normal first in first trimester ([facility]) URINALYSIS, COMPLETE Routine 08/01/2024 2:23 PM EDT Encounter for supervision of normal first in first trimester ([facility]) CULTURE, URINE, ROUTINE Routine 08/01/2024 2:23 PM EDT Encounter for supervision of normal first in first trimester ([facility]) TBH PREG QUANT HCG Routine 07/30/2024 2: 24 PM EDT from Last 3 Months Results * (ABNORMAL) POCT urinalysis dipstick manually resulted (10/22/2024 1:50 PM EDT) Only the most recent of4 resultswithin the time period is included. Color, UA Yellow Clarity, UA Cloudy Glucose, [...] - Positive Urine 10/22/2024 1:50 PM EDT us Aleida Goodman MD POINT OF CARE TEST ENTER/EDIT ORDERABLES Final Result * US OB transvaginal (10/01/2024 1:36 PM EDT) Anatomical Region Laterality Modality Body Ultrasound Study GA Study Date Study SHAHBAZ Working SHAHBAZ (Source) 09/03/2024 03/24/2025 Fetus A Measurements Value GA (days) CRL Sac Diameter Biparietal Diameter Head Circumference Abdominal Circumference Femur Length Ulna Length Humerus Length Tibia Length Heart Rate YOLK SAC MEASUREMENT CERVICAL W/FUNDAL PRESSURE CERVICAL W/ VALSALVA us Aleida Goodman MD IMG OB US PROCEDURES Final Res ult * GTT, 1 hour (09/30/2024 3:20 PM EDT) Pathologist [facility] Gestational Diabetes Screen 88 70 - 139 mg/dL [facility] Comment: According to ADA, a glucose threshold of >139 mg/dL after 50-gram load identifies approximately 80% of women with gestational diabetes mellitus, while the sensitivity is further increased to approximately 90% by a threshold of >129 mg/dL. Blood Venous blood specimen / Unknown 09/30/2024 3:20 PM EDT 09/30/2024 Narrative [facility] - 10/01/2024 8:07 AM EDT Performed at: [address] [place] [id number] Manager Practice: Kennedy Gary PhD, Phone: [phone] us Aleida Goodman MD LAB BLOOD ORDERABLES Final Res ult Performing Organization Address [facility] de Phone Number [facility] * Hematocrit (09/30/2024 3:20 PM EDT) Pathologist [facility] Hct 42.1 34.0 - 46.6 % [facility] Blood Venous blood specimen / Unknown 09/30/2024 3:20 PM EDT 09/30/2024 Narrative [facility] - 10/01/2024 8:07 AM EDT Performed at: [address] [place] [id number] Manager Practice: Kennedy Gary PhD, Phone: [phone] us Aleida Goodman MD LAB BLOOD ORDERABLES Final Res ult Performing Organization Address [facility] Co de Phone Number [facility] * US OB 14+ weeks anatomy scan (09/30/2024 3:13 PM EDT) Anatomical Region Laterality Modality Body Ultrasound Study GA Study Date Study SHAHBAZ Working SHAHBAZ (Source) 09/30/2024 03/24/2025 (Ultrasound) Fetus A Measurements Value GA (days) HEART RATE Biparietal Diameter Head Circumference Abdominal Circumference Femur Length Amniotic Fluid Index Quadrant 1 Amniotic Fluid Index Quadrant 2 Amniotic Fluid Index Quadrant 3 Amniotic Fluid Index Quadrant 4 Amniotic Fluid Index Deep Vertical Pocket CEREBELLUM LATERAL VENTRICLE CISTERNA MAGNA NUCHAL FOLD NASAL BONE TWIN DISCORDANCE UA SD Ratio UA Resistance Index UA Pulsatility Index MCA SD Ratio MCA Resistance Index MCA Pulsatility Index Ulna Length Humerus Length Tibia Length Composite GA us Aleida Goodman MD IMG OB US PROCEDURES Final Res ult * HSV 1 AND 2 AB, IGG (09/17/2024 1:44 PM EDT) HSV 1 IGG, TYPE SPEC Non Reactive Non Reactive [facility] Comment: Please note reference interval change HSV-1 IgG testing performed using the [employer] HSV-1 IgG assay. HSV 2 IGG, TYPE SPEC Non Reactive Non Reactive [facility] Comment: Please note reference interval change Current guidelines and recommendations do [...] using the [employer] HSV-2 IgG assay. 09/17/2024 1:44 PM EDT 09/17/2024 Narrative [facility] - 09/18/2024 6:06 AM EDT Performed at: - [facility] [id number] Manager Practice: Kennedy Gary PhD, Phone: [phone] us Aleida Goodman MD LAB BLOOD ORDERABLES Final Res ult [facility] * [id number] PLUS Core+SCA (09/17/2024 1:44 PM EDT) Gestation Rose [facility] Fraction MT21 11% [facility] Gest Age >or= 9wk: MT21 Yes [facility] Test Result MT21 Negative [facility] Lab Dir Comments MT21 Comment [facility] Comment: This specimen showed an expected representation of chromosome 21, 18 and 13 material. Clinical correlation is suggested. Approved By MT21 Comment [facility] Comment:Feliberto Rodriguez MD , PhD, Director, [employer] Trisomy 21 (Down Synd) MT21 Negative [facility] Trisomy 18 (Silverman Synd) MT21 Negative [facility] Trisomy 13 (Patau Synd) MT21 Negative [facility] Sex MT21 Comment [facility] Comment:Consistent with Fema le Monosomy X (West Syndrome) Not Detected [facility] XYY (Russo Syndrome) Not Detected [facility] XXY (Klinefelter Syndrome) Not Detected [facility] XXX (Triple X Syndrome) Not Detected [facility] Neg Predictive Value MT21 Note [facility] Comment: The Negative Predictive Value (NPV) for trisomy 21, 18, and 13 is greater than 99%. The NPV for SCA and ESS cannot be calculated as SCA and ESS are only reported when an abnormality is detected. Pos Predictive Value MT21 N/A [facility] About the Test MT21 Comment [facility] Comment: The MaterniT(R) 21 PLUS laboratory-developed test (LDT) analyzes circulating cell-free DNA from a maternal blood sample. This test is used for screening purposes and not diagnostic. Clinical correlation is recommended. Validation data on twin pregnancies is limited and the ability of this test to detect aneuploidy in higher multiple gestations has not yet been validated. Test Method LA21 Comment [facility] Comment: Circulating cell-free DNA was purified from the [...] and trisomy of chromosomes 16 and 22. Performance MT21 Comment [facility] Comment: The performance characteristics of the MaterniT(R) 21 PLUS laboratory-developed test (LDT) have been determined in a clinical validation study with women at increased risk for chromosomal aneuploidy.[1-4] Perf Characteristics MT21 Note [facility] Comment: ! Sex ! Accuracy: 99.4% ! ! [...] or sequence bias. ## Rose gestation only. Limitations of Test MT21 Comment [facility] Comment: While the results of these tests are [...] (for example: Lovenox(R), Xaparin(R), Clexane(R) and Fragmin(R)). Note MT21 Comment [facility] Comment: [employer]. is a subsidiary of [employer], using the brand [employer]. This test was developed and its performance characteristics determined by [employer]. It has not been cleared or approved by the Food and Drug Administration. This laboratory is certified under the Clinical Laboratory Improvement Amendments (CLIA) as qualified to perform high complexity clinical laboratory testing and accredited by the College [employer] (CAP). If there is future clinical need for adding MaterniT GENOME testing, this specimen will be available until term. [facility] samples will not be retained beyond 60 days. [facility] patients will have to send a new sample for re-sequencing ([facility] Test Code: 480458). References MT21 Comment [facility] Comment: 1. Filomena JOHN, et al. Norma Med. 2012;14(3):296-305. 2. Brayan PINTO et al. Prenat Diag. 2013;33(6):591-597. 3. Dusty C, et al. Clin Chem. 2015 Apr;61(4):608-616. 4. Filomena JOHN et al. Norma Med. 2011;13(11):913-920. 5. ACOG/SMFM Practice Bulletin No. 226, Dec 2019. Blood specimen (specimen) 09/17/2024 1:44 PM EDT 09/17/2024 Narrative [facility] - 09/25/2024 7:07 PM EDT Performed at: - [employer] [facility] [address] [place] [address], [place] [id number] Manager Practice: Feliberto Huddleston, Phone: [phone] Aleida Goodman MD LAB BLOOD ORDERABLES Edited Re sult - Final [facility] * NuSwab Vaginitis Plus (VG+) (09/03/2024 12:00 [...] [facility] - 09/05/2024 6:07 AM EDT Test(s) 207187- Atopobium vaginae; 892545- BVAB 2; 385607- Megasphaera 1 was developed and its performance characteristics determined by [facility]. It has not been cleared or approved by the Food and Drug Administration. Test(s) 137734-Zhrwlwv albicans, VAISHALI; 725181-Jdyrdkd glabrata, VAISHALI was developed and its performance characteristics determined by [facility]. It has not been cleared or approved by the Food and Drug Administration. Performed at: 01 - [facility] [address] [id number] Manager Practice: Edwige Esquivel MD, Phone: [phone] Aleida Goodman MD LAB MICROBIOLOGY - GENERAL ORD ERABLES Final Result [facility] * DRUG SCREEN 17 W/CONF, UR (08/01/2024 2:23 PM EDT) CREATININE 82 >=20 mg/dL [facility] Comment:REFERENCE RANGE: [...] [facility] - 08/06/2024 10:07 AM EDT Test(s) 338664-[place] BIOMARK[place]; 248486-WUJXLGKG IA; 230329- TAPENTADOL IA was developed and its performance characteristics determined by [facility]. It has not been cleared or approved by the Food and Drug Administration. Performed at: 01 - [employer] [address] [place] [id number] Manager Practice: Clara Abad [facility], Phone: [phone] Specimen Comment: [employer]ox[employer], T[employer]ure FLEX or MAT drug testing: Specimen Comment: -Technical component - Data analysis performed at Specimen Comment: [address], [place] [address]. us Aleida Goodman MD LAB BLOOD ORDERABLES Final Res ult [facility] * (ABNORMAL) Urine Culture Clean Catch [...] - 08/06/2024 10:07 AM EDT Performed at: [address] [place] [id number] Manager Practice: Kennedy Gary PhD, Phone: [phone] us Aleida Goodman MD LAB URINE ORDERABLES Final Res ult Performing Organization Address [facility] de Phone Number [facility] * Ur Microscopic [...] - 08/06/2024 10:07 AM EDT Performed at: [address] [place] [id number] Manager Practice: Kennedy Gary PhD, Phone: [phone] us Aleida Goodman MD LAB URINE ORDERABLES Final Res ult Performing Organization Address [facility] de Phone Number [facility] * Rpr (dx) w/refl titer and confirmatory testing (08/01/2024 2:23 PM EDT) Pathologist [facility] RPR Non Reactive Non Reactive [facility] Blood Venous blood specimen / Unknown 08/01/2024 2:23 PM EDT 08/01/2024 Narrative [facility] - 08/06/2024 10:07 AM EDT Performed at: [address] [place] [id number] Manager Practice: Kennedy Gary PhD, Phone: [phone] Specimen Comment: [employer], T[employer] FLEX or MAT drug testing: Specimen Comment: -Technical component - Data analysis performed at Specimen Comment: [address] [facility], [place] [address]. Aleida Goodman MD LAB BLOOD ORDERABLES Final Res ult Performing Organization Address [facility]/ZIP Co de Phone Number [facility] * Hepatitis C antibody (08/01/2024 2:23 PM EDT) Pathologist [facility] Hep C Virus Ab Non Reactive Non Reactive [facility] Comment: HCV antibody alone does not differentiate between previously resolved infection and active infection. Equivocal and Reactive HCV antibody results should be followed up with an HCV RNA test to support the diagnosis of active HCV infection. Blood Venous blood specimen / Unknown 08/01/2024 2:23 PM EDT 08/01/2024 Narrative [facility] - 08/06/2024 10:07 AM EDT Performed at: [address] [place] [id number] Manager Practice: Kennedy Gary PhD, Phone: [phone] Specimen Comment: [employer], T[employer] FLEX or MAT drug testing: Specimen Comment: -Technical component - Data analysis performed at Specimen Comment: [address], [place] [address]. Aleida Goodman MD LAB BLOOD ORDERABLES Final Res ult Performing Organization Address [facility]/ZIP Co de Phone Number [facility] * HIV-2 antigen (08/01/2024 2:23 PM EDT) Pathologist [facility] HIV Scr 4th Gen Non Reactive Non Reactive [facility] Comment: HIV-1/HIV-2 antibodies and HIV-1 p24 antigen were NOT detected. There is no laboratory evidence of HIV infection. HIV Negative Blood Venous blood specimen / Unknown 08/01/2024 2:23 PM EDT 08/01/2024 Narrative [facility] - 08/06/2024 10:07 AM EDT Performed at: [address] [id number] Manager Practice: Kennedy Gary PhD, Phone: [phone] Specimen Comment: [employer]ox[employer], Tox[employer] FLEX or MAT drug testing: Specimen Comment: -Technical component - Data analysis performed at Specimen Comment: [address] [place] [id number]. Aleida Goodman MD LAB BLOOD ORDERABLES Final Res ult Performing Organization Address [facility] de Phone Number [facility] * Rubella antibody, IgG (08/01/2024 2:23 PM EDT) Pathologist [facility] Rubella IgG Abs 3.43 Immune >0.99 index [facility] Comment: Non-immune <0.90 Equivocal 0.90 - 0.99 Immune >0.99 Blood Venous blood specimen / Unknown 08/01/2024 2:23 PM EDT 08/01/2024 Narrative [facility] - 08/06/2024 10:07 AM EDT Performed at: [address] [id number] Manager Practice: Kennedy Gary PhD, Phone: [phone] Specimen Comment: ToxAss[employer], ToxAss[employer] FLEX or MAT drug testing: Specimen Comment: -Technical component - Data analysis performed at Specimen Comment: [address] [place] [phone]. us Aleida Goodman MD LAB BLOOD ORDERABLES Final Res ult Performing Organization Address [facility] de Phone Number [facility] * Hepatitis B surface antigen (08/01/2024 2:23 PM EDT) [facility] [place] [facility] Ag Scr Negative Negative [facility] Blood Venous blood specimen / Unknown 08/01/2024 2:23 PM EDT 08/01/2024 Narrative [facility] - 08/06/2024 10:07 AM EDT Performed at: [address] [place] [id number] Manager Practice: Kennedy Gary PhD, Phone: [phone] Specimen Comment: ToxAssure, ToxAssure FLEX or MAT drug testing: Specimen Comment: -Technical component - Data analysis performed at Specimen Comment: [address] [facility], [place] [address]. Aleida Goodman MD LAB BLOOD ORDERABLES Final Res ult [facility] * (ABNORMAL) Urinalysis with microscopic (08/01/2024 2:23 PM EDT) [facility] Specific [place] Urine 1.015 1.005 - 1.030 [facility] pH [...] - 08/06/2024 10:07 AM EDT Performed at: [address] [place] [id number] Manager Practice: Kennedy Gary PhD, Phone: [phone] Specimen Comment: ToxAssure, ToxAssure FLEX or MAT drug testing: Specimen Comment: -Technical component - Data analysis performed at Specimen Comment: [address], [place] [address]. [place] Aleida Goodman MD LAB URINE ORDERABLES Final [...] - 08/06/2024 10:07 AM EDT Performed at: - [address], [place], [place] [id number] Manager Practice: Kennedy Gary PhD, Phone: [phone] Specimen Comment: ToxAssure, ToxAssure FLEX or MAT drug testing: Specimen Comment: -Technical component - Data analysis performed at Specimen Comment: [address] [facility], [place] [address]. us Aleida Goodman MD LAB BLOOD ORDERABLES Final Res ult Performing Organization Address [facility] de Phone Number [facility] * [...] 08/06/2024 10:07 AM EDT Performed at: [address] [id number] Manager Practice: Kennedy Gary PhD, Phone: [phone] Specimen Comment: ToxAssure, ToxAssure FLEX or MAT drug testing: Specimen Comment: -Technical component - Data analysis performed at Specimen Comment: [address] [place] [address]. [place] Aleida Goodman MD LAB BLOOD ORDERABLES Final Res ult Performing Organization Address [facility] de Phone Number [facility] * (ABNORMAL) Urine culture (08/01/2024 2:23 PM EDT) Urine Cult Rt Status Final report(A) [facility] Urine Urine specimen obtained by clean catch procedure / Unknown 08/01/2024 2:23 PM EDT 08/01/2024 Comment:UR Narrative [facility] - 08/06/2024 10:07 AM EDT Performed at: [address] [id number] Manager Practice: Kennedy Gary PhD, Phone: [phone] Specimen Comment: ToxAssure, ToxAssure FLEX or MAT drug testing: Specimen Comment: -Technical component - Data analysis performed at Specimen Comment: [address] [facility], [place] [address]. Aleida Goodman MD LAB MICROBIOLOGY - GENERAL ORD ERABLES Final Result [facility] * hCG, quantitative (08/01/2024 2:23 PM EDT) hCG Beta Subunit Qn 26,823 mIU/mL [facility] Comment: Female (Non-) 0 - 5 (Postmenopausal) 0 - 8 Female () Weeks of Gestation 3 6 - 71 4 10 - 750 5 332 - 7021 6 563 - 12938 7 6755 -550765 8 59820 -006230 9 767075 -534232 10 00454 -772253 12 48613 -820014 14 65953 - 14103 15 06999 - 23445 16 2014 - 05934 17 6653 - 53450 18 6590 - 98374 Results confirmed on dilution. Guille ECLIA methodology Blood Venous blood specimen / Unknown 08/01/2024 2:23 PM EDT 08/01/2024 Narrative [facility] - 08/02/2024 6:07 AM EDT Performed at: [address] [id number] Manager Practice: Kennedy Gary PhD, Phone: [phone] Aleida Goodman MD LAB BLOOD ORDERABLES Final Res ult Performing Organization Address City/[facility]/ZIP Co de Phone Number [facility] * [facility] PREG QUANT HCG (07/30/2024 2:24 PM EDT) HCG QUANTITATIVE 16,480 mIU/mL TB Comment: 5-50 0.2-1 WEEK 50-500 1-2 WEEKS 100-5,000 2-3 WEEKS 500-10,000 3-4 WEEKS 1,000-50,000 4-5 WEEKS 10,000-100,000 5-6 WEEKS 15,000-200,000 6-8 WEEKS 10,000-100,000 2-3 MONTHS 07/30/2024 2:24 PM EDT 07/30/2024 2:25 PM EDT Narrative [facility] - 07/30/2024 3:23 PM EDT Alieda Goodman MD [facility] Final Result [facility] from Last 3 Months Additional Health Concerns Active Problems Noted Date Diagnosed Date OB Reminders 08/01/2024 Insurance [facility] [place]ICAID [place] Care Teams Electrician Apprentice Powerhouse Relationship Specialty Start Date End Date Unallocated, Noms Provider, [address] [place] [address] PCP - General Family Medicine 01/04/24
--- OUTSIDE RECORDS SUMMARY | 2024-10-29 23:50 | XMS_ITS | Encounter Summary ---
Author Organization [facility] Address [address] [place] [address] Care Team Providers Care Nursery Manager Name Role Phone Unallocated, Noms Provider Primary Care Provi eliana Encounter Details Date Type Department Care Team (Late st Contact Info) Description 09/30/2024 Abstract [facility] [address] [facility] [address] [place] [address] Aleida Goodman MD [address] [facility] [address] [place] [address] Social History Tobacco Use Types Packs/Day Years [...] BRIGIDA [address] [place] [phone] 11/05/2024 1:30 PM EDT Routine [facility] [address] [place] [phone] Aleida Goodman MD [address] [place] [address] documented as of this encounter Goals Goal Patient Goal Type Associated Problems Recent Progress Patient-Stated? Author Reminders Care Plan OB Reminders Jessica Hernandez MA documented as of this encounter Visit Diagnoses Not on filedocumented in this encounter Additional Health Concerns Active Problems Noted Date Diagnosed Date OB Reminders 08/01/2024 documented as of this encounter Care Teams Nursery Manager Relationship Specialty Start Date End Date Unallocated, Mauricio Roque MD [address] [place] [address] PCP - General Family Medicine 01/04/24 documented as of this encounter
--- OUTSIDE RECORDS SUMMARY | 2024-10-29 23:50 | XMS_ITS | Encounter Summary ---
Author Organization [facility] Address [address] [place] [address] Care Team Providers Care Cath Laboratory Technician Name Role Phone Unallocated, Noms Provider Primary Care Jadei eliana Encounter Details Date Type Department Care Team (Latest Contact Info) Description 10/22/2024 Travel Social History Tobacco Use Types Packs/Day [...] Description 11/05/2024 12:30 PM EDT Ancillary Procedure [facility] [address] [place] [phone] 11/05/2024 1:30 PM EDT Routine [facility] [address] [place] [phone] Aleida Goodman MD [address] [place] [address] documented as of this encounter Goals Goal Patient Goal Type Associated Problems Recent Progress Patient-Stated? Author Reminders Care Plan OB Reminders Jessica Hernandez MA documented as of this encounter Visit Diagnoses Not on filedocumented in this encounter Additional Health Concerns Active Problems Noted Date Diagnosed Date OB Reminders 08/01/2024 documented as of this encounter Care Teams Cath Laboratory Technician Relationship Specialty Start Date End Date Unallocated, Nomsalima Roque MD [address] [place] [address] PCP - General Family Medicine 01/04/24 documented as of this encounter
--- OUTSIDE RECORDS SUMMARY | 2024-10-29 23:52 | XMS_ITS | Encounter Summary ---
Author Organization [facility] Address [address] [place] [address] Care Team Providers Care Credit Risk Analyst Name Role Phone Unallocated, Noms Provider Primary Care Provi eliana Encounter Details Date Type Department Care Team (Late st Contact Info) Description 10/21/2024 Telephone [facility] [address] [facility] [address] [place] [phone] Elaine James RN Social History Tobacco Use Types Packs/Day Years [...] encounter Miscellaneous Notes * Telephone Encounter - Elaine James RN - 10/28/2024 2:37 PM EDT Attempted to call pt X3. No answer, no return calls. Closing encounter * Telephone Encounter - Elaine James RN - 10/21/2024 2:04 PM EDT Pt calling in to office. States she started keflex which was prescribed by our office and now Everything below waist hurts . States it is just an uncomfortable feeling- no cramping, no vaginal bleeding or spotting, just a whole bunch of pressure . States she started the keflex 2 days ago and today is when pain started. Has not taken keflex in the past. Advised I would discuss with PPJ and return call. documented in this encounter Plan of Treatment Upcoming Encounters Date Type Department Care Team (Late st Contact Info) Description 11/05/2024 12:30 PM EDT Ancillary Procedure MA[facility]ICIO [facility] [address] [place] [phone] 11/05/2024 1:30 PM EDT Routine MA[facility]ICIO [facility] [address] [place] [phone] Aleida Goodman MD [address] [place] [address] documented as of this encounter Goals Goal Patient Goal Type Associated Problems Recent Progress Patient-Stated? Author Reminders Care Plan OB Reminders No Jessica Joyner MA documented as of this encounter Visit Diagnoses Not on filedocumented in this encounter Additional Health Concerns Active Problems Noted Date Diagnosed Date OB Reminders 08/01/2024 documented as of this encounter Care Teams Credit Risk Analyst Relationship Specialty Start Date End Date Unallocated, Mauricio Roque MD [address] [place] [address] PCP - General Family Medicine 01/04/24 documented as of this encounter
--- OUTSIDE RECORDS SUMMARY | 2024-10-29 23:53 | XMS_ITS | Encounter Summary ---
Author Organization [facility] Address [address] [place] [address] Care Team Providers Care Dressing Room Porter Name Role Phone Unallocated, Noms Provider Primary Care Provi eliana Encounter Details Date Type Department Care Team (Late st Contact Info) Description 10/22/2024 Bamboo flowsheet [facility] [address] [facility] [address] [place] [address] Aleida Goodman MD [address] [facility] [address] [place] [address] Social History Tobacco Use Types Packs/Day Years [...] Description 11/05/2024 12:30 PM EDT Ancillary Procedure [facility] [address] [place] [phone] 11/05/2024 1:30 PM EDT Routine [facility] [address] [place] [phone] Aleida Goodman MD [address] [place] [address] documented as of this encounter Goals Goal Patient Goal Type Associated Problems Recent Progress Patient-Stated? Author Reminders Care Plan OB Reminders Jessica Hernandez MA documented as of this encounter Visit Diagnoses Not on filedocumented in this encounter Additional Health Concerns Active Problems Noted Date Diagnosed Date OB Reminders 08/01/2024 documented as of this encounter Care Teams Dressing Room Porter Relationship Specialty Start Date End Date Unallocated, Nicolás Roque MD [address] [place] [address] PCP - General Family Medicine 01/04/24 documented as of this encounter
--- NOTE | 2024-10-30 00:06 | PC.NURSE ---
pt taken to OB for evaluation
== END 2024-10-30 00:14 | disposition left against medical advice (07) ==
PROVIDERS: Emergency Provider Internal Medicine; PCP Family Medicine
DX: Z53.21 Procedure and treatment not carried out due to patient leaving prior to being seen by health care provider (principal)

== ENCOUNTER 2024-10-30 00:11 | Observation (INO) | payer BC, OTHER, SELFPAY ==
--- OUTSIDE RECORDS SUMMARY | 2024-10-30 00:17 | XMS_ITS | CCD ---
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 Name Role Phone FELI, GRICELDA P Consulting [...] Unavailabl e Teresa Beal DO Attending Provider [phone] Luca Marshall MD Primary Care Provider [phone] MISBAH KRAFT Attending Unavailable MISBAH KRAFT Attending Unavailable MISBAH KRAFT Attending Unavailable MISBAH KRAFT Attending Unavailable MISBAH KRAFT Attending Unavailable Luca Marshall MD Primary Care Provider [phone] Tano Simon DO Emergency Provider Luca Marshall [...] UA Negative Negative - 4(70) +++ mg/dL [facility] Blood, UA Negative Negative - 50 Grady/mcL [facility] Clarity, UA Cloudy [facility] Color, UA Yellow [facility] Glucose, UA 2+ Negative - 1999(110) ++++ mg/dL [facility] Interpretation and review of laboratory results Abnormal [facility] Ketones, UA Negative Negative - 160(16) ++++ mg/dL [facility] Leukocytes, UA 1+ Negative - 500+++ Tk/mcL [facility] Nitrite, UA Negative Negative - Positive [facility] pH, UA 6 5 - 9 [facility] Protein, UA 2+ Negative - 1999(20) ++++ mg/dL [facility] Spec Grav, UA 1 1 - 1.03 [facility] Urobilinogen, UA 0.2 0.2 - 12 mg/dL [facility] CNPNon 10-18-2024 CNPN Telephone (OBGYF2) JUNIOR BALDWIN ([id number]) 1 F Date Time Provider Department 10/18/24 F[facility] OB MFM OBGYF2 During your visit today, we recorded the following information about you: Kat Dietrich MA 10/18/2024 3:38 PM Signed 3rd [...] Status:Closed by KAT DIETRICH on 10/18/24 Normal [facility] Appearance of UrineOrdered B y: PROVIDER TEMP on 10-16-2024 Appearance (U) Cloudy Critically abnormal Clear [facility] Comment on above: Order Comment: Name Collection Type:: Voided Performed By: #### C UU, ADDONUAPLUS #### [facility] [address] [place] [address] [place] Bacteria [Presence] in Urine by AutomatedOrdered By: PROVIDER TEMP on 10-16-2024 Bacteria Auto Ql (U) 3+ [HPF] High None Seen [facility] Bilirubin Test strip Ql (U)O rdered By: PROVIDER TEMP on 10-16-2024 Bilirubin Ql (U) Negative Negative [facility] Color of Urine by AutoOrdere d By: PROVIDER TEMP on 10-16-2024 Color (U) Yellow Normal Yellow [facility] Comment on above: Order Comment: Name Collection Type:: Voided Performed By: #### C UU, ADDONUAPLUS #### [facility] [address] [place], [place] [id number] [place] Dipstick and Microscopicon 0 10-16-2024 Bacteria,Urine 3+ [HPF] Normal None Seen [facility] Comment on above: Order Comment: Name Collection Type:: Voided Performed By: #### C UU, ADDONUAPLUS #### [place] [address] [place] Bilirubin,Urine Negative Normal Negative [facility] Comment on above: Order Comment: Name Collection Type:: Voided Performed By: #### C UU, ADDONUAPLUS #### [address] Glucose Ql (U) Normal Normal Normal [facility] Comment on above: Order Comment: Name Collection Type:: Voided Performed By: #### C UU, ADDONUAPLUS #### [place] [address] [place] Hyaline Casts,Urine 0-8 Normal 0-8 [facility] Comment on above: Order Comment: Name Collection Type:: Voided Performed By: #### C UU, ADDONUAPLUS #### [place] [address] [place] Mucus,Urine Rare Normal [facility] Comment on above: Order Comment: Name Collection Type:: Voided Result Comment: PERF ORMED BY: [place] [address] PATHOLOGIST CLOTH FINISHING RANGE OPERATOR CHIEF AMY SANTOS M.D. Performed By: #### C UU, ADDONUAPLUS #### [place] [address] [place] Nitrite,Urine Negative Normal Negative [facility] Comment on above: Order Comment: Name Collection Type:: Voided Performed By: #### C UU, ADDONUAPLUS #### [place] [address] [place] Occult Blood,Urine Negative Normal Negative [facility] Comment on above: Order Comment: Name Collection Type:: Voided Result Comment: PERF ORMED BY: [place] [address] PATHOLOGIST CLOTH FINISHING RANGE OPERATOR CHIEF AMY SANTOS M.D. Performed By: #### C UU, ADDONUAPLUS #### [place] [address] [place] Protein,Urine Negative Normal Negative [facility] Comment on above: Order Comment: Name Collection Type:: Voided Performed By: #### C UU, ADDONUAPLUS #### [address] RBC,Urine 3-4 Normal 0-4 [facility] Comment on above: Order Comment: Name Collection Type:: Voided Performed By: #### C UU, ADDONUAPLUS #### [address] Specificy [place],Urine 1.016 Normal 1.001-1.030 [facility] Comment on above: Order Comment: Name Collection Type:: Voided Performed By: #### C UU, ADDONUAPLUS #### [address] Squamous Epithelial Cell,Urine 5-9 Normal 0-2 [facility] Comment on above: Order Comment: Name Collection Type:: Voided Performed By: #### C UU, ADDONUAPLUS #### [address] Urobilinogen,Urine Normal Normal Normal [facility] Comment on above: Order Comment: Name Collection Type:: Voided Performed By: #### C UU, ADDONUAPLUS #### [address] WBC,Urine 10-19 Normal 0-4 [facility] Comment on above: Order Comment: Name Collection Type:: Voided Performed By: #### C UU, ADDONUAPLUS #### [address] Epithelial cells.squamous [# /area] in Urine sediment by Automated countOrdered By: PROVIDER TEMP on 10-16-2024 Epithelial cells.squamous Auto (Urine sed) [#/Area] 5-9 [HPF] High 0-2 [facility] Erythrocytes [#/area] in Uri ne sediment by Automated countOrdered By: PROVIDER TEMP on 10-16-2024 RBC Auto (Urine sed) [#/Area] 3-4 [HPF] 0-4 [facility] Glucose [Mass/volume] in Uri ne by Test stripOrdered By: PROVIDER TEMP on 10-16-2024 Glucose Test strip (U) [Mass/Vol] Normal mg/dL Normal [facility] Hemoglobin Test strip Ql (U) Ordered By: PROVIDER TEMP on 10-16-2024 Hemoglobin Ql (U) Negative Negative [facility] Hyaline casts [#/area] in Ur ine sediment by Automated countOrdered By: PROVIDER TEMP on 10-16-2024 Hyaline casts Auto (Urine sed) [#/Area] 0-8 [LPF] 0-8 [facility] Ketones [Presence] in Urine by Test stripOrdered By: PROVIDER TEMP on 10-16-2024 Ketones Ql (U) Negative Normal Negative [facility] Comment on above: Order Comment: Name Collection Type:: Voided Performed By: #### C UU, ADDONUAPLUS #### [facility] [address] [place] [address] [place] Leukocyte esterase [Presence ] in Urine by Test stripOrdered By: PROVIDER TEMP on 10-16-2024 Leukocyte esterase Test strip Ql (U) 3+ Normal Negative [facility] Comment on above: Order Comment: Name Collection Type:: Voided Performed By: #### C UU, ADDONUAPLUS #### [facility] [address] [place] [address] [place] Leukocytes [#/area] in Urine sediment by Automated countOrdered By: PROVIDER TEMP on 10-16-2024 WBC Auto (Urine sed) [#/Area] 10-19 [HPF] High 0-4 [facility] Mucus [Presence] in Urine by AutomatedOrdered By: PROVIDER TEMP on 10-16-2024 Mucus Auto Ql (U) Rare [LPF] [facility] Nitrite Test strip Ql (U)Ord ered By: PROVIDER TEMP on 10-16-2024 Nitrite Ql (U) Negative Negative [facility] Protein Test strip (U) [Mass /Vol]Ordered By: PROVIDER TEMP on 10-16-2024 Protein (U) [Mass/Vol] Negative Negative [facility] Specific gravity Test strip (U) [Rel density]Ordered By: PROVIDER TEMP on 07-30-2025 Specific gravity (U) [Rel density] 1.016 1.001-1.030 [facility] US OB limitedon 10-16-2024 US OB limited [facility] Main [address] [address] Ultrasound Report Signed Patient: Junior Baldwin MR#: [id number] : 2005 Acct:[id number] Age/Sex: 19 / F ADM Date: 10/16/24 [...] Mccloud M.D. 10/16/2024 9:30 PM Dictation Location: [place] [address] Tech: Andria Alfredo Transcribed By: CHRISTY 10/16/242129 Dictated By: Bradley Mccloud MD 10/16/242127 Signed By: 10/16/242129 Normal [facility] Urine Cultureon 10-16-2024 Bacteria identified Cx Nom (U) ORGANISM: Strep agalactiae - (group b) (O:STRAGA) [place] Count 75,000 PERFORMED BY: [place] [address] PATHOLOGIST CLOTH FINISHING RANGE OPERATOR CHIEF AMY SANTOS M.D. Normal [facility] Comment on above: Performed By: #### C UU, ADDONUAPLUS #### [facility] [address] [place] [id number] [facility] Urobilinogen Test strip (U) [Mass/Vol]Ordered By: PROVIDER TEMP on 10-16-2024 Urobilinogen (U) [Mass/Vol] Normal mg/dL Normal [facility] pH of Urine by Test stripOrd ered By: PROVIDER TEMP on 10-16-2024 pH (U) 6.0 [pH] Normal 5.0-9.0 [facility] Comment on above: Order Comment: Name Collection Type:: Voided Performed By: #### C UU, ADDONUAPLUS #### [facility] [address] [place] [id number] [facility] 10-07-2024 CNPN Telephone (OBGYF2) JUNIOR BALDWIN ([id number]) 1 F Date Time Provider Department 10/07/24 [...] Encounter Status:Closed by KAT DIETRICH on 10/07/24 [facility] 10-02-2024 [employer] Telephone (OBGYF2) DENNYJUNIOR ([id number]) 1 F Date Time Provider Department 10/02/24 [facility] OB MFM OBGYF2 During your visit today, we recorded the following information about you: Kat Dietrich MA 10/02/2024 1:45 PM Signed Called pt re: referral from [facility]. No answer, LVM asking pt to call back and schedule. Kat Dietrich MA Allergies As of Date: 10/02/2024 (Not on File) Date Reviewed: Never Reviewed Reason for Visit: Appointment [186] Problem List As Of Date: 10/02/2024 (None) Encounter Status:Closed by KAT DIETRICH on 10/02/24 Normal [facility] Telephone Encounteron 2024 Patient Service Rep Authentication Interface Message Text NO SHOW , OB FOLLOW-UP, AND NEW OB APPOINTMENTS Patient appeared on /no show report Patient NO SHOWED NEW OB HR appointment on 09/30/24. After chart review pt is est at [facility] has been seen and has upcoming apt schd. Called patient :LVM with phone number to call back and reschd apt if this is something that is still needed. Normal [facility] Urinalysis macro (dipstick) panel (U)on 09-30-2024 Bilirubin, UA Negative Negative - 4(70) +++ mg/dL [facility] Blood, UA Negative Negative - 50 Grady/mcL [facility] Clarity, UA Clear [facility] Color, UA Yellow [facility] Glucose, UA 2+ Negative - 2000(110) ++++ mg/dL [facility] Interpretation and review of laboratory results Abnormal [facility] Ketones, UA Negative Negative - 160(16) ++++ mg/dL [facility] Leukocytes, UA Negative Negative - 500+++ Tk/mcL [facility] Nitrite, UA Negative Negative - Positive [facility] pH, UA 6 5 - 9 [facility] Protein, UA 1+ Negative - 2000(20) ++++ mg/dL [facility] Spec Grav, UA 1 1 - 1.03 [facility] Urobilinogen, UA 0.2 0.2 - 12 mg/dL [facility] Telephone Encounteron 2024 Patient Service Rep Authentication Interface Message Text 2nd attempt to contact not needed after chart review pt has upcoming apt schd. Closing encounter Future Appointments (next 10) Provider Department Center 09/30/2024 2:15 PM Zhanna Martinez MD [facility] 11/06/2024 1:00 PM SENIOR CARE ROOM 6 [facility] Normal [facility] Laboratoryon 09-21-2024 Chr 13+18+21+X+Y aneuploidy Dosage of chromosome-specific cfDNA Ql (cfDNA) Negative [facility] Citation Justin (Reference lab test) Comment [facility] Comment on above: 1. chris Chinchilla. Norma Med. 2012;14(3):296-305. 2. Brayan PINTO, et al. Prenat Diag. 2013;33(6):591-597. 3. Dusty Momin, et al. Clin Chem. 2015 Apr;61(4):608-616. 4. Filomena JOHN, et al. Norma Med. 2011;13(11):913-920. 5. ACOG/SMFM Practice Bulletin No. 226, Dec 2019. Trisomy 18 risk Dosage of chromosome-specific cfDNA Ql (Plasma cell-free+WBC DNA) [Interp] Negative [facility] Laboratory - Miscellaneous t estson 09-21-2024 Laboratory comment Justin (Report) Comment [facility] Comment on above: The MaterniT(R) 21 P PAULINA laboratory-developed test (LDT) analyzes circulating cell-free DNA from a maternal blood sample. This test is used for screening purposes and not diagnostic. Clinical correlation is recommended. Validation data on twin pregnancies is limited and the ability of this test to detect aneuploidy in higher multiple gestations has not yet been validated. director educational radio name Nom (Provider) Comment [facility] Comment on above: This specimen showed an expected representation of chromosome 21, 18 and 13 material. Clinical correlation is suggested. Feliberto Rodriguez MD , PhD, Director, [employer] Reference Lab Test Method Comment [facility] Comment on above: See Notes Circulating cell-free [...] 22. Service comment (Unsp spec) [Interp] Comment [facility] Comment on above: See Notes [employer] is a subsidiary of [employer], using the brand [facility]. This test was developed and its performance characteristics determined by [facility]. It has not been cleared or approved by the Food and Drug Administration. This laboratory is certified under the Clinical Laboratory Improvement Amendments (CLIA) as qualified to perform high complexity clinical laboratory testing and accredited by the [employer] (CAP). If there is future clinical need for adding MaterniT GENOME testing, this specimen will be available until term. [facility] samples will not be retained beyond 60 days. [facility] patients will have to send a new sample for re-sequencing ([facility] Test Code: [id number]). Laboratory - Molecular patho logyon 09-21-2024 Cell-free DNA./Cell-free DNA.total Dosage of chromosome-specific cfDNA (cfDNA) [Molar fraction] 11% [facility] Chr 21 trisomy Dosage of chromosome-specific cfDNA Ql (cfDNA) Negative [facility] Chr X and Y aneuploidy risk Sequencing Ql (cfDNA) [Interp] Not detected [facility] Monosomy X risk Dosage of chromosome-specific cfDNA Ql (Plasma cell-free+WBC DNA) [Interp] Not detected [facility] Sex Dosage of chromosome-specific cfDNA Nom (cfDNA) Comment [facility] Comment on above: Consistent with Fema le Test performance information Justin (Unsp spec) Comment [facility] Comment on above: The performance rey acteristics of the MaterniT(R) 21 PLUS laboratory-developed test (LDT) have been determined in a clinical validation study with women at increased risk for chromosomal aneuploidy.[1-4] Trisomy 13 risk Dosage of chromosome-specific cfDNA Ql (cfDNA) [Interp] Negative [facility] No Panel Informationon 09-21 Gest Age >or= 9wk: MT21 Yes [facility] Gestational age Estimated from conception date Rose [facility] Limitations of Test MT21 Comment [facility] Comment on above: While the results of [...] Xaparin(R), Clexane(R) and Fragmin(R)). Neg Predictive Value [facility] Note [facility] Comment on above: The Negative Predict jag Value (NPV) for trisomy 21, 18, and 13 is greater than 99%. The NPV for SCA and ESS cannot be calculated as SCA and ESS are only reported when an abnormality is detected. Perf Characteristics [facility] Note [facility] Comment on above: ! Sex ! Accuracy: [...] gestation only. Pos Predictive Value MT21 N/A [facility] Performed at: 01 - [facility] [address] [place] [address] [id number] Wellness Manager: Feliberto Huddleston, Phone: [phone] [facility] Interdisciplinary Note - Nut ritionon 09-18-2024 Interdisciplinary Note - Nutrition Interdisciplinary Note - Nutrition Junior was scheduled for initial MNT visit today at 11:15AM. She was a no show for her appointment. MD office notified [phone]. Discussed w the nurse, Aviva, at providers office in [place]. RD name and number provided for any additional information. Explained pt can make another appointment and I will be happy to see her. Normal [facility] Comment on above: Result Comment: Elec tronically Signed By: Jovanni AYON, PAWEL, SONNY, Savannah\.br\Date and Time Signed: 09/18/24 12:04 EDT Laboratory - Microbiology an d Antimicrobial susceptibilityon 09-18-2024 HSV 1 IgG IA Ql Non-Reactive Non Reactive [facility] Comment on above: Please note refere nce interval change HSV-1 IgG testing performed using the [employer] HSV-1 IgG assay. HSV 2 IgG IA Ql Non-Reactive Non Reactive [facility] Comment on above: Please note refere nce [...] assay. No Panel Informationon 09-18 Performed at: [address] [place] [id number] Wellness Manager: Kennedy Gary PhD, Phone: [phone] [facility] Telephone Encounteron 2024 Patient Service Rep Authentication Interface Message Text NO SHOW , OB FOLLOW-UP, AND NEW OB APPOINTMENTS Patient appeared on /no show report Patient NO SHOWED NEW OB HR appointment on 09/16/24. After chart review pt is established at [facility]. Called patient: LVM to call back if apt is still in need of rescheduling 1st attempt to contact Normal [facility] Urinalysis macro (dipstick) panel (U)on 09-17-2024 Bilirubin, UA Negative Negative - 4(70) +++ mg/dL [facility] Blood, UA Negative Negative - 50 Grady/mcL [facility] Clarity, UA Clear [facility] Color, UA Yellow [facility] Glucose, UA 2+ Negative - 2000(110) ++++ mg/dL [facility] Interpretation and review of laboratory results Normal [facility] Ketones, UA Negative Negative - 160(16) ++++ mg/dL [facility] Leukocytes, UA Negative Negative - 500+++ Tk/mcL [facility] Nitrite, UA Negative Negative - Positive [facility] pH, UA 7 5 - 9 [facility] Protein, UA Negative Negative - 2000(20) ++++ mg/dL [facility] Spec Grav, UA 1 1 - 1.03 [facility] Urobilinogen, UA 0.2 0.2 - 12 mg/dL [facility] Urine Cultureon 09-11-2024 Bacteria identified Cx Nom (U) ORGANISM: Strep agalactiae - (group b) (O:STRAGA) [place] Count 20,000 PERFORMED BY: [facility] [address] [place] [address] PATHOLOGIST CLOTH FINISHING RANGE OPERATOR CHIEF AMY SANTOS M.D. Normal [facility] Comment on above: Performed By: #### C UU #### [facility] [address] Urine cultureOrdered By: Marija Beal on 09-11-2024 Bacteria identified Cx Nom (U) Strep agalactiae - (group b) Abnormal [facility] Urinalysis macro (dipstick) panel (U)Ordered By: Radha Grijalva on 09-03-2024 Bilirubin, UA Negative Negative - 4(70) +++ mg/dL [facility] Blood, UA Negative Negative - 50 Grady/mcL [facility] Clarity, UA Clear [facility] Color, UA Yellow [facility] Glucose, UA Negative Negative - 2000(110) ++++ mg/dL [facility] Interpretation and review of laboratory results Normal [facility] Ketones, UA Negative Negative - 160(16) ++++ mg/dL [facility] Leukocytes, UA Negative Negative - 500+++ Tk/mcL [facility] Nitrite, UA Negative Negative - Positive [facility] pH, UA 5 5 - 9 [facility] Protein, UA Negative Negative - 2000(20) ++++ mg/dL [facility] Spec Grav, UA 1 1 - 1.03 [facility] Urobilinogen, UA 0.2 0.2 - 12 mg/dL [facility] TB PREG QUANT HCGon 025 HCG QUANTITATIVE 70510 mIU/mL [facility] Comment on above: 5-50 0.2-1 WEEK 50-500 1-2 WEEKS 100-5,000 2-3 WEEKS 500-10,000 3-4 WEEKS 1,000-50,000 4-5 WEEKS 10,000-100,000 5-6 WEEKS 15,000-200,000 6-8 WEEKS 10,000-100,000 2-3 MONTHS [facility] PREG QUANT HCGon 025 HCG QUANTITATIVE 4086 mIU/mL [facility] Comment on above: 5-50 0.2-1 WEEK 50-500 1-2 WEEKS 100-5,000 2-3 WEEKS 500-10,000 3-4 WEEKS 1,000-50,000 4-5 WEEKS 10,000-100,000 5-6 WEEKS 15,000-200,000 6-8 WEEKS 10,000-100,000 2-3 MONTHS [facility] Covid-19 PCR ([facility])on SARS-CoV-2 (COVID-19) RNA VAISHALI+probe Ql (Unsp spec) Not detected Normal NOT DETECTED [facility] Comment on above: Result Comment: When [...] for this test is supported by the [place] of Health and Human Service's declaration that [...] #### C VDTBH #### [facility] [address] [place] [address] Dr. Damion Caceres INFLUENZA A AND B AGon 05-23 [facility] SEE BELOW Normal [facility] Comment on above: Result Comment: Nega tive for Flu A protein angiten. Infection due to Flu A cannot be ruled out. Flu A angiten in the sample may be below the detection limit of the test. Performed By: #### I NFLUAB #### [facility] [address] [place] [address] Dr. Dam[facility] SEE BELOW Normal [facility] Comment on above: Result Comment: Nega tive for Flu B protein antigen. Infection due to Flu B cannot be ruled out. Flu B antigen in the sample may be below the detection limit of the test. Performed By: #### I NFLUAB #### [facility] [address] [place] [address] Dr. Damion Caceres INFLUENZA A AG Negative Normal NEGATIVE SEE COMMENT [facility] Comment on above: Performed By: #### I NFLUAB #### [facility] [address] [place] [address] Dr. Damion Caceres INFLUENZA B AG Negative Normal NEGATIVE SEE COMMENT [facility] Comment on above: Performed By: #### I NFLUAB #### [facility] [address] [place] [address] Dr. Damion Caceres Covid-19 PCR ([facility])on SARS-CoV-2 (COVID-19) RNA VAISHALI+probe Ql (Unsp spec) Not detected Normal NOT DETECTED [facility] Comment on above: Result Comment: When [...] for this test is supported by the [place] of Health and Human Service's declaration that [...] #### C VDTBH #### [facility] [address] [place] [address] Dr. Damion Caceres INFLUENZA A AND B AGon 04-20 [facility] SEE BELOW Normal [facility] Comment on above: Result Comment: Nega tive for Flu A protein angiten. Infection due to Flu A cannot be ruled out. Flu A angiten in the sample may be below the detection limit of the test. Performed By: #### I NFLUAB #### [facility] [address] [place] [address] Dr. [facility]aceres [facility] SEE BELOW Normal [facility] Comment on above: Result Comment: Nega tive for Flu B protein antigen. Infection due to Flu B cannot be ruled out. Flu B antigen in the sample may be below the detection limit of the test. Performed By: #### I NFLUAB #### [facility] [address] [place] [address] Dr. Damion Caceres INFLUENZA A AG Negative Normal NEGATIVE SEE COMMENT [facility] Comment on above: Performed By: #### I NFLUAB #### [facility] [address] [place] [address] Dr. Damion Caceres INFLUENZA B AG Negative Normal NEGATIVE SEE COMMENT [facility] Comment on above: Performed By: #### I NFLUAB #### [facility] [address] [place] [address] Dr. Damion Caceres Covid-19 PCR ([facility])on 12-19 SARS-CoV-2 (COVID-19) RNA VAISHALI+probe Ql (Unsp spec) Not detected Normal NOT DETECTED [facility] Comment on above: Result Comment: This test is not yet approved or cleared by the [place] FDA. When there are no FDA-approved or cleared tests available, and other criteria are met, FDA can make tests available under an emergency access mechanism called an Emergency Use Authorization (EUA). The EUA for this test is supported by the [place] of Health and Human Service's (HHS's) declaration [...] #### C VDTB #### [facility] [address] [place] [address] Dr. Damion Caceres INFLUENZA A AND B AGon 01-06 [facility] SEE BELOW Normal [facility] Comment on above: Result Comment: Nega tive for Flu A protein angiten. Infection due to Flu A cannot be ruled out. Flu A angiten in the sample may be below the detection limit of the test. Performed By: #### I NFLUAB #### [facility] [address] [place] [address] Dr. [facility] Normal [facility] Comment on above: Result Comment: Nega tive for Flu B protein antigen. Infection due to Flu B cannot be ruled out. Flu B antigen in the sample may be below the detection limit of the test. Performed By: #### I NFLUAB #### [facility] [address] [place] [address] Dr. Damion Caceres INFLUENZA A AG Negative Normal NEGATIVE SEE COMMENT [facility] Comment on above: Performed By: #### I NFLUAB #### [facility] [address] [place] [address] Dr. Damion Caceres INFLUENZA B AG Negative Normal NEGATIVE SEE COMMENT [facility] Comment on above: Performed By: #### I NFLUAB #### [facility] [address] [place] [address] Dr. Damion Caceres INTERNAL CONTROLS Within Normal Limits Normal Wi thin Normal Limits [facility] Comment on above: Performed By: #### I NFLUAB #### [facility] [address] [place] [address] Dr. Damion Caceres Vital Signs Date Time Vital Sign Value Performing Clinician Facility 10-22-2024 13:34-0400 Body weight 187.34 kg Misbah Kraft MD Work Phone: [facility] 10-22-2024 13:34-0400 Diastolic blood pressure 76 mm[Hg] Misbah Kraft MD Work Phone: [facility] 10-22-2024 13:34-0400 Systolic blood pressure 128 mm[Hg] Misbah Kraft MD Work Phone: [facility] 10-16-2024 20:01-0400 Diastolic blood pressure 79 mm[Hg] Luca Marshall MD Work Phone: [facility] 10-16-2024 20:01-0400 Heart rate 117 /min Luca Marshall MD Work Phone: [facility] 10-16-2024 20:01-0400 Respiratory rate 22 /min Luca Marshall MD Work Phone: [facility] 10-16-2024 20:01-0400 SaO2% (BldA) [Mass fraction] 100 % Luca Marshall MD Work Phone: [facility] 10-16-2024 20:01-0400 Systolic blood pressure 130 mm[Hg] Luca Marshall MD Work Phone: [facility] 10-16-2024 19:03-0400 Body height 177.8 cm Luca Marshall MD Work Phone: [facility] 10-16-2024 19:03-0400 Body temperature 98.2 [degF] Luca Marshall MD Work Phone: [facility] 10-16-2024 19:03-0400 Body weight 188.6 kg Luca Marshall MD Work Phone: [facility] 09-30-2024 13:23-0400 Body weight 189.15 kg Misbah Kraft MD Work Phone: [facility] 09-30-2024 13:23-0400 Diastolic blood pressure 82 mm[Hg] Misbah Kraft MD Work Phone: [facility] 09-30-2024 13:23-0400 Systolic blood pressure 124 mm[Hg] Misbah Kraft MD Work Phone: [facility] 09-17-2024 12:47-0400 Body weight 188.24 kg Misbah Kraft MD Work Phone: [facility] 09-17-2024 12:47-0400 Diastolic blood pressure 74 mm[Hg] Misbah Kraft MD Work Phone: [facility] 09-17-2024 12:47-0400 Systolic blood pressure 126 mm[Hg] Misbah Kraft MD Work Phone: [facility] 09-03-2024 13:21-0400 Body weight 188.24 kg Misbah Kraft MD Work Phone: [facility] 09-03-2024 13:21-0400 Diastolic blood pressure 72 mm[Hg] Misbah Kraft MD Work Phone: [facility] 09-03-2024 13:21-0400 Systolic blood pressure 120 mm[Hg] Misbah Kraft MD Work Phone: [facility] 01-04-2024 13:53-0400 Body weight 174.18 kg Misbah [...] 128 mm[Hg] Misbah Kraft MD Work Phone: [facility] Healthcare Encounters Encounter Date Encounter Type Care Provider Facility Start: 10-22-2024 End: 10-22-2024 Bamboo flowsheet Misbah Kraft MD Work Phone: [facility] Start: 10-22-2024 End: 10-22-2024 Bamboo flowsheet Misbah Kraft MD Work Phone: [facility] Start: 10-22-2024 End: 10-22-2024 flow sheet Misbah Kraft MD Work Phone: [facility] Comment on above: Trauma (Primary Dx); Second trimester ([facility]); 18 weeks gestation of ([facility]); Hyperemesis; HGSIL (high grade 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; Vulvar lesion; Abnormal glucose affecting ([facility]) Start: 10-18-2024 End: 10-18-2024 Telephone [...] Appointment Start: 10-01-2024 End: 10-01-2024 Transcribe Orders Plate Drying Machine Tender Transcribe Provider Maternal Medicine Start: 09-30-2024 End: 09-30-2024 flow sheet Misbah Kraft MD Work Phone: [facility] Comment on above: Second trimester pre gnancy ([facility]); 15 weeks gestation of ([facility]); Hyperemesis; HGSIL (high grade 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; Vulvar lesion; Abnormal glucose affecting ([facility]) Start: 09-30-2024 End: 09-30-2024 ambulatory MISBAH KRAFT Not Available Start: 09-18-2024 End: 09-19-2024 Pre-admission assessment MISBAH KRAFT [facility] Start: 09-17-2024 End: 09-17-2024 flow sheet Misbah Kraft MD Work Phone: [facility] Comment on above: HGSIL (high grade sq uamous intraepithelial lesion) on Pap smear of cervix (Primary Dx); Second trimester ([facility]); 13 weeks gestation of ([facility]); Hyperemesis; Vulvar lesion; Encounter for screening for chromosomal anomalies ([facility]) Start: 09-17-2024 End: 09-17-2024 ambulatory MISBAH KRAFT Not Available Start: 09-11-2024 End: 09-11-2024 ambulatory Teresa Beal [facility] Work Phone: Start: 09-11-2024 End: 09-11-2024 Departed Referred Teresa Beal [facility] Work Phone: Start: 09-04-2024 End: 09-04-2024 Transcribe Orders Misbah Kraft MD Work Phone: [facility] Comment on above[facility] Start: 09-03-2024 End: 09-03-2024 flow sheet Misbah Kraft MD Work Phone: [facility] Comment on above: GA: 11w1d Start: 09-03-2024 End: 09-03-2024 ambulatory MISBAH KRAFT Not Available Start: 08-07-2024 End: 08-07-2024 Orders Only Misbah Kraft MD Work Phone: [facility] Comment on above: Urinary tract infect ion without hematuria, site unspecified (Primary Dx) Start: 08-01-2024 End: 08-01-2024 flow sheet [facility] Ob Nurse [facility] Start: 08-01-2024 End: 08-01-2024 ambulatory MISBAH KRAFT Not Available Start: 07-30-2024 End: 07-30-2024 Clinisync Result Encounter Misbah Kraft MD Work Phone: [facility] External Department Unsolicited Start: 07-30-2024 End: 07-30-2024 Clinisync Result Encounter Misbah Kraft MD Work Phone: [facility] External Department Unsolicited Start: 07-26-2024 End: 07-26-2024 Clinisync Result Encounter Misbah Kraft MD Work Phone: [facility] External Department Unsolicited Start: 07-26-2024 End: 07-26-2024 Clinisync Result Encounter Misbah Kraft MD Work Phone: [facility] External Department Unsolicited Start: 01-04-2024 End: 01-04-2024 Office outpatient visit 10 minutes Misbah Kraft MD Work Phone: [facility] Comment on above: Amenorrhea; Family planning Start: 01-04-2024 End: 01-04-2024 ambulatory MISBAH KRAFT Not Available Start: 12-15-2023 End: 12-15-2023 Orders Only Misbah Kraft MD Work Phone: [facility] Comment on above: Acute vaginitis (Dahiana obed Dx) Start: 12-12-2023 End: 12-12-2023 Initial preventive medicine new pt age 18-39yrs Misbah Kraft MD Work Phone: [facility] Comment on above: Hormone imbalance (P rimary Dx); Encounter for gynecological examination without abnormal finding; Family planning; Thyroid disorder screen; Screen for STD (sexually transmitted disease); Amenorrhea; Vaginal discharge Start: 12-12-2023 End: 12-12-2023 Patient encounter status Misbah Kraft MD Work Phone: [facility] Healthcare Work Phone: Start: 12-12-2023 End: [...] RSV Vaccine (1 - 1-dose 75+ series) [facility] Start: 10-05-2053 Shingles (RZV) Vacci ne (1 of 2) Shingles (RZV) Vaccine (1 of 2) [facility] Start: 11-11-2026 Urine microalbumin profile DTaP,Tdap,Td Vaccine (6 - Td or Tdap) [facility] Start: 11-18-2024 Influenza vaccination [facility] Start: 11-06-2024 End: 11-06-2024 ambulatory 11/06/2024 1:00 PM EDT JOB TRAINER Ultrasound [facility] [address] [place], [place] [id number] [facility] Start: 11-05-2024 End: 11-05-2024 Patient encounter procedure [facility] Start: 11-05-2024 End: 11-05-2024 Professional / ancillary services management [facility] Start: 10-22-2024 End: 10-22-2024 Patient encounter procedure [facility] Comment on above: Second trimester pre gnancy ([facility]); 18 weeks gestation of ([facility]); Hyperemesis; HGSIL (high grade 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; Vulvar lesion; Abnormal glucose affecting ([facility]) Start: 10-16-2024 [facility] Start: 10-16-2024 Urine culture [facility] Start: 10-16-2024 Bacteria identified in Urine by Culture Urine Culture [facility] Start: 10-05-2024 Screening for malign ant neoplasm of cervix Cervical Cancer Screening [facility] Start: 09-30-2024 End: 09-30-2025 Blood count hematocrit Hematocrit Lab Routine 15 weeks gestation of ([facility]) Abnormal glucose affecting ([facility]) Expected: 09/30/2024 (Approximate), Expires: 09/30/2025 [facility] Comment on above: Expected: 09/30/2024 (Approximate), Expires: 09/30/2025 Start: 09-30-2024 End: 09-30-2025 Measurement of glucose 1 hour after glucose challenge for glucose tolerance test GTT, 1 hour Lab Routine 15 weeks gestation of ([facility]) Abnormal glucose affecting ([facility]) Expected: 09/30/2024 (Approximate), Expires: 09/30/2025 [facility] Work Phone: Comment on above: Expected: 09/30/2024 (Approximate), Expires: 09/30/2025 Start: 09-30-2024 End: 09-30-2024 Patient encounter procedure 09/30/2024 1:15 PM EDT Routine [facility] [address] [place] [phone] Misbah Kraft MD [address] [place] [address] [facility] Start: 09-30-2024 End: 09-30-2024 Professional / ancillary services management 09/30/2024 12:30 PM EDT Ancillary Procedure [facility] [address] [place] [phone] [facility] Start: 09-17-2024 End: 09-17-2024 Patient encounter procedure 09/17/2024 12:30 PM EDT Routine [facility] [address] [place] [phone] Misbah Kraft MD [address] [place] [address] [facility] Start: 09-16-2024 End: 09-16-2024 Patient encounter procedure 09/16/2024 1:45 PM EDT Office Visit [facility] [address] [place] [address] Zhanna Martinez MD [address] [place] [address] [facility] Start: 09-11-2024 Urine culture [facility] Start: 09-11-2024 Bacteria identified in Urine by Culture Urine Culture [facility] Start: 09-03-2024 End: 09-03-2024 ambulatory 09/03/2024 2:00 PM EDT Initial [facility] [address] [place] [phone] Misbah Kraft MD [address] [place] [address] [facility] Start: 09-03-2024 End: 09-03-2024 Professional / ancillary services management 09/03/2024 1:00 PM EDT Ancillary Procedure [facility] [address] [place] [phone] [facility] Start: 08-26-2024 End: 08-26-2024 Professional / ancillary services management 08/26/2024 2:00 PM EDT Ancillary Procedure [facility] [address] [place] [address] [facility] Start: 08-01-2024 End: 08-01-2025 Bacteria identified in Urine by Culture Urine culture Microbiology Routine Encounter for supervision of normal first in first trimester Expected: 08/01/2024, Expires: 08/01/2025 [facility] Healthcare Comment on above: Expected: 08/01/2024 , Expires: 08/01/2025 Start: 08-01-2024 End: 08-01-2025 Blood type and Indirect antibody screen panel - Blood Type and screen Lab Routine Encounter for supervision of normal first in first trimester Expected: 08/01/2024, Expires: 08/01/2025 [facility] Healthcare Comment on above: Expected: 08/01/2024 , Expires: 08/01/2025 Start: 08-01-2024 End: 08-01-2025 CBC W Auto Differential panel - Blood CBC and differential Lab Routine Encounter for supervision of normal first in first trimester Expected: 08/01/2024, Expires: 08/01/2025 [facility] Healthcare Comment on above: Expected: 08/01/2024 , Expires: 08/01/2025 Start: 08-01-2024 End: 08-01-2025 DRUG SCREEN 17 W/CONF, UR DRUG SCREEN 17 W/CONF, UR Lab Routine Encounter for drug screening Expected: 08/01/2024, Expires: 08/01/2025 [facility] Healthcare Comment on above: Expected: 08/01/2024 , Expires: 08/01/2025 Start: 08-01-2024 End: 08-01-2025 hCG, quantitative hCG, quantitative Lab Routine Encounter for supervision of normal first in first trimester Expected: 08/01/2024 (Approximate), Expires: 08/01/2025 [facility] Healthcare Comment on above: Expected: 08/01/2024 (Approximate), Expires: 08/01/2025 Start: 08-01-2024 End: 08-01-2025 Hepatitis B virus surface Ag [Presence] in Serum or Plasma by Immunoassay Hepatitis B surface antigen Lab Routine Encounter for supervision of normal first in first trimester Expected: 08/01/2024, Expires: 08/01/2025 [facility] Comment on above: Expected: 08/01/2024 , Expires: 08/01/2025 Start: 08-01-2024 End: 08-01-2025 Hepatitis C virus Ab [Presence] in Serum or Plasma by Immunoassay Hepatitis C antibody Lab Routine Encounter for supervision of normal first in first trimester Expected: 08/01/2024, Expires: 08/01/2025 [facility] Comment on above: Expected: 08/01/2024 , Expires: 08/01/2025 Start: 08-01-2024 End: 08-01-2025 HIV-2 antigen assay HIV-2 antigen Lab Routine Encounter for supervision of normal first in first trimester Expected: 08/01/2024, Expires: 08/01/2025 [facility] Comment on above: Expected: 08/01/2024 , Expires: 08/01/2025 Start: 08-01-2024 End: 08-01-2025 Rpr (dx) w/refl titer and confirmatory testing Rpr (dx) w/refl titer and confirmatory testing Lab Routine Encounter for supervision of normal first in first trimester Expected: 08/01/2024, Expires: 08/01/2025 [facility] Comment on above: Expected: 08/01/2024 , Expires: 08/01/2025 Start: 08-01-2024 End: 08-01-2025 Rubella antibody, IgG Rubella antibody, IgG Lab Routine Encounter for supervision of normal first in first trimester Expected: 08/01/2024, Expires: 08/01/2025 [facility] Comment on above: Expected: 08/01/2024 , Expires: 08/01/2025 Start: 08-01-2024 End: 08-01-2025 Urinalysis complete panel - Urine Urinalysis with microscopic Lab Routine Encounter for supervision of normal first in first trimester Expected: 08/01/2024, Expires: 08/01/2025 [facility] Work Phone: Comment on above: Expected: 08/01/2024 , Expires: 08/01/2025 Start: 08-01-2024 End: 08-01-2024 ambulatory 08/01/2024 1:00 PM EDT Initial [facility] [address] [place] [address] [facility] Start: 01-04-2024 End: 01-04-2024 Patient encounter procedure 01/04/2024 1:45 PM EDT Office Visit [facility] [address] [place] [address] Misbah Kraft MD [address] [place] [address] [facility] Start: 01-04-2024 End: 01-04-2024 Professional / ancillary services management 01/04/2024 1:00 PM EDT Ancillary Procedure [facility] [address] [place] [address] [facility] Start: 12-12-2023 End: 12-11-2024 Cortisol [...] Routine Amenorrhea Expected: 12/12/2023 (Approximate), Expires: 12/11/2024 [facility] Comment on above: Expected: 12/12/2023 (Approximate), Expires: 12/11/2024 Start: 12-12-2023 End: 12-11-2024 Hepatitis B virus surface Ag [Presence] in Serum or Plasma by Immunoassay Hepatitis B surface antigen Lab Routine Screen for STD (sexually transmitted disease) Expected: 12/12/2023 (Approximate), Expires: 12/11/2024 [facility] Comment on above: Expected: 12/12/2023 (Approximate), Expires: 12/11/2024 Start: 12-12-2023 End: 12-11-2024 Hepatitis C virus Ab [Presence] in Serum or Plasma by Immunoassay Hepatitis C antibody Lab Routine Screen for STD (sexually transmitted disease) Expected: 12/12/2023 (Approximate), Expires: 12/11/2024 [facility] Comment on above: Expected: 12/12/2023 (Approximate), Expires: 12/11/2024 Start: 12-12-2023 End: 12-11-2024 HIV-1/HIV-2 antigen/antibody combination immunoassay HIV-1 and HIV-2 antibodies Lab Routine Screen for STD (sexually transmitted disease) Expected: 12/12/2023 (Approximate), Expires: 12/11/2024 [facility] transmitted disease) Expected: 12/12/2023 (Approximate), Expires: 12/11/2024 [facility] Healthcare Comment on above: Expected: 12/12/2023 (Approximate), Expires: 12/11/2024 Start: 12-12-2023 End: 12-11-2024 Luteinizing hormone Luteinizing hormone Lab Routine Hormone imbalance Thyroid disorder screen Expected: 12/12/2023 (Approximate), Expires: 12/11/2024 [facility] Healthcare Comment on above: Expected: 12/12/2023 (Approximate), Expires: 12/11/2024 Start: 12-12-2023 End: 12-11-2024 Progesterone Progesterone Lab Routine Hormone imbalance Expected: 12/12/2023 (Approximate), Expires: 12/11/2024 [facility] Healthcare Comment on above: Expected: 12/12/2023 (Approximate), Expires: 12/11/2024 Start: 12-12-2023 End: 12-11-2024 Reagin Ab [Presence] in Serum by RPR RPR Lab Routine Screen for STD (sexually transmitted disease) Expected: 12/12/2023 (Approximate), Expires: 12/11/2024 [facility] Comment on above: Expected: 12/12/2023 (Approximate), Expires: 12/11/2024 Start: 12-12-2023 End: 12-11-2024 Sex hormone binding globulin Sex hormone binding globulin Lab Routine Hormone imbalance Expected: 12/12/2023 (Approximate), Expires: 12/11/2024 [facility] Healthcare Comment on above: Expected: 12/12/2023 (Approximate), Expires: 12/11/2024 Start: 12-12-2023 End: 12-11-2024 Testosterone, free, total Testosterone, free, total Lab Routine Hormone imbalance Expected: 12/12/2023 (Approximate), Expires: 12/11/2024 [facility] Healthcare Comment on above: Expected: 12/12/2023 (Approximate), Expires: 12/11/2024 Start: 12-12-2023 End: 12-11-2024 Thyrotropin [Units/volume] in Serum or Plasma TSH Lab Routine Hormone imbalance Thyroid disorder screen Expected: 12/12/2023 (Approximate), Expires: 12/11/2024 [facility] Work Phone: Comment on above: Expected: 12/12/2023 (Approximate), Expires: 12/11/2024 Start: 11-19-2023 Covid-19 Vaccine ( season) Covid-19 Vaccine ( season) [facility] Start: 11-19-2023 COVID-19 Vaccine ( season) COVID-19 Vaccine ( season) [facility] Start: 11-19-2023 Influenza vaccination Influenza Vacc ine (#1) [facility] Start: 10-05-2022 Hepatitis A (HAV) Va ccine (optional start 19+ years) Hepatitis A (HAV) Vaccine (optional start 19+ years) [facility] Start: 10-05-2022 Hepatitis B vaccination Hepati tis B (HBV) Vaccine (1 of 3 - 19+ 3-dose series) [facility] Start: 10-05-2022 Hepatitis B Vaccine (1 of 3 - 19+ 3-dose series) Hepatitis B Vaccine (1 of 3 - + 3-dose series) [facility] Start: 10-05-2022 Urine microalbumin profile DTaP,Tdap,Td Vaccine (1 - Tdap) [facility] Start: 10-05-2021 Anxiety Screening Anxiety Screening [facility] Start: 10-05-2021 Depression Screening Depression Scre ening [facility] Start: 10-05-2021 GC (Gonorrhea) Scree martina (18-24) GC (Gonorrhea) Screening (18-24) [facility] Start: 10-05-2021 [facility]atitis C screening [facility] Start: 10-05-2021 HIV screening HIV Screening [facility] Start: 10-05-2021 Screening for Chlamy victor manuel trachomatis [facility] Start: 10-05-2021 Tdap Booster Tdap Booster [facility] Start: 2019 Meningococcal B (Bexsero,OMV) Vaccine (Optional,16-23 years) Meningococcal B (Bexsero,OMV) Vaccine (Optional,16-23 years) [facility] Start: 2019 Meningococcal B Vacc ine (1 of 2 - Standard) Meningococcal B Vaccine (1 of 2 - Standard) [facility] Start: 10-05-2018 HIV screening HIV Test [facility] Start: 10-05-2018 HPV Vaccine (1 - 3-d ose series) HPV Vaccine (1 - 3-dose series) [facility] Start: 10-05-2018 Vaccination for nicolas n papillomavirus HPV Vaccine (1 - 3-dose series) [facility] [place] Start: 10-05-2017 Peds To Adult Transi tion Annual Assessment Peds To Adult Transition Annual Assessment [facility] Start: 2015 Peds To Adult Transi tion Initial Discussion Peds To Adult Transition Initial Discussion [facility] Albumin/Globulin ratio [facility] Anion gap measurement [facility] Basophils [#/volume] in Blood by Automated count [facility] Basophils/100 leukoc ytes in Blood by Automated count [facility] Eosinophils/100 leukocytes in Blood by Automated count [facility] Erythrocyte distribu tion width [Ratio] by Automated count [facility] Erythrocytes [#/volu me] in Blood [facility] Globulin [Mass/volum e] in Serum [facility] Hematocrit [Volume Fraction] of Blood [facility] Hemoglobin [Mass/vol ume] in Blood [facility] Hemoglobin, Hemoglobin, fe claudio Lab Routine Trauma Ordered: 10/22/2024 [facility] Healthcare Work Phone: Comment on above: Ordered: 10/22/2024 Leukocytes [#/volume ] corrected for nucleated erythrocytes in Blood by Automated coun [facility] Leukocytes [#/volume ] in Blood [facility] Lymphocytes [#/volum e] in Blood by Automated count [facility] Lymphocytes/100 leukocytes in Blood by Automated count [facility] Herbert miscellaneous test [place] mis cellaneous test Lab Routine Screen for STD (sexually transmitted disease) Amenorrhea Vaginal discharge Ordered: 12/12/2023 [facility] Comment on above: Ordered: 12/12/2023 MCH [Entitic mass] b y Automated count [facility] MCHC [Mass/volume] b y Automated count [facility] MCV [Entitic volume] by Automated count [facility] Monocytes [#/volume] in Blood by Automated count [facility] Monocytes/100 leukoc ytes in Blood by Automated count [facility] Neutrophils [#/volum e] in Blood by Automated count [facility] Neutrophils/100 leukocytes in Blood by Automated count [facility] Nucleated erythrocyt es [Presence] in Blood by Automated count [facility] NuSwab Vaginitis Plu s (VG+) NuSwab Vaginitis Plus (VG+) Microbiology Routine Screen for STD (sexually transmitted disease) Amenorrhea Vaginal discharge Ordered: 12/12/2023 [facility] Comment on above: Ordered: 12/12/2023 NuSwab Vaginitis Plu s (VG+) Nuab Vaginitis Plus (VG+) Microbiology Routine First trimester ([facility]) 11 weeks gestation of ([facility]) Ordered: 09/03/2024 [facility] Healthcare Work Phone: Comment on above: Ordered: 09/03/2024 Patient Education - Th e Fifth Month [facility] Work Phone: Patient referral [facility] Work Phone: Platelet mean volume [Entitic volume] in Blood by Automated count [facility] Platelets [#/volume] in Blood [facility] End: 04-02-2025 US for in second or third trimester [facility] OB Imaging Routine BMI 60.0-69.9, adult 1 Occurrences starting 09/04/2024 until 04/02/2025 [facility] Work Phone: Comment on above: 1 Occurrences starti ng 09/04/2024 until 04/02/2025 Payers Date Payer Category Payer Self-pay 2024 Medicaid [id number] 2024 Medicaid [id number] 2017 [facility] [id number] [id number] 2017 Unknown BCBS BCBS [id number] 2017-Present [phone] [address] [place] [address] [id number] 2003 Unknown [id number] 93 2003 Unknown [id number] 2.16.840.1.448919.3.579.2.5 93 2003 Unknown [id number] 2.16.840.1.171813.3.579.2.5 93 2003 Unknown [id number] [id number] 259 2003 Unknown [id number] 2.16.840.1.561908.3.579.2.1 259 2003 Unknown [id number] 2.16.840.1.128229.3.579.2.1 259 2003 Unknown [id number] 2.16.840.1.115992.3.579.2.1 259 2003 Unknown [id number] 2.16.840.1.711595.3.579.2.1 259 2003 Unknown [id number] 2.16.840.1.236800.3.579.2.1 259 2003 Unknown [id number] 2.16.840.1.665290.3.579.2.1 259 2003 Unknown [id number] 2.16.840.1.744065.3.579.2.1 259 1959 Unknown [id number] Private Health Insurance [id number] Unknown [id number] 31 Social History Date Type Detail Facility [...] End: 10-22-2024 Alcoholic beverage intake Ex-drinker (finding) [facility] Start: 08-01-2024 Alcohol Comment Caffiene Intake- pt reports 1 can daily [facility] Start: 07-01-2024 [facility] Start: 09-04-2024 Sex Female (finding) [facility] Start: 2005 Sex Assigned At Female [facility] Tobacco smoking status [facility] Medical Equipment Procedure Code Equipment Code Equipment Origin al Text Equipment Identifier Dates Use as directed to test blood sugar three times per week [id number] Start: 09-03-2024 End: 09-03-2025 1 Device 3 (thre e) times a week [id number] Start: 09-04-2024 Goals Date Patient Goal Desired [...] led to a nearly 6-day stay at [facility]. She mentions a fall on the deck, [...] dipstick manually resulted 18 weeks gestation of ([facility]) - POCT urinalysis dipstick manually resulted Hyperemesis HGSIL (high grade 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 Vulvar lesion Abnormal glucose affecting ([facility]) Continue vitamin. Labs reviewed. Rhogam A- GTT completed 10/01/23- Normal. Follow up in 2 weeks for a routine visit. Assessment & Plan 1. Assessment: Patient is currently , with concerns about well-being. Unable to detect heartbeat with home Doppler, which led to a 6-hour hospital stay at [facility]. Recent fall on deck raised additional concerns. [...] anxiety management during documented in this encounter [facility] 10-18-2024 Telephone encounter Note 3rd and final attempt to call and schedule pt re: referral from [facility]. No answer, LVM informing pt and asking to call back to schedule. Kat Dietrich MA [facility] 10-18-2024 Miscellaneous Notes 3rd and final attempt to call and schedule pt re: referral from [facility]. No answer, LVM informing pt and asking to call back to schedule. Kat Dietrich MA documented in this encounter [facility] 10-16-2024 Radiology Diagnostic study note [facility] [place] [address] Ultrasound Report Signed Patient: Junior Baldwin MR#: [id number] : 2005 Acct:[id number] Age/Sex: 19 / F ADM Date: 5 [...] Mccloud M.D. 10/16/2024 9:30 PM Dictation Location: [employer] Tech: Andria Harter Transcribed By: CHRISTY 10/16/242129 Dictated By: Bradley Mccloud MD 10/16/242127 Signed By: 10/16/242129 [facility] Work Phone: 10-07-2024 Telephone encounter Note 2nd attempt to contact pt re: referral from [facility]. No answer, LVM asking pt to call back and schedule. Kat Dietrich MA [facility] 10-07-2024 Miscellaneous Notes 2nd attempt to contact pt re: referral from [facility]. No answer, LVM asking pt to call back and schedule. Kat Dietrich MA documented in this encounter [facility] 10-02-2024 Telephone encounter Note Called pt re: referral from [facility]. No answer, LVM asking pt to call back and schedule. Kat Dietrich MA [facility] 10-02-2024 Miscellaneous Notes Called pt re: referral from [facility]. No answer, LVM asking pt to call back and schedule. Kat Dietrich MA documented in this encounter [facility] 09-30-2024 History of Present illness Narrative [...] all orders for this visit: Second trimester ([facility]) - POCT urinalysis dipstick manually resulted 15 weeks gestation of ([facility]) - POCT urinalysis dipstick manually resulted - GTT, 1 hour; Future - Hematocrit; Future Hyperemesis HGSIL (high grade 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 Vulvar lesion Abnormal glucose affecting ([facility]) - GTT, 1 hour; Future - Hematocrit; Future Continue vitamin. Labs reviewed. Rhogam A- GTT to be completed today Incomplete anatomy US-referral to [facility] for completed survey Follow up in 2 weeks for a routine visit. Assessment & Plan documented in this encounter [facility] 09-17-2024 History of Present illness Narrative Subjective [...] clothing. 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 The lesions [...] on Pap smear of cervix Second trimester ([facility]) - POCT urinalysis dipstick manually resulted 13 weeks gestation of ([facility]) - POCT urinalysis dipstick manually resulted Hyperemesis Vulvar lesion - HSV 1 AND 2 AB, IGG; Future Encounter for screening for chromosomal anomalies ([facility]) - [id number] PLUS Core+SCA; Future Continue vitamin. Labs reviewed. Rhogam to be ordered at 24 weeks, A- GTT to be completed gibson Follow up in 2 weeks for a routine visit. Assessment & Plan 1. : - Approximately 13 weeks gestation - heartbeat detected on previous visit - Blood pressure reported as great today - Family history of hypertension ([id number]'s blood pressure 126%, units unclear) - Plan: [...] for next visit documented in this encounter [facility] 09-04-2024 Note External referral re ceived for maternal medicine and ultrasound scheduling. Left message for patient to contact us to confirm visit. Due to limited availability visit scheduled when patient calls back [place] [phone] [facility] 09-04-2024 Telephone encounter Note External referral received for maternal medicine and ultrasound scheduling. Left message for patient to contact us to confirm visit. Due to limited availability visit scheduled when patient calls back please transfer to [phone] [facility] 09-04-2024 Miscellaneous Notes External referral received for maternal medicine and ultrasound scheduling. Left message for patient to contact us to confirm visit. 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 The patient [...] to 200 mg per day, lives in [place], and has cats at home. She has [...] day as needed for nausea First trimester ([facility]) - POCT urinalysis dipstick manually resulted - NuSwab Vaginitis Plus (VG+) 11 weeks gestation of ([facility]) - POCT urinalysis [...] A 20-week ultrasound will be scheduled at [facility]. Regular appointments every 2 to 3 weeks will be scheduled to monitor her blood pressure. A Glucola monitor will be provided for her to check her fasting glucose levels three times a week. An ultrasound will be performed in a month, followed by another one at 20 weeks if [facility] does not conduct it. Follow-up Follow up in 2 weeks. 1. High-risk : - Assessment: - Patient classified as high-risk due to obesity (>400 lbs) and potential for gestational diabetes - Higher risk of section - Severe nausea and vomiting reported, including an episode requiring patient to hand assembler for puller over while driving - heart rate detected - Current blood pressure: 120/70 (within normal limits) - Plan: a) Monitor weight and blood pressure every 2 weeks b) Perform glucose monitoring 3 times per week (fasting) c) Schedule ultrasound in 1 month d) Plan for 20-week anatomy scan at [facility] e) Arrange for dietary [...] fasting glucose levels documented in this encounter [facility] 08-07-2024 History of Present illness Narrative UTI documented in this encounter [facility] 08-01-2024 History of Present illness Narrative Name: [...] testing discussed. Pt was given brochure to [employer] and discuss with PPJ at first appt. Last PAP: Under 21 ASSESSMENT / PLAN Labs Ordered to [facility] Appointments scheduled for OB US 08/26 and PPJ appt on 09/03. Jessica Joyner MA 08/01/2024 2:13 PM documented in this encounter [facility] 01-04-2024 History of Present illness Narrative Images [...] b) Instruct patient to sign up for [employer] to access test results. 3. STD screening: [...] a) Encourage patient to sign up for [facility] to access test results and medical information. [...] in the future. documented in this encounter [facility] 12-15-2023 History of Present illness Narrative BV documented in this encounter [facility] 12-12-2023 History of Present illness Narrative Images [...] b) [facility]. 3. STD [...] Return 1 year/prn documented in this encounter [facility] Healthcare Evaluation + Plan note No data available for this section [facility] Evaluation note Diagnosis Amenorrhea Absence of [...] [facility] Work Phone: Evaluation note* Diagnosis HGSIL (high grade 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- Primary Second trimester ([facility]) state, incidental 13 weeks gestation of ([facility]) Hyperemesis Persistent vomiting Vulvar lesion Other specified noninflammatory disorder of vulva and perineum Encounter for screening for chromosomal anomalies ([facility]) documented [facility] encounter [facility]* Diagnosis Second trimester ([facility]) state, incidental 15 weeks gestation of ([facility]) Hyperemesis Persistent vomiting HGSIL (high grade 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 Vulvar lesion Other specified noninflammatory disorder of vulva and perineum Abnormal glucose affecting ([facility]) documented in this encounter [facility] Healthcare[facility] note* Diagnosis Trauma- Primary Injury, other and unspecified, unspecified site Second trimester ([facility]) state, incidental 18 weeks gestation of ([facility]) Hyperemesis Persistent vomiting HGSIL (high grade 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 Vulvar lesion Other specified noninflammatory disorder of vulva and perineum Abnormal glucose affecting ([facility]) documented in this encounter [facility]ospital Discharge instructions No data available for this section [facility] Progress note No data available for this section [facility] Reason for referral (narrative)No reason for referral information availableMadison Health Work Phone: Summary Purpose Family History Relationship Condition Age at Onset Recorded Date/T herbert mother Heart disease Unknown Chronic obstructive pulmonary disease Unk nown Advance Directives Advance Directive Response Recorded Date/ Time Advance Directives No October 16 10:11pm Additional Source Comments INFORMATION SOURCE (unrecogn ized section and content) DATE CREATED AUTHOR 05/25/2022 [facility] DATE CREATED AUTHOR AUTHOR'S ORGANIZ ATION 09/20/2024 [facility] DATE CREATED AUTHOR AUTHOR'S ORGANIZ ATION 10/03/2024 [facility] EPIC DATE CREATED AUTHOR AUTHOR'S ORGANIZ ATION 10/05/2024 [facility] DATE CREATED AUTHOR AUTHOR'S ORGANIZ ATION 10/19/2024 [facility] DATE CREATED AUTHOR AUTHOR'S ORGANIZ ATION 10/21/2024 [facility] Reason for Visit (unrecogniz ed section and [...] PNC, patient states she was seen at [facility] she states she was there for stomach [...] pressure. 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 Relationship Specialty Start Date End Date Unallocated, Nicolás Roque MD [facility], 1928–[address] [place] [address] PCP - General Family Medicine 01/04/24 Plumbing Assembler Installer Relationship Specialty Start Date End Date Unallocated, Nicolás Roque MD [facility], [facility]–[address] [facility] [place] [address] PCP - General Family Medicine 01/04/24 Plumbing Assembler Installer Relationship Specialty Start Date End Date Unallocated, Nicolás Roque MD [facility], [facility]–[address] [facility] [facility] [place] [address] PCP - General Family Medicine 01/04/24 Plumbing Assembler Installer Relationship Specialty Start Date End Date Unallocated, Nicolás Roque MD [facility], [facility]–[address] [facility]OUGH [facility] [place] [address] PCP - General Family Medicine 01/04/24 Plumbing Assembler Installer Relationship Specialty Start Date End Date Unallocated, Nicolás Roque MD [facility], [facility]–[address] [facility] [place] [address] PCP - General Family Medicine 01/04/24 Plumbing Assembler Installer Relationship Specialty Start Date End Date Unallocated, Nicolás Roque MD [facility], [facility]–[address] [facility] [place] [address] PCP - General Family Medicine 01/04/24 Team Status: Inactive Member Role Status Dates Teresa Beal DO Attending Provider Active Start: September 11, 2024 End: September 11, 2024 Plumbing Assembler Installer Relationship Specialty Start Date End Date Unallocated, Nicolás Roque MD [facility], [facility]–[address] [facility] [place] [address] PCP - General Family Medicine 01/04/24 Plumbing Assembler Installer Relationship Specialty Start Date End Date Unallocated, Nicolás Roque MD [facility], 1928–[address] [facility] [place] [address] PCP - General Family Medicine 01/04/24 Plumbing Assembler Installer Relationship Specialty Start Date End Date Luca Marshall MD PCP - General Family Medicine 07/18/14 Plumbing Assembler Installer Relationship Specialty Start Date End Date Luca Marshall MD PCP - General Family Medicine 07/18/14 Plumbing Assembler Installer Relationship Specialty Start Date End Date Luca [...] October 16, 2024 End: October 16, 2024 Plumbing Assembler Installer Relationship Specialty Start Date End Date Luca Marshall MD PCP - General Family Medicine 07/18/14 Plumbing Assembler Installer Relationship Specialty Start Date End Date Unallocated, Nicolás Roque MD [address] [place] [address] PCP - General Family Medicine 01/04/24 Plumbing Assembler Installer Relationship Specialty Start Date End Date Unallocated, Nicolás Roque MD [address] [facility] [place] [address] PCP - General Family Medicine 01/04/24 Goals [...] or prosecute any alcohol or drug abuse patient.[facility] the event this information is protected by the Federal Confidentiality of Alcohol and Drug Abuse Patient Records regulations: The Federal rules restrict any use of the information to criminally investigate or prosecute any alcohol or drug abuse patient.[facility] Center[facility] the event this information is protected by the Federal Confidentiality of Alcohol and Drug Abuse Patient Records regulations: The Federal rules restrict any use of the information to criminally investigate or prosecute any alcohol or drug abuse patient.[facility] Center[facility] the event this information is protected by the Federal Confidentiality of Alcohol and Drug Abuse Patient Records regulations: The Federal rules restrict any use of the information to criminally investigate or prosecute any alcohol or drug abuse patient.[facility] FOR RECORDS PERTAINING TO PATIENTS WHO [...] BE BASED ON THE PRIMARY CLINICAL RECORDS. [facility]. provides no warranty or guarantee of the accuracy or completeness of information in this document.
[2024-10-30 00:30] LABS: Glucose Urine UA NEGATIVE (NEGATIVE)
[2024-10-30 00:32] VITALS: BP 140/71; PULSE 98
== END 2024-10-30 01:47 | disposition home or self-care (01) ==
PROVIDERS: Admitting Provider Obstetrics & Gynecology; PCP Family Medicine; Visit Provider Obstetrics & Gynecology
DX: O26.892 Other specified pregnancy related conditions, second trimester (principal); R10.9 Unspecified abdominal pain; Z3A.19 19 weeks gestation of pregnancy; Z87.440 Personal history of urinary (tract) infections
CPT/HCPCS: 81003; G0378; G0379

== ENCOUNTER 2025-01-03 09:07 | Outpatient (RCR) | payer BC, SELFPAY ==
[2025-01-03 11:16] VITALS: BP 134/93; PULSE 105; TEMP 36.6; O2SAT 99
[2025-01-03] MEDS: RHO(D) IMMUNE GLOBULIN 1,500 UNIT SYRINGE 1500 UNIT IM (11:21)
--- NOTE | 2025-01-03 11:47 | PC.NURSE ---
1140 tolerated infusion without any s/s of reation. released ambulatory.
== END 2025-01-20 11:59 | disposition home or self-care (01) ==
LOC: LAB 09:07
PROVIDERS: PCP Family Medicine; Visit Provider Specialist
DX: Z01.83 Encounter for blood typing (principal); Z51.81 Encounter for therapeutic drug level monitoring; O26.892 Other specified pregnancy related conditions, second trimester; Z67.91 Unspecified blood type, Rh negative
CPT/HCPCS: 36415; 86850; 86900; 86901; 96372; J2791

== ENCOUNTER 2025-02-04 19:15 | Emergency (ER) | payer BC, SELFPAY ==
[2025-02-04 19:20] VITALS: BP 143/97; PULSE 110; TEMP 36.7; O2SAT 100; BMI 51.7
--- OUTSIDE RECORDS SUMMARY | 2025-02-04 19:53 | XMS_ITS | CCD ---
Author Organization [facility] Care Team Providers Care Family Sociologist Name Role Phone GRICELDA EDMOND Consulting Unavailable GRICELDA EDMOND Attending Unavailable FELI GRICELDA P Admitting Unavailable FELI, GRICELDA P Primary Care Unavailable ROSAS ., DR SEGOVIA Consulting Unavailable ROSAS ., DR SEGOVIA Attending Unavailable ROSAS ., DR SEGOVIA Admitting Unavailable FELI GRICELDA Santiago Primary Care Unavailable FELI GRICELDA P Primary Care Unavailable FELI, GRICELDA P Consulting Unavailable FELI, GRICELDA P Attending Unavailable FELI GRICELDA P Admitting Unavailable Unallocated , Noms Provider Primary Care Provi eliana Unavailable Primary Care Provider Unavailabl e Unavailable Primary Care Provider Unavailabl e Teresa Beal DO Attending Provider Luca Marshall MD Primary Care Provider [id number] [phone] Luca Marshall MD Primary Care Provider [phone] Tano Simon DO Emergency Provider [phone] Tano Simon Attending Unavailable Luca Marshall Primary Care Unavailable Tano Simon Admitting Unavailable Teresa Beal Admsivan Unavailable Teresa Beal Attending Unavailable Ana M Sheppard APRN Attending Provider ALEIDA KRAFT Attending Unavailable ALEIDA KRAFT Attending Unavailable ALEIDA KRAFT Attending Unavailable ALEIDA KRAFT Attending Unavailable KRAFT, PENYASMIN P Attending Unavailable KRAFT, PENYASMIN P Referring Unavailable ABENA PENYASMIN P Attending Unavailable ABENA PENYASMIN P Attending Unavailable Medications Current Medications MedicationDrug Class(es)DatesSig (Normalized)Sig (Original)Blood Glucose Monitoring Suppl (True Metrix Air Glucose Meter) device (15 sources)Start: 66-29-0764Dipwb Glucose Monitoring Suppl (True Metrix Air Glucose Meter) device Indications: First trimester ([facility]) , 11 weeks gestation of ([facility]) , Abnormal glucose affecting ([facility]) 1 Device 3 (three) times a week 1 each 09/04/2024 ActiveBlood-Glucose Meter (Onetouch Ultra2 Meter) misc (1 source)Start: 86-82-8258Yevru-Glucose Meter (Onetouch Ultra2 Meter) misc Active EACH .ROUTE .MEDSUPPLY 1 November 25, 2024 12:00am As directed clindamycin 20 mg/ml vaginal cream (1 source)Lincosamide AntibacterialStart: 12-15-2023 End: 84-12-5566rhdbqzkqokv (Cleocin) 2 % vaginal cream Indications: Bacterial Vaginosis Insert 1 applicator into the vagina at bedtime for 7 days 40 g 2 12/15/2023 12/22/2023 Activeondansetron 4 mg oral tablet (9 sources)Serotonin-3 Receptor AntagonistStart: 11-05-2024 End: 18-06-9648Yvuqttnpgip Hcl 4 mg tablet Active MG PO November 25, 2024 12:00am Complies with drug therapyStart: 09-03-2024 End: 83-23-1863fcgw 1 tablet by mouth twice daily as needed for nausea ondansetron (Zofran) 4 MG tablet Indications: Hyperemesis Take 1 tablet (4 mg) by mouth 2 (two) times a day as needed for nausea 20 tablet 3 09/03/2024 10/03/2024 ActivePrenatal Vit-Fe Fumarate-FA ( PO) (16 sources) Vit-Fe Fumarate-FA ( PO) Take by mouth Active Completed/Discontinued Medications MedicationDrug Class(es)DatesSig (Normalized)Sig (Original)cephalexin 500 mg oral capsule (2 sources)Cephalosporin AntibacterialStart: 10-19-2024 End: 25-65-7678cpdc 1 capsule by mouth four times dailyCephalexin 500 mg capsule Discontinued 500 MG PO Four times daily 14 10October 19, 2024 12:00am November 25, 2024 2:41pmStart: 08-07-2024 End: 45-75-6358zdifnlipvx (Keflex) 500 MG capsule Indications: Urinary tract infection without hematuria, site unspecified Take 1 capsule (500 mg) by mouth in the morning and 1 capsule (500 mg) at noon and 1 capsule (500 mg) in the evening and 1 capsule (500 mg) before bedtime. Do all this for 10 days. 40 dizioke3008/07/2024 08/17/2024 Active Problems Active Problems Problem ClassificationProblemDateDocumented DateEpisodic/ChronicCancer of cervix (10 sources)High grade squamous intraepithelial lesion on cervical Papanicolaou smear; Translations: [High grade squamous intraepithelial lesion on cytologic smear of cervix (HGSIL)]44-63-1850UvhfsqqlNifcfsuo mellitus without complication (12 sources)Abnormal glucose level; Translations: [Abnormal glucose complicating ]82-68-8277CmcvhphvFrczansplcctf and screening for infectious disease (12 sources)Patient encounter status; Translations: [Encounter for other general counseling and advice on contraception]86-14-9677DemdyzvvLijsourdkrhm diseases of female pelvic organs (1 source)Acute vaginitis; Translations: [Acute vaginitis]64-89-2390Qllbjjru Menstrual disorders (3 sources)Amenorrhea; Translations: [Amenorrhea, unspecified]28-35-1270Ooyuigz Nausea and vomiting (12 sources)Hyperemesis; Translations: [Vomiting, unspecified]05-43-4823Plqvqyza Other complications of (1 source)Unspecified infection of urinary tract in , first trimester; Translations: [Unspecified infection of urinary tract in , first trimester]Onset: 23-30-1590XbpqykohOkdmh complications of (2 sources)RhD negative; Translations: [Other specified related conditions, second trimester]01-07-1509NhtqzbrdTaelq endocrine disorders (2 sources)Disorder of endocrine system; Translations: [Endocrine disorder, unspecified]77-42-4818EgqldnijWkgbm female genital disorders (2 sources)Vaginal discharge; Translations: [Other specified noninflammatory disorders of vagina]67-39-3910EdpelynrIqqnh female genital disorders (10 sources)Lesion of vulva; Translations: [Other specified noninflammatory disorders of vulva and perineum]90-14-3993DtywwxgzKaicl injuries and conditions due to external causes (6 sources)Traumatic injury; Translations: [Injury, unspecified, initial encounter]91-97-2945SigmuqxaZlwri nutritional; endocrine; and metabolic disorders (3 sources)Morbid obesity; Translations: [Body mass index (BMI) 60.0-69.9, adult]91-28-0588GraxvyuUdqpa nutritional; endocrine; and metabolic disorders (6 sources)Weight decreased; Translations: [Abnormal weight loss]11-05-2024 EpisodicOther and delivery including normal (15 sources)Normal ; Translations: [Encounter for supervision of normal first , first trimester]08-10-2830YclxifseSzgup upper respiratory infections (1 source)Sore throat symptom; Translations: [Acute pharyngitis, unspecified] 77-04-7386EyxmpizfAktnwajz codes; unclassified (1 source)Pain, unspecified; Translations: [PAIN UNSPECIFIED]Onset: 05-24-2022 EpisodicResidual codes; unclassified (2 sources)Gestation period, 11 weeks; Translations: [11 weeks gestation of ]15-18-0415JuxhfzxjPwhndtjg codes; unclassified (2 sources)Gestation period, 13 weeks; Translations: [13 weeks gestation of ]31-76-2579LnvixwfiTilijngq codes; unclassified (2 sources)Gestation period, 15 weeks; Translations: [15 weeks gestation of ]61-90-5381KoaldmlzAzpdmdth codes; unclassified (2 sources)Gestation period, 18 weeks; Translations: [18 weeks gestation of ]69-98-2258HhbwchoqEkmiaxhr codes; unclassified (2 sources)Gestation period, 20 weeks; Translations: [20 weeks gestation of ]27-32-8007YqtkffwkRietxrdu codes; unclassified (2 sources)Gestation period, 30 weeks; Translations: [30 weeks gestation of ]35-22-9990HvnuzeswRsvinweuprbu (4 sources)CONTACT W/AND (SUSP) EXPOS COVID-19; Translations: [CONTACT W/AND (SUSP) EXPOS COVID-19]Onset: 65-54-8129Irvsvkkhpntj (4 sources)COUGH, UNSPECIFIED; Translations: [COUGH, UNSPECIFIED]Onset: 09-88-6369Oecaqrystlqz (17 sources)OB RemindersOnset: 344758-94-0485Vgkdccq tract infections (1 source)Urinary tract infectious disease; Translations: [Urinary tract infection, site not specified]41-87-1494Ktqanohn Past or Other Problems Problem ClassificationProblemDateDocumented DateEpisodic/ChronicFever of unknown origin (4 sources)Fever, unspecified; Translations: [FEVER UNSPECIFIED]Onset: 00-70-7976FictxtbeAubkbit and fatigue (1 source)Other fatigue; Translations: [OTHER FATIGUE]Onset: 71-27-3254Semmtnoq Unclassified (1 source)CONTACT W/AND (SUSP) EXPOS COVID-19; Translations: [CONTACT W/AND (SUSP) EXPOS COVID-19]Onset: 23-26-5231Egxzpwqsfpcv (1 source)COUGH, UNSPECIFIED; Translations: [COUGH, UNSPECIFIED]Onset: 47-96-0775VTHYGFQ: Highlighted row has been ruled out!Unclassified (3 sources)No known active ipknrljw51-27-7323 Results Test NameValueInterpretationReference RangeFacilityUrinalysis macro (dipstick) panel (U)on 89-69-6620Tsolsdkuh, UANegativeNegative - 4(70) +++ mg/dLNOMS HealthcareBlood, UANegativeNegative - 50 Grady/mcLNOMS HealthcareClarity, UAClear NOMS HealthcareColor, UAYellowNOMS HealthcareGlucose, UANegativeNegative - 2000(110) ++++ mg/dLNOMS HealthcareInterpretation and review of laboratory resultsNormalNOMS HealthcareKetones, UANegativeNegative - 160(16) ++++ mg/dLNOMS HealthcareLeukocytes, UANegativeNegative - 500+++ Tk/mcLNOMS HealthcareNitrite, UANegativeNegative - PositiveNOMS HealthcarepH, UA5.05 - 9NOM[facility] Healthcare Protein, UANegativeNegative - 1999(20) ++++ mg/dLNOMS HealthcareSpec Grav, UA 1.0001 - 1.03NOMS HealthcareUrobilinogen, UA0.20.2 - 12 mg/dLNOMS HealthcareNOMS HealthcareNo Panel InformationOrdered By: Ana M Sheppard on 02-44-7921Hqhkq Strep (POC)[facility] UA (CLEAN/CATCH) BOBBIN PAINTER/MICRO IF IND.on 59-69-1801KCAKBZEMO URINENegativeNEGATIVENOMS HealthcareBLOOD URINENegative NEGATIVENOMS HealthcareClarity (U)CLEARCLEARNOMS HealthcareColor (U)YELLOWYELLOW N[facility] HealthcareGLUCOSE URINE UANegativeNEGATIVE mg/dLNOMS Healthcare Interpretation and review of laboratory resultsAbnormalNOMS HealthcareKetones Ql (U)TRACEAbnormalNEGATIVE mg/dLNOMS HealthcareLeukocyte esterase Test strip Ql (U)NegativeNEGATIVENOMS HealthcareNITRITE URINENegativeNEGATIVENOMS HealthcarepH (U)6.0 [pH]5.0 - 9.0NOMS HealthcarePROTEIN URINETRACENEG/TRACE mg/dLNOMS HealthcareSPECIFIC GRAVITY URINE1.0251.005 - 1.025NOMS HealthcareURINE MICROSCOPIC INDICATEDNONOMS HealthcareUROBILINOGEN URINE1.0 EU/dL0.2 - 1.0 EU/dL N[facility] HealthcareCLINISYNCNOMS HealthcareUrinalysis macro (dipstick) panel (U)on 01-29-9849Hgkdsifqa, UANegativeNegative - 4(70) +++ mg/dLNOMS HealthcareBlood, UANegativeNegative - 50 Grady/mcLNOMS HealthcareClarity, UACloudyNOMS Healthcare Color, UAYellowNOMS HealthcareGlucose, UA2+Negative - 1999(110) ++++ mg/dLNOMS HealthcareInterpretation and review of laboratory resultsAbnormalAL[facility]IEW [facility]ITAL Healthcare Ketones, UANegativeNegative - 160(16) ++++ mg/dLNOMS HealthcareLeukocytes, UA1+ Negative - 500+++ Tk/mcLNOMS HealthcareNitrite, UANegativeNegative - Positive N[facility]S HealthcarepH, UA65 - 9NOMS HealthcareProtein, UA2+Negative - 1999(20) ++++ mg/dLNOMS HealthcareSpec Grav, UA11 - 1.03NOMS HealthcareUrobilinogen, UA0.20.2 - 12 mg/dLBarnes-Jewish HospitalNOIA HealthcareCNPNon 69-84-7826JRVMXfqgixbqr (OBGYF2) JESSICA BALDWIN ([id number]) 1 F Date Time Provider Department 10/18/24 [...] (None) Encounter Status:Closed by KAT DIETRICH on 10/18/24NoSt. Francis HospitalAppearance of UrineOrdered By: PROVIDER TEMSantiago on 49-08-9441Pfpokulxmo (U)CloudyAbnormalCleSelect Medical Specialty Hospital - AkronComment on above:Order Comment: Name Collection Type:: VoidedPerformed By: #### CUU, ADDONUAPLUS #### [facility] [address] [place] [address] USABacteria [Presence] in Urine by AutomatedOrdered By: PROVIDER TEMP on 84-65-6747Pqnxgswe Auto Ql (U)3+ [HPF]HighNone SeenParkview HealthBilirubin Test strip Ql (U)Ordered By: PROVIDER TEMP on 91-29-4310Vfdxzyoic Ql (U)NegativeNegativeParkview HealthColor of Urine by AutoOrdered By: PROVIDER TEMP on 65-25-5581Ginju (U)YellowYellow Parkview HealthComment on above:Order Comment: Name Collection Type:: VoidedPerformed By: #### CUU, ADDONUAPLUS #### [facility] [address] [place] [address] USADipstick and Microscopicon 10-41-1948Qslifplh,Urine3+ [HPF]NormalNone SeenThe St. Luke'S Hospital Physician GroupComment on above:Order Comment: Name Collection Type:: VoidedPerformed By: #### CUU, ADDONUAPLUS #### [place] [address] USABilirubin,UrineNegativeNormalNegativeThe [address] Luke'S Hospital Physician GroupComment on above:Order Comment: Name Collection Type:: Voided Performed By: #### CUU, ADDONUAPLUS #### [place] [address] USAGlucose Ql (U)NormalNormalNormalThe St. Luke'S Hospital Physician GroupComment on above:Order Comment: Name Collection Type:: VoidedPerformed By: #### CUU, ADDONUAPLUS #### [place] [address] USAHyaline Casts,Tpsid8-3Utpczi1-3Rtz St[facility]'S Hospital Physician GroupComment on above:Order Comment: Name Collection Type:: VoidedPerformed By: #### CUU, ADDONUAPLUS #### [place] [address] USAMucus,UrineRare[address]The [address] Luke'S Hospital Physician GroupComment on above:Order Comment: Name Collection Type:: VoidedResult Comment: PERFORMED BY: [place] [address] PATHOLOGIST TECHNICAL [employer] AMY SANTOS M.D.Performed By: #### CUU, ADDONUAPLUS #### [place] [address] USANitrite,[address] Luke'S Hospital Physician GroupComment on above:Order Comment: Name Collection Type:: VoidedPerformed By: #### CUU, ADDONUAPLUS #### [place] [address] USAOccult Blood,UrineNegativeNormalNegativeThe St. Luke'S Hospital Physician GroupComment on above:Order Comment: Name Collection Type:: Voided Result Comment: PERFORMED BY: [place] [address] PATHOLOGIST TECHNICAL [employer]PPORT [employer] AMY SANTOS M.D.Performed By: #### CUU, ADDONUAPLUS #### [place] [address] USAProtein,UrineNegative[address]The [address] Luke'S Hospital Physician GroupComment on above:Order Comment: Name Collection Type:: VoidedPerformed By: #### CUU, ADDONUAPLUS #### [place] [address] USARBC,Xzmjr5-7Seqjbt9-4Ufm [facility]S Hospital Physician GroupComment on above:Order Comment: Name Collection Type:: VoidedPerformed By: #### CUU, ADDONUAPLUS #### [place] [address] USASpecificy Medon,Urine1.744Nxovzn9.001-1.030The St. Luke'S Hospital Physician GroupComment on above:Order Comment: Name Collection Type:: Voided Performed By: #### CUU, ADDONUAPLUS #### [place] [address] USASquamous Epithelial Cell,Tcfgl4-6Pwhdfo0-4Msa [facility]S Hospital Physician GroupComment on above:Order Comment: Name Collection Type:: Voided Performed By: #### CUU, ADDONUAPLUS #### [place] [address] USAUrobilinogen,UrineNormalNormalNormalThe St[address] Luke'S Hospital Physician GroupComment on above:Order Comment: Name Collection Type:: Voided Performed By: #### CUU, ADDONUAPLUS #### [place] [address] USAWBC,Zfzii71-07Dipkrm5-8Lqi [facility] Comment on above:Order Comment: Name Collection Type:: VoidedPerformed By: #### CUU, ADDONUAPLUS #### [facility] [address] [place] [address] USAEpithelial cells.squamous [#/area] in Urine sediment by Automated countOrdered By: PROVIDER TEMP on 82-09-3907Ccrtmufqff cells.squamous Auto (Urine sed) [#/Area]5-9 [HPF]High0-2FGreen Cross Hospital Erythrocytes [#/area] in Urine sediment by Automated countOrdered By: PROVIDER TEMP on 77-60-1538HTG Auto (Urine sed) [#/Area]3-4 [HPF]0-4FGreen Cross HospitalGlucose [Mass/volume] in Urine by Test stripOrdered By: PROVIDER TEMP on 28-03-6809Wiztmbx Test strip (U) [Mass/Vol]Normal mg/dLNormalParkview HealthHemoglobin Test strip Ql (U)Ordered By: PROVIDER TEMP on 59-56-5015Jhvqaousid Ql (U)NegativeNegUniversity Hospitals Cleveland Medical Center Hyaline casts [#/area] in Urine sediment by Automated countOrdered By: PROVIDER TEMP on 72-80-6347Weyulti casts Auto (Urine sed) [#/Area]0-8 [LPF]0-8Parkview HealthKetones [Presence] in Urine by Test stripOrdered By: PROVIDER TEMP on 99-49-9469Dgyqpqg Ql (U)NegativeNegUniversity Hospitals Cleveland Medical CenterComment on above:Order Comment: Name Collection Type:: Voided Performed By: #### CUU, ADDONUAPLUS #### [facility] [address] [place] [id number] USALeukocyte esterase [Presence] in Urine by Test strip Ordered By: PROVIDER TEMP on 35-88-1556Owoxrsgvl esterase Test strip Ql (U)3+ HighNegUniversity Hospitals Cleveland Medical CenterComment on above:Order Comment: Name Collection Type:: VoidedPerformed By: #### CUU, ADDONUAPLUS #### [facility] [address] [place] [id number] USALeukocytes [#/area] in Urine sediment by Automated count Ordered By: PROVIDER TEMP on 29-91-2622CYC Auto (Urine sed) [#/Area]10-19 [HPF] High0-4FGreen Cross HospitalMucus [Presence] in Urine by Automated Ordered By: PROVIDER TEMP on 32-71-3942Gwvhk Auto Ql (U)Rare [LPF]Parkview HealthNitrite Test strip Ql (U)Ordered By: PROVIDER TEMP on 19-93-8821Ebgkyho Ql (U)NegativeNegUniversity Hospitals Cleveland Medical CenterProtein Test strip (U) [Mass/Vol]Ordered By: PROVIDER TEMP on 14-67-5125Wmwipft (U) [Mass/Vol]NegativeNegMercy Health Kings Mills Hospitalpecific gravity Test strip (U) [Rel density]Ordered By: PROVIDER TEMP on 85-97-6055Kasccivb gravity (U) [Rel density]1.0161.001-1.030Parkview HealthUS OB limited on 04-17-1887DE OB limitedGOOD [place] [address] Ultrasound Report Signed Patient: Jessica Baldwin MR#: [id number] : 2005 Acct:[id number] Age/Sex: 19 / F ADM Date: 10/16/24 [...] Mccloud M.D. 10/16/2024 9:30 PM Dictation Location: [place] [address] Tech: Andria Alfredo Transcribed By: CHRISTY 10/16/242129 Dictated By: Bradley Mccloud MD 10/16/242127 Signed By: 10/16/242129Ad[facility]Health [facility] Wales Physician GroupUrine Cultureon 10-16-2024 Bacteria identified Cx Nom (U)ORGANISM: Strep agalactiae - (group b) (O:STRAGA) Clune Count 75,000 PERFORMED BY: [place] [address] PATHOLOGIST TECHNICAL [employer] AMY SANTOS M.D.NormalHca Florida Oak Hill Hospital Physician GroupComment on above: Performed By: #### TRIPP ALCALA #### [facility] [address] [place] [address] USAUrine cultureOrdered By: PROVIDER TEMP on 10-16-2024 Bacteria identified Cx Nom (U)Strep agalactiae - (group b)AbnormalParkview HealthUrobilinogen Test strip (U) [Mass/Vol]Ordered By: PROVIDER TEMP on 86-56-6350Meukbgozqhyq (U) [Mass/Vol]Normal mg/dLNormal Parkview HealthpH of Urine by Test stripOrdered By: PROVIDER TEMP on 34-92-5534bQ (U)6.0 [pH]5.0-9.0Parkview HealthComment on above:Order Comment: Name Collection Type:: VoidedPerformed By: #### CARI, LUISPLUS #### [facility] [address] [place], [place] [id number] USACNPNon 87-12-0319NRYINjgkbwkmx (OBGYF2) JESSICA BALDWIN ([id number]) 1 F Date Time Provider Department 10/07/24 [...] (None) Encounter Status:Closed by KAT DIETRICH on 10/07/24NoSt. Francis HospitalCNPNon 42-49-0290KALTYckjnjtes (OBGYF2) JESSICA BALDWIN ([id number]) 1 F Date Time Provider Department 10/02/24 [facility] OB MFM OBGYF2 During your visit today, we recorded the following information about you: Kat Dietrich MA 10/02/2024 1:45 PM Signed Called pt re: referral from [facility]. No answer, LVM asking pt to call back and schedule. Kat Dietrich MA Allergies As of Date: 10/02/2024 (Not on File) Date Reviewed: Never Reviewed Reason for Visit: Appointment [186] Problem List As Of Date: 10/02/2024 (None) Encounter Status:Closed by KAT DIETRICH on 10/02/24NoProMedica Fostoria Community Hospitalphone Encounteron 35-80-6997Pvhzirhpigksk Authentication Interface Message TextNO SHOW , OB FOLLOW-UP, AND NEW OB APPOINTMENTS Patient appeared on /no show report Patient NO SHOWED NEW OB HR appointment on 09/30/24. After chart review pt is est at [facility] has been seen and has upcoming apt schd. Called patient :LVM with phone number to call back and reschd apt if this is something that is still needed.NormalThe Cleveland Clinic SystemUrinalysis macro (dipstick) panel (U)on 71-51-1294Igqjlzwwf, UANegativeNegative - 4(70) +++ mg/dL [facility] HealthcareBlood, UANegativeNegative - 50 Grady/mcLNOMS HealthcareClarity, UA ClearNOMS HealthcareColor, UAYellowNOMS HealthcareGlucose, UA2+Negative - 1999(110) ++++ mg/dLNOIA HealthcareInterpretation and review of laboratory resultsAbnormalNOIA HealthcareKetones, UANegativeNegative - 160(16) ++++ mg/dL [facility] HealthcareLeukocytes, UANegativeNegative - 500+++ Tk/mcLNOIA Healthcare Nitrite, UANegativeNegative - PositiveNOMS HealthcarepH, UA65 - 9NOIA Healthcare Protein, UA1+Negative - 2000(20) ++++ mg/dLNOIA HealthcareSpec Grav, UA11 - 1.03 [facility] HealthcareUrobilinogen, UA0.20.2 - 12 mg/dLALTA VIEW HOSPITAL HealthcareAL[facility] Healthcare Telephone Encounteron 93-46-2825Rdcswtbpxhojc Authentication Interface Message [id number] attempt to contact not needed after chart review pt has upcoming apt schd. Closing encounter Future Appointments (next 10) Provider Department Center 09/30/2024 2:15 PM Zhanna Martinez MD [facility] 11/06/2024 1:00 PM [facility] NormalThe [facility] Clinic SystemLaboratoryon 75-82-0297Ioc 13+18+21+X+Y aneuploidy Dosage of chromosome-specific cfDNA Ql (cfDNA)NegativeNOIA HealthcareCitation Justin (Reference lab test)CommentNOIA HealthcareComment on above:1. Filomena JOHN et al. Norma Med. 2012;14(3):296-305. 2. Brayan PINTO, et al. Prenat Diag. 2013;33(6):591-597. 3. Dusty C, et al. Clin Chem. 2015 Apr;61(4):608-616. 4. Filomena JOHN et al. Norma Med. 2011;13(11):913-920. 5. ACOG/SMFM Practice Bulletin No. 226, Dec 2019. Trisomy 18 risk Dosage of chromosome-specific cfDNA Ql (Plasma cell-free+WBC DNA) [Interp][facility] HospitalLaboratory - Miscellaneous testson 14-19-7679Xarwjguand comment Justin (Report)[facility] on above: The MaterniT(R) 21 PLUS laboratory-developed test (LDT) analyzes circulating cell-free DNA from a maternal blood sample. This test is used for screening purposes and not diagnostic. Clinical correlation is recommended. Validation data on twin pregnancies is limited and the ability of this test to detect aneuploidy in higher multiple gestations has not yet been validated. audio director name Nom (Provider)[facility] Memorial Hospitalment on above: This specimen showed an expected representation of chromosome 21, 18 and 13 material. Clinical correlation is suggested. Feliberto Rodriguez MD, PhD, Director, KopjraReference Lab Test MethodCommentNortheast Missouri Rural Health Networkment on above:See Notes Circulating cell-free DNA was purified from [...] 16 and 22. Service comment (Unsp spec) [Interp][facility] on above:See Notes [employer] is a subsidiary of [employer], using the brand [employer]. This test was developed and its performance characteristics determined by [employer]. It has not been cleared or approved by the Food and Drug Administration. This laboratory is certified under the Clinical Laboratory Improvement Amendments (CLIA) as qualified to perform high complexity clinical laboratory testing and accredited by the [employer] ([employer]). If there is future clinical need for adding MaterniT GENOME testing, this specimen will be available until term. [facility] samples will not be retained beyond 60 days. [facility] patients will have to send a new sample for re-sequencing ([facility] Test Code: 343649). Laboratory - Molecular pathologyon 48-60-1264Muku-free DNA./Cell-free DNA.total Dosage of chromosome-specific cfDNA (cfDNA) [Molar fraction]11%[facility] HealthcareChr 21 trisomy Dosage of chromosome-specific cfDNA Ql (cfDNA)Negative [facility] HospitalChr X and Y aneuploidy risk Sequencing Ql (cfDNA) [Interp]Not detectedNOMS HealthcareMonosomy X risk Dosage of chromosome-specific cfDNA Ql (Plasma cell-free+WBC DNA) [Interp]Not detectedNOIA HealthcareSex Dosage of chromosome-specific cfDNA Nom (cfDNA)CommentNOIA HealthcareComment on above: Consistent with FemaleTest performance information Justin (Unsp spec)CommentNOIA HealthcareComment on above:The performance characteristics of the MaterniT(R) 21 PLUS laboratory-developed test (LDT) have been determined in a clinical validation study with women at increased risk for chromosomal aneuploidy.[1-4] Trisomy 13 risk Dosage of chromosome-specific cfDNA Ql (cfDNA) [Interp]Negative [facility] Panel Informationon 74-74-2854Vptz Age >or= 9wk: PH98LceNRCESSM Health Cardinal Glennon Children's HospitalGestational age Estimated from conception dateSRiverview Regional Medical Center Limitations of Test RE90IvjzftcNCBQ HealthcareComment on above:While the results of these tests are highly [...] Xaparin(R), Clexane(R) and Fragmin(R)). Neg Predictive Value [address] on above:The Negative Predictive Value (NPV) for trisomy 21, 18, and 13 is greater than 99%. The NPV for SCA and ESS cannot be calculated as SCA and ESS are only reported when an abnormality is detected. Perf Characteristics [address] on above: ! Sex ! Accuracy: 99.4% [...] ## Rose gestation only. Pos Predictive Value MT21N/ANOMS HealthcarePerformed at: - [facility] [address] [place], [place] [id number] Labeling Strategist: Feliberto Huddleston, Phone: [phone] [facility] Interdisciplinary Note - Nutritionon 61-08-5097Aafvjtwroryhlgvfu Note - NutritionInterdisciplinary Note - Nutrition Jessica was scheduled for initial MNT visit today at 11:15AM. She was a no show for her appointment. MD office notified [phone]. Discussed w the nurse, Aviva, at providers office in [place]. RD name and number provided for any additional information. Explained pt can make another appointment and I will be happy to see her.[facility] - ColumbusComment on above:Result Comment: Electronically Signed By: Jovanni AYON, PAWEL, SONNY, Savannah\.br\Date and Time Signed: 09/18/24 12:04 EDTLaboratory - Microbiology and Antimicrobial susceptibilityon 50-30-7614CPB 1 IgG IA QlNon-ReactiveNon ReactiveBarnes-Jewish HospitalComment on above:Please note reference interval change HSV-1 IgG testing performed using the Guille Elecsys HSV-1 IgG assay. HSV 2 IgG IA QlNon-ReactiveNon ReactiveBarnes-Jewish HospitalComment on above:Please note reference interval change Current guidelines and [...] Elecsys HSV-2 IgG assay. No Panel Informationon 45-65-7240Rclotnwnm at: - Lab[address] [id number] Labeling Strategist: Kennedy Gary PhD, Phone: [phone] [facility]iatric Center Telephone Encounteron 17-18-5664Kqzfhctzoolsc Authentication Interface Message TextNO SHOW , OB FOLLOW-UP, AND NEW OB APPOINTMENTS Patient appeared on /no show report Patient NO SHOWED NEW OB HR appointment on 09/16/24. After chart review pt is established at [facility]. Called patient: LVM to call back if apt is still in need of rescheduling 1st attempt to contactAdirondack Medical Center SystemUrinalysis macro (dipstick) panel (U)on 19-98-3778Otdqyddaa, UANegativeNegative - 4(70) +++ mg/dLNOMS HealthcareBlood, UANegativeNegative - 50 Grady/mcLNOMS HealthcareClarity, UAClear NOMS HealthcareColor, UAYellowNOMS HealthcareGlucose, UA2+Negative - 2000(110) ++++ mg/dLNOMS HealthcareInterpretation and review of laboratory resultsNormal NOMS HealthcareKetones, UANegativeNegative - 160(16) ++++ mg/dLNOMS Healthcare Leukocytes, UANegativeNegative - 500+++ Tk/mcLNOMS HealthcareNitrite, UA NegativeNegative - PositiveNOMS HealthcarepH, UA75 - 9NOMS HealthcareProtein, UA NegativeNegative - 2000(20) ++++ mg/dLNOMS HealthcareSpec Grav, UA11 - 1.03NOMS HealthcareUrobilinogen, UA0.20.2 - 12 mg/dLNOMS HealthcareNOMS HealthcareUrine Cultureon 01-59-1171Qonhmvay identified Cx Nom (U)ORGANISM: Strep agalactiae - (group b) (O:STRAGA) Clune Count 20,000 PERFORMED BY: [place] [address] PATHOLOGIST TECHNICAL SUPPORT INTER[employer] AMY SANTOS M.D.NormalThe St. [facility] Physician GroupComment on above: Performed By: #### CUU #### [place] [address] USAUrine cultureOrdered By: Teresa Beal on 09-11-2024 Bacteria identified Cx Nom (U)Strep agalactiae - (group b)AbnormalParkview HealthUrinalysis macro (dipstick) panel (U)Ordered By: Radha Grijalva on 48-12-4911Lzjcvqaka, UANegativeNegative - 4(70) +++ mg/dLNOMS HealthcareBlood, UANegativeNegative - 50 Grady/mcLNOMS HealthcareClarity, UAClear NOMS HealthcareColor, UAYellowNOMS HealthcareGlucose, UANegativeNegative - 2000(110) ++++ mg/dLNOMS HealthcareInterpretation and review of laboratory resultsNormalNOMS HealthcareKetones, UANegativeNegative - 160(16) ++++ mg/dLNOMS HealthcareLeukocytes, UANegativeNegative - 500+++ Tk/mcLNOMS HealthcareNitrite, UANegativeNegative - PositiveNOMS HealthcarepH, UA55 - 9NOMS HealthcareProtein, UANegativeNegative - 2000(20) ++++ mg/dLNOMS HealthcareSpec Grav, UA11 - 1.03 NOMS HealthcareUrobilinogen, UA0.20.2 - 12 mg/dLNOMS HealthcareNOMS Healthcare TBH PREG QUANT HCGon 80-71-2324OPZ FGFQPLYFSMRL15887dAA/mLNOMS HealthcareComment on above:5-50 0.2-1 WEEK 50-500 1-2 WEEKS 100-5,000 2-3 WEEKS 500-10,000 3-4 WEEKS 1,000-50,000 4-5 WEEKS 10,000-100,000 5-6 WEEKS 15,000-200,000 6-8 WEEKS 10,000-100,000 2-3 MONTHS CLINISYNCNOCedar County Memorial HospitalTB PREG QUANT HCGon 04-41-7507PAE TFGYWBUJFBZE4095 mIU/mLNOMS HealthcareComment on above:5-50 0.2-1 WEEK 50-500 1-2 WEEKS 100-5,000 2-3 WEEKS 500-10,000 3-4 WEEKS 1,000-50,000 4-5 WEEKS 10,000-100,000 5-6 WEEKS 15,000-200,000 6-8 WEEKS 10,000-100,000 2-3 MONTHS CLINISYNCNOIA HealthcareCovid-19 PCR ([facility])on 40-43-1771RDKK-CoV-2 (COVID-19) RNA VAISHALI+probe Ql (Unsp spec)Not detectedNormalNOT DETECTEDThe [facility] Comment on above:Result Comment: When diagnostic testing is negative, the [...] for this test is supported by the Personal Banking Officer of Health and Human Service's declaration that circumstances exist to justify the emergency use of in vitro diagnostics for the detection and/or diagnosis of the virus that causes COVID-19. This EUA will remain in effect for the duration of the COVID-19 declaration justifying emergency of IVDs, unless it is terminated or revoked by the FDA (after which the test may no longer be used).Performed By: #### CVDTBH #### [place] [address] Dr. Damion Gallardo AND B AGon 34-83-1649JUTRTULANFYLOUniversity Hospitals [facility] on above:Result Comment: Negative for Flu A protein angiten. Infection due to Flu A cannot be ruled out. FluA angiten in the sample may be below the detection limit of the test.Performed By: #### INFLUAB #### [facility] [address] [place] [address] Dr. Damion De LeonNEGFLAKITA [facility] on above: Result Comment: Negative for Flu B protein antigen. Infection due to Flu B cannot be ruled out. FluB antigen in the sample may be below the detection limit of the test.Performed By: #### INFLUAB #### [facility] [address] [place] [address] Dr. Damion Gallardo AGNegativeNormalNEGATIVE SEE COMMENTThe [facility] on above:Performed By: #### INFLUAB #### [facility] [address] [place] [address] Dr. Damion Cohen AGNegativeNormalNEGATIVE SEE COMMENTThe [facility] on above:Performed By: #### INFLUAB #### [facility] [address] [place] [address] Dr. Damion CaceresCovid-19 PCR (CVDTB)on 01-61-8342MLFX-CoV-2 (COVID-19) RNA VAISHALI+probe Ql (Unsp spec)Not detectedNormalNOT DETECTEDThe [facility] Comment on above:Result Comment: When diagnostic testing is negative, the [...] for this test is supported by the Personal Banking Officer of Health and Human Service's declaration that circumstances exist to justify the emergency use of in vitro diagnostics for the detection and/or diagnosis of the virus that causes COVID-19. This EUA will remain in effect for the duration of the COVID-19 declaration justifying emergency of IVDs, unless it is terminated or revoked by the FDA (after which the test may no longer be used).Performed By: #### CVDTBH #### [facility] [address] [place] [address] Dr. Damion Ochoa A AND B AGon 76-22-7464WTCBIDUMEOSUMFirelands Regional Medical Center on above:Result Comment: Negative for Flu A protein angiten. Infection due to Flu A cannot be ruled out. FluA angiten in the sample may be below the detection limit of the test.Performed By: #### INFLUAB #### [facility] [address] [place] [address] Dr. Damion DoshiUBNEGFLAKITA [facility] on above: Result Comment: Negative for Flu B protein antigen. Infection due to Flu B cannot be ruled out. FluB antigen in the sample may be below the detection limit of the test.Performed By: #### INFLUAB #### [facility] [address] [place] [address] Dr. Damion Gallardo AGNegativeNormalNEGATIVE SEE COMMENTThe Milanville HospitalComment on above:Performed By: #### INFLUAB #### [facility] [address] [place] [address] Dr. Damion Cohen AGNegativeNormalNEGATIVE SEE COMMENTThe [facility] HospitalComment on above:Performed By: #### INFLUAB #### [facility] [address] [place] [address] Dr. Damion CaceresCovid-19 PCR ([facility])on 91-67-9509BCCN-CoV-2 (COVID-19) RNA VAISHALI+probe Ql (Unsp spec)Not detectedNormalNOT DETECTEDRiverview Health Institute Comment on above:Result Comment: This test is not yet approved or cleared by the [place] FDA. When there are no FDA-approved or cleared tests available, and other criteria are met, FDA can make tests available under an emergency access mechanism called an Emergency Use Authorization (EUA). The EUA for this test is supported by the Personal Banking Officer of Health and Human Service's (HHS's) declaration that circumstances exist to justify the emergency use of in vitro diagnostics for the detection and/or diagnosis of the virus that causes COVID- 19. This EUA will remain in effect (meaning [...] of clinical signs and symptoms consistent with SARS-CoV-2.Performed By: #### CVDTBH #### [facility] [address] [place] [address] Dr. Damion Gallardo AND B AGon 33-92-1273OTASQSPWVOOAVMercy Health Kings Mills HospitalComment on above:Result Comment: Negative for Flu A protein angiten. Infection due to Flu A cannot be ruled out. FluA angiten in the sample may be below the detection limit of the test.Performed By: #### INFLUAB #### [facility] [address] [place] [address] Dr. Damion DoshiUBNEGFORTINOEE Protestant HospitalComment on above: Result Comment: Negative for Flu B protein antigen. Infection due to Flu B cannot be ruled out. FluB antigen in the sample may be below the detection limit of the test.Performed By: #### INFLUAB #### [facility] [address] [place] [address] Dr. Damion Gallardo AGNegativeNormalNEGATIVE SEE COMMENTThe [facility] HospitalComment on above:Performed By: #### INFLUAB #### [facility] [address] [address] [address] Damion Cohen AGNegativeNormalNEGATIVE SEE COMMENTThe [facility] HospitalComment on above:Performed By: #### INFLUAB #### [facility] [address] [place] [address] Dr. Damion CaceresINTERNAL CONTROLSWithin Normal LimitsNormalWithin Normal Limits The [facility] HospitalComment on above:Performed By: #### INFLUAB #### [facility] [address] [place] [address] Dr. Damion Caceres Vital Signs Date TimeVital SignValuePerforming QawcstlgeThhbdcsy12-66-2380 13:36-0400Body locvbo975.7 kgAleida Kraft MD Work Phone: [facility] HospitalBlrttjjety81-67-5927 13:36-0400Diastolic blood ttbtmijt51 mm[Hg]Aleida Kratf MD Work Phone: [facility] HospitalCbqonexcmr27-31-2269 13:36-0400Systolic blood mbvfktoi826 mm[Hg]Aleida Kraft MD Work Phone: [facility] HospitalMjryttatin26-88-6307 14:47-0400Body ueefeh750.8 cmLuca Marshall MD Work Phone: [facility]09-08-2025 14:47-0400 Body mass index (BMI) [Ratio]59.6 kg/w1WfwgzybLuca Marshall MD Work Phone: [facility]09-08-2025 14:47-0400 Body zxnbebatnrn37.7 [degF]Luca Marshall MD Work Phone: 1(050)[address]09-08-2025 14:47-0400 Body uobtsz034.69 kgDoconsuelo Marshall MD Work Phone: 1(167)[address]09-08-2025 14:47-0400 Diastolic blood ofdhjnec13 mm[Hg]Luca Marshall MD Work Phone: 1(263)[address]09-08-2025 14:47-0400 Heart bihg665 /John Marshall MD Work Phone: 1(713)[address] [place], [place] 7353309-08-2025 14:47-0400 Respiratory rate19 /John Marshall MD Work Phone: 1(380)[address] [place], [place] 7[address]-08-2025 14:47-0400 SaO2% (BldA) [Mass fraction]98 %Luca Marshall MD Work Phone: 1(406)[address]09-08-2025 14:47-0400 Systolic blood lanfnaeq047 mm[Hg]Luca Marshall MD Work Phone: 1(100)[address]08-19-2025 13:24-0400 Body .43 Brit Kraft MD Work Phone: [facility] HospitalKtihahiybn56-10-0747 13:24-0400Diastolic blood tkacpbgc61 mm[Hg]Aleida Kraft MD Work Phone: [facility] HospitalHidzhlbrpd24-48-7620 13:24-0400Systolic blood sppumzuo592 mm[Hg]Aleida Kraft MD Work Phone: [facility] HospitalGypqmgsvku06-58-7537 13:34-0400Body zdmyrh897.34 Brit Kraft MD Work Phone: [facility] HospitalSemculwqtl07-88-3295 13:34-0400Diastolic blood zzevnmpw52 mm[Hg]Aleida Kraft MD Work Phone: [place] [address]Lqwmfwswus25-77-4035 13:34-0400Systolic blood aamrmvni226 mm[Hg]Aleida Kraft MD Work Phone: [facility] HospitalJxuukknbsq22-04-9341 20:01-0400Diastolic blood wsutukjp31 mm[Hg]Luca Marshall MD Work Phone: 1(444)598-[address] [place], [place] 3423307-30-2025 20:01-0400 Heart mqoi139 /John Marshall MD Work Phone: 1(337)[address] [place], [place] 7353307-30-2025 20:01-0400 Respiratory rate22 /John Marshall MD Work Phone: 1(252)[address] [place], [place] 7353307-30-2025 20:01-0400 SaO2% (BldA) [Mass fraction]100 %Luca Marshall MD Work Phone: 1(145)[address] [place], [place] 7353307-30-2025 20:01-0400 Systolic blood zghgohft905 mm[Hg]Luca Marshall MD Work Phone: 1(258)[address] [place], [place] 7353307-30-2025 19:03-0400 Body wtyybg194.8 cmLuca Marshall MD Work Phone: 1(116)[address] [place], [place] 7[address]-30-2025 19:03-0400 Body txcmavpzypt34.2 [degF]Luca Marshall MD Work Phone: 1(045)[address] [place], [place] 7[address]-30-2025 19:03-0400 Body nsefek537.6 kgLuca Marshall MD Work Phone: 1(065)[address] [place], [place] 7[address]307-14-2025 13:23-0400 Body kxidgk105.15 kgAleida Kraft MD Work Phone: [facility] HospitalWfzyqpjuio62-09-0770 13:23-0400Diastolic blood olrarbuf28 mm[Hg]Aleida Kraft MD Work Phone: [facility] HospitalDryejimgtx75-65-8807 13:23-0400Systolic blood eejysgvc345 mm[Hg]Aleida Kraft MD Work Phone: [facility] HospitalSvjdvkapyp43-37-0370 12:47-0400Body ykmbsn003.24 Brit Kraft MD Work Phone: [facility] HospitalSaidaxrqsb18-96-9341 12:47-0400Diastolic blood pvbuxblq23 mm[Hg]Aleida Kraft MD Work Phone: 1(962)[address] [place], [place] [address]7-01-2025 12:47-0400Systolic blood pbiwesvt531 mm[Hg]Aleida Kraft MD Work Phone: 1(076)[address] [place], [place] 934[address]6-17-2025 13:21-0400Body ryhvis052.24 kgAleida Kraft MD Work Phone: 1(318)[address] [place], [place] [address]6-17-2025 13:21-0400Diastolic blood mrgtfdos79 mm[Hg]Aleida Kraft MD Work Phone: 1(789)[address] [place], [place] 9[address]6-17-2025 13:21-0400Systolic blood dognqdvp416 mm[Hg]Aleida Kraft MD Work Phone: 1(365)[address] [place], [place] 934[address]10-17-2024 13:53-0400Body buctua635.18 kgAleida Kraft MD Work Phone: 1(050)996-[address] [place], [place] [address]Mqvzctezcf94-56-8126 13:53-0400Diastolic blood unhkzejw23 mm[Hg]Aleida Kraft MD Work Phone: 1(140)[address]10-17-2024 13:53-0400Systolic blood zeqhxovl188 mm[Hg]Aleida Kraft MD Work Phone: 1(623)849-[address] [place], [place] [address]Rqwfvmfsni50-71-5009 13:44-0400Body wyatxq426.1 kgAleida Krfat MD Work Phone: 1(481)[address]09-24-2024 13:44-0400Diastolic blood mm[Hg]Aleida Kraft MD Work Phone: 1(731)[address] [place], [place] [address]9-24-2024 13:44-0400Systolic blood ozubrvjd333 mm[Hg]Aleida Kraft MD Work Phone: [phone]-[facility] Healthcare Encounters Encounter DateEncounter TypeCare ProviderFacilityStart: 01-27-2025 End: 18-00-3566tpziydqhzxRJLAXR P JONESNot AvailableStart: 01-13-2025 End: 06-34-9029Ykgina flowsheetAleida Kraft MD Work Phone: [facility] Timur OBGYNStart: 01-13-2025 End: 25-22-0452Pjqjjc flowsJurgen Kraft MD Work Phone: noMS [place] OBGYNStart: 01-13-2025 End: 03-24-4068zxwgbtgbemPDISNJ P JONESNot AvailableStart: 01-13-2025 End: 84-49-2138Uzeyfuid flow Harrison Kraft MD Work Phone: NOM[facility] [place] OBGYNComment on above:Rh negative status during in second trimester ([facility]); 30 weeks gestation of ([facility]); Hyperemesis; HGSIL (high grade 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; Vulvar lesion; Abnormal glucose affecting ([facility]); Trauma; Weight loss; Third trimester ([facility]); Thyroid disorder screeningStart: 12-05-2024 End: 24-40-4745fbfdfogrgsTKWPGS JONESNot AvailableStart: 11-25-2024 End: 31-60-6442ayraxpgentVomifpd M Hoy MD Work Phone: [facility] Work Phone: Start: 11-25-2024 End: 21-85-5073Czgkuzi encounter procedureAna M Harden SENIOR IT BUSINESS ANALYST-[facility] Work Phone: Start: 11-05-2024 End: 77-89-3413Uayohqjj flow Harrison Kraft MD Work Phone: NOMS Timur OBGYNComment on above:Weight loss (Primary Dx); Second trimester ([facility]); 20 weeks gestation of ([facility]); Hyperemesis; HGSIL (high grade 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; Vulvar lesion; Abnormal glucose affecting ([facility]); TraumaStart: 11-05-2024 End: 55-30-5689obbgkysinoOBEZZL P JONESNot AvailableStart: 10-30-2024 End: 15-27-0627Uinmkhjhh Result EncounterCoreloli Vargas DO Work Phone: [facility] External Department UnsolicitedStart: 10-30-2024 End: 42-29-5916Itnfjiuon Result EncounterCorey Alicia DO Work Phone: noms External Department UnsolicitedStart: 10-22-2024 End: 67-94-2876Gdfmld Kenan Kraft MD Work Phone: noms [facility] OBGYNStart: 10-22-2024 End: 38-83-1321Uahfdp Kenan Kraft MD Work Phone: noms [place] OBGYNStart: 10-22-2024 End: 83-32-0070Hjwpfhmd flow Harrison Kraft MD Work Phone: noms [place] OBGYNComment on above:Trauma (Primary Dx); Second trimester ([facility]); 18 weeks gestation of ([facility]); Hyperemesis; HGSIL (high grade 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; Vulvar lesion; Abnormal glucose affecting ([facility])Start: 10-22-2024 End: 29-62-9392pnrtwnyohdERFEAR P JONESNot AvailableStart: 10-18-2024 End: 45-47-8273Eecqhmpye encounterFv Ob Mfm Work Phone: Maternal MedicineComment on above:Appointment Start: 10-16-2024 End: 95-71-5737Umxaaxgfk department patient visitDoconsuelo Marshall MD Work Phone: [phone]-Diusowwso Room Work Phone: Start: 10-07-2024 End: 07-49-3687Zrsaxifwh encounterFv Ob Mfm Work Phone: Maternal MedicineComment on above:Appointment Start: 10-02-2024 End: 59-32-4971Lswqayhin encounterFv Ob Mfm Work Phone: Maternal MedicineComment on above:Appointment Start: 10-01-2024 End: 56-97-6668Xtmagkhmcs OrdersOb Long Lines Operator Transcribe ProviderMaternal MedicineStart: 09-30-2024 End: 45-57-0385Bopmwyuh flow Harrison Kraft MD Work Phone: noms [facility] OBComment on above:Second trimester ([facility]); 15 weeks gestation of ([facility]); Hyperemesis; HGSIL (high grade 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; Vulvar lesion; Abnormal glucose affecting ([facility])Start: 09-30-2024 End: 54-02-2340yrpqditpqhIXTBEH P JONESNot AvailableStart: 09-18-2024 End: 38-75-3832Fib-admission Cristóbal KRAFT [facility] Start: 09-17-2024 End: 41-23-2779Ahljjjzj flow Harrison Kraft MD Work Phone: noms SWS OBComment on above:HGSIL (high grade 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 (Primary Dx); Second trimester ([facility]); 13 weeks gestation of ([facility]); Hyperemesis; Vulvar lesion; Encounter for screening for chromosomal anomalies ([facility])Start: 09-17-2024 End: 66-57-0544fylcbatspgPKFLQR P JONESNot AvailableStart: 09-11-2024 End: 87-60-0871qhsvfpywhcEoolgpa Susan [facility] Work Phone: Start: 09-11-2024 End: 70-00-5083Qaupkzpq ReferredRuffin Susan [facility] Work Phone: Start: 09-04-2024 End: 36-93-4400Ibkmtqmjaf Dorina Kraft MD Work Phone: [facility] Physician Referral ServiceComment on above:APPOINTMENT SCHEDULING (Anatomy scan and MFM visit)Start: 09-03-2024 End: 33-33-2146Eodirqei noreen Kraft MD Work Phone: noms [facility] OBComment on above:GA: 74b9cHjmcq: 09-03-2024 End: 77-63-5547giygtmhfrlRZUCEM P JONESNot AvailableStart: 08-07-2024 End: 64-45-7117Eyyoqf Allan Kraft MD Work Phone: noms [facility] OBComment on above:Urinary tract infection without hematuria, site unspecified (Primary Dx)Start: 08-01-2024 End: 56-06-5282Srdpuwto flow sheetNoms Sws Ob NurseNOMS SWS OBStart: 08-01-2024 End: 96-56-6532emzfsnggutSXOIXC JONESNot AvailableStart: 07-30-2024 End: 43-45-9980Yeihusrzr Result Anival Kraft MD Work Phone: noms External Department UnsolicitedStart: 07-30-2024 End: 89-13-1524Yeznhwbat Result Anival Kraft MD Work Phone: noms External Department UnsolicitedStart: 07-26-2024 End: 51-06-0265Wbbkzfgoj Result Anival Kraft MD Work Phone: noms External Department UnsolicitedStart: 07-26-2024 End: 76-94-0118Ewjoncbtu Result Anival Kraft MD Work Phone: noms External Department UnsolicitedStart: 01-04-2024 End: 32-38-5353Vcestk outpatient visit 10 minutesAleida Kraft MD Work Phone: noms [facility] OBComment on above:Amenorrhea; Family planningStart: 12-15-2023 End: 79-25-4428Dlvura Allan Kraft MD Work Phone: noms [facility] OBComment on above:Acute vaginitis (Primary Dx)Start: 12-12-2023 End: 21-48-7073Bogijpa preventive medicine new pt age 18-39yrsPdevon Kraft MD Work Phone: noms [facility] OBComment on above:Hormone imbalance (Primary Dx); Encounter for gynecological examination without abnormal finding; Family planning; Thyroid disorder screen; Screen for STD (sexually transmitted disease); Amenorrhea; Vaginal dischargeStart: 12-12-2023 End: 37-88-3671Zrvsylz encounter statusAleida Kraft MD Work Phone: [facility] Work Phone: start: 05-23-2022 End: 88-05-0770pcvamcxjapDAISZO P CRAMERFacility:M1Rkymv: 04-20-2022 End: 50-47-7976mhzfioijemRJ LUCA MARSHALL .Facility:M8Zixsx: 01-06-2022 End: 21-90-2425hpjobqozliBIFVHT P CRAMERFacility:H1 Procedures DateProcedureProcedure DetailPerforming ClinicianStart: 18-47-7734Monrl dip stick/tablet rgnt non-auto w/o Chio Kraft MD Work Phone: start: 73-98-5379Kdytd Strep (POC)Luca Marshall MD Work Phone: Start: 11-56-5602XOJ UA (CLEAN/CATCH) BOBBIN PAINTER/MICRO IF IND.Christian Vargas DO Work Phone: Start: 59-80-6262Vgwbb dip stick/tablet rgnt non-auto w/o Chio Kraft MD Work Phone: start: 23-58-0176Gagogljabx scan - obstetricDoconsuelo Masrhall MD Work Phone: Start: 61-28-4241Tnaal cultureDouglelle Marshall MD Work Phone: Start: 96-35-5592Wuiqe dip stick/tablet rgnt non-auto w/o Chio Kraft MD Work Phone: start: 00-77-6417Pmbfk chromosomal aneuploidy genomic seq Petey Kraft MD Work Phone: start: 83-24-9702PBF 1 AND 2 AB, IGGAleida Kraft MD Work Phone: start: 01-58-3050Mutxi dip stick/tablet rgnt non-auto w/o Chio Kraft MD Work Phone: start: 05-46-7008Kxkhq Corey Marshall MD Work Phone: Start: 59-43-0345Hmrhq dip stick/tablet rgnt non-auto w/o Chio Kraft MD Work Phone: start: 37-10-3625LPV PREG QUANT HCGPenyasmin Kraft MD Work Phone: start: 55-80-8812KHV PREG QUANT HCGPenyasmin Kraft MD Work Phone: Plan of Treatment DateCare ActivityDetailAuthorStart: 84-44-5479NWW Vaccine (1 - 1-dose 75+ series)RSV Vaccine (1 - 1-dose 75+ series)[facility] Hospitaltart: 10-05-2053 Shingles (RZV) Vaccine (1 of 2)Shingles (RZV) Vaccine (1 of 2)[facility]HealthStart: 91-46-5096Uodyr microalbumin profileDTaP,Tdap,Td Vaccine (6 - Td or Tdap) [facility] End: 17-98-4077Uezjotn encounter iechfvhef21/10/2025 2:15 PM EST Routine [facility] [place] [facility] [address] [place] [address] Aleida Kraft MD [address] [place] [address] [facility]: 01-27-2025 End: 20-92-7186Rdmewtgkyfme / ancillary services hxszttywhe64/10/2025 1:15 PM EST Ancillary Procedure [facility] [place] [facility] [address] [place] [address] [facility] [place] [facility]BGYNStart: 01-13-2025 End: 25-07-6500Aorevju panel with tshThyroid panel with tsh Lab Routine Thyroid disorder screening Expected: 01/13/2025 (Approximate), Expires: 01/13/2026[facility] HealthcareComment on above:Expected: 01/13/2025 (Approximate), Expires: 01/13/2026Start: 01-13-2025 End: 86-40-0427LM Thyroid glandUS thyroid Imaging Routine Thyroid disorder screening Expected: 01/13/2025, Expires: 01/13/2026[facility] Work Phone: comment on above:Expected: 01/13/2025, Expires: 01/13/2026Start: 12-04-2024 End: 79-69-6115Opibrpm encounter lyeqvwhkp61/17/2025 1:30 PM EDT Routine [facility] [place] [facility] [address] [place] [address] Aleida Kraft MD [address] [place] [address] [facility]: 12-04-2024 End: 87-13-3794Gwsetuklilrh / ancillary services fhuizvgjos42/17/2025 12:30 PM EDT Ancillary Procedure [facility] [place] [facility] [address] [place] [address] [facility] [place] [facility]YNStart: 11-19-2024 End: 17-47-7525Smshpcj encounter vioefveua96/02/2025 12:30 PM EDT Routine [facility] [place] [facility] [address] [place] [address] Aleida Kraft MD [address] [place] [address] [facility]Start: 45-62-9542BHUSL- 19 Vaccine ( season)COVID-19 Vaccine ( season)[facility] HealthcareStart: 35-85-2663Dfrdgstpo vaccinationNOMS HealthcareStart: 11-06-2024 End: 11-92-4462rmsbjaisox92/20/2025 1:00 PM EDT SPUD DRILLER Ultrasound [facility] [address] [place] [address] [facility]: 11-05-2024 End: 91-51-2568Gappwyo encounter procedureNOMS S[facility] OBStart: 11-05-2024 End: 07-65-8572Pjmtbwgfnrfr / ancillary services managementNOMS [facility] OBStart: 10-22-2024 End: 91-08-9026Bztwpgm encounter procedureNOMS [facility] OBComment on above:Second trimester (HHS-HCC); 18 weeks gestation of ([facility]); Hyperemesis; HGSIL (high grade 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; Vulvar lesion; Abnormal glucose affecting ([facility])Start: 49-99-4146YfcaorwraDayton VA Medical Centertart: 93-39-3471Rmpkc cultureDayton VA Medical Centertart: 35-93-9380Kwogjtzm identified in Urine by CultureUrine Culture [facility] Centertart: 95-85-2894Gkgbtclna for malignant neoplasm of cervixCervical Cancer ScreeningPaulding County Hospitaltart: 09-30-2024 End: 35-25-4907Ezvik count hematocritHematocrit Lab Routine 15 weeks gestation of ([facility]) Abnormal glucose affecting ([facility]) Expected: 09/30/2024 (Approximate), Expires: 09/30/2025[facility] HealthcareComment on above: Expected: 09/30/2024 (Approximate), Expires: 09/30/2025Start: 09-30-2024 End: 04-28-9855Zdsbupirtjx of glucose 1 hour after glucose challenge for glucose tolerance testGTT, 1 hour Lab Routine 15 weeks gestation of ([facility]) Abnormal glucose affecting ([facility]) Expected: 09/30/2024 (Approximate), Expires: 09/30/2025[facility] Work Phone: comment on above:Expected: 09/30/2024 (Approximate), Expires: 09/30/2025Start: 09-30-2024 End: 03-04-1634Ssfcvbd encounter mjgodoxut37/14/2025 1:15 PM EDT Routine [facility] [address] [place] [phone] Aleida Kraft MD [address] [place] [address] [facility] OBStart: 09-30-2024 End: 10-79-9585Verpugnxyqkx / ancillary services ychhpnaykh80/14/2025 12:30 PM EDT Ancillary Procedure [facility] [address] [place] [address] KBUI SWS OBStart: 09-17-2024 End: 09-82-2934Xlfltll encounter /01/2025 12:30 PM EDT Routine [facility] [address] [place] [address] Aleida Kraft MD [address] [place] [address] [facility] OBStart: 09-16-2024 End: 44-17-4352Fdxtvff encounter ymmjizqzw93/30/2025 1:45 PM EDT Office Visit [facility] [address] [place] [address] Zhanna Martinez MD [address] [place] [address] [facility] SpecialistsStart: 93-26-8392RpjniSelect [facility] Start: 77-89-2093Bkbharqj identified in Urine by CultureUK Healthcaretart: 09-03-2024 End: 09-42-6738zotimisgwq17/17/2025 2:00 PM EDT Initial [facility] [address] [place] [phone] Aleida Kraft MD [address] [place] [address] [facility]WS OBStart: 09-03-2024 End: 28-50-4038Wbxlpwxcrjez / ancillary services wjkgyzzlie41/17/2025 1:00 PM EDT Ancillary Procedure [facility] [address] [place] [address] CCNJ [facility] OBStart: 08-26-2024 End: 10-30-9843Klniperihzhj / ancillary services iiwdgssvpo91/09/2025 2:00 PM EDT Ancillary Procedure [facility] OB [address] [place] [address] SRMD [facility] OBStart: 08-01-2024 End: 71-49-6814Kqlhakyi identified in Urine by CultureUrine culture Microbiology Routine Encounter for supervision of normal first in first trimester Expected: 08/01/2024, Expires: 08/01/2025[facility] HealthcareComment on above: Expected: 08/01/2024, Expires: 08/01/2025Start: 08-01-2024 End: 29-26-8781Gdmiw type and Indirect antibody screen panel - BloodType and screen Lab Routine Encounter for supervision of normal first in first trimester Expected: 08/01/2024, Expires: 08/01/2025[facility] HealthcareComment on above:Expected: 08/01/2024, Expires: 08/01/2025Start: 08-01-2024 End: 49-60-7023NCG W Auto Differential panel - BloodCBC and differential Lab Routine Encounter for supervision of normal first in first trimester Expected: 08/01/2024, Expires: 08/01/2025[facility] HealthcareComment on above: Expected: 08/01/2024, Expires: 08/01/2025Start: 08-01-2024 End: 27-58-0838FTNF SCREEN 17 W/CONF, URDRUG SCREEN 17 W/CONF, UR Lab Routine Encounter for drug screening Expected: 08/01/2024, Expires: 08/01/2025[facility] HospitalComment on above:Expected: 08/01/2024, Expires: 08/01/2025Start: 08-01-2024 End: 24-36-5116qKF, quantitativehCG, quantitative Lab Routine Encounter for supervision of normal first in first trimester Expected: 08/01/2024 (Approximate), Expires: 08/01/2025[facility] HealthcareComment on above:Expected: 08/01/2024 (Approximate), Expires: 08/01/2025Start: 08-01-2024 End: 34-31-0939Pfsxhkygy B virus surface Ag [Presence] in Serum or Plasma by ImmunoassayHepatitis B surface antigen Lab Routine Encounter for supervision of normal first in first trimester Expected: 08/01/2024, Expires: 08/01/2025[facility] HospitalComment on above:Expected: 08/01/2024, Expires: 08/01/2025Start: 08-01-2024 End: 88-64-0194Nirjriugc C virus Ab [Presence] in Serum or Plasma by Immunoassay Hepatitis C antibody Lab Routine Encounter for supervision of normal first in first trimester Expected: 08/01/2024, Expires: 08/01/2025[facility] HospitalComment on above:Expected: 08/01/2024, Expires: 08/01/2025Start: 08-01-2024 End: 32-10-0084NIT-2 antigen assayHIV-2 antigen Lab Routine Encounter for supervision of normal first in first trimester Expected: 08/01/2024, Expires: 08/01/2025[facility] HospitalComment on above:Expected: 08/01/2024, Expires: 08/01/2025Start: 08-01-2024 End: 02-63-9072Jjk (dx) w/refl titer and confirmatory testingRpr (dx) w/refl titer and confirmatory testing Lab Routine Encounter for supervision of normal first in first trimester Expected: 08/01/2024, Expires: 08/01/2025[facility] HospitalComment on above:Expected: 08/01/2024, Expires: 08/01/2025Start: 08-01-2024 End: 46-12-9300Kzcrspz antibody, IgGRubella antibody, IgG Lab Routine Encounter for supervision of normal first in first trimester Expected: 08/01/2024, Expires: 08/01/2025[facility] HospitalComment on above:Expected: 08/01/2024, Expires: 08/01/2025Start: 08-01-2024 End: 42-58-1982Ityaboqktk complete panel - UrineUrinalysis with microscopic Lab Routine Encounter for supervision of normal first in first trimester Expected: 08/01/2024, Expires: 08/01/2025[facility] Work Phone: comment on above:Expected: 08/01/2024, Expires: 08/01/2025Start: 08-01-2024 End: 07-19-2996zkxzoabfgu00/15/2025 1:00 PM EDT Initial [facility] [address] [place] [phone] [facility] OBStart: 01-04-2024 End: 29-01-9773Huftkgq encounter igdwfleha93/17/2024 1:45 PM EDT Office Visit [facility] OB [address] [place] [address] Aleida Kraft MD [address] [place] [address] N[facility] OBStart: 01-04-2024 End: 81-07-8716Picykcksrwuq / ancillary services sdaqmhtziq57/17/2024 1:00 PM EDT Ancillary Procedure [facility] OB [address] [place] [address] N[facility] OBStart: 12-12-2023 End: 76-36-9451IbvfyusiKxffknvi Lab Routine Hormone imbalance Expected: 12/12/2023 (Approximate), Expires: 12/11/2024[facility] HealthcareComment on above: Expected: 12/12/2023 (Approximate), Expires: 12/11/2024Start: 12-12-2023 End: 77-28-0466HHJP-sulfateDHEA-sulfate Lab Routine Hormone imbalance Expected: 12/12/2023 (Approximate), Expires: 12/11/2024[facility] HealthcareComment on above: Expected: 12/12/2023 (Approximate), Expires: 12/11/2024Start: 12-12-2023 End: 56-74-6612PxedvcoykIappwnrvw Lab Routine Hormone imbalance Expected: 12/12/2023 (Approximate), Expires: 12/11/2024[facility] HealthcareComment on above: Expected: 12/12/2023 (Approximate), Expires: 12/11/2024Start: 12-12-2023 End: 39-62-9018FuixaaiWwionsm Lab Routine Hormone imbalance Expected: 12/12/2023 (Approximate), Expires: 12/11/2024[facility] HealthcareComment on above:Expected: 12/12/2023 (Approximate), Expires: 12/11/2024Start: 12-12-2023 End: 93-98-8667Vecumyls stimulating hormoneFollicle stimulating hormone Lab Routine Hormone imbalance Thyroid disorder screen Expected: 12/12/2023 (Approximate), Expires: 12/11/2024IA HealthcareComment on above:Expected: 12/12/2023 (Approximate), Expires: 12/11/2024Start: 12-12-2023 End: 61-38-6527bRD, quantitativehCG, quantitative Lab Routine Amenorrhea Expected: 12/12/2023 (Approximate), Expires: 12/11/2024[facility] HealthcareComment on above:Expected: 12/12/2023 (Approximate), Expires: 12/11/2024Start: 12-12-2023 End: 15-43-1367Rovkzyppb B virus surface Ag [Presence] in Serum or Plasma by ImmunoassayHepatitis B surface antigen Lab Routine Screen for STD (sexually transmitted disease) Expected: 12/12/2023 (Approximate), Expires: 12/11/2024[facility] HealthcareComment on above:Expected: 12/12/2023 (Approximate), Expires: 12/11/2024Start: 12-12-2023 End: 08-63-6431Jonpfbbqq C virus Ab [Presence] in Serum or Plasma by Immunoassay Hepatitis C antibody Lab Routine Screen for STD (sexually transmitted disease) Expected: 12/12/2023(Approximate), Expires: 12/11/2024[facility] HealthcareComment on above:Expected: 12/12/2023 (Approximate), Expires: 12/11/2024Start: 12-12-2023 End: 93-68-0638BPS-1/HIV-2 antigen/antibody combination immunoassayHIV-1 and HIV-2 antibodies Lab Routine Screen for STD (sexually transmitted disease) Expected: 12/12/2023 (Approximate), Expires: 12/11/2024[facility] HealthcareComment on above:Expected: 12/12/2023 (Approximate), Expires: 12/11/2024Start: 12-12-2023 End: 54-78-8128NWZ 1 antibody, IgGHSV 1 antibody, IgG Lab Routine Screen for STD (sexually transmitted disease) Expected: 12/12/2023 (Approximate), Expires: 12/11/2024[facility] HealthcareComment on above:Expected: 12/12/2023 (Approximate), Expires: 12/11/2024Start: 12-12-2023 End: 50-05-0488ORI 2 antibody, IgGHSV 2 antibody, IgG Lab Routine Screen for STD (sexually transmitted disease) Expected: 12/12/2023 (Approximate), Expires: 12/11/2024[facility] HealthcareComment on above:Expected: 12/12/2023 (Approximate), Expires: 12/11/2024Start: 12-12-2023 End: 82-05-5434Aprhpoawfne hormoneLuteinizing hormone Lab Routine Hormone imbalance Thyroid disorder screen Expected: 12/12/2023 (Approximate), Expires: 12/11/2024[facility] HealthcareComment on above:Expected: 12/12/2023 (Approximate), Expires: 12/11/2024Start: 12-12-2023 End: 13-35-9317MjhvhgxfzzqwUjulosqwuikc Lab Routine Hormone imbalance Expected: 12/12/2023 (Approximate), Expires: 12/11/2024[facility] HealthcareComment on above: Expected: 12/12/2023 (Approximate), Expires: 12/11/2024Start: 12-12-2023 End: 03-07-4663Gqdvcw Ab [Presence] in Serum by RPRRPR Lab Routine Screen for STD (sexually transmitted disease) Expected: 12/12/2023 (Approximate), Expires: 12/11/2024[facility] HealthcareComment on above:Expected: 12/12/2023 (Approximate), Expires: 12/11/2024Start: 12-12-2023 End: 89-45-9499Oss hormone binding globulinSex hormone binding globulin Lab Routine Hormone imbalance Expected: 12/12/2023 (Approximate), Expires: 12/11/2024[facility] HealthcareComment on above:Expected: 12/12/2023 (Approximate), Expires: 12/11/2024Start: 12-12-2023 End: 35-90-1159Ljukgihuawcb, free, totalTestosterone, free, total Lab Routine Hormone imbalance Expected: 12/12/2023 (Approximate), Expires: 12/11/2024[facility] HealthcareComment on above:Expected: 12/12/2023 (Approximate), Expires: 12/11/2024Start: 12-12-2023 End: 40-08-4058Trflpcxpxkd [Units/volume] in Serum or PlasmaTSH Lab Routine Hormone imbalance Thyroid disorder screen Expected: 12/12/2023 (Approximate), Expires: 12/11/2024[facility] Healthcare Work Phone: comment on above:Expected: 12/12/2023 (Approximate), Expires: 12/11/2024Start: 75-21-4384Ducsv-19 Vaccine ( season)Covid- 19 Vaccine ( season)[facility]: 04-25-2499HGGPW-19 Vaccine ( season)COVID-19 Vaccine ( season)[facility]: 60-72-8646Ckjxocwnq vaccinationInfluenza Vaccine (#1)[facility] HealthcareStart: 92-02-6617Memfulort A (HAV) Vaccine (optional start 19+ years)Hepatitis A (HAV) Vaccine (optional start 19+ years)[facility]: 19-46-5038Coylwbjkp B vaccinationHepatitis B (HBV) Vaccine (1 of 3 - 19+ 3-dose series)[facility] Start: 34-98-5059Zmhesinne B Vaccine (1 of 3 - 19+ 3-dose series)Hepatitis B Vaccine (1 of 3 - 19+ 3-dose series)[facility]: 87-58-8266Hgiuwkmrv B Vaccines (1 of 3 - 19+ 3-dose series)Hepatitis B Vaccines (1 of 3 - 19+ 3-dose series)[facility] HealthcareStart: 37-43-6357Koyzh microalbumin profileDTaP,Tdap,Td Vaccine (1 - Tdap)[facility]: 99-35-1690Fnbrxkf ScreeningAnxiety ScreeningPaulding County Hospitaltart: 41-91-5322Lhlozbgxpd ScreeningDepression ScreeningPaulding County Hospitaltart: 29-58-4445LA (Gonorrhea) Screening (18-24)GC (Gonorrhea) Screening (18-24)[facility]: 77-16-1661Dbsktgyuv C screeningMetroHealthStart: 31-47-1371CAP screeningHIV ScreeningOhiohealth [facility] General Hospital Start: 19-15-3872Ykctqfdnf for Chlamydia trachomatisMetroHealthStart: 10-05-2021 Tdap BoosterTdap BoosterMetroHealthStart: 61-10-1499Xhigcwxtnliiz B (Bexsero,OMV) Vaccine (Optional,16-23 years)Meningococcal B (Bexsero,OMV) Vaccine (Optional,16-23 years)[facility]: 31-65-2200Vjbsbaehewwww B Vaccine (1 of 2 - Standard)Meningococcal B Vaccine (1 of 2 - Standard)[facility]: 80-70-3528QEB screeningHIV TestMetroHealthStart: 20-53-1199CSO Vaccine (1 - 3-dose series)HPV Vaccine (1 - 3-dose series)[facility]: 27-20-5254RPG Vaccines (1 - 3-dose series)HPV Vaccines (1 - 3-dose series)[facility] HealthcareStart: 58-95-9990Ankcbcwhbev for human papillomavirusHPV Vaccine (1 - 3-dose series)[facility]: 78-08-9571Zkyx To Adult Transition Annual AssessmentPeds To Adult Transition Annual AssessmentPaulding County Hospitaltart: 72-56-9619Jwzwnsd of varicella vaccinationVaricella Vaccines (1 of 2 - 13+ 2- dose series)[facility] HealthcareStart: 30-40-1189Kwoo To Adult Transition Initial DiscussionPeds To Adult Transition Initial DiscussionRavenna ClinicStart: 55-70-9640RMrB/Tdap/Td Vaccines (1 - Tdap)DTaP/Tdap/Td Vaccines (1 - Tdap)[facility] HealthcareStart: 74-24-5511LCR Vaccines (1 of 1 - Standard series)MMR Vaccines (1 of 1 - Standard series)NOM HealthcareAlbumin/Globulin ratioParkview HealthAnion gap measurementParkview Health Basophils [#/volume] in Blood by Automated countParkview HealthBasophils/100 leukocytes in Blood by Automated countParkview HealthEosinophils/100 leukocytes in Blood by Automated [facility] HealthcareErythrocyte distribution width [Ratio] by Automated count [facility] HealthErythrocytes [#/volume] in [facility] HospitalGlobulin [Mass/volume] in SerumParkview HealthHematocrit [Volume Fraction] of [facility] Hemoglobin [Mass/volume] in [facility] HospitalHemoglobin, fetalHemoglobin, Lab Routine Trauma Ordered: 10/22/2024[facility] Work Phone: comment on above:Ordered: 10/22/2024Leukocytes [#/volume] corrected for nucleated erythrocytes in Blood by Automated coun Parkview HealthLeukocytes [#/volume] in [facility] HospitalLymphocytes [#/volume] in Blood by Automated count Park[facility] HealthLymphocytes/100 leukocytes in Blood by Automated [facility] HealthcareMayo miscellaneous testMayo miscellaneous test Lab Routine Screen for STD (sexually transmitted disease) Amenorrhea Vaginal discharge Ordered: 12/12/2023[facility] HealthcareComment on above: Ordered: 12/12/2023MCH [Entitic mass] by Automated [facility] HealthcareMCHC [Mass/volume] by Automated [facility] HealthcareMCV [Entitic volume] by Automated [facility] Monocytes [#/volume] in Blood by Automated [facility] HealthcareMonocytes/100 leukocytes in Blood by Automated [facility] HealthcareNeutrophils [#/volume] in Blood by Automated countParkview HealthNeutrophils/100 leukocytes in Blood by Automated count Parkview HealthNucleated erythrocytes [Presence] in Blood by Automated [facility] HealthcareNuSwab Vaginitis Plus (VG+) NuSwab Vaginitis Plus (VG+) Microbiology Routine Screen for STD (sexually transmitted disease) Amenorrhea Vaginal discharge Ordered: 12/12/2023[facility] HealthcareComment on above:Ordered: 12/12/2023NuSwab Vaginitis Plus (VG+)NuSwab Vaginitis Plus (VG+) Microbiology Routine First trimester ([facility] 11 weeks gestation of ([facility]) Ordered: 09/03/2024[facility] Work Phone: comment on above:Ordered: 09/03/2024Patient Education - The [facility] MonthOhio[facility] Work Phone: Patient referralOhiohealth Shelby Hospital Ctr Work Phone: Platelet mean volume [Entitic volume] in Blood by Automated [facility]red HealthcarePlatelets [#/volume] in Blood [facility] End: 24-43-6938RV for in second or third trimesterFDC SECOND/THIRD TRIMESTER OB Imaging Routine BMI 60.0-69.9, adult 1 Occurrences starting 09/04/2024 until 04/02/2025[facility] Work Phone: Comment on above:1 Occurrences starting 09/04/2024 until 04/02/2025 Payers DatePayer CategoryPayerPolicy [id number]-pay2025Medicaid [id number] [id number] 17-31-7638[employer] Cross Blue [id number] 00-28-4926HokfhjaBIAQ BCBS [id number] 2017-[facility] [phone] [address] [place] [id number] [id number] 2.16.840.1.366523.3.57[id number] 2.16.840.1.793333.3.57[id number] 2.16840.1.107940.3.57[id number] 2.840.1.612371.3.57[id number] 2.840.1.246737.3.57[id number] 2.840.1.992309.3.57[id number] 2.840.1.358097.3.57[id number] 2.840.1.357923.3.57[id number] 2.840.1.578917.3.579.[id number] 2.840.1.594047.3.579.[id number] 2.16840.1.447595.3.57[id number] 2.840.1.738425.3.57[id number] 2.16840.1.709107.3.57[id number] 2.16840.1.954872.3.57[id number] 2..840.1.621330.3.57[id number] 2.16.840.1.191880.3.579.2.17[id number] Health Sktsalxos5vx1ei14-3aog-17ym-2402-[id number] 2.16.840.1.941483.3.579.2.531 Social History DateTypeDetailFacilityStart: 12-12-2023 End: 18-50-9252Abuafsn smoking status NHISNever smoked tobaccoNOMS Healthcare Start: 12-27-4517Icodgmk use and exposureSmokeless tobacco non-userNOMS HealthcareStart: 12-12-2023 End: 85-05-4179Gfgmpzhkt beverage intakeCurrent drinker of alcohol (finding)[facility] HealthcareStart: 12-12-2023 End: 77-64-5429Gprqtlq of Social functionNOMS HealthcareStart: 12-12-2023 End: 34-91-3356Gwhhzgs Use Disorder Identification Test - Consumption [AUDIT-C] [facility] HealthcareHow often to you have a drink containing alcohol?Monthly or less [facility] HealthcareHow many standard drinks containing alcohol do you have on a typical day?1 or 2NOMS HealthcareHow often do you have 6 or more drinks on 1 occasion?Less than monthlyNOMS HealthcareStart: 33-79-8167Oal assigned at Not on fileNOMS HealthcareStart: 08-01-2024 End: 02-25-8042Pjeagpxyl beverage intakeEx-drinker (finding)[facility] Start: 45-57-0050Skstybb CommentCaffiene Intake- pt reports 1 can dailyNOMS HealthcareStart: 10-02-3576QuciwguetGrhcvklceParkview HealthTobacco smoking status NHISTobacco smoking consumption unknownMetroHealthStart: 90-14-0490WwaCnehjt (finding)[facility]HealthStart: 10-27-0788Ksq Assigned At FemaleParkview HealthTobacco smoking statusScci Hospital Lima Start: 62-87-8971GjmVsqfcpUQJP Healthcare Medical Equipment Procedure CodeEquipment CodeEquipment Original TextEquipment IdentifierDatesUse as directed to test blood sugar three times per [id number]: 09-03-2024 End: Device 3 (three) times a [id number]: 96-47-6935Mdtte Sugar Diagnostic (Onetouch Ultra Test) stripStart: 19-52-3221Qkfsuyp (Onetouch Delica Plus Lancet) 30 gauge miscStart: 11-25-2024 Goals DatePatient GoalDesired Activity/StatePersonal health goal Clinical Notes 12-12-2023 to 01-13-2025 Note Date & JclaNaauIjrvvdeu29-28-6221 History of Present illness Narrative* Aleida Kraft MD - 01/13/2025 1:30 PM EDT Subjective Jessica Baldwin is a 19 y.o. at 30w0d with a working estimated date of delivery of 03/24/2025, by Ultrasound who presents for a routine visit. She denies vaginal bleeding, leakage of fluid, decreased movements, or contractions. Losing hair Her is complicated by: VD BMI67 Hidradenitis Pelvic pain with Er Gerd Trauma Glucola 88 RHOGAM NOT COMPLETED 42 S>D History of Present Illness During her visit, the patient reports that things are going well overall with the baby moving and no contractions or fluid issues. She has been experiencing hair loss, which she attributes to hormonal changes. She is taking vitamins as recommended. She expresses a preference to avoid section delivery. Objective Physical Exam: Expected Total Weight Gain: 11 lb-19 lb Pregravid BMI: 67.01 Labs Urine Dip: Lab Results Component Value Date KETONESU Negative 10/22/2024 PROTEINUR Negative 08/01/2024 GLUCOSEUR 2+ 10/22/2024 LEUKOCYTESUR 1+ 10/22/2024 Assessment/Plan Diagnoses and all orders for this visit: Rh negative status during in second trimester ([facility] 30 weeks gestation of ([facility]) - POCT urinalysis dipstick manually resulted Hyperemesis HGSIL (high grade 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 Vulvar lesion Abnormal glucose affecting ([facility]) Trauma Weight loss Third trimester ([facility]) - POCT urinalysis dipstick manually resulted Thyroid disorder screening - US thyroid; Future - Thyroid panel with tsh; Future Continue vitamin. Expected mode of delivery VD Follow up in 1 week for a routine visit. Assessment & Plan at 30 weeks gestation Assessment: Patient at 30 weeks gestation with normal movement, no contractions, and no fluidissues. Last ultrasound at 30 weeks showed normal findings. Patient experiencing hair loss which isattributed to hormonal changes during . Patient taking vitamins and prefers vaginal delivery over section. Plan: - Thyroid function testing due to hair loss - Thyroid ultrasound ordered - Lab work to be completed at [place] Pt says Rhogam was given at [place] during thr past 2 weeks - Ultrasound and follow-up appointment scheduled for 36 weeks documented in this encounterBarnes-Jewish [id number] History of Present illness Narrative* Aleida Kraft MD - 11/05/2024 1:30 PM EDT Subjective Jessica Baldwin is a 19 y.o. at 20w1d with a working estimated date of delivery of 03/24/2025, by Ultrasound who presents for a routine visit. She denies vaginal bleeding, leakage of fluid, decreased movements, or contractions. Her is complicated by: VD BMI67 Hidradenitis Pelvic pain with Er Gerd Trauma Glucola 88 History of Present Illness History of Present Illness The patient is a woman presenting for follow-up. She reports ongoing nausea and vomiting, resulting in difficulty keeping food and drinks down. The patient has lost an additional 2 pounds since her last visit. She mentions being unable to find her previously prescribed medication for this issue. Objective Physical Exam Expected Total Weight Gain: 11 lb-19 lb Pregravid BMI: 67.01 Labs Urine dip: Lab Results Component Value Date KETONESU Negative 10/22/2024 PROTEINUR Negative 08/01/2024 GLUCOSEUR 2+ 10/22/2024 LEUKOCYTESUR 1+ 10/22/2024 Lab Results Component Value Date HGB 13.6 08/01/2024 HCT 42.1 09/30/2024 LABANTI Negative 08/01/2024 LABRPR Non Reactive 08/01/2024 HEPBSAG Negative 08/01/2024 RUBELLAIGGQT 3.43 08/01/2024 Assessment/Plan Diagnoses and all orders for this visit: Weight loss - Ambulatory referral to Nutrition Services; Future - ondansetron (Zofran) 4 MG tablet; Take 1 tablet (4 mg) by mouth every 8 (eight) hours if needed for vomiting Second trimester ([facility]) 20 weeks gestation of ([facility]) Hyperemesis HGSIL (high grade 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 Vulvar lesion Abnormal glucose affecting ([facility]) Trauma Continue vitamin. Labs reviewed. Rhogam negative; A- GTT completed 10/01/23 - Normal. Follow up in 2 weeks for a routine visit. Assessment & Plan 1. Hyperemesis gravidarum Assessment: Patient reports inability to keep food and drinks down, resulting in a 2-pound weight loss. This persistent nausea and vomiting is consistent with hyperemesis gravidarum. The condition issevere enough to warrant consideration of IV hydration. Plan: - Prescribe new medication for nausea and vomiting Zofran - Refer to dietitian for nutritional assessment and management - Standing order for IV hydration at infusion center when dehydrated - Monitor weight at follow-up visits RT 2 weeks documented in this encounterBarnes-Jewish [id number] History of Present illness Narrative* Aleida Kraft MD - 10/22/2024 1:30 PM EDT Subjective [...] to a nearly 6-day stay at [facility]. She mentions a fall on the [...] this visit: Trauma - Hemoglobin, Second trimester ([facility]) - POCT urinalysis dipstick manually resulted 18 weeks gestation of ([facility]) - POCT urinalysis dipstick manually resulted Hyperemesis HGSIL (high grade 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 Vulvar lesion Abnormal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
--- NOTE | 2025-02-04 20:02 | ED_ITS ---
HPI HPI - General Adult General Chief complaint: Upper Respiratory Infection Stated complaint: 33 WKS PREG, CONGESTED Time Seen by Provider: 02/04/25 19:24 Source: patient Mode of arrival: walk-in History of Present Illness HPI narrative: Patient is a 19-year-old female who is 33 weeks that presents with complaints of nasal and chest congestion, cough, and left ear pain for about a week. Patient denies any fever, night sweats, or chills. She has been taking Mucinex and using ypdy-anf-evavqzm eardrops without relief of her symptoms. Her main complaints today are her persistent cough and left ear pain. Related Data Previous Rx's ?Medication ?Instructions ?Recorded amoxicillin 500 mg capsule 500 mg PO TID 7 days #21 ca ps 02/04/25 ciprofloxacin 0.3 %-dexamethasone 4 drp otic (ear) BID 7 days #7.5 mL 02/04/25 0.1 % ear drops,suspension Allergies Allergy/AdvReac Type Severity Reaction Status Date / Time No Known Drug Allergies Allergy Verified 10/29/24 23:49 Opioid HPI Opioid Management Most Recent Opioid Data: Last Pain Scale 7 10/29/24, 23:53 Review of Systems ROS Status of ROS 10 or more systems reviewed and unremark able except as noted in history and below PFSH PFS Social History Smoking status: Former smoker Little interest or pleasure in doing things: not at all Feeling down, depressed, or hopeless: not at all Exam Narrative Exam Narrative: General: No distress, age-appropriate, morbidly obese Skin: Warm, dry, no pallor. No rash. Head: Normocephalic, atraumatic. Neck: Supple, non-tender. Eye: Pupils are equal, round and EOMI. No scleral icterus. Ears, Nose, Mouth, and Throat: Left TM and ear canal bulging and erythematous, right TM landmarks noted, no bulging, ear canal mildly erythematous. No nasal mucosal hypertrophy. Oral mucosa is moist, no posterior oropharynx erythema, uvula is mid-line Cardiovascular: Regular Rate and Rhythm without murmur, gallop or rub. Respiratory: No accessory muscle use or respiratory distress. Lungs are clear to auscultation, no wheezing, rales or rhonchi Chest Wall: no tenderness Musculoskeletal: Full ROM of all extremities, no calf or popliteal tenderness GI: Abdomen is soft, distended and gravid, non tender to palpation. No masses appreciated. No rebound, guarding, or rigidity noted. Neurological: A&O x4. No cranial nerve dysfunction observed. No truncal ataxia. Moves all extremities. Sensation intact. Psychiatric: Cooperative and interactive. Normal mood and affect. Constitutional Vital Signs, click to edit/add: Last Vital Signs Temp 98.0 F 02/04/25 19:20 Pulse 110 H 02/04/25 19:20 Resp 20 02/04/25 19:20 BP 143/97 H 02/04/25 19:20 Pulse Ox 100 02/04/25 19:20 O2 Del Method Room Air 02/04/25 19:20 Documenting provider has reviewed patient's vital signs: yes Course Vital Signs Vital signs: Vital Signs Temperature 98.0 F 02/04/25 19:20 Pulse Rate 110 H 02/04/25 19:20 Respiratory Rate 20 02/04/25 19:20 Blood Pressure 143/97 H 02/04/25 19:20 Pulse Oximetry 100 02/04/25 19:20 Oxygen Delivery Method Room Air 02/04/25 19:20 Temperature 98.0 F 02/04/25 19:20 Pulse Rate 110 H 02/04/25 19:20 Respiratory Rate 20 02/04/25 19:20 Blood Pressure 143/97 H 02/04/25 19:20 Pulse Oximetry 100 02/04/25 19:20 Oxygen Delivery Method Room Air 02/04/25 19:20 Medical Decision Making [facility] Narrative Medical decision making narrative: 19-year-old female at 33 weeks presents with 1-week history of nasal and chest congestion, persistent cough, and left ear pain. Exam reveals left external ear canal swelling and bulging TM, consistent with acute otitis media with possible concurrent otitis externa. No fever, chills, or systemic symptoms. On exam patient in no distress, speaks in full clear sentences. Pulse is tachycardic at 110, BP 143/97. Heart rate trend reviewed and this appears to be around her baseline. Patient is morbidly obese and 33 weeks . No hemodynamic instability. No hypoxia, 100% O2 saturation on room air. Temp is afebrile at 98 ?F. On exam there is no wheezing, rhonchi, or crackles. Chest x-ray considered but not indicated at this time. She does have otitis externa/media in her left ear. COVID-19 and Flu testing negative. Given gestational age, selected antibiotics and medications were chosen for safety. Amoxicillin 500 mg 3 times daily x 7 days sent to pharmacy, first dose amoxicillin 500 given in ED tonight. Ciprofloxacin?dexamethasone otic drops also prescribed for otitis externa. Symptomatic relief for cough provided with dose of Robitussin DM given here in ED. Patient counseled on ear care, hydration, and monitoring for red flag symptoms. Follow-up with OB provider and PCP Dr. Marshall for reevaluation. Differential Diagnosis Differential Diagnosis: Otitis externa, viral URI, COVID-19, influenza Lab Data Lab results reviewed: Yes I reviewed the patient's lab results Labs: Lab Results 02/04/25 Range/Units 19:39 Influenza Type A Ag Negative Influenza Type B Ag Negative SARS-CoV-2 Ag (CV2AG) Negative (NEGATIVE) Discharge Plan Discharge Chief Complaint: Upper Respiratory Infection Clinical Impression: Otitis media, Otitis externa, Upper respiratory infection, viral Patient Disposition: Home, Self-Care Time of Disposition Decision: 20:18 Condition: Good Mode of Transportation: Private Vehicle Prescriptions / Home Meds: New amoxicillin 500 mg capsule 500 mg PO TID 7 Days Qty: 21 0RF ciprofloxacin-dexamethasone 0.3-0.1 % drops,suspension 4 drp otic (ear) BID 7 Days Qty: 7.5 0RF Print Language: Portuguese Instructions: Ear Infection (ED), Upper Respiratory Infection (ED) Additional Instructions: 1. Antibiotic (Oral) Take as prescribed. Finish the entire course even if symptoms improve. 2. Ear Drops Ciprofloxacin ear drops * Place 4 drops in the left ear twice daily for 7 days. * After placing drops, lie on your side for 1 minute to help medicine reach the ear canal. 3. Cough Medication You may take: * Robitussin DM: 10 mL by mouth every 4 hours as needed. Do not exceed 6 doses in 24 hours. 4. Pain Relief Safe options in : * Acetaminophen (Tylenol): 650 mg every 6 hours as needed. Do not take ibuprofen, naproxen, or aspirin. Ear Care Instructions * Keep the left ear dry. No swimming or submerging. * Avoid inserting Q-tips or anything into the ear canal. * You may use a warm compress for ear pain. For Cough and Congestion * Use a humidifier at home to loosen mucus. * Increase fluids (water, warm tea). * You may use saline nasal spray as needed for congestion. * Rest as much as possible. Return to the ER Immediately if You Develop: * Fever >=100.4?F * Worsening ear pain, swelling, or drainage * New hearing loss * Dizziness or severe headache * Shortness of breath, chest pain, or persistent wheezing * Decreased movement * Contractions, vaginal bleeding, or leaking fluid Referrals: Catrachito Marshall MD [Primary Care Provider, [facility]] - 1 week Discharge Date/Time: 02/04/25 20:40
[2025-02-04 20:03] LABS: SARS-CoV-2 Ag NEGATIVE (NEGATIVE)
[2025-02-04] MEDS: GUAIFENESIN 200 MG/DEXTROMETHORPHAN 20 MG 10 ML UNIT DOSE CUP PO (20:34)
[2025-02-04] MEDS: AMOXICILLIN 500 MG CAPSULE PO (20:34)
== END 2025-02-04 20:40 | disposition home or self-care (01) ==
PROVIDERS: Physician Assistant; Emergency Provider Internal Medicine; PCP Family Medicine
DX: O99.513 Diseases of the respiratory system complicating pregnancy, third trimester (principal); J06.9 Acute upper respiratory infection, unspecified; O99.891 Other specified diseases and conditions complicating pregnancy; H66.92 Otitis media, unspecified, left ear; H60.92 Unspecified otitis externa, left ear; Z3A.33 33 weeks gestation of pregnancy; Z87.891 Personal history of nicotine dependence
CPT/HCPCS: 87804; 87811; 99284

== ENCOUNTER 2025-03-17 16:36 | Outpatient (OUT) | payer BC, SELFPAY ==
--- OUTSIDE RECORDS SUMMARY | 2023-11-23 09:15 | XMS_ITS ---
Author Organization The [facility] [place] Address [address] [place] [address] Care Team Providers Care Alternative Financing Specialist Name Role Phone Hira Marshall Primary Care Provider [phone] REASON FOR VISIT personal issues Encounters Encounter Location Date Provider Diagnosis [facility] [address] [place] [address] 11/23/2023 Hira Marshall Plan Of Treatment No Information Progress Notes * Jessica BALDWIN SDOB:[birth year] (19 yo F)Acc No.[id number]:11/23/2023 UNLOCKED PROGRESS NOTE Progress Note Patient: Jessica DOLAN :?Catrachito GOODEN), MDDOB:2005???Age: 18 Y???Sex:FemaleDate:4Phone:[phone]:[address] [place], [place]-[address] Subjective: * Chief Complaints: * 1 . Personal issues. * Medical History: Objective: * Vitals: Assessment: Plan: * Treatment: * * Electronic signature of Hira Marshall MD, [id number] on 03/17/2025 at 04:41 PM EST Sign off status: PendingVisit Status:?N/S N/C (No Show/No Charge) * Provider: Mira Marshall MD (TTC) Date: 0 11/23/2023 Generated for Printing/Faxing/eTransmitting on:?03/17/2025 04:41 PM EST
--- OUTSIDE RECORDS SUMMARY | 2024-04-11 04:45 | XMS_ITS ---
Author Organization [facility] [place] Address [address] [place] [address] Care Team Providers Care Active Directory Architect Name Role Phone Hira Marshall Primary Care Provider [phone] REASON FOR VISIT wegovy Encounters Encounter Location Date Provider Diagnosis [facility] [address] [place] [address] 04/11/2024 Hira Marshall Plan Of Treatment No Information Progress Notes * Jessica BALDWIN SDOB:[birth year] (19 yo F)Acc No.[id number]:04/11/2024 UNLOCKED PROGRESS NOTE Progress Note Patient: Jessica DOLAN :?Catrachito Marshall (TTC), MDDOB:2005???Age: 18 Y???Sex:FemaleDate:04/11/2024Phone:[phone]:[address] [place], [place]-[address] Subjective: * Chief Complaints: * 1 . Wegovy. * Medical History: Objective: * Vitals: Assessment: Plan: * Treatment: * * Electronic signature of Hira Marshall MD, [phone] on 03/17/2025 at 04:41 PM EST Sign off status: PendingVisit Status:?N/S N/C (No Show/No Charge) * Provider: [facility]MD Date: 0 04/11/2024 Generated for Printing/Faxing/eTransmitting on:?03/17/2025 04:41 PM EST
--- OUTSIDE RECORDS SUMMARY | 2025-03-03 05:36 | XMS_ITS | Continuity of Care Document ---
Author Organization [facility] Address [address] [place] [address] Phone Care Team Providers Care Poultry Trimmer Name Role Phone Aleida Goodman MD Attending Provider Catrachito Marshall MD Primary Care Provider [phone] Bianca Bates APRN Attending Provider Care Teams Patient Care Team Team Status: Active Member Role/Relationship Status Dates Catrachito Marshall MD Primary Care Provider Active Visit Care Team Team Status: Inactive Member Role/Relationship Status Dates Aleida Goodman MD Attending Provider Active St art: February 26, 2025 End: February 26, 2025 Patient Care Team Team Status: Inactive Member Role/Relationship Status Dates Catrachito Marshall MD Primary Care Provider Active Start: March 03, 2025 End: March 03, 2025Bianca Bates APRN CARTOGRAPHY TECHNICIAN-CAttending Provider ActiveStart: March 03, 2025 End: March 03, 2025 Chief Complaint and Reason for Visit Chief Complaint Admit Date cough sore throat March 03, 2025 10:01am Allergies, Adverse Reactions, Alerts Allergen Type Severity Reaction Last Updated Verified Status No Known Allergies Allergy Unknown March 03, 2025 10:09amYesActive Social History Smoking Status Status Start Date End Date Date of Observa tion Never smoked tobacco (finding) October 16, 2024 10:08pm Observation Status Observation Response Date of Response Legal Sex Female (finding) Sex Assigned At BirthFemaleJuly 2005 Family History Relationship Condition Age at Onset Recorded Date/T herbert mother Heart disease Unknown Chronic obstructive pulmonary diseaseUnknown Problems Active Problems Problem Diagnosis/Recorded Date Onset Date Stat Viral URI November 25, 2024 2:25pm Unknown A ctive Inactive/Resolved Problems Problem Diagnosis/Recorded Date Onset Date Stat October 16, 2024 9:05pm Unknown Resol eric Medications Medication Status Dose Units Route Directions Qty Days Refills S tart Date Stop Date End Date Reason(s) Instructions Adherence Cephalexin 500 mg capsule Discontinued 500 MG PO Four times daily 28 7 0 October 18, 2024 11:00pm November 25, 2024 1:41pmMethylprednisolone (Medrol (Nicolas)) 4 mg tablets,dose shzuQaqyjh8UHsay package nxuaivoheu810Kmzxuarr2024 12:00amPO PER PKG DIR for 6 daysComplies with drug therapyBlood-Glucose Meter (Onetouch Ultra2 Meter) miscActiveEACH.ROUTE.PEXZJFJBX9Glyllktja 7th, 2025 11:00pmAs directedBlood Sugar Diagnostic (Onetouch Ultra Test) stripActiveSTRIP.ROUTE.NXGKIFKIJ97Sxxjyosjp 7th, 2025 11:00pmAs directedLancets (Onetouch Delica Plus Lancet) 30 gauge misc Activegauge.ROUTE.BSYOPNMYI692Cukyswwqq 7th, 2025 11:00pmAs directedOndansetron Hcl 4 mg tabletDiscontinuedMGPOSept2024 11:00pmDecemb2024 10:14am Procedures Procedure Date Performed Status Group B Streptococcus Culture February 26 completed Relevant Diagnostic Tests and/or Laboratory Data Microbiology Results Procedure Source Result Collection Date/Time Result Date/Time Result Comment Performing Site Group B Streptococcus Culture Vaginal/Rectal Strep agalactiae - (group b) February 26, 2025 10:23am March 01, 2025 10:14am [facility] [id number] [address] [place] [id number] Vital Signs Vital Reading Result Reference Range Collection Date/Time Height 70 [in_i] March 03, 2025 10:56umIzdylt667.78 kgDecember 2024 10:09amBody Cfgtmvnswyf49.0 [degF]97.6-99.0[facility] 2024 10:09amHeart Pfpq487 /min 60-100[facility] 2024 10:09amRespiratory rate18 /fqj44-50Wajjeubt 2024 10:09amOxygen saturation by Pulse lmyrzlot92 %95-1002024 10:09am BP Zranhxkl949 mm[Hg]100-140[facility] 2024 10:09amBP Vwnqnbhgl00 mm[Hg] 60-100[facility] [place] 2024 10:09amBMI (Body Mass Index)59.3 kg/w2Pllyqglt 2024 10:09am Advance Directives Advance Directive Response Recorded Date/ Time Advance Directives No October 16 9:11pm Insurance Providers Guarantor [place] Address [address] [facility] [id number] Info.Home Phone: Coverage Status Update:2024 Payer Group Member ID Coverage Type Subscriber Relationship to Subscriber Effective Date Expiration Date Yaneli CURIEL/ Id: [id number] [place] Id: [id number] [address] [place] [id number] Home Phone: [facility] [id number] [place] Id: [id number] [address] [place] [id number] Home Phone: sel Encounters Encounter Location(s) Arrival/Admit Date Discharge/Departure Date Discharge/Departure Disposition Provider(s) Departed Referred -[facility] February 26, 2025 10:23am February 26, 2025 10:24am Discharged to home care or self care (routine discharge) DANIELE Goodman Departed Physician/ Provider Office Visit -[facility] [place] March 03, 2025 10:01am March 03, 2025 10:34am Discharged to home care or self care (routine discharge) Bianca Bates , PARTS IDENTIFICATION TECHNICIAN
--- OUTSIDE RECORDS SUMMARY | 2025-03-03 10:37 | XMS_ITS ---
Author Organization [facility] [place] Address [address] [place] [address] Care Team Providers Care Lumber Marker Name Role Phone Hira Marshall Primary Care Provider [phone] -Provider, Default Unavailable [phone] Social History Tobacco Use: Social History Observation Description Date Details (start date - stop date) Never Smoker NA - NA Tobacco Control (Standard) Question Answer Notes Tobacco use: Nonsmoker Encounters Encounter Location Date Provider Diagnosis Electronic Health Records [address] [place] [address] 03/03/2025 Default -Provider Plan Of Treatment No Information Progress Notes * Jessica HERRERA SDOB:[birth year] (19 yo F)Acc No.[id number]:03/03/2025 Patient:?Jessica HERRERA :2005???Age:19 Y???Sex:FemalePhone:[phone] Address:[address] [place] [id number] Subjective: * Chief Complaints: * * Medical History: * Surgical History: * Hospitalization/Major Diagno stic Procedure: * Social History: ???Tobacco Use:?Tobacco Control (Standard)?Tobacco use:?Nonsmoker * Medications: Objective: * Vitals: * Physical Examination: ??? Assessment: Plan: * Treatment: * Procedure Codes: * true * Date:?Generated for Printing/Faxing/eTransmitting on:?03/17/2025 04:41 PM EST
--- OUTSIDE RECORDS SUMMARY | 2025-03-04 09:45 | XMS_ITS | Encounter Summary ---
Author Organization [facility] Address [address] [place] [address] Care Team Providers Care Recreation Establishment Manager Name Role Phone Unallocated, Noms Provider Primary Care Provi eliana Reason for Visit * ReasonCommentsRoutine VisitPatient present for PNC, patient denies any issues or complaints at this time. P: Neg G: Neg Encounter Details DateTypeDepartmentCare Team (Latest Contact Info)Iffmuyfumjq54/16/2025 9:45 AM ESTRoutine [facility] [address] [facility] [address] [place] [id number] Aleida Goodman MD [address] [facility] [address] [place] [address] Upper respiratory disease (Primary Dx); Third trimester ([facility]); 37 weeks gestation of ([facility]); Hyperemesis; HGSIL (high grade 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; Rh negative status during in second trimester ([facility]); Vulvar lesion; Abnormal glucose affecting ([facility]); Eczema, unspecified type Social History Tobacco UseTypesPacks/DayYears UsedDateSmoking Tobacco: NeverSmokeless Tobacco: NeverAlcohol UseStandard Drinks/WeekCommentsNot Currently0 (1 standard drink = 0.6 oz pure alcohol)Caffiene Intake- pt reports 1 can dailyAUDIT-CAnswerDate RecordedQ1: How often do you have a drink containing alcohol?Monthly or less 12/12/2023Q2: How many drinks containing alcohol do you have on a typical day when you are drinking?1 or Q3: How often do you have six or more drinks on one occasion?Less than duyrzor6012/12/2023HQ-2AnswerDate Recorded Patient Health Questionnaire-2 Hpqkk456regnantEstimated Date of WmrnodowNfpslqgeDfu18/05/2026ased on UltrasoundSex and Gender InformationValue Date RecordedSex Assigned at BirthNot on fileLegal ZmwFnlhbv86/15/2023 7:18 PM EDTGender IdentityNot on fileSexual OrientationNot on fileOccupationIndustryJob Start DateJob End DateNot on fileNot on fileNot on fileNot on filedocumented as of this encounter Last Filed Vital Signs Vital SignReadingTime TakenCommentsBlood Ohyzzxzs986/7803/04/2025 10:03 AM EST Pulse--Temperature--Respiratory Rate--Oxygen Saturation--Inhaled Oxygen Concentration--Ncuqsg451 kg (415 lb)03/04/2025 10:03 AM ESTHeight--Body Mass Index--documented in this encounter Progress Notes * Aleida Goodman MD - 03/04/2025 9:45 AM EST Subjective Jessica Baldwin is a 19 y.o. at 37w1d with a working estimated date of delivery of 03/24/2025, by Ultrasound who presents for a routine visit. She denies vaginal bleeding, leakage of fluid, decreased movements, or contractions. URI-cough Urinary frequency Her is complicated by: VD BMI67 Hidradenitis Pelvic pain with Er Gerd Trauma Glucola 88 RHOGAM [place] 42 S>D NOT SEEING [facility] History of Present Illness Objective Physical Exam: Expected Total Weight Gain: 11 lb-19 lb Pregravid BMI: 67.01 Labs Urine Dip: Lab Results Component Value Date KETONESU Negative 02/27/2025 PROTEINUR Negative 08/01/2024 GLUCOSEUR Negative 02/27/2025 LEUKOCYTESUR Negative 02/27/2025 Lab Results Component Value Date HGB 13.6 08/01/2024 HCT 42.1 09/30/2024 LABANTI Negative 08/01/2024 LABRPR Non Reactive 08/01/2024 HEPBSAG Negative 08/01/2024 RUBELLAIGGQT 3.43 08/01/2024 No results found for: PAPPA , AFP , HCG , ESTRIOL , INHBA . Assessment/Plan Diagnoses and all orders for this visit: Upper respiratory disease - promethazine-dextromethorphan (Phenergan-DM) 6.25-15 MG/5ML syrup; Take 5 mL by mouth every 4 (four) hours if needed for cough for up to 7 days Third trimester ([facility]) - POCT urinalysis dipstick manually resulted 37 weeks gestation of ([facility]) - POCT urinalysis dipstick manually resulted Hyperemesis HGSIL (high grade 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 Rh negative status during in second trimester ([facility]) Vulvar lesion Abnormal glucose affecting ([facility]) Eczema, unspecified type - fluocinonide-emollient (Lidex-E) 0.05 % cream; Apply topically in the morning and before bedtime. Continue vitamin. Expected mode of delivery VD Follow up in 1 week for a routine visit. Assessment & Plan Urinary tract infection Assessment: Patient was seen at urgent care and received treatment with an antibiotic starting with M (medication name unclear from patient description). Patient reports urinary symptoms and was advised to increase fluid intake. Urine analysis was mentioned to be reviewed. Plan: - Continue antibiotic medication started yesterday at urgent care - Increase fluid intake to at least 3 cups of tea daily - Review urine analysis results Lidex for eczema Prescription for cough ordered documented in this encounter Plan of Treatment Not on file documented as of this encounter Goals GoalPatient Goal TypeAssociated ProblemsRecent ProgressPatient-Stated?Author Reminders Care PlanOB RemindersNoHurst, Jessica, MAdocumented as of this encounter Procedures Procedure NamePriorityDate/TimeAssociated DiagnosisCommentsPOCT URINALYSIS EOYXMFNGKvvszsw35/16/2025 10:10 AM EST Third trimester ([facility]) 37 weeks gestation of ([facility]) documented in this encounter Results * POCT urinalysis dipstick manually resulted (03/04/2025 10:10 AM EST)Component ValueRef RangeTest MethodAnalysis TimePerformed AtPathologist SignatureColor, UAYellowClarity, UAClearGlucose, UANegativeNegative - 2000(110) ++++ mg/dL Bilirubin, UANegativeNegative - 4(70) +++ mg/dLKetones, UANegativeNegative - 160(16) ++++ mg/dLSpec Grav, UA1.0001 - 1.03Blood, UANegativeNegative - 50 Grady/mcLpH, UA5.05 - 9Protein, UANegativeNegative - 2000(20) ++++ mg/dL Urobilinogen, UA0.20.2 - 12 mg/dLLeukocytes, UANegativeNegative - 500+++ Tk/mcLNitrite, UANegativeNegative - PositiveSpecimen (Source)Anatomical Location / LateralityCollection Method / VolumeCollection TimeReceived Time Urine03/04/2025 10:10 AM EST Narrative Authorizing ProviderResult TypeResult StatusAleida Goodman MDPOINT OF CARE TEST ENTER/EDIT ORDERABLESFinal Result documented in this encounter Visit Diagnoses Diagnosis Upper respiratory disease- Primary Other and unspecified diseases of upper respiratory tract Third trimester ([facility]) state, incidental 37 weeks gestation of ([facility]) Hyperemesis Persistent vomiting HGSIL (high grade 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 Rh negative status during in second trimester ([facility]) Vulvar lesion Other specified noninflammatory disorder of vulva and perineum Abnormal glucose affecting ([facility]) Eczema, unspecified type documented in this encounter Additional Health Concerns Active ProblemsNoted DateDiagnosed DateOB Yzeyamgoo10/15/2025 documented as of this encounter Care Teams Team MemberRelationshipSpecialtyStart DateEnd Date Unallocated, Noms Provider, [place] [address] PCP - GeneralFamily Rppnsriv34/17/24documented as of this encounter
--- OUTSIDE RECORDS SUMMARY | 2025-03-17 16:41 | XMS_ITS | Clinical Summary ---
Author Organization [facility] tem Address [id number] [address] [place] [address] Care Team Providers Care Director Of Hospitality Name Role Phone Unavailable Primary Care Provider Unavailabl e Allergies No known active allergies Medications MedicationSigDispense QuantityRefillsLast FilledStart DateEnd DateStatus ondansetron (ZOFRAN) 4 mg tablet Take 1 tablet (4 mg total) by mouth every 8 (eight) hours as needed for nausea or vomiting.Active Encounters DateTypeDepartmentCare WlahXxehxwyjlxj53/16/2025Telephone Maternal- Medicine at [facility] [address] [place] [phone] Johanne Silva RN 01/30/2025Orders Only Maternal- Medicine at [facility] [address] [place] [phone] Ref Prov, Not In System 01/30/2025bstract Maternal- Medicine at [facility] [address] [place] [phone] Jose G Dong MD from Last 3 Months Family History Medical HistoryRelationNameCommentsAnemiaBrotherDiabetesMaternal Grandfather HypertensionMaternal GrandfatherCOPDMaternal GrandmotherEmphysemaMaternal GrandmotherCOPDMotherEndometriosisMotherHeart failureMotherHerniaMother HypertensionMotherHypertensionPaternal GrandmotherCrohn's diseasePaternal Uncle RelationNameStatusCommentsBrotherMaternal GrandfatherMaternal GrandmotherMother Paternal GrandmotherPaternal Uncle Social History Tobacco UseTypesPacks/DayYears UsedDateSmoking Tobacco: NeverSmokeless Tobacco: Never Tobacco Cessation:Counseling Given: Not Answered Alcohol UseStandard Drinks/WeekCommentsNot Currently0 (1 standard drink = 0.6 oz pure alcohol)Estimated Date of BmwfapzjHcfxsjgeOrs50/05/2026ased on UltrasoundSex and Gender InformationValueDate RecordedSex Assigned at BirthNot on fileLegal SkoDzpuqy97/11/2025 2:15 PM ESTGender IdentityNot on fileSexual OrientationNot on file Plan of Treatment Health MaintenanceDue DateLast DoneCommentsChlamydia Qhlzqgqom29/19/2004 Depression Piartmonb68/19/2016Tobacco Mxegkwaze24/19/2016Adult BMI Screening 2Pap Smear10/05/2024Influenza Wruerfj2411/18/2024DTaP,Tdap and Td Vaccines (6 - Td or Tdap)7011/11/2016, 07/10/2008, 04/15/2004, Additional history existsRSV ( or age 60+ yrs) (No Doses Required) Completed Medical Devices Not on file Procedures Procedure NamePriorityDate/TimeAssociated DiagnosisCommentsULTRASOUND OFFICE Rzxemri3901/27/2025from Last 3 Months Results * Ultrasound - Office (01/27/2025)Anatomical RegionLateralityModalityAMB UltrasoundSpecimen (Source)Anatomical Location / LateralityCollection Method / VolumeCollection TimeReceived Time01/27/2025 Narrative Authorizing ProviderResult TypeResult StatusNot In System Ref ProvIMG US ORDERABLESEdited Result - Final from Last 3 Months Insurance
--- OUTSIDE RECORDS SUMMARY | 2025-03-17 16:41 | XMS_ITS | Clinical Summary ---
Author Organization [facility] Address [address], [address] [place] [address] Care Team Providers Care Psych Rn Name Role Phone Catrachito Marshall MD Primary Care Provider [phone] Allergies No known active allergies Medications MedicationSigDispense QuantityRefillsLast FilledStart DateEnd DateStatus Vit-Fe Fumarate-FA ( VITAMINS PO) Take 2 tablets by mouth dailyActive Active Problems ProblemNoted DateDiagnosed Date35 weeks gestation of zgyfwxghy31/04/2025First , third /04/2025BMI 60.0-69.9, adult02/20/2025 Estimated Date of ZnwikpiwNkhxjcjgCes94/05/2026ased on Ultrasound Encounters DateTypeDepartmentCare BoeoKjyjeqmmhxy93/04/2025 2:00 PM ESTRoutine [facility] [address] [place] [phone] Oracio Adler MD test positive for normal first , third trimester (Primary Dx); 35 weeks gestation of ; First , third trimester; BMI 60.0-69.9, adult (HCC)02/10/2025bstract [facility] Maternal Med [address] [place] [address] Oracio Adler MD from Last 3 Months Social History Tobacco UseTypesPacks/DayYears UsedDateSmoking Tobacco: FormerPassive Smoke Exposure: NeverSmokeless Tobacco: Never Tobacco Cessation:Counseling Given: Yes Comments: Stopped vaping about 1yr ago 02/20/2025 Alcohol UseStandard Drinks/WeekCommentsNot Currently0 (1 standard drink = 0.6 oz pure alcohol)Estimated Date of CnedglyzLygiwyyvBak03/05/2026ased on UltrasoundSex and Gender InformationValueDate RecordedSex Assigned at Dqcptq2502/10/2025 1:52 PM ESTLegal NyfOpinyi97/24/2025 1:51 PM ESTGender Identity Not on fileSexual OrientationNot on file Last Filed Vital Signs Vital SignReadingTime TakenCommentsBlood Tttflgbc186/7002/20/2025 1:54 PM EST Dwhft40767/04/2025 1:54 PM NWGYvmnnnbnqbe51.5 ??C (97.7 ??F)02/20/2025 1:54 PM ESTRespiratory Scwq0428 1:54 PM ESTOxygen Saturation--Inhaled Oxygen Concentration--Zbnqja807 kg (410 lb)02/20/2025 1:54 PM CHGEunews133.2 cm (5' 7 ) 02/20/2025 1:54 PM ESTBody Mass Index64.22104/23/2024 1:54 PM EST Plan of Treatment Health MaintenanceDue DateLast DoneCommentsDepression Wdhido8310/06/2015HIV screen 10/05/2018HPV vaccine (1 - 3-dose series)10/05/2018Chlamydia/GC jpexuw7210/06/2019 Meningococcal B vaccine (1 of 2 - Standard)2019Hepatitis C screen 2Pap smear10/05/2024Flu vaccine (#1)10/18/2024OVID-19 Vaccine (3 - season)501/08/2021, 01/06/2021Tdap Vaccine during 12/23/2024DTaP/Tdap/Td vaccine (6 - Td or Tdap), 07/10/2008, 04/15/2004, Additional history existsHepatitis B crnomxrXshxfzzgr28/27/2005, 02/09/2004, 2003, Additional history existsHib vaccineAged Out04/15/2004, 02/09/2004, 2003No longer eligible based on patient's age to complete this topicPneumococcal 0-49 years VaccineAged Out04/15/2004, 02/09/2004, 2003No longer eligible based on patient's age to complete this topicPolio vaccine Bvoryyciv50/23/2009, 04/15/2004, 02/09/2004, Additional history existsVaricella pmwwhmdRtattlhoe70/07/2010, 07/10/2008Meningococcal (ACWY) vaccineCompleted 10/14/2021, 11/11/2016Hepatitis A vaccineAged OutNo longer eligible based on patient's age to complete this topicRespiratory Syncytial Virus (RSV) or age 60 yrs+ (No Doses Required)Completed Procedures Procedure NamePriorityDate/TimeAssociated DiagnosisCommentsUS BIOPHYSICAL PROFILE WO NON STRESS UDOKCRFCgsdzyr29/04/2025 test positive for normal first , third trimester 35 weeks gestation of First , third trimester BMI 60.0-69.9, adult (HCC) US OB DETAIL ANATOMY SINGLE OR FIRST CIVPSMAECHephkuf08/04/2025 test positive for normal first , third trimester 35 weeks gestation of First , third trimester BMI 60.0-69.9, adult (HCC) from Last 3 Months Results * US BIOPHYSICAL PROFILE WO NON STRESS TESTING (02/20/2025)Anatomical RegionLateralityModalityPelvisOther Narrative Authorizing ProviderResult TypeResult StatusOracio WU US ORDERABLES Final Result * US OB DETAIL ANATOMY SINGLE OR FIRST GESTATION (02/20/2025)Anatomical RegionLateralityModalityAbdomenOther Narrative Authorizing ProviderResult TypeResult StatusOracio WU US ORDERABLES Final Result from Last 3 Months Care Teams Team MemberRelationshipSpecialtyStart DateEnd Date Catrachito Marshall MD [address] [place] [address] PCP - GeneralFamily Lsangscw77/4/25
--- OUTSIDE RECORDS SUMMARY | 2025-03-17 16:41 | XMS_ITS | Encounter Summary ---
Author Organization [facility] tem Address [id number] [address] [place] [address] Care Team Providers Care Lawn Sprinkler Installer Name Role Phone Unavailable Primary Care Provider Unavailabl e Encounter Details DateTypeDepartmentCare Team (Latest Contact Info)Wgeozajamgj57/16/2025Telephone Maternal- Medicine at [facility] [address] [facility] [place] [phone] Johanne Silva RN Social History Tobacco UseTypesPacks/DayYears UsedDateSmoking Tobacco: NeverSmokeless Tobacco: NeverAlcohol UseStandard Drinks/WeekCommentsNot Currently0 (1 standard drink = 0.6 oz pure alcohol)Estimated Date of BixoboxkVnqwpldgNmo98/05/2026Based on UltrasoundSex and Gender InformationValueDate RecordedSex Assigned at Not on fileLegal IeeTqigvn22/11/2025 2:15 PM ESTGender IdentityNot on fileSexual OrientationNot on filedocumented as of this encounter Miscellaneous Notes * Telephone Encounter - Johanne Silva RN - 03/04/2025 11:28 AM EST Attempted to contact [facility] regarding patient's missed appointment. Upon review of chart, patient appears to be followed by MFM at [facility]. LVM requesting return call to verify if referral can be cancelled. Received return call from [facility] confirming that referral is no longer needed. documented in this encounter Plan of Treatment Not on file documented as of this encounter Visit Diagnoses Not on filedocumented in this encounter
--- OUTSIDE RECORDS SUMMARY | 2025-03-17 16:41 | XMS_ITS | Clinical Summary ---
Author Organization [facility] Address [address] [place], [place] [address] Care Team Providers Care Can Dragger Name Role Phone Catrachito Marshall MD Primary Care Provider [phone] Social History Tobacco UseTypesPacks/DayYears UsedDateSmoking Tobacco: Never Assessed Estimated Date of LufyviqySzwulmzvWtb83/05/2026Based on UltrasoundSex and Gender InformationValueDate RecordedSex Assigned at BirthNot on fileLegal SexFemale 07/18/2014 4:37 PM EDTGender IdentityNot on fileSexual OrientationNot on file Plan of Treatment Health MaintenanceDue DateLast DoneCommentsPeds To Adult Transition Initial Iuomfgwdog63/19/2016Peds To Adult Transition Annual Imguqorsgg68/19/2018HPV Vaccine (1 - 3-dose series)10/05/2018Meningococcal B Vaccine (1 of 2 - Standard) 2019Anxiety Cxkcduhdq90/19/2022hlamydia Screening (18-24)10/05/2021 Depression Ygtspbysx77/19/2022GC (Gonorrhea) Screening (18-24)10/05/2021HIV Efiabcvga20/19/2022Hepatitis C Ohrzhebzx59/19/2022ervical Cancer Screening 5Covid-19 Vaccine ( - 2024- season)2024Influenza Vaccine (#1) 2024DTaP,Tdap,Td Vaccine (6 - Td or Tdap)7011/11/2016, 07/10/2008, 04/15/2004, Additional history existsRSV Vaccine (1 - 1-dose 75+ series) 10/05/2078Hepatitis B WrmpcfxJbnktveov96/27/2005, 02/09/2004, 2003 Insurance Care Teams Team MemberRelationshipSpecialtyStart DateEnd Catrachito Marshall MD PCP - GeneralFamily Medicine07/18/14
--- OUTSIDE RECORDS SUMMARY | 2025-03-17 16:42 | XMS_ITS | Encounter Summary ---
Author Organization [facility] Address [address] [place] [address] Care Team Providers Care Kindergarten Aide Name Role Phone Unallocated, [facility] Provider Primary Care Provi eliana Encounter Details DateTypeDepartmentCare Team (Latest Contact Info)Udjczisszxc19/16/2025Travel Social History Tobacco UseTypesPacks/DayYears UsedDateSmoking Tobacco: NeverSmokeless [...] or more drinks on one occasion?Less than ihneoye15/24/2024PHQ-2AnswerDate Recorded Patient Health Questionnaire-2 Jgxwp949/17/2024Estimated Date of BxuikucaLcezcopaCgu50/05/2026Based on UltrasoundSex and Gender InformationValue Date RecordedSex Assigned at BirthNot on fileLegal ChmCcxxmf99/15/2023 7:18 PM EDTGender IdentityNot on fileSexual OrientationNot on fileOccupationIndustryJob Start DateJob End DateNot on fileNot on fileNot on fileNot on filedocumented as of this encounter Plan of Treatment Not on file documented as of this encounter Goals GoalPatient Goal TypeAssociated ProblemsRecent ProgressPatient-Stated?Author Reminders Care PlanOB RemindersNoJessica Joyner, MAdocumented as of this encounter Visit Diagnoses Not on filedocumented in this encounter Additional Health Concerns Active ProblemsNoted DateDiagnosed DateOB Mdkhftexh81/15/2025 documented as of this encounter Care Teams Team MemberRelationshipSpecialtyStart DateEnd Date Unallocated, [facility] Provider, [address] [place] [address] PCP - GeneralFamily Vslcxqrw50/17/24documented as of this encounter
--- OUTSIDE RECORDS SUMMARY | 2025-03-17 16:42 | XMS_ITS | Clinical Summary ---
Author Organization [facility] Address [address] [place] [address] Care Team Providers Care Sheet Metal Smith Name Role Phone Unallocated, Noms Provider MD Primary Care Provi eliana Allergies No known active allergies Medications MedicationSigDispense QuantityRefillsLast FilledStart DateEnd DateStatus Vit-Fe Fumarate-FA ( PO) Take by mouthActive Blood Glucose Monitoring Suppl (True Metrix Air Glucose Meter) device Indications:First trimester ([facility]),11 weeks gestation of ([facility]),Abnormal glucose affecting ([facility])1 Device 3 (three) times a week 1 each 5Active glucose blood (True Metrix Blood Glucose Test) test strip Indications:First trimester ([facility]HCC),11 weeks gestation of ([facility]),Abnormal glucose affecting ([facility]HCC)Use as directed to test blood sugar three times per week 50 each 306//625291/6Active Lancets 30G misc Indications:First trimester ([facility]HCC),11 weeks gestation of ([facility]),Abnormal glucose affecting ([facility]HCC)1 Device 3 (three) times a week 100 each 1065Active fluocinonide-emollient (Lidex-E) 0.05 % cream Indications:Eczema, unspecified typeApply topically in the morning and before bedtime. 30 g 312//042597/6Active promethazine-dextromethorphan (Phenergan-DM) 6.25-15 MG/5ML syrup Indications:Upper respiratory diseaseTake 5 mL by mouth every 4 (four) hours if needed for cough for up to 7 days 118 mL 112/16/39754205/12/2024Expired Active Problems Estimated Date of EoegphgmXmhwmvzeZwj89/05/2026ased on Ultrasound No known active problems Encounters DateTypeDepartmentCare PiejTjgyucompfa23/29/2025Telephone [facility] [address] [place] [phone] JarettlalitRadha CNM 03/10/2025Telephone [facility] [address] [place] [address] Aleida Goodman MD 03/04/2025 9:45 AM ESTRoutine [facility] [address] [place] [address] Aleida Goodman MD Upper respiratory disease (Primary Dx); Third trimester ([facility]); 37 weeks gestation of ([facility]); Hyperemesis; HGSIL (high grade 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; Rh negative status during in second trimester ([facility]); Vulvar lesion; Abnormal glucose affecting ([facility]); Eczema, unspecified type03/04/2025amboo flowsheet [facility] [address] [place] [address] Aleida Goodman MD 03/04/20250872Adtsbp44/15/2025Telephone [facility] [address] [place] [address] Brijesh Reeves LPN 03/03/2025Telephone [facility] [address] [place] [address] Shira Shirley LPN 02/27/2025 10:00 AM ESTRoutine [facility] [address] [place] [address] Aleida Goodman MD Third trimester ([facility]); 36 weeks gestation of ([facility]); Hyperemesis; Rh negative status during in second trimester ([facility]); HGSIL (high grade 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; Vulvar lesion; Abnormal glucose affecting ([facility]); screening for streptococcus B ([facility])02/27/2025amboo flowsheet [facility] [address] [place] [address] Aleida Goodman MD 02/27/20255887Jllzrj07/01/2025Telephone [facility] [address] [place] [address] Shira Shirley LPN 02/06/2025bstract [facility] [address] [place] [address] Aleida Goodman MD 02/04/2025Telephone [facility] [address] [place] [address] Brijesh Reeves SHEET WRITER 01/29/2025Telephone [facility] [address] [place] [address] Shira Shirley SHEET WRITER 01/27/2025 2:15 PM ESTRoutine [facility] [address] [place] [address] Aleida Goodman MD Third trimester ([facility]); 32 weeks gestation of ([facility]); Hyperemesis; HGSIL (high grade 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; Rh negative status during in second trimester ([facility]); Vulvar lesion; Abnormal glucose affecting ([facility]); Trauma; Weight loss01/27/2025 1:15 PM ESTAncillary Procedure [facility] [address] [place] [phone] Obesity in , antepartum, third trimester ([facility]); related condition in third trimester ([facility])01/27/2025bstract [facility] [address] [place] [address] Aleida Goodman MD 01/27/20253653Yohjsb13/27/2025 1:30 PM EDTRoutine [facility] [address] [place] [phone] Aleida Goodman MD Rh negative status during in second trimester ([facility]); 30 weeks gestation of ([facility]); Hyperemesis; HGSIL (high grade 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; Vulvar lesion; Abnormal glucose affecting ([facility]); Trauma; Weight loss; Third trimester ([facility]); Thyroid disorder cglyjovzc16/27/2025amboo flowsheet [facility] [address] [place] [address] Aleida Goodman MD 01/13/20257317Ntsexo54/10/2025Telephone [facility] [address] [place] [address] Aleida Goodman MD from Last 3 Months Family History Medical HistoryRelationNameCommentsAnemiaBrotherNo Known ProblemsFatherCrohn's diseaseFather's BrotherDiabetesMaternal GrandfatherHypertensionMaternal GrandfatherCOPDMaternal GrandmotherEmphysemaMaternal GrandmotherCOPDMother EndometriosisMotherHeart failureMotherHerniaMotherHypertensionMotherHypertension Paternal GrandmotherPolycystic ovary syndromeSisterRelationNameStatusComments Sjqpbrzk9YelnlsRbdfpLwjvrw's BrotherAliveMaternal GrandfatherAliveMaternal GrandmotherAliveMotherAlivePaternal GrandfatherDeceasedPaternal GrandmotherAlive SisterAlivex1 Social History Tobacco UseTypesPacks/DayYears UsedDateSmoking Tobacco: NeverSmokeless Tobacco: Never Tobacco Cessation:Counseling Given: Not Answered Alcohol UseStandard Drinks/WeekCommentsNot Currently0 (1 standard drink = 0.6 oz pure alcohol)Caffiene Intake- pt reports 1 can dailyAUDIT-CAnswerDate Recorded Q1: How often do you have a drink containing alcohol?Monthly or less12/12/2023 Q2: How many drinks containing alcohol do you have on a typical day when you are drinking?1 or Q3: How often do you have six or more drinks on one occasion?Less than nmfenfw3912/12/2023HQ-2AnswerDate RecordedPatient Health Questionnaire-2 Vhcuy076regnantEstimated Date of DeliveryCommentsYes 03/24/2025ased on UltrasoundSex and Gender InformationValueDate RecordedSex Assigned at BirthNot on fileLegal GrbCcluhk63/15/2023 7:18 PM EDTGender Identity Not on fileSexual OrientationNot on fileOccupationIndustryJob Start DateJob End DateNot on fileNot on fileNot on fileNot on file Last Filed Vital Signs Vital SignReadingTime TakenCommentsBlood Pplhrpoe332/7803/04/2025 10:03 AM EST Pulse--Temperature--Respiratory Rate--Oxygen Saturation--Inhaled Oxygen Concentration--Hezlcm029 kg (415 lb)03/04/2025 10:03 AM PBIJickrx589.6 cm (5' 6 )08/11/2021 12:00 PM EDTBody Mass Index-- Plan of Treatment Health MaintenanceDue DateLast DoneCommentsInfluenza Vaccine (#1)11/18/2024 Pneumococcal Vaccine: Pediatrics (0 to 5 Years) and At-Risk Patients (6 to 64 Years)Aged OutNo longer eligible based on patient's age to complete this topic Goals GoalPatient Goal TypeAssociated ProblemsRecent ProgressPatient-Stated?Author Reminders Care PlanOB RemindersNoJessica Joyner MA Procedures Procedure NamePriorityDate/TimeAssociated DiagnosisCommentsPOCT URINALYSIS LOPAFDBXXizwirw94/16/2025 10:10 AM EST Third trimester ([facility]) 37 weeks gestation of ([facility]) POCT URINALYSIS EMCHAGUWUpvkwzf53/11/2025 10:13 AM EST Third trimester ([facility]) 36 weeks gestation of ([facility]) STREP B MURGKTSwczuae54/10/2025 10:23 AM EST screening for streptococcus B ([facility]) POCT URINALYSIS GSTOIXLGLimtoxn80/10/2025 2:48 PM EST Third trimester ([facility]) 32 weeks gestation of ([facility]) US OB FOLLOW UP TRANSABDOMINAL ORHOMYXELhahvdj19/10/2025 2:02 PM EST Obesity in , antepartum, third trimester ([facility]) related condition in third trimester ([facility]) POCT URINALYSIS TSGTFUEGIepqluv25/27/2025 1:39 PM EDT 30 weeks gestation of ([facility]) Third trimester ([facility]) from Last 3 Months Results * POCT urinalysis dipstick manually resulted (03/04/2025 10:10 AM EST) Only the most recent of4 resultswithin the time period is included. ComponentValueRef RangeTest MethodAnalysis TimePerformed AtPathologist Signature Color, UAYellowClarity, UAClearGlucose, UANegativeNegative - 2000(110) ++++ mg/dLBilirubin, UANegativeNegative - 4(70) +++ mg/dLKetones, UANegativeNegative - 160(16) ++++ mg/dLSpec Grav, UA1.0001 - 1.03Blood, UANegativeNegative - 50 Grady/mcLpH, UA5.05 - 9Protein, UANegativeNegative - 2000(20) ++++ mg/dL Urobilinogen, UA0.20.2 - 12 mg/dLLeukocytes, UANegativeNegative - 500+++ Tk/mcL Nitrite, UANegativeNegative - PositiveSpecimen (Source)Anatomical Location / LateralityCollection Method / VolumeCollection TimeReceived KdtaYeojg99/16/2025 10:10 AM EST Narrative Authorizing ProviderResult TypeResult StatusAleida Goodman MDPOINT OF CARE TEST ENTER/EDIT ORDERABLESFinal Result * Strep B screen (02/26/2025 10:23 AM EST)ComponentValueRef RangeTest Method Analysis TimePerformed AtPathologist SignatureFRMC ORGANISMStrep agalactiae - (group b)03/01/2025 10:14 AM [facility] CtrComment: If patient is Penicillin allergic, please contact Microbiology at [phone] within 7 days to add susceptibility testing. Specimen (Source)Anatomical Location / LateralityCollection Method / Volume Collection TimeReceived TimeSwabVaginal swab / Gycbxat2802/26/2025 10:23 AM EST 02/27/2025 4:04 PM EST Narrative Authorizing ProviderResult TypeResult StatusAleida ANGELA MICROBIOLOGY - GENERAL ORDERABLESFinal ResultPerforming OrganizationAddressCity/State/ZIP Code Phone Number [facility] [address] [phone], [facility] [address] [phone] * OB follow up transabdominal approach (01/27/2025 2:02 PM EST)Anatomical RegionLateralityModalityBodyUltrasoundStudy GAStudy DateStudy EDDWorking SHAHBAZ (Source)501/07/2025 (Ultrasound)Fetus A MeasurementsValueGA (days) Biparietal DiameterHead CircumferenceAbdominal CircumferenceFemur LengthFetal Ulna LengthFetal Humerus LengthFetal Tibia LengthAmniotic Fluid Index Quadrant 1Amniotic Fluid Index Quadrant 2Amniotic Fluid Index Quadrant 3Amniotic Fluid Index Quadrant 4Amniotic Fluid IndexDeep Vertical PocketUA SD RatioUA Resistance IndexUA Pulsatility IndexMCA SD RatioMCA Resistance IndexMCA Pulsatility IndexHeart RateTWIN DISCORDANCECERVICAL W/FUNDAL PRESSURECERVICAL W/ VALSALVASpecimen (Source)Anatomical Location / LateralityCollection Method / VolumeCollection TimeReceived Time Narrative 02/15/2025 7:12 PM EST Table formatting from the original result was not included. Images from the original result were not included. ?? Obstetrics & Gynecology ? [address] ? [address] ? [address] ?[address], [address] ? [place] [address] ?[place] [address] ? - - - - - - - - - - - - - - - - - - - - - - - - - - - - - - - - - - - - - - - - - - - - - - - - - - - - - - - - - - - - - - - - - - ?Second / Third Trimester Ultrasound Patient name: Jessica Baldwin : 2005 (19 y.o.) Date of exam: 01/27/25 - - - - - - - - - - - - - - - - - - - - - - - - - - - - - - - Indication: Complete anatomy survey, maternal obesity Method: Transabdominal ultrasound examination View: Factors affecting optimal visualization: excessive probe interface to MELI distance. - - - - - - - - - - - - - - - - - - - - - - - - - - - - - - - : Type of gestation: Rose Number of fetuses: 1 - - - - - - - - - - - - - - - - - - - - - - - - - - - - - - - Assigned Dating based on CRL: Estimated Date of Delivery: 03/24/25 GA by SHAHBAZ: 32w0d - - - - - - - - - - - - - - - - - - - - - - - - - - - - - - - Biometry: BPD ??HC AC FL EFW 88 % 55 % 52 % 88 % 71 % EFW: 4 lb 10 oz GA by biometry: 33w3d - - - - - - - - - - - - - - - - - - - - - - - - - - - - - - - General Evaluation: Cardiac activity: present FHR: 131 bpm movements: visualized Presentation: Cephalic Placenta: posterior Umbilical cord: 3 vessel cord Amniotic fluid: normal NGUYEN: 13.7 cm - - - - - - - - - - - - - - - - - - - - - - - - - - - - - - - Anatomy: Visualized: Falx, CSP, Thalamus, Right choroid plexus, Left choroid plexus, Right lateral ventricle, Nose, Lips, Profile, 4 chamber heart, LVOT, RVOT, 3 vessel view, 3 vessel trachea, Stomach, Right kidney, Left kidney, Bladder, Bowel Not Visualized: Ductal arch, left lateral ventricle Documented previously: remaining anatomy - - - - - - - - - - - - - - - - - - - - - - - - - - - - - - - - - - - - - - - - - - - - - - - - - - - - - - - - - - - - - - - - - - Impression: There is a single intrauterine visualized. biometry is consistent with the established dates. Serial growth is within normal limits. The EFW is at the 71 percentile. The anatomy visualized appears normal. The amniotic fluid is normal. *Please note that a normal ultrasound does not rule out anomalies* - - - - - - - - - - - - - - - - - - - - - - - - - - - - - - - - - - - - - - - - - - - - - - - - - - - - - - - - - - - - - - - - - - Ordering/Reading Provider: Aleida Goodman M.D. ??Assistant Grocery Store Manager: Abdirizak Larkin RDMS Authorizing ProviderResult TypeResult StatusAleida Goodman MDNORTHAMPTON STATE [facility] US PROCEDURESFinal Result from Last 3 Months Additional Health Concerns Active ProblemsNoted DateDiagnosed DateOB Usgcqfieg74/15/2025 Insurance Care Teams Team MemberRelationshipSpecialtyStart DateEnd Date Unallocated, Noms Provider, [address] [place], [place] [phone] PCP - GeneralFamily Scrysdfz60/17/24
--- OUTSIDE RECORDS SUMMARY | 2025-03-17 16:42 | XMS_ITS | Encounter Summary ---
Author Organization [facility] Address [address] [place] [address] Care Team Providers Care Beef Lugger Name Role Phone Unallocated, Noms Provider Primary Care Provi eliana Encounter Details DateTypeDepartmentCare Team (Latest Contact Info)Rrvscctnkpi78/22/2025Telephone [facility] [address] [facility] [address] [place] [address] Aleida Goodman MD [address] [facility] [address] [place] [address] Social History Tobacco UseTypesPacks/DayYears UsedDateSmoking Tobacco: NeverSmokeless [...] or more drinks on one occasion?Less than esymkbd79/24/2024PHQ-2AnswerDate Recorded Patient Health Questionnaire-2 Drccv747/17/2024Estimated Date of QkzraxtwTmiiradlUgq58/05/2026Based on UltrasoundSex and Gender InformationValue Date RecordedSex Assigned at BirthNot on fileLegal IwxOoiujs85/15/2023 7:18 PM EDTGender IdentityNot on fileSexual OrientationNot on fileOccupationIndustryJob Start DateJob End DateNot on fileNot on fileNot on fileNot on filedocumented as of this encounter Miscellaneous Notes * Telephone Encounter - Brijesh Reeves LPN - 03/10/2025 10:37 AM EST Called and spoke with pt regarding symptoms. Pt states symptoms started last night - pt states she couldn't sleep. Unable to make it to the bathroom - vomiting. Pt states she's able to keep some fluids down but is very thirsty. Advised pt to go to ER or urgent care to receive fluids and additional care for symptoms. Pt agreeable * Telephone Encounter - Meghan Gutiérrez - 03/10/2025 10:33 AM EST Patient called stating last apt she was given a steroid and cough medicine. She getting worse. The patient states she is throwing up sick, has a temp of 100.9 & has been feeling dizzy. She would like a call back. documented in this encounter Plan of Treatment Not on file documented as of this encounter Goals GoalPatient Goal TypeAssociated ProblemsRecent ProgressPatient-Stated?Author Reminders Care PlanOB RemindersJessica Stein, MAdocumented as of this encounter Visit Diagnoses Not on filedocumented in this encounter Additional Health Concerns Active ProblemsNoted DateDiagnosed DateOB Jfialmxlp88/15/2025 documented as of this encounter Care Teams Team MemberRelationshipSpecialtyStart DateEnd Date Unallocated, Noms Provider, [address] [place] [address] PCP - GeneralFamily Ndnucfbx82/17/24documented as of this encounter
--- OUTSIDE RECORDS SUMMARY | 2025-03-17 16:42 | XMS_ITS | Encounter Summary ---
Author Organization [facility] Address [address] [place] [address] Care Team Providers Care Corporate Real Estate Specialist Name Role Phone Unallocated, Noms Provider Primary Care Provi eliana Encounter Details DateTypeDepartmentCare Team (Latest Contact Info)Caczevdbrst41/16/2025amboo flowsheet [facility] [address] [facility] [address] [place] [address] Aleida Goodman MD [address] [facility] [address] [place] [address] Social History Tobacco UseTypesPacks/DayYears UsedDateSmoking Tobacco: NeverSmokeless [...] or more drinks on one occasion?Less than mwdifxg68/24/2024PHQ-2AnswerDate Recorded Patient Health Questionnaire-2 Gepeg040/17/2024Estimated Date of BudgpryoUmlxaohmOhj75/05/2026Based on UltrasoundSex and Gender InformationValue Date RecordedSex Assigned at BirthNot on fileLegal HwmGpvbdb24/15/2023 7:18 PM EDTGender IdentityNot on fileSexual OrientationNot on fileOccupationIndustryJob Start DateJob End DateNot on fileNot on fileNot on fileNot on filedocumented as of this encounter Plan of Treatment Not on file documented as of this encounter Goals GoalPatient Goal TypeAssociated ProblemsRecent ProgressPatient-Stated?Author Reminders Care PlanOB RemindersNoHuJessica bermeo, MAdocumented as of this encounter Visit Diagnoses Not on filedocumented in this encounter Additional Health Concerns Active ProblemsNoted DateDiagnosed DateOB Luctdgrck89/15/2025 documented as of this encounter Care Teams Team MemberRelationshipSpecialtyStart DateEnd Date Unallocated, Noms Provider, [address] [place] [address] PCP - GeneralFamily Oqoyvnvt26/17/24documented as of this encounter
--- OUTSIDE RECORDS SUMMARY | 2025-03-17 16:42 | XMS_ITS | Clinical Summary ---
Author Organization [facility] Address [address] [place] [address] Care Team Providers Care Slaughterer Religious Ritual Name Role Phone Unavailable Primary Care Provider Unavailabl e Source Comments The following information is NOT included in Care Everywhere downloads:Psychiatric notes, ECG results, Cardiac Rehab notes, Pulmonary Function notes, data from SmartForms (includes but not limited toPregnancy data,audiograms, eye exams, pre-surgical evaluation notes, well-child exam data).[facility] Immunizations ImmunizationAdministration DatesNext DueDTaP-Hep B-IPV (Pediarix) (PQB=532) 04/15/2004,02/09/2004,2003DTaP-IPV (Kinrix) (RPQ=090)07/10/2008Hib (PRP-T) (CVX=48)04/15/2004,02/09/2004,2003MMR, Ifwwzns-Wueoq-Okqmlzv (CVX=03) 06/24/2009,07/10/2008Meningococcal conjugate (MCV4,Men-ACWY), Menactra (MCV4P) (CWY=651)10/14/2021Meningococcal, unspecified formulation (XWI=039)11/11/2016 Pneumococcal conjugate 7 valent (PCV7) (FKH=343)04/15/2004,02/09/2004,2003 Tdap (HLV=621)11/11/2016Varicella (Chickenpox) (CVX=21)06/24/2009,07/10/2008 Social History Tobacco UseTypesPacks/DayYears UsedDateSmoking Tobacco: Never Assessed CommentsYesSex and Gender InformationValueDate RecordedSex Assigned at BirthNot on fileLegal QatBalzkd36/18/2025 11:48 AM EDTGender IdentityNot on fileSexual OrientationNot on file Plan of Treatment Health MaintenanceDue DateLast DoneCommentsHIV Test10/05/2018Meningococcal B (Bexsero,OMV) Vaccine (Optional,16-23 years)2019STI Screening (Age 18-24) 10/05/2021Hepatitis A (HAV) Vaccine (optional start 19+ years)3Pap Smear5COVID-19 Vaccine (3 - 2024- season)501/08/2021, 01/06/2021Influenza Vaccine (#1)2024Tetanus (Td or Tdap) Nmtfrpy2011/11/2026 11/11/2016Shingles (RZV) Vaccine (1 of 2)4RSV vaccine (adult) (1 - 1- dose 75+ series)10/05/2078Hepatitis B (HBV) LouwirwTmptzbpci90/27/2005, 02/09/2004, 2003Pneumococcal Vaccine(s)Aged Out04/15/2004, 02/09/2004, 2003No longer eligible based on patient's age to complete this topicTdap WxnuzbzTuebnvmfp03/25/2017Hepatitis C YcupxyfhRqgojzlzj04/15/2025Mammography Discontinued Insurance
--- OUTSIDE RECORDS SUMMARY | 2025-03-17 16:42 | XMS_ITS | Encounter Summary ---
Author Organization [facility] Address [address] [place] [address] Care Team Providers Care Preassembler And Inspector Name Role Phone Unallocated, Noms Provider Primary Care Provi eliana Encounter Details DateTypeDepartmentCare Team (Latest Contact Info)Yfdllwtmccn09/29/2025Telephone [facility] [address] [facility] [address] [place] [address] WorkRadha cohn CN [address] [facility] [address] [place] [address] Social History Tobacco UseTypesPacks/DayYears UsedDateSmoking Tobacco: NeverSmokeless [...] or more drinks on one occasion?Less than /24/2024PHQ-2AnswerDate Recorded Patient Health Questionnaire-2 Zkjut585/17/2024Estimated Date of LlftrsawYztmizjvMrr60/05/2026Based on UltrasoundSex and Gender InformationValue Date RecordedSex Assigned at BirthNot on fileLegal FfgIswtij89/15/2023 7:18 PM EDTGender IdentityNot on fileSexual OrientationNot on fileOccupationIndustryJob Start DateJob End DateNot on fileNot on fileNot on fileNot on filedocumented as of this encounter Miscellaneous Notes * Telephone Encounter - Radha Courtney CNM - 03/17/2025 3:49 PM EST Pt. Called into nurse OB line regarding contractions that started this morning. She hasn't been timing them but feels like they are every 5 minutes. They feel like a menstrual cramp, and she rates them a 7/10 but is talking through them. Denies LOF, or vag bleeding and is having positive movement. Discussed staying home vs going to the hospital at this time. Encouraged to go to the hospitalwhen her contractions get stronger or if her water breaks due to GBS status. Patient denies any further questions at this time. documented in this encounter Plan of Treatment Not on file documented as of this encounter Goals GoalPatient Goal TypeAssociated ProblemsRecent ProgressPatient-Stated?Author Reminders Care PlanOB RemindersNoJessica Joyner, MAdocumented as of this encounter Visit Diagnoses Not on filedocumented in this encounter Additional Health Concerns Active ProblemsNoted DateDiagnosed DateOB Zsjmofgox56/15/2025 documented as of this encounter Care Teams Team MemberRelationshipSpecialtyStart DateEnd Date Unallocated, Noms Provider, [address] [place] [address] PCP - GeneralFamily Snakmdti44/17/24documented as of this encounter
--- OUTSIDE RECORDS SUMMARY | 2025-03-17 16:42 | XMS_ITS | Patient Health Record ---
Author Organization [facility] [place] Address [address] [place] [address] Care Team Providers Care Nib Assembler Name Role Phone Rolando Hira Primary Care Provider -Provider, Default Unavailable [phone] Allergies No Known Allergies Results Component Value Reference Range Notes XR knee FIONA 3V Reviewed date:05/13/2024 08:34:54 PM Interpretation: Performing Lab: Notes/Report: Source Facility: [place] [address] XRay Report Signed Patient: JUNIOR BALDWIN MR#: [id number] : 2005 Acct:[id number] Age/Sex: 18 / F ADM Date: 05/13/24 Loc: RAD Attending Dr: Luca Pillai M.D. Ordering Physician: Luca Pillai M.D. Date of Service: 05/13/24 Procedure(s): XR knee FIONA 3V Accession Number(s): [id number] cc: Luca Pillai M.D. [place] [id number] Patient Name: JUNIOR BALDWIN MRN: [id number] date: 2005 Sex: F Assigned Patient Location: RAD Current Patient Location: RAD Accession/Order Number: [id number] Exam Date: 05/13/2024 14:13 Report Date: 05/13/2024 [...] Sandra Mcdonald M.D.05/13/2024 2:18 PM Dictation Location: [place] [address] Electronically authenticated by: [id number] Y Date: 05/13/2024 14:18 Dictated By: Sandra Mcdonald M.D. Signed By: 05/13/24 1421 DD/ 1418 TD/TT: Laser Cutter: TAMMI QUANT HCG Reviewed date:07/26/2024 01:09:24 PM Interpretation: Performing Lab: Notes/Report: [facility] , [facility] Quantitative 4086 5-50 0.2-1 WEEK 50-500 1-2 WEEKS 100-5,000 2-3 WEEKS 500-10,000 3-4 WEEKS 1,000-50,000 4-5 WEEKS 10,000-100,000 5-6 WEEKS 15,000-200,000 6-8 WEEKS 10,000-100,000 2-3 MONTHS Performing Lab:see noteML - [facility] LBPREG QUANT HCG Reviewed date:07/30/2024 03:50:29 PM Interpretation: Performing Lab: Notes/Report: [facility] ,[facility] Xgybwzsqkaxi63371 5-50 0.2-1 WEEK 50-500 1-2 WEEKS 100-5,000 2-3 WEEKS 500-10,000 3-4 WEEKS 1,000-50,000 4-5 WEEKS 10,000-100,000 5-6 WEEKS 15,000-200,000 6-8 WEEKS 10,000-100,000 2-3 MONTHS Performing Lab:see noteML - [facility] LBUA RANDOM W or MICROSCOPIC Reviewed date:09/12/2024 07:41:19 PM Interpretation: Performing Lab: Notes/Report: [facility] ,Color UrineYELLOWYELLOWClarity UrineCLEARCLEARSpecific [place] Urine1.025 1.005-1.025pH Urine6.05.0-9.0Protein UrineNEGATIVENEG/TRACE mg/dLGlucose Urine UANEGATIVENEGATIVE mg/dLBilirubin UrineNEGATIVENEGATIVEKetones UrineNEGATIVE NEGATIVE mg/dLBlood UrineNEGATIVENEGATIVENitrite UrineNEGATIVENEGATIVE Urobilinogen Urine1.00.2-1.0 EU/dLLeukocyte Esterase UrineTRACENEGATIVEWBC Urine 5-10NONE SEEN #/HPFRBC Iqrti7-011-9 #/HPFBacteria UrineTRACENONE SEEN #/HPFMucus UrineNONE SEENNONE SEENSquamous Epithelial Cell UrineRARENONE/RARE #/LPFCrystals Seen?SeenNone Seen #/HPFCalcium Oxalate Crystals UrineFEWCast Seen?NONE SEENNONE SEEN #/LPFUrine Culture IndicatedYES-FRMCPerforming Lab:see noteML - [facility] LBUrine Culture - [facility] Reviewed date:09/17/2024 08:14:08 PM Interpretation: Performing Lab: Notes/Report: [facility] ,Urine Culture - [facility]MCSee Below For Report Urine Culture - [facility] Testing performed at [facility] O:STRAGA Isolated Urine Culture - [facility] Organism Comments Urine Culture - [id number] [place] [address] Urine Culture - [facility] Testing performed at [facility] O:STRAGA Isolated Urine Culture - [facility] Organism Comments Urine Culture - FRMCSee Below For Report Urine Culture - [facility] Testing performed at [facility] O:STRAGA Isolated Urine Culture - [facility] Organism Comments Urine Culture - [facility]MCSee Below For Report Urine Culture - [facility] Testing performed at [facility] O:STRAGA Isolated Urine Culture - [facility] Organism Comments Urine Culture - [facility]20,000 CFU/ML Urine Culture - [facility] Testing performed at [facility] O:STRAGA Isolated Urine Culture - [facility] Organism Comments Performing Lab:see noteML - [facility] LBCBC AUTO DIFF Reviewed date:09/15/2024 03:14:19 PM Interpretation: Performing Lab: Notes/Report: [facility] ,White Blood Count10.44.0-11.0 10 3/uLRed Blood Count4.914.20-5.40 10 6/uL Igpzgpoyhg03.812.0-16.0 g/wIZihdjcwkdo32.236.0-48.0 %Mean Corpuscular Kmqwsf58.9 81.0-99.0 fLMean Corpuscular Dhjmwuesyt50.126.7-34.0 pgMean Corpuscular HGB Conc 33.529.9-35.2 g/dLRed Cell Distribution Width14.011.0-15.0 %Platelet Nqxfm706 150-450 10 3/uLMean Platelet Volume9.29.5-13.5 fLNeutrophils Percent Auto70.3 43.0-75.0 %Lymphocytes Percent Auto19.420.5-60.0 %Monocytes Percent Auto9.11.7- 12.0 %Eosinophils Percent Auto0.70.9-7.0 %Basophils Percent Auto0.30.2-2.0 % Immature Granulocytes Pct Auto0.20.0-0.5 %Neutrophils Absolute Auto7.31.4-6.5 10 3/uLLymphocytes Absolute Auto2.01.2-3.8 10 3/uLMonocytes Absolute Auto1.00.3-0.8 10 3/uLEosinophils Absolute Auto0.10.0-0.7 10 3/uLBasophils Absolute Auto0.00.0- 0.1 10 3/uLImmature Granulocytes Abs Auto0.020.00-0.03 10 3/uLPerforming Lab:see noteML - [facility] LBPROF 14(COMP METB) Reviewed date:09/15/2024 03:14:19 PM Interpretation: Performing Lab: Notes/Report: [facility] ,Dkvzov213350-019 mmol/LPotassium3.63.5-5.1 mmol/KBysmukrr48875-552 mmol/LCarbon Ncqmvtn84.421.0-32.0 mmol/LAnion Gap13.0Rjsxzoq3109-939 mg/dLBlood Urea Nitrogen 5.07.0-18.0 mg/dLCreatinine0.550.55-1.02 mg/dLEstimated GFR ( Candis>60 >=60 mL/min/1.73m 2Estimated GFR (Non- Jacque>60>=60 mL/min/1.73m 2BUN Creatinine Ratio9.3Isiuyuo4.08.5-10.1 mg/dLBilirubin Total0.40.2-1.0 mg/dL Aspartate Amino Ydpsixdkxfy4630-27 U/LAlanine Duewjonzulxfleed7566-01 U/L Alkaline Bskqlukrpjn36360-502 U/LTotal Protein7.16.4-8.2 g/dLAlbumin Level2.9 3.4-5.0 g/dLGlobulin4.2Albumin Globulin Ratio0.7Performing Lab:see noteML - [facility] LBUA (CLEAN or CATCH) CREDIT RISK SPECIALIST or MICRO IF IND. Reviewed date:10/30/2024 12:58:31 PM Interpretation: Performing Lab: Notes/Report: [facility] ,Color UrineYELLOWYELLOWClarity UrineCLEARCLEARSpecific [place] Urine1.025 1.005-1.025pH Urine6.05.0-9.0Protein UrineTRACENEG/TRACE mg/dLGlucose Urine UA NEGATIVENEGATIVE mg/dLBilirubin UrineNEGATIVENEGATIVEKetones UrineTRACENEGATIVE mg/dLBlood UrineNEGATIVENEGATIVENitrite UrineNEGATIVENEGATIVEUrobilinogen Urine 1.00.2-1.0 EU/dLLeukocyte Esterase UrineNEGATIVENEGATIVEUrine Microscopic IndicatedNOPerforming Lab:see noteML - [facility] LBRhlg Indicated Reviewed date:01/05/2025 11:42:30 AM Interpretation: Performing Lab: Notes/Report: [facility] ,Rhlg IndicatedYESType and Screen Reviewed date:01/05/2025 11:42:30 AM Interpretation: Performing Lab: Notes/Report: [facility] ,Blood TypeA NegativeAntibody VoejyoASOKIDYKHJFT-PmW-5 Ag* Reviewed date:06/30/2024 03:42:34 PM Interpretation: Performing Lab: Notes/Report: [facility] ,SARS-CoV-2 AgPOSITIVENEGATIVE This test has not been FDA cleared or approved, but has been authorized by the FDA under an Emergency Use Authorization (EUA) for use by authorized laboratories certified under CLIA that meet the requirements to perform moderate or high complexity testing. This test has been authorized only for the detection of proteins from SARS-CoV-2, not for any other viruses or pathogens. The emergency use of this test is authorized for the duration of the declaration that circumstances exist justifying the authorization of emergency use of in vitro diagnostic tests for detection and/or diagnosis of Covid-19 under section 564(b)(1) of the Act, 21 U.S.C. 360bbb-3(b)(1), unless the declaration is terminated or authorization is revoked sooner. Performing Lab:see noteML - [facility] LBPROF CHEM 8 (BAS METB) Reviewed date:06/30/2024 03:42:34 PM Interpretation: Performing Lab: Notes/Report: [facility] ,Wkzpsq625186-970 mmol/LPotassium3.93.5-5.1 mmol/FWiespbhl52403-555 mmol/LCarbon Vldqigf01.021.0-32.0 mmol/LAnion Gap11.7Jegzhbn40646-914 mg/dLBlood Urea Fnurojiu98.07.0-18.0 mg/dLCreatinine0.890.55-1.02 mg/dLEstimated GFR ( Candis>60>=60 mL/min/1.73m 2Estimated GFR (Non- Jacque>60>=60 mL/min/1.73m 2BUN Creatinine Ratio11.5Kptqijz9.18.5-10.1 mg/dLPerforming Lab:see noteML - [facility] LBINFLUENZA A AND B AG Reviewed date:06/30/2024 03:42:34 PM Interpretation: Performing Lab: Notes/Report: [facility] ,Influenza Virus A AntigenNegative Negative for Flu A protein antigen. Infection due to Flu A cannot be ruled out. Flu A antigen in the sample may be below the detection limit of the test. Influenza Virus B AntigenNegative Negative for Flu B protein antigen. Infection due to Flu B cannot be ruled out. Flu B antigen in the sample may be below the detection limit of the test. Performing Lab:see noteML - [facility] LBCBC AUTO DIFF Reviewed date:06/30/2024 03:42:34 PM Interpretation: Performing Lab: Notes/Report: [facility] ,White Blood Count8.24.0-11.0 10 3/uLRed Blood Count5.324.20-5.40 10 6/uL Sjgzexdmql04.412.0-16.0 g/dCDlvvfjbxfh23.836.0-48.0 %Mean Corpuscular Hmoujz12.2 81.0-99.0 fLMean Corpuscular Pjdmelwzrf81.126.7-34.0 pgMean Corpuscular HGB Conc 32.129.9-35.2 g/dLRed Cell Distribution Width13.711.0-15.0 %Platelet Uhqcn409 150-450 10 3/uLMean Platelet Volume8.99.5-13.5 fLNeutrophils Percent Auto67.8 43.0-75.0 %Lymphocytes Percent Auto19.620.5-60.0 %Monocytes Percent Auto11.61.7- 12.0 %Eosinophils Percent Auto0.40.9-7.0 %Basophils Percent Auto0.40.2-2.0 % Immature Granulocytes Pct Auto0.20.0-0.5 %Neutrophils Absolute Auto5.51.4-6.5 10 3/uLLymphocytes Absolute Auto1.61.2-3.8 10 3/uLMonocytes Absolute Auto1.00.3-0.8 10 3/uLEosinophils Absolute Auto0.00.0-0.7 10 3/uLBasophils Absolute Auto0.00.0- 0.1 10 3/uLImmature Granulocytes Abs Auto0.020.00-0.03 10 3/uLPerforming Lab:see noteML - [facility] DJRWHK-HcQ-9 Ag* Reviewed date:02/05/2025 06:44:29 PM Interpretation: Performing Lab: Notes/Report: [facility] ,SARS-CoV-2 AgNEGATIVENEGATIVE This test has not been FDA cleared or approved, but has been authorized by the FDA under an Emergency Use Authorization (EUA) for use by authorized laboratories certified under CLIA that meet the requirements to perform moderate or high complexity testing. This test has been authorized only for the detection of proteins from SARS-CoV-2, not for any other viruses or pathogens. The emergency use of this test is authorized for the duration of the declaration that circumstances exist justifying the authorization of emergency use of in vitro diagnostic tests for detection and/or diagnosis of Covid-19 under section 564(b)(1) of the Act, 21 U.S.C. 360bbb-3(b)(1), unless the declaration is terminated or authorization is revoked sooner. Performing Lab:see noteML - [facility] LBINFLUENZA A AND B AG Reviewed date:02/05/2025 06:44:29 PM Interpretation: Performing Lab: Notes/Report: [facility] ,Influenza Virus A AntigenNegative Negative for Flu A protein antigen. Infection due to Flu A cannot be ruled out. Flu A antigen in the sample may be below the detection limit of the test. Influenza Virus B AntigenNegative Negative for Flu B protein antigen. Infection due to Flu B cannot be ruled out. Flu B antigen in the sample may be below the detection limit of the test. Performing Lab:see noteML - [facility] LB Reason For Referral Reason Eye lid lipoma? Diagnosis 1 Eyelid abnormality ( H02.9) Referral Organization [facility] Referring Provider First Name Hira Referring Provider Last Name Jonathonloli Referring Provider Speciality [facility] pietro Referred Provider Jarrett You Referred Provider Specialty Ophthalmolog y Referral Priority Routine Medications Medication SIG (Take, Route, Frequency, Duration) Notes Start Date End Date Status Meloxicam 15 MG 1 tablet Orally Once a day; Dura tion: 30 days 05/13/2024Not-TakingSaxenda 18 MG/3MLInject 0.6ml Subcutaneous once daily for 7 days- increase by 0.6ml weekly for 4 weeks; Duration: 30daysNot-TakingtiZANidine HCl 4 MG2 tabs Orally qhs; Duration: 30 days05/13/2024Not-Taking Social History Tobacco Use: Social History Observation Description Date Details (start date - stop date) Never Smoker NA - NA Alcohol Screen (Audit-C) Question Answer Notes Did you have a drink containing alcohol in the p ast year? Yes How often did you have 6 or more drinks on one occasion in the past year?Never (0 point)How many drinks did you have on a typical day when you were drinking in the past year?1 or 2 drinks (0 point)How often did you have a drink containing alcohol in the past year?Less than monthly (1 point)Gtnkjw1Cnsdgnsdmqmgdg NegativeTobacco Control (Standard) Question Answer Notes Tobacco use: Nonsmoker AUDIT-C (Standard) Question Answer Notes Did you have a drink containing alcohol in the p ast year? Yes How often did you have six or more drinks on one occasion in the past year?2 to 4 times a month (2 points)How many drinks did you have on a typical day when you were drinking in the past year?5 or 6 drinks (2 points)How often did you have a drink containing alcohol in the past year?2 to 4 times a month (2 points)Points6 InterpretationPositive Problems Problem Type SNOMED Code ICD Code Onset Dates Problem Status W/U Status Risk Notes Problem Shortness of breath (812911901) Shortness of breath (R06.02) ActiveconfirmedProblemSnoring (94292452)Snoring (R06.83)ActiveconfirmedProblem Migraine variant with headache (disorder) (170869636)Migraine headache (G43.909) ActiveconfirmedProblemObesity (136714479)Obesity (E66.9)ActiveconfirmedProblem Anxiety (27626723)Anxiety (F41.9)ActiveconfirmedProblemDepression (724874123) Depression (F32.9)ActiveconfirmedProblemInsomnia (735241929)Insomnia (G47.00) ActiveconfirmedProblemEczema (03108312)Eczema (L30.9)ActiveconfirmedProblemWell adult (523023036)Well adult (Z00.00)ActiveconfirmedProblemParesthesia (76945686) Paresthesia (R20.2)ActiveconfirmedProblemSpina bifida without hydrocephalus (76761750)Arnold-Chiari malformation (Q07.00)ActiveconfirmedProblemDisorder of eyelid (05403198)Eyelid abnormality (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.9)ActiveconfirmedProblemOsteoarthritis of knee (936786160)Knee arthropathy (M17.10)Activeconfirmed Vital Signs Blood pressure diastolic 82 mm Hg 09/27/2024 Rkiwac41 in09/27/2024lood pressure sgrasayh884 mm Hg09/27/20248343Nqpugx855.8 lbs 09/27/2024BMI64.28 kg/m209/27/2024 Encounters Encounter Location Date Provider Diagnosis [facility] [address] [place] [address] 05/13/2024 Hira Hoy Knee arthropathy M17 .10 and Obesity E66.9 [facility] [address] [place] [facility] [address] 09/27/2024 Hira Hoy Eyelid abnormality H02.9 [facility] [address] [place] [facility] [address] 05/13/2024 Hira Hoy [facility] [place] [address] 05/16/2024Doug [facility] [place] [address] [place] [address]/[facility] [place] [address]/[facility] [place] [address]/[facility] [address] [place], [place] [address]/01/2025Doug [facility] [address] [place], [place] [address]/Default -Provider Assessments Encounter Date Diagnosis (ICD Code) Assessment Notes Treatment Notes Treatment Clinical Notes Section Notes 05/13/2024 Knee arthropathy (ICD-10 - M17.1 0) 05/13/2024Obesity (ICD-10 - E66.9)09/27/2024Eyelid abnormality (ICD-10 - H02.9) Plan Of Treatment Pending Test Test Name Order Date CMP (COMPLETE METABOLIC PANEL) 3 HEMOGLOBIN A1C (GLYCO) 03/02/2023 IRON, TOTAL 03/02/2023 LIPID PANEL (CHOL/TRIG/HDL/LDL) 03/02/20 23 CBC WITH DIFF (EXP 01/2025) 03/02/2023 Insulin Level 03/02/2023 XR KNEE LT 3V 05/13/2024 XR KNEE RT 3V 05/13/2024 THYROID PANEL (T4/TSH/FREE T3) 3 Insurance Providers Payer Name Payer Address Payer Phone Subscriber Number Group Number Insured Name Patient Relationship to Insured Coverage Start Date Coverage End Date KATHRYN JUAN [address] [place] [phone] [id number] Jovan Baldwin Child - Insured does not have Financial Responsibility (includes legally adopted child) Medical (General) History Medical History History ICD Code Arnold-Chiari malformation Q07.00 Migraine headache G43.909 Snoring R06.83 Eczema L30.9 Fatigue R53.83 Snoring R06.83 Migraine G43.909 Snoring R06.83 Eczema L30.9 former smoker Surgical History Surgery Date(Month/Year) T&A 12/2010 Hospitalization History Reason Date(Month/Year) see above
--- OUTSIDE RECORDS SUMMARY | 2025-03-17 16:42 | XMS_ITS | Encounter Summary ---
Author Organization [facility] Address [address] [place] [address] Care Team Providers Care Band Head Saw Operator Name Role Phone Unallocated, Noms Provider Primary Care Provi eliana Encounter Details DateTypeDepartmentCare Team (Latest Contact Info)Uujvpvqumaq89/15/2025Telephone [facility] [place] [facility] [address] [facility] [address] [place] [phone] Shira Shirley, TERI [address] [place] [address] Social History Tobacco UseTypesPacks/DayYears UsedDateSmoking Tobacco: NeverSmokeless [...] or more drinks on one occasion?Less than bpypxrk58/24/2024PHQ-2AnswerDate Recorded Patient Health Questionnaire-2 Pvzuy324/17/2024Estimated Date of VjlcryxfRddsymluIbe26/05/2026Based on UltrasoundSex and Gender InformationValue Date RecordedSex Assigned at BirthNot on fileLegal KzxKoyfrj84/15/2023 7:18 PM EDTGender IdentityNot on fileSexual OrientationNot on fileOccupationIndustryJob Start DateJob End DateNot on fileNot on fileNot on fileNot on filedocumented as of this encounter Miscellaneous Notes * Telephone Encounter - Brijesh Reeves LPN - 03/03/2025 1:45 PM EST Called and spoke with pt at this time regarding a lingering cough. prescribed methylprednisolone. Advised pt: per PPJ: okay to take. Pt understanding * Telephone Encounter - Shira Shirley LPN - 03/03/2025 1:29 PM EST Pt was seen at yesterday, she reports they prescribed a RX asking if it's ok to take. Will transfer call to Brijesh ARCEO documented in this encounter Plan of Treatment Not on file documented as of this encounter Goals GoalPatient Goal TypeAssociated ProblemsRecent ProgressPatient-Stated?Author Reminders Care PlanOB RemindersNoJessica Joyner, MAdocumented as of this encounter Visit Diagnoses Not on filedocumented in this encounter Additional Health Concerns Active ProblemsNoted DateDiagnosed DateOB Ghtazwvvl33/15/2025 documented as of this encounter Care Teams Team MemberRelationshipSpecialtyStart DateEnd Date Unallocated, Noms Provider, [address] [place] [address] PCP - GeneralFamily Kruqebug52/17/24documented as of this encounter
--- OUTSIDE RECORDS SUMMARY | 2025-03-17 16:42 | XMS_ITS | Encounter Summary ---
Author Organization [facility] Address [address] [place] [facility] [place] [address] Care Team Providers Care Occupational Medicine Physician Name Role Phone Unallocated, Noms Provider Primary Care Provi eliana Encounter Details DateTypeDepartmentCare Team (Latest Contact Info)Wdybtugcwdj06/15/2025Telephone [facility] [place] [facility] [address] [facility] [address] [place] [phone] Brijesh Reeves LPN Social History Tobacco UseTypesPacks/DayYears UsedDateSmoking Tobacco: NeverSmokeless [...] or more drinks on one occasion?Less than dlogjqk66/24/2024PHQ-2AnswerDate Recorded Patient Health Questionnaire-2 Ppvfp144/17/2024Estimated Date of ShdmbjmzCnjfvfifOpj84/05/2026Based on UltrasoundSex and Gender InformationValue Date RecordedSex Assigned at BirthNot on fileLegal EgtEkffhd07/15/2023 7:18 PM EDTGender IdentityNot on fileSexual OrientationNot on fileOccupationIndustryJob Start DateJob End DateNot on fileNot on fileNot on fileNot on filedocumented as of this encounter Miscellaneous Notes * Telephone Encounter - Brijesh Reeves LPN - 03/03/2025 4:38 PM EST Johanne from [facility] in [place] called and lm on nurse ob line at 1553 regarding pt. Johanne states pt did not show for appt today and saw she was being seen at [facility]. Johanne asking if okay to cancel care with them for pt d/t her being seen elsewhere. documented in this encounter Plan of Treatment Not on file documented as of this encounter Goals GoalPatient Goal TypeAssociated ProblemsRecent ProgressPatient-Stated?Author Reminders Care PlanOB RemindersNoJessica Joyner, MAdocumented as of this encounter Visit Diagnoses Not on filedocumented in this encounter Additional Health Concerns Active ProblemsNoted DateDiagnosed DateOB Jblzcrzsn93/15/2025 documented as of this encounter Care Teams Team MemberRelationshipSpecialtyStart DateEnd Date Unallocated, Noms Jude, [address] [place] [address] PCP - GeneralFamily Zuzmwxjg68/17/24documented as of this encounter
--- OUTSIDE RECORDS SUMMARY | 2025-03-17 16:54 | XMS_ITS | CCD ---
Author Organization [facility] Care Team Providers Care Otm Consultant Name Role Phone GRICELDA EDMOND Consulting Unavailable [...] -1990 Luca Marshall MD Primary Care Provider [phone] Tano Simon DO Emergency Provider Tano Simon Attending Unavailable Luca Marshall Primary Care Unavailable Tano Simon Admitting Unavailable Teresa Beal Admsivan Unavailable Teresa Beal Attending Unavailable Ana M Sheppard APRN Attending Provider ALEIDA KRAFT Attending Unavailable ALEIDA KRAFT Attending Unavailable ALEIDA KRAFT Attending Unavailable ALEIDA KRAFT Attending Unavailable KRAFT, PENYASMIN P Attending Unavailable KRAFT, PENYASMIN P Referring Unavailable ABENA PENYASMIN P Attending Unavailable ALEIDA KRAFT P Attending Unavailable Medications Current Medications MedicationDrug Class(es)DatesSig (Normalized)Sig (Original)Blood Glucose Monitoring Suppl (True Metrix Air Glucose Meter) device (15 sources)Start: 70-77-0852Egqdt Glucose Monitoring Suppl (True Metrix Air Glucose Meter) device Indications: First trimester ([facility]) , 11 weeks gestation of ([facility]) , Abnormal glucose affecting ([facility]) 1 Device 3 (three) times a week 1 each 09/04/2024 ActiveBlood-Glucose Meter (Onetouch Ultra2 Meter) misc (1 source)Start: 53-44-5461Kvtci-Glucose Meter (Onetouch Ultra2 Meter) misc Active EACH .ROUTE .MEDSUPPLY 1 November 25, 2024 12:00am As directed clindamycin 20 mg/ml vaginal cream (1 source)Lincosamide AntibacterialStart: 12-15-2023 End: 50-53-2964ezyywfwjnjt (Cleocin) 2 % vaginal cream Indications: Bacterial Vaginosis Insert 1 applicator into the vagina at bedtime for 7 days 40 g 2 12/15/2023 12/22/2023 Activeondansetron 4 mg oral tablet (9 sources)Serotonin-3 Receptor AntagonistStart: 11-05-2024 End: 26-29-5460Gpbxdtsnlfl Hcl 4 mg tablet Active MG PO November 25, 2024 12:00am Complies with drug therapyStart: 09-03-2024 End: 56-68-4447ciws 1 tablet by mouth twice daily as [...] oral capsule (2 sources)Cephalosporin AntibacterialStart: 10-19-2024 End: 66-57-5919xldb 1 capsule by mouth four times dailyCephalexin 500 mg capsule Discontinued 500 MG PO Four times daily 14 10October 19, 2024 12:00am November 25, 2024 2:41pmStart: 08-07-2024 End: 51-64-2206jdgzjhqbsl (Keflex) 500 MG capsule Indications: Urinary tract infection without hematuria, site unspecified Take 1 capsule (500 mg) by mouth in the morning and 1 capsule (500 mg) at noon and 1 capsule (500 mg) in the evening and 1 capsule (500 mg) before bedtime. Do all this for 10 days. 40 lmxizca0008/07/2024 08/17/2024 Active Problems Active Problems Problem ClassificationProblemDateDocumented DateEpisodic/ChronicCancer of cervix (10 sources)High grade squamous intraepithelial lesion on cervical Papanicolaou smear; Translations: [High grade squamous intraepithelial lesion on cytologic smear of cervix (HGSIL)]06-48-3624LbjlhwleYuwqsboq mellitus without complication (12 sources)Abnormal glucose level; Translations: [Abnormal glucose complicating ]18-13-3378ByltfqibGpogkmhtoynzm and screening for infectious disease (12 sources)Patient encounter status; Translations: [Encounter for other general counseling and advice on contraception]89-23-8411AlsnkbkeXdsqcoodlvkj diseases of female pelvic organs (1 source)Acute vaginitis; Translations: [Acute vaginitis]70-76-5808Qmqiwiow Menstrual disorders (3 sources)Amenorrhea; Translations: [Amenorrhea, unspecified]85-17-0359Onxjzxd Nausea and vomiting (12 sources)Hyperemesis; Translations: [Vomiting, unspecified]10-21-0073Wncbvpdd Other complications of (1 source)Unspecified infection of urinary tract in , first trimester; Translations: [Unspecified infection of urinary tract in , first trimester]Onset: 38-97-1191IhtebxyvIvguk complications of (2 sources)RhD negative; Translations: [Other specified related conditions, second trimester]81-16-5470WumwuobcBwlsx endocrine disorders (2 sources)Disorder of endocrine system; Translations: [Endocrine disorder, unspecified]83-83-4606BiisukdnWkaah female genital disorders (2 sources)Vaginal discharge; Translations: [Other specified noninflammatory disorders of vagina]95-27-5248OuhluyysVkyta female genital disorders (10 sources)Lesion of vulva; Translations: [Other specified noninflammatory disorders of vulva and perineum]34-68-4569KoeoeiiwTciwt injuries and conditions due to external causes (6 sources)Traumatic injury; Translations: [Injury, unspecified, initial encounter]20-95-5377FwwsjksyGpude nutritional; endocrine; and metabolic disorders (3 sources)Morbid obesity; Translations: [Body mass index (BMI) 60.0-69.9, adult]80-47-5920OmxtgktTrhfz nutritional; endocrine; and metabolic disorders (6 sources)Weight decreased; Translations: [Abnormal weight loss]11-05-2024 EpisodicOther and delivery including normal (15 sources)Normal ; Translations: [Encounter for supervision of normal first , first trimester]58-11-4445QlixjgcrSzzqb upper respiratory infections (1 source)Sore throat symptom; Translations: [Acute pharyngitis, unspecified] 14-72-8812WffobuaaIazcjhxe codes; unclassified (1 source)Pain, unspecified; Translations: [PAIN UNSPECIFIED]Onset: 05-24-2022 EpisodicResidual codes; unclassified (2 sources)Gestation period, 11 weeks; Translations: [11 weeks gestation of ]03-74-1366CenjpucqWqvupyxc codes; unclassified (2 sources)Gestation period, 13 weeks; Translations: [13 weeks gestation of ]79-90-3672IyzmnawiIraxuxcf codes; unclassified (2 sources)Gestation period, 15 weeks; Translations: [15 weeks gestation of ]64-22-6433SlzatvtjRbkevpuc codes; unclassified (2 sources)Gestation period, 18 weeks; Translations: [18 weeks gestation of ]52-05-4502JbzmebywZvvexwop codes; unclassified (2 sources)Gestation period, 20 weeks; Translations: [20 weeks gestation of ]44-92-2207CnvmidxxZgrccoge codes; unclassified (2 sources)Gestation period, 30 weeks; Translations: [30 weeks gestation of ]73-70-6139KiunpoirKxrsmvwrxyuk (4 sources)CONTACT W/AND (SUSP) EXPOS COVID-19; Translations: [CONTACT W/AND (SUSP) EXPOS COVID-19]Onset: 40-95-4809Ujjumcandvzr (4 sources)COUGH, UNSPECIFIED; Translations: [COUGH, UNSPECIFIED]Onset: 75-60-2280Uvzffcqfrmsv (17 sources)OB RemindersOnset: 129766-35-6893Ghjdskf tract infections (1 source)Urinary tract infectious disease; Translations: [Urinary tract infection, site not specified]50-36-5347Nqnrzmpa Past or Other Problems Problem ClassificationProblemDateDocumented DateEpisodic/ChronicFever of unknown origin (4 sources)Fever, unspecified; Translations: [FEVER UNSPECIFIED]Onset: 43-33-5385ZtrqkjvdYipjgxo and fatigue (1 source)Other fatigue; Translations: [OTHER FATIGUE]Onset: 09-61-6430Oypucdye Unclassified (1 source)CONTACT W/AND (SUSP) EXPOS COVID-19; Translations: [CONTACT W/AND (SUSP) EXPOS COVID-19]Onset: 91-67-2813Gratupgpkozn (1 source)COUGH, UNSPECIFIED; Translations: [COUGH, UNSPECIFIED]Onset: 26-86-0004NJAFLML: Highlighted row has been ruled out!Unclassified (3 sources)No known active vijgltcn64-49-7403 Results Test NameValueInterpretationReference RangeFacilityUrinalysis macro (dipstick) panel (U)on 50-29-1353Dvrvojaut, UANegativeNegative - 4(70) +++ mg/dLNOMS HealthcareBlood, UANegativeNegative [...] Panel InformationOrdered By: Ana M Sheppard on 88-75-8307Asjqp Strep (POC)[facility] UA (CLEAN/CATCH) RUBBER CUTTER AND SHAPE CARVER/MICRO IF IND.on 04-76-0481YEMMQYEWB URINENegativeNEGATIVENOMS HealthcareBLOOD URINENegative NEGATIVENOMS HealthcareClarity (U)CLEARCLEARNOMS HealthcareColor (U)YELLOWYELLOW NOMS HealthcareGLUCOSE URINE UANegativeNEGATIVE mg/dLNOMS Healthcare Interpretation and review of laboratory resultsAbnormalNOMS HealthcareKetones Ql (U)TRACEAbnormalNEGATIVE mg/dLNOMS HealthcareLeukocyte esterase Test strip Ql (U)NegativeNEGATIVENOMS HealthcareNITRITE URINENegativeNEGATIVENOMS HealthcarepH (U)6.0 [pH]5.0 - 9.0NOMS HealthcarePROTEIN URINETRACENEG/TRACE mg/dLNOMS HealthcareSPECIFIC GRAVITY URINE1.0251.005 - 1.025NOMS HealthcareURINE MICROSCOPIC INDICATEDNONOMS HealthcareUROBILINOGEN URINE1.0 EU/dL0.2 - 1.0 EU/dL NOMS HealthcareCLINISYNCNOMS HealthcareUrinalysis macro (dipstick) panel (U)on 04-68-1933Ktjptvfzd, UANegativeNegative - 4(70) +++ mg/dLNOMS HealthcareBlood, UANegativeNegative - 50 Grady/mcLNOMS HealthcareClarity, UACloudyNOMS Healthcare Color, UAYellowNOMS HealthcareGlucose, UA2+Negative - 1999(110) ++++ mg/dLNOMS HealthcareInterpretation and review of laboratory resultsAbnormalCEDAR CITY [facility] Healthcare Ketones, UANegativeNegative - 160(16) ++++ mg/dLNOMS HealthcareLeukocytes, UA1+ Negative - 500+++ Tk/mcLNOMS HealthcareNitrite, UANegativeNegative - Positive NOMS HealthcarepH, UA65 - 9NOMS HealthcareProtein, UA2+Negative - 1999(20) ++++ mg/dLNOMS HealthcareSpec Grav, UA11 - 1.03NOMS HealthcareUrobilinogen, UA0.20.2 - 12 mg/dLParkland Health CenterNONE HealthcareCNPNon 40-59-2061NUKBZjtbvslus (OBGYF2) JESSICA BALDWIN ([id number]) 1 F Date Time Provider Department 10/18/24 [...] (None) Encounter Status:Closed by KAT DIETRICH on 10/18/24NoFirelands Regional Medical CenterAppearance of UrineOrdered By: PROVIDER TEMSantiago on 87-92-6483Xaqigwogom (U)CloudyAbnormalCleMount St. Mary HospitalComment on above:Order Comment: Name Collection Type:: VoidedPerformed By: #### CUU, ADDONUAPLUS #### [facility] [address] [place] [address] USABacteria [Presence] in Urine by AutomatedOrdered By: PROVIDER TEMP on 14-70-0702Busobzhb Auto Ql (U)3+ [HPF]HighNone SeenWayne Healthcare Main CampusBilirubin Test strip Ql (U)Ordered By: PROVIDER TEMP on 79-83-4084Vedkcoznk Ql (U)NegativeNegativeWayne Healthcare Main CampusColor of Urine by AutoOrdered By: PROVIDER TEMP on 68-82-4281Dzmtz (U)YellowYellow Wayne Healthcare Main CampusComment on above:Order Comment: Name Collection Type:: VoidedPerformed By: #### CUU, ADDONUAPLUS #### [facility] [address] [place] [address] USADipstick and Microscopicon 53-79-8005Olfsczmu,Urine3+ [HPF]NormalNone SeenThe [facility] / Nhrmc Physician GroupComment on above:Order Comment: Name Collection Type:: VoidedPerformed By: #### CUU, ADDONUAPLUS #### [place] [address] USABilirubin,UrineNegativeNormalNegativeThe [facility] / Nhrmc Physician GroupComment on above:Order Comment: Name Collection Type:: Voided Performed By: #### CUU, ADDONUAPLUS #### [place] [address] USAGlucose Ql (U)NormalNormalNormalThe [facility] / Nhrmc Physician GroupComment on above:Order Comment: Name Collection Type:: VoidedPerformed By: #### CUU, ADDONUAPLUS #### [place] [address] USAHyaline Casts,Wdznd5-9Ecvjce6-0Upj [facility]hrmc Physician GroupComment on above:Order Comment: Name Collection Type:: VoidedPerformed By: #### CUU, ADDONUAPLUS #### [place] [address] USAMucus,UrineRareNormalThe [facility] / Nhrmc Physician GroupComment on above:Order Comment: Name Collection Type:: VoidedResult Comment: PERFORMED BY: [place] [address] PATHOLOGIST WIRE MACHINE OPERATOR AMY SANTOS M.D.Performed By: #### CUU, ADDONUAPLUS #### [place] [address] USANitrite,UrineNegativeNormalNegativeThe [facility] / Nhrmc Physician GroupComment on above:Order Comment: Name Collection Type:: VoidedPerformed By: #### CUU, ADDONUAPLUS #### [place] [address] USAOccult Blood,UrineNegativeNormalNegativeThe [facility] / Nhrmc Physician GroupComment on above:Order Comment: Name Collection Type:: Voided Result Comment: PERFORMED BY: [place] [address] PATHOLOGIST WIRE MACHINE OPERATOR AMY SANTOS M.D.Performed By: #### CUU, ADDONUAPLUS #### [place] [address] USAProtein,UrineNegativeNormalNegativeThe [facility] / Nhrmc Physician GroupComment on above:Order Comment: Name Collection Type:: VoidedPerformed By: #### CUU, ADDONUAPLUS #### [place] [address] USARBC,Qqcgc0-1Qpencw8-6Vaw [facility]hrmc Physician GroupComment on above:Order Comment: Name Collection Type:: VoidedPerformed By: #### CUU, ADDONUAPLUS #### [place] [address] USASpecificy [place],Urine1.619Bgfufg0.001-1.030The [facility] / Nhrmc Physician GroupComment on above:Order Comment: Name Collection Type:: Voided Performed By: #### CUU, ADDONUAPLUS #### [place] [address] USASquamous Epithelial Cell,Yotjl6-9Wuungo6-3Coc [facility]rm[facility] Physician GroupComment on above:Order Comment: Name Collection Type:: Voided Performed By: #### CUU, ADDONUAPLUS #### [place] [address] USAUrobilinogen,UrineNormalNormalNormalThe [facility] Nhrmc Physician GroupComment on above:Order Comment: Name Collection Type:: Voided Performed By: #### CUU, ADDONUAPLUS #### [place] [address] USAWBC,Eypxz48-80Priwct7-8Zcb [facility] Comment on above:Order Comment: Name Collection Type:: VoidedPerformed By: #### CUU, ADDONUAPLUS #### [facility] [address] [place] [address] USAEpithelial cells.squamous [#/area] in Urine sediment by Automated countOrdered By: PROVIDER TEMP on 32-18-8848Daxurdizvf cells.squamous Auto (Urine sed) [#/Area]5-9 [HPF]High0-2FLutheran Hospital Erythrocytes [#/area] in Urine sediment by Automated countOrdered By: PROVIDER TEMP on 42-35-4093VEW Auto (Urine sed) [#/Area]3-4 [HPF]0-4FLutheran HospitalGlucose [Mass/volume] in Urine by Test stripOrdered By: PROVIDER TEMP on 76-74-9528Ltebrcp Test strip (U) [Mass/Vol]Normal mg/dLNormalWayne Healthcare Main CampusHemoglobin Test strip Ql (U)Ordered By: PROVIDER TEMP on 51-10-8135Clfpayghoc Ql (U)NegativeNegOhio State East Hospital Hyaline casts [#/area] in Urine sediment by Automated countOrdered By: PROVIDER TEMP on 27-71-2007Rkdgavs casts Auto (Urine sed) [#/Area]0-8 [LPF]0-8Way[facility] Healthcare Main CampusKetones [Presence] in Urine by Test stripOrdered By: PROVIDER TEMP on 53-80-6917Jpscgor Ql (U)NegativeNegOhio State East HospitalComment on above:Order Comment: Name Collection Type:: Voided Performed By: #### CUU, ADDONUAPLUS #### [facility] [address] [place] [id number] USALeukocyte esterase [Presence] in Urine by Test strip Ordered By: PROVIDER TEMP on 83-90-2842Hiciyppmb esterase Test strip Ql (U)3+ HighNegOhio State East HospitalComment on above:Order Comment: Name Collection Type:: VoidedPerformed By: #### CUU, ADDONUAPLUS #### [facility] [address] [place] [id number] USALeukocytes [#/area] in Urine sediment by Automated count Ordered By: PROVIDER TEMP on 42-49-3897PHG Auto (Urine sed) [#/Area]10-19 [HPF] High0-4FLutheran HospitalMucus [Presence] in Urine by Automated Ordered By: PROVIDER TEMP on 36-37-4488Ypkgc Auto Ql (U)Rare [LPF][facility] Healthcare Main CampusNitrite Test strip Ql (U)Ordered By: PROVIDER TEMP on 86-37-8541Ecersqr Ql (U)NegativeNegOhio State East HospitalProtein Test strip (U) [Mass/Vol]Ordered By: PROVIDER TEMP on 09-31-2854Pfevqiu (U) [Mass/Vol]NegativeNegDoctors Hospitalpecific gravity Test strip (U) [Rel density]Ordered By: PROVIDER TEMP on 37-11-2848Vxszpbpn gravity (U) [Rel density]1.0161.001-1.030Way[facility] Healthcare Main CampusUS OB limited on 67-19-7210DD OB limitedCLEVELAND CLIN[facility] [place] [address] Ultrasound Report Signed Patient: Jessica Baldwin MR#: [id number] : 2005 Acct:[id number] Age/Sex: 19 / F ADM Date: 10/16/24 [...] Mccloud M.D. 10/16/2024 9:30 PM Dictation Location: [place] [address] Tech: Andria Alfredo Transcribed By: CHRISTY 10/16/242129 Dictated By: Bradley Mccloud MD 10/16/242127 Signed By: 10/16/242129[facility] Physician GroupUrine Cultureon 10-16-2024 Bacteria identified Cx Nom (U)ORGANISM: Strep agalactiae - (group b) (O:STRAGA) [place] Count 75,000 PERFORMED BY: [place] [address] PATHOLOGIST WIRE MACHINE OPERATOR AMY SANTOS M.D.NormalAdventhealth Waterford Lakes Er Physician GroupComment on above: Performed By: #### TRIPP ALCALA #### [facility] [address] [place] [address] USAUrine cultureOrdered By: PROVIDER TEMP on 10-16-2024 Bacteria identified Cx Nom (U)Strep agalactiae - (group b)AbnormalWayne Healthcare Main CampusUrobilinogen Test strip (U) [Mass/Vol]Ordered By: PROVIDER TEMP on 10-11-9703Erxvzessknaa (U) [Mass/Vol]Normal mg/dLNormal [facility] Healthcare Main CampuspH of Urine by Test stripOrdered By: PROVIDER TEMP on 68-18-6788lA (U)6.0 [pH]5.0-9.0Way[facility] Healthcare Main CampusComment on above:Order Comment: Name Collection Type:: VoidedPerformed By: #### CARI, LUISPLUS #### [facility] [address] [place], [place] [id number] USACNPNon 65-39-0723ZCTBXoflgjklu (OBGYF2) JESSICA BALDWIN ([id number]) 1 F Date Time Provider Department 10/07/24 [...] (None) Encounter Status:Closed by KAT DIETRICH on 10/07/24NoFirelands Regional Medical CenterCNPNon 51-70-1838LAGKHjibdhxzl (OBGYF2) JESSICA BALDWIN ([id number]) 1 F Date Time Provider Department 10/02/24 [...] (None) Encounter Status:Closed by KAT DIETRICH on 10/02/24NoGlenbeigh Hospitalphone Encounteron 76-03-2821Axbeyoybranse Authentication Interface Message TextNO SHOW , OB FOLLOW-UP, AND NEW OB APPOINTMENTS Patient appeared on /no show report Patient NO SHOWED NEW OB HR appointment on 09/30/24. After chart review pt is est at [facility] has been seen and has upcoming apt schd. Called patient :LVM with phone number to call back and reschd apt if this is something that is still needed.NormalThe [facility] SystemUrinalysis macro (dipstick) panel (U)on 97-42-7414Tlorvmlrc, UANegativeNegative - 4(70) +++ mg/dL [facility] HealthcareBlood, UANegativeNegative - 50 Grady/mcLNOMS HealthcareClarity, UA ClearNOMS HealthcareColor, UAYellowNOMS HealthcareGlucose, UA2+Negative - 1999(110) ++++ mg/dLNONE HealthcareInterpretation and review of laboratory resultsAbnormalNONE HealthcareKetones, UANegativeNegative - 160(16) ++++ mg/dL [facility] HealthcareLeukocytes, UANegativeNegative - 500+++ Tk/mcLNONE Healthcare Nitrite, UANegativeNegative - PositiveNOMS HealthcarepH, UA65 - 9NONE Healthcare Protein, UA1+Negative - 2000(20) ++++ mg/dLNONE HealthcareSpec Grav, UA11 - 1.03 [facility] HealthcareUrobilinogen, UA0.20.2 - 12 mg/dLCEDAR CITY HOSPITAL HealthcareC[facility] Healthcare Telephone Encounteron 75-03-6446Qcftgwfzlzaxn Authentication Interface Message [email or web address] attempt to contact not needed after chart review pt has upcoming apt schd. Closing encounter Future Appointments (next 10) Provider Department Center 09/30/2024 2:15 PM Zhanna Martinez MD [facility] 11/06/2024 1:00 PM [facility] ROOM 6 [facility] NormalThe [facility] SystemLaboratoryon 88-39-8823Yjz 13+18+21+X+Y aneuploidy Dosage of chromosome-specific cfDNA Ql (cfDNA)NegativeNONE HealthcareCitation Justin (Reference lab test)CommentNONE HealthcareComment on above:1. Filomena JOHN et al. Norma Med. 2012;14(3):296-305. 2. Brayan PINTO, et al. Prenat Diag. 2013;33(6):591-597. 3. Dusty C, et al. Clin Chem. 2015 Apr;61(4):608-616. 4. Filomena JOHN et al. Norma Med. 2011;13(11):913-920. 5. ACOG/SMFM Practice Bulletin No. 226, Dec 2019. Trisomy 18 risk Dosage of chromosome-specific cfDNA Ql (Plasma cell-free+WBC DNA) [Interp][facility] HealthLabor[facility] - Miscellaneous testson 97-56-9445Xjvzhdfisy comment Justin (Report)[facility] on above: The MaterniT(R) 21 PLUS laboratory-developed test (LDT) analyzes circulating cell-free DNA from a maternal blood sample. This test is used for screening purposes and not diagnostic. Clinical correlation is recommended. Validation data on twin pregnancies is limited and the ability of this test to detect aneuploidy in higher multiple gestations has not yet been validated. director style name Nom (Provider)[facility] Hospitalment on above: This specimen showed an expected representation of chromosome 21, 18 and 13 material. Clinical correlation is suggested. Feliberto Rodriguez MD, PhD, Director, MusationsReference Lab Test MethodCommentCox Southment on above:See Notes Circulating cell-free DNA was [...] 16 and 22. Service comment (Unsp spec) [Interp][facility] on above:See Notes [employer]. is a subsidiary of [employer], using the brand [employer]. This test was developed and its performance characteristics determined by [employer]. It has not been cleared or approved by the Food and Drug Administration. This laboratory is certified under the Clinical Laboratory Improvement Amendments (CLIA) as qualified to perform high complexity clinical laboratory testing and accredited by the [employer] (CAP). If there is future clinical need for adding MaterniT GENOME testing, this specimen will be available until term. [facility] samples will not be retained beyond 60 days. [facility] patients will have to send a new sample for re-sequencing ([facility] Test Code: 130668). Laboratory - Molecular pathologyon 30-41-0421Syor-free DNA./Cell-free DNA.total Dosage of chromosome-specific cfDNA (cfDNA) [Molar fraction]11%[facility] HealthcareChr 21 trisomy Dosage of chromosome-specific cfDNA Ql (cfDNA)Negative [facility] CenterChr X and Y aneuploidy risk Sequencing Ql (cfDNA) [Interp]Not detectedNOMS HealthcareMonosomy X risk Dosage of chromosome-specific cfDNA Ql (Plasma cell-free+WBC DNA) [Interp]Not detectedNONE HealthcareSex Dosage of chromosome-specific cfDNA Nom (cfDNA)CommentNONE HealthcareComment on above: Consistent with FemaleTest performance information Justin (Unsp spec)CommentNONE HealthcareComment on above:The performance characteristics of the MaterniT(R) 21 PLUS laboratory-developed test (LDT) have been determined in a clinical validation study with women at increased risk for chromosomal aneuploidy.[1-4] Trisomy 13 risk Dosage of chromosome-specific cfDNA Ql (cfDNA) [Interp]Negative [facility] Panel Informationon 18-75-8926Zqvg Age >or= 9wk: AL19PpvPWHJMercy Hospital South, formerly St. Anthony's Medical CenterGestational age Estimated from conception dateSCookeville Regional Medical Center Limitations of Test WJ74AgvxtwvDCZM HealthcareComment on above:While the results of these [...] Xaparin(R), Clexane(R) and Fragmin(R)). Neg Predictive Value [address] on above:The Negative Predictive Value (NPV) for trisomy 21, 18, and 13 is greater than 99%. The NPV for SCA and ESS cannot be calculated as SCA and ESS are only reported when an abnormality is detected. Perf Characteristics [address] on above: ! Sex ! Accuracy: [...] Pos Predictive Value MT21N/ANOMS HealthcarePerformed at: - [facility] [address] [facility], [place] [id number] Traveling Freight Agent: Feliberto Huddleston, Phone: [phone]e Hospital: [facility] Interdisciplinary Note - Nutritionon 23-43-0721Uetesksnsgvvgkazc Note - NutritionInterdisciplinary Note - Nutrition Jessica was scheduled for initial MNT visit today at 11:15AM. She was a no show for her appointment. MD office notified [phone]. Discussed w the nurse, Aviva, at providers office in [place]. [address] name and number provided for any additional information. Explained pt can make another appointment and I will be happy to see her.[facility] Memorial HospitalComment on above:Result Comment: Electronically Signed By: Jovanni AYON, PAWEL, SONNY, [place]annah\.br\Date and Time Signed: 09/18/24 12:04 EDTLaboratory - Microbiology and Antimicrobial susceptibilityon 26-30-8412WRF 1 IgG IA QlNon-ReactiveNon ReactiveParkland Health CenterComment on above:Please note reference interval change HSV-1 IgG testing performed using the [employer] Elecsys HSV-1 IgG assay. HSV 2 IgG IA QlNon-ReactiveNon ReactiveParkland Health CenterComment on above:Please note reference interval change Current [...] Elecsys HSV-2 IgG assay. No Panel Informationon 40-62-9940Lqelqmpwa at: - Lab[address] [id number] Traveling Freight Agent: Kennedy Gary PhD, Phone: [phone]e Hospital: Mary’[facility] Campus Telephone Encounteron 11-57-7272Akfjttqzkrpum Authentication Interface Message TextNO SHOW , OB FOLLOW-UP, AND NEW OB APPOINTMENTS Patient appeared on /no show report Patient NO SHOWED NEW OB HR appointment on 09/16/24. After chart review pt is established at [facility]. Called patient: LVM to call back if apt is still in need of rescheduling 1st attempt to contact[facility] SystemUrinalysis macro (dipstick) panel (U)on 56-83-6567Zmuetofpc, UANegativeNegative - 4(70) +++ mg/dLNOMS HealthcareBlood, UANegativeNegative [...] UA0.20.2 - 12 mg/dLNOMS HealthcareNOMS HealthcareUrine Cultureon 53-71-4885Qvozmffb identified Cx Nom (U)ORGANISM: Strep agalactiae - (group b) (O:STRAGA) [place] Count 20,000 PERFORMED BY: [place] [address] PATHOLOGIST WIRE MACHINE OPERATOR AMY SANTOS M.D.NormalThe [facility] / Nhrmc Physician GroupComment on above: Performed By: #### CUU #### [place] [address] USAUrine cultureOrdered By: Teresa Beal on 09-11-2024 Bacteria identified Cx Nom (U)Strep agalactiae - (group b)AbnormalWayne Healthcare Main CampusUrinalysis macro (dipstick) panel (U)Ordered By: Radha Grijalva on 21-98-1956Adwydhely, UANegativeNegative - 4(70) +++ mg/dLNOMS HealthcareBlood, UANegativeNegative [...] mg/dLNOMS HealthcareNOMS Healthcare TBH PREG QUANT HCGon 09-96-0141RNR VPBXOTXFHDKO31917nFK/mLNOMS HealthcareComment on above:5-50 0.2-1 WEEK 50-500 1-2 WEEKS 100-5,000 2-3 WEEKS 500-10,000 3-4 WEEKS 1,000-50,000 4-5 WEEKS 10,000-100,000 5-6 WEEKS 15,000-200,000 6-8 WEEKS 10,000-100,000 2-3 MONTHS [facility]INISYNCNOCedar [facility] HospitalTB PREG QUANT HCGon 26-15-2950UAW CBEHYACDZQHI4139 mIU/mLNOMS HealthcareComment on above:5-50 0.2-1 WEEK 50-500 1-2 WEEKS 100-5,000 2-3 WEEKS 500-10,000 3-4 WEEKS 1,000-50,000 4-5 WEEKS 10,000-100,000 5-6 WEEKS 15,000-200,000 6-8 WEEKS 10,000-100,000 2-3 MONTHS CLINISYNCNONE HealthcareCovid-19 PCR ([facility])on 60-74-3276RMMJ-CoV-2 (COVID-19) RNA VAISHALI+probe Ql (Unsp spec)Not detectedNormalNOT DETECTEDThe [facility] Comment on above:Result Comment: When diagnostic [...] for this test is supported by the [employer] of Health and Human Service's declaration that [...] longer be used).Performed By: #### CVDTBH #### [place] [address] Dr. Damion Gallardo AND B AGon 40-45-9039PWTWHHAEZRBMAAdena Regional Medical Center on above:Result Comment: Negative for Flu A protein angiten. Infection due to Flu A cannot be ruled out. FluA angiten in the sample may be below the detection limit of the test.Performed By: #### INFLUAB #### [facility] [address] [place] [address] Dr. Damion De LeonNEGFLAKITA [facility] on above: Result Comment: Negative for Flu B protein antigen. Infection due to Flu B cannot be ruled out. FluB antigen in the sample may be below the detection limit of the test.Performed By: #### INFLUAB #### [facility] [address] [place] [address] Dr. Damion Gallardo AGNegativeNormalNEGATIVE SEE COMMENTThe [facility] on above:Performed By: #### INFLUAB #### [facility] [address] [place] [address] Dr. Damion Cohen AGNegativeNormalNEGATIVE SEE COMMENTThe [facility] on above:Performed By: #### INFLUAB #### [facility] [address] [place] [address] Dr. Damion CaceresCovid-19 PCR (CVDTB)on 37-05-1694TWAX-CoV-2 (COVID-19) RNA VAISHALI+probe Ql (Unsp spec)Not detectedNormalNOT DETECTEDThe [facility] Comment on above:Result Comment: When diagnostic [...] for this test is supported by the [employer] of Health and Human Service's declaration that [...] longer be used).Performed By: #### CVDTBH #### [facility] [address] [place] [address] Dr. Damion Ochoa A AND B AGon 48-29-4771BGKLQJMFGKJTPMemorial Health System [facility] on above:Result Comment: Negative for Flu A protein angiten. Infection due to Flu A cannot be ruled out. FluA angiten in the sample may be below the detection limit of the test.Performed By: #### INFLUAB #### [facility] [address] [place] [address] Dr. Damion DoshiUBNEGFLAKITA [facility] on above: Result Comment: Negative for Flu B protein antigen. Infection due to Flu B cannot be ruled out. FluB antigen in the sample may be below the detection limit of the test.Performed By: #### INFLUAB #### [facility] [address] [place] [address] Dr. Damion Gallardo AGNegativeNormalNEGATIVE SEE COMMENTThe [facility] Springs HospitalComment on above:Performed By: #### INFLUAB #### [facility] [address] [place] [address] Dr. Damion Cohen AGNegativeNormalNEGATIVE SEE COMMENTThe [facility] HospitalComment on above:Performed By: #### INFLUAB #### [facility] [address] [place] [address] Dr. Damion CaceresCovid-19 PCR ([facility])on 25-57-4908BLBL-CoV-2 (COVID-19) RNA VAISHALI+probe Ql (Unsp spec)Not detectedNormalNOT DETECTEDUc Health Comment on above:Result Comment: This test is not yet approved or cleared by the [place] FDA. When there are no FDA-approved or cleared tests available, and other criteria are met, FDA can make tests available under an emergency access mechanism called an Emergency Use Authorization (EUA). The EUA for this test is supported by the [employer] of Health and Human Service's (HHS's) declaration [...] consistent with SARS-CoV-2.Performed By: #### CVDTBH #### [facility] [address] [place] [address] Dr. Damion Gallardo AND B AGon 91-31-7942LQCHMHWFYPTAYMiami Valley HospitalComment on above:Result Comment: Negative for Flu A protein angiten. Infection due to Flu A cannot be ruled out. FluA angiten in the sample may be below the detection limit of the test.Performed By: #### INFLUAB #### [facility] [address] [place] [address] Dr. Damion DoshiUBNEGFORTINOEE [facility] HospitalComment on above: Result Comment: Negative for Flu B protein antigen. Infection due to Flu B cannot be ruled out. FluB antigen in the sample may be below the detection limit of the test.Performed By: #### INFLUAB #### [facility] [address] [place] [address] Dr. Damion Gallardo AGNegativeNormalNEGATIVE SEE COMMENTThe [facility] HospitalComment on above:Performed By: #### INFLUAB #### [facility] [address] [place] [address] [address] Damion Cohen AGNegativeNormalNEGATIVE SEE COMMENTThe [facility] HospitalComment on above:Performed By: #### INFLUAB #### [facility] [address] [place] [address] Dr. Damion CaceresINTERNAL CONTROLSWithin Normal LimitsNormalWithin Normal Limits The [facility] HospitalComment on above:Performed By: #### INFLUAB #### [facility] [address] [place] [address] Dr. Damion Caceres Vital Signs Date TimeVital SignValuePerforming DiqollgrqRjmrqcbh27-93-2176 13:36-0400Body fyudxb825.7 kgAleida Kraft MD Work Phone: [facility] CenterGtblgopapm20-46-4708 13:36-0400Diastolic blood wvexztwq60 mm[Hg]Aleida Kraft MD Work Phone: [facility] CenterLvwagytncf67-56-9055 13:36-0400Systolic blood qamhrfha471 mm[Hg]Aleida Kraft MD Work Phone: [facility] CenterQxotmdcwxq40-08-1646 14:47-0400Body rbgemr901.8 cmLuca Marshall MD Work Phone: [facility]09-08-2025 14:47-0400 Body mass index (BMI) [Ratio]59.6 kg/y0MszlhpcLuca Marshall MD Work Phone: [facility]09-08-2025 14:47-0400 Body mwusegkayuj96.7 [degF]Luca Marshall MD Work Phone: [phone]09-08-2025 14:47-0400 Body ewmjlb843.69 kgDoconsuelo Marshall MD Work Phone: [phone])[address]09-08-2025 14:47-0400 Diastolic blood semtlwrn11 mm[Hg]Luca Marshall MD Work Phone: 1(604)[address]09-08-2025 14:47-0400 Heart imho174 /John Marshall MD Work Phone: 1(122)[address] [place], [place] 6864009-08-2025 14:47-0400 Respiratory rate19 /John Marshall MD Work Phone: 1(857)[address] [place], [place] 6864009-08-2025 14:47-0400 SaO2% (BldA) [Mass fraction]98 %Luca Marshall MD Work Phone: [phone]09-08-2025 14:47-0400 Systolic blood phgshufj320 mm[Hg]Luca Marshall MD Work Phone: [phone])[address]08-19-2025 13:24-0400 Body xtymov762.43 Brit Kraft MD Work Phone: [facility] CenterMlsfuazrak35-45-4339 13:24-0400Diastolic blood mm[Hg]Aleida Kraft MD Work Phone: [facility] CenterQjqiznxkae98-07-9511 13:24-0400Systolic blood waubihwn963 mm[Hg]Aleida Kraft MD Work Phone: [facility] CenterCysnopxjyf62-82-9918 13:34-0400Body .34 Brit Kraft MD Work Phone: [facility] CenterRzlwgdqglk02-61-9240 13:34-0400Diastolic blood vexcsyme01 mm[Hg]Aleida Kraft MD Work Phone: [place] [address]Unlkgvqjqs72-13-9823 13:34-0400Systolic blood ojswfjbn192 mm[Hg]Aleida Kraft MD Work Phone: [facility] CenterAmdlsxcgyz21-42-8959 20:01-0400Diastolic blood mm[Hg]Luca Marshall MD Work Phone: 1([phone] [place], [place] 1861207-30-2025 20:01-0400 Heart esko027 /John Marshall MD Work Phone: 1(794)[address] [place], [place] 6864007-30-2025 20:01-0400 Respiratory rate22 /John Marshall MD Work Phone: 1(676)[address] [place], [place] 6864007-30-2025 20:01-0400 SaO2% (BldA) [Mass fraction]100 %Luca Marshall MD Work Phone: 1(426)[address] [place], [place] 6864007-30-2025 20:01-0400 Systolic blood ymfsgnji945 mm[Hg]Luca Marshall MD Work Phone: 1(721)[address] [place], [place] 6864007-30-2025 19:03-0400 Body jollpf392.8 cmLuca Marshall MD Work Phone: 1(661)[address] [place], [place] 6864007-30-2025 19:03-0400 Body dxykacckgck80.2 [degF]Luca Marshall MD Work Phone: 1(631)[address] [place], [place] 6864007-30-2025 19:03-0400 Body duwpul732.6 kgLuca Marshall MD Work Phone: 1(765)[address] [place], [place] 6864007-14-2025 13:23-0400 Body .15 kgAleida Kraft MD Work Phone: [facility] CenterShdaeiqbcs15-32-6986 13:23-0400Diastolic blood twugqjpo99 mm[Hg]Aleida Kraft MD Work Phone: [facility] CenterBjoyjuymcx32-27-0729 13:23-0400Systolic blood krpdingd173 mm[Hg]Aleida Kraft MD Work Phone: [facility] CenterVyviskpohb16-42-1139 12:47-0400Body thuxmx032.24 Brit Kraft MD Work Phone: [facility] CenterSteoesxqho70-42-3941 12:47-0400Diastolic blood psruzupy83 mm[Hg]Aleida Kraft MD Work Phone: 1(171)[address] [place], [place] 2842107-01-2025 12:47-0400Systolic blood stptviue579 mm[Hg]Aleida Kraft MD Work Phone: 1(517)[address] [place], [place] 2842106-17-2025 13:21-0400Body loghbz737.24 kgAleida Kraft MD Work Phone: 1(499)[address] [place], [place] 2842106-17-2025 13:21-0400Diastolic blood ahktvwjo09 mm[Hg]Aleida Kraft MD Work Phone: 1(444)[address] [place], [place] 2842106-17-2025 13:21-0400Systolic blood nlujvmjv511 mm[Hg]Aleida Kraft MD Work Phone: 1(390)[address] [place], [place] 2842110-17-2024 13:53-0400Body aaasoa694.18 kgAleida Kraft MD Work Phone: 1(068)200-[address] [place], [place] [address]Yxrqnvlnxo16-29-6957 13:53-0400Diastolic blood npoowqst22 mm[Hg]Aleida Kraft MD Work Phone: 1(584)[address]10-17-2024 13:53-0400Systolic blood jrnmvdem342 mm[Hg]Aleida Kraft MD Work Phone: 1(148)131-[address] [place], [place] [address]Axfanhfqbl94-99-0427 13:44-0400Body uypjkf767.1 kgAleida Kraft MD Work Phone: 1(336)[address]09-24-2024 13:44-0400Diastolic blood ozolouvj99 mm[Hg]Aleida Kraft MD Work Phone: 1(841)[address] [place], [place] 2842109-24-2024 13:44-0400Systolic blood nwehchnm150 mm[Hg]Aleida Kraft MD Work Phone: [phone] Encounters Encounter DateEncounter TypeCare ProviderFacilityStart: 01-27-2025 End: 42-18-9080ughbnzvbtiPBGCRI P JONESNot AvailableStart: 01-13-2025 End: 06-59-4458Akjqme flowsheetAleida Kraft MD Work Phone: [facility] [place] OBGYNStart: 01-13-2025 End: 29-04-4647Hdjymi flowsJurgen Kraft MD Work Phone: noMS [place] OBGYNStart: 01-13-2025 End: 02-58-8871roapkmsapeFMFTKN P JONESNot AvailableStart: 01-13-2025 End: 59-22-3120Wjhhbrvl flow Harrison Kraft MD Work Phone: [facility] [place] OBGYNComment on above:Rh negative status during in second trimester ([facility]); 30 weeks gestation of ([facility]); Hyperemesis; HGSIL (high grade 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; Vulvar lesion; Abnormal glucose affecting ([facility]); Trauma; Weight loss; Third trimester ([facility]); Thyroid disorder screeningStart: 12-05-2024 End: 18-72-0701alemmzpzboAAEWSO JONESNot AvailableStart: 11-25-2024 End: 48-30-9440qbqahwohwcJkxfvgw M Hoy MD Work Phone: [facility] Work Phone: Start: 11-25-2024 End: 52-83-8050Qovgwyd encounter procedureAna M Harden INCOMING INSPECTOR-[facility] Work Phone: Start: 11-05-2024 End: 19-55-1097Cmtqhdcd flow Harrison Kraft MD Work Phone: [facility] [place] OBGYNComment on above:Weight loss (Primary Dx); Second trimester ([facility]); 20 weeks gestation of ([facility]); Hyperemesis; HGSIL (high grade 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; Vulvar lesion; Abnormal glucose affecting ([facility]); TraumaStart: 11-05-2024 End: 23-63-1687mgnrumxckmHRDZHD P JONESNot AvailableStart: 10-30-2024 End: 24-18-6205Upgzajrec Result EncounterCoreloli Vargas DO Work Phone: [facility] External Department UnsolicitedStart: 10-30-2024 End: 91-84-7050Nmsuvwhas Result EncounterCorey Alicia DO Work Phone: noms External Department UnsolicitedStart: 10-22-2024 End: 37-04-2905Mqxsct Kenan Kraft MD Work Phone: noms [place] OBGYNStart: 10-22-2024 End: 99-12-2341Davmho Kenan Kraft MD Work Phone: noms [place] OBGYNStart: 10-22-2024 End: 58-34-2801Yvevpsbk flow Harrison Kraft MD Work Phone: noms [place] OBGYNComment on above:Trauma (Primary Dx); Second trimester ([facility]); 18 weeks gestation of ([facility]); Hyperemesis; HGSIL (high grade 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; Vulvar lesion; Abnormal glucose affecting ([facility])Start: 10-22-2024 End: 68-20-7545ybvzqusqvjHDXNUO P JONESNot AvailableStart: 10-18-2024 End: 49-38-2360Ivuennclk encounterFv Ob Mfm Work Phone: Maternal MedicineComment on above:Appointment Start: 10-16-2024 End: 39-54-8141Appulphfg department patient visitDoconsuelo Marshall MD Work Phone: [phone]-Lcilkrrhx Room Work Phone: Start: 10-07-2024 End: 79-48-6990Dhkvjsnqz encounterFv Ob Mfm Work Phone: Maternal MedicineComment on above:Appointment Start: 10-02-2024 End: 69-52-5772Nfjdjyrga encounterFv Ob Mfm Work Phone: Maternal MedicineComment on above:Appointment Start: 10-01-2024 End: 14-00-0504Ikgvxojpmd OrdersOb Manager Supply Transcribe ProviderMaternal MedicineStart: 09-30-2024 End: 20-72-9482Eqckfrpl flow Harrison Kraft MD Work Phone: [facility] OBComment on above:Second trimester ([facility]); 15 weeks gestation of ([facility]); Hyperemesis; HGSIL (high grade 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; Vulvar lesion; Abnormal glucose affecting ([facility])Start: 09-30-2024 End: 52-68-4589bomednsuxeRWXURZ P JONESNot AvailableStart: 09-18-2024 End: 08-78-1529Tfn-admission Cristóbal KRAFT [facility] Start: 09-17-2024 End: 88-24-1213Jskewqly flow Harrison Kraft MD Work Phone: noms SWS OBComment on above:HGSIL (high grade 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 (Primary Dx); Second trimester ([facility]); 13 weeks gestation of ([facility]); Hyperemesis; Vulvar lesion; Encounter for screening for chromosomal anomalies ([facility])Start: 09-17-2024 End: 01-49-6340sxqkiqhmmpEJAWPW P JONESNot AvailableStart: 09-11-2024 End: 60-48-2803dthqcpidmlJijbtdu Susan [facility] Work Phone: Start: 09-11-2024 End: 77-78-5420Fvfboekh ReferredMchenry Susan [facility] Work Phone: Start: 09-04-2024 End: 01-61-7546Xzidfsguzq Dorina Kraft MD Work Phone: [facility] Physician Referral ServiceComment on above:APPOINTMENT SCHEDULING (Anatomy scan and MFM visit)Start: 09-03-2024 End: 25-65-5181Vmkncdbd noreen Kraft MD Work Phone: [facility] OBComment on above:GA: 57r3yFrrrb: 09-03-2024 End: 18-33-6104ppkirdlcorBNGMTV P JONESNot AvailableStart: 08-07-2024 End: 16-78-3143Glschg Allan Kraft MD Work Phone: noms [facility] OBComment on above:Urinary tract infection without hematuria, site unspecified (Primary Dx)Start: 08-01-2024 End: 87-95-8195Fcqcpdcq flow sheetNoms Sws Ob NurseNOMS SWS OBStart: 08-01-2024 End: 00-99-6281epnegdbxehGJTZFV JONESNot AvailableStart: 07-30-2024 End: 57-57-7914Dtswgrhit Result Anival Kraft MD Work Phone: noms External Department UnsolicitedStart: 07-30-2024 End: 39-61-1902Goalpvgwm Result Anival Kraft MD Work Phone: noms External Department UnsolicitedStart: 07-26-2024 End: 64-06-7052Drmyqbumj Result Anival Kraft MD Work Phone: noms External Department UnsolicitedStart: 07-26-2024 End: 26-54-2284Jitkedowr Result Anival Kraft MD Work Phone: noms External Department UnsolicitedStart: 01-04-2024 End: 73-81-9717Rrfbmv outpatient visit 10 minutesAleida Kraft MD Work Phone: [facility] OBComment on above:Amenorrhea; Family planningStart: 12-15-2023 End: 23-77-8875Tltdqy Allan Kraft MD Work Phone: [facility] OBComment on above:Acute vaginitis (Primary Dx)Start: 12-12-2023 End: 73-77-9859Nglveos preventive medicine new pt age 18-39yrsPdevon Kraft MD Work Phone: noms [facility] OBComment on above:Hormone imbalance (Primary Dx); Encounter for gynecological examination without abnormal finding; Family planning; Thyroid disorder screen; Screen for STD (sexually transmitted disease); Amenorrhea; Vaginal dischargeStart: 12-12-2023 End: 25-85-6705Wzcirnr encounter statusAleida Kraft MD Work Phone: [facility] Work Phone: start: 05-23-2022 End: 25-44-5558iawfcijgrtSYPTEX P CRAMERFacility:D0Vqivq: 04-20-2022 End: 95-39-7457kazwudxgibJP LUCA MARSHALL .Facility:O2Mggif: 01-06-2022 End: 56-58-9126hxyfvmvijpGCMGVL P CRAMERFacility:H1 Procedures DateProcedureProcedure DetailPerforming ClinicianStart: 25-32-3798Vhejo dip stick/tablet rgnt non-auto w/o Chio Kraft MD Work Phone: start: 46-05-9240Dmpwj Strep (POC)Luca Marshall MD Work Phone: Start: 56-93-6076NWS UA (CLEAN/CATCH) RUBBER CUTTER AND SHAPE CARVER/MICRO IF IND.Christian Vargas DO Work Phone: Start: 48-80-8270Gdxfc dip stick/tablet rgnt non-auto w/o Chio Kraft MD Work Phone: start: 82-82-6394Yguqhumsws scan - obstetricDoconsuelo Marshall MD Work Phone: Start: 39-61-9691Wudtf cultureDouglelle Marshall MD Work Phone: Start: 05-50-8164Vcodc dip stick/tablet rgnt non-auto w/o Chio Kraft MD Work Phone: start: 12-86-1626Teibm chromosomal aneuploidy genomic seq Petey Kraft MD Work Phone: start: 31-21-5111WYN 1 AND 2 AB, IGGAleida Kraft MD Work Phone: start: 40-75-7559Ospnv dip stick/tablet rgnt non-auto w/o Chio Kraft MD Work Phone: start: 65-27-4635Gkbsa Corey Marshall MD Work Phone: Start: 12-24-6391Pufdt dip stick/tablet rgnt non-auto w/o Chio Kraft MD Work Phone: start: 69-65-7136WVB PREG QUANT HCGPenyasmin Kraft MD Work Phone: start: 93-50-7735ULA PREG QUANT HCGPenyasmin Kraft MD Work Phone: Plan of Treatment DateCare ActivityDetailAuthorStart: 13-52-3845QJT Vaccine (1 - 1-dose 75+ series)RSV Vaccine (1 - 1-dose 75+ series)[facility]: 10-05-2053 Shingles (RZV) Vaccine (1 of 2)Shingles (RZV) Vaccine (1 of 2)[facility]: 90-30-8098Trczp microalbumin profileDTaP,Tdap,Td Vaccine (6 - Td or Tdap) [facility]: 01-27-2025 End: 25-42-6739Ercrgkr encounter vdtafkaof20/10/2025 2:15 PM EST Routine [facility] [place] [facility] [address] [place] [address] Aleida Kraft MD [address] [place] [address] [facility]Cl[facility] [place] OBGYNStart: 01-27-2025 End: 77-09-1835Uattvbslxrhp / ancillary services ewurregtlf49/10/2025 1:15 PM EST Ancillary Procedure [facility] [place] [facility] [address] [place] [address] [facility] [place] OBGYNStart: 01-13-2025 End: 39-35-3322Blzygpk panel with tshThyroid panel with tsh Lab Routine Thyroid disorder screening Expected: 01/13/2025 (Approximate), Expires: 01/13/2026NONE HealthcareComment on above:Expected: 01/13/2025 (Approximate), Expires: 01/13/2026Start: 01-13-2025 End: 03-01-3686JR Thyroid glandUS thyroid Imaging Routine Thyroid disorder screening Expected: 01/13/2025, Expires: 01/13/2026[facility] Work Phone: comment on above:Expected: 01/13/2025, Expires: 01/13/2026Start: 12-04-2024 End: 73-31-0595Fdksdbg encounter qgigtqtyr25/17/2025 1:30 PM EDT Routine [facility] [place] [facility] [address] [place] [address] Aleida Kraft MD [address] [place] [address] [facility] [place] OBGYNStart: 12-04-2024 End: 89-91-8967Spheqvzeysez / ancillary services mntalptshc39/17/2025 12:30 PM EDT Ancillary Procedure [facility] [place] [facility] [address] [place] [address] [facility] [place] OBGYNStart: 11-19-2024 End: 77-86-9957Hsdnfgt encounter teusbvlvk29/02/2025 12:30 PM EDT Routine [facility] [place] [facility] [address] [place] [address] Aleida Kraft MD [address] [place] [address] [facility] [place] OBGYNStart: 23-79-1660XHEYQ- 19 Vaccine ( season)COVID-19 Vaccine ( season)[facility] HealthcareStart: 52-95-7987Hccgkztym vaccinationNOMS HealthcareStart: 11-06-2024 End: 19-35-3511zuhhumnxvo09/20/2025 1:00 PM EDT SALES AUDIT CLERK Ultrasound [facility] [address] [place] [address] [facility] CenterStart: 11-05-2024 End: 02-26-6622Jtayzbi encounter procedureNOMS SWS OBStart: 11-05-2024 End: 11-51-8198Mzogruxwqxrb / ancillary services managementNOMS [facility] OBStart: 10-22-2024 End: 51-50-5158Gxpuifx encounter procedureNOMS [facility] OBComment on above:Second trimester ([facility]); 18 weeks gestation of ([facility]); Hyperemesis; HGSIL (high grade 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; Vulvar lesion; Abnormal glucose affecting ([facility])Start: 53-22-4670QurcwzbsdBellevue Hospitaltart: 54-99-1808Itwam cultureBellevue Hospitaltart: 77-03-5554Gpxykrqv identified in Urine by CultureUrine Culture [facility] Hospital[facility]art: 56-85-5626Bmqrwsxqy for malignant neoplasm of cervixCervical Cancer ScreeningSelect [facility]: 09-30-2024 End: 75-73-4700Urbcp count hematocritHematocrit Lab Routine 15 weeks gestation of ([facility]) Abnormal glucose affecting ([facility]) Expected: 09/30/2024 (Approximate), Expires: 09/30/2025[facility] HealthcareComment on above: Expected: 09/30/2024 (Approximate), Expires: 09/30/2025Start: 09-30-2024 End: 27-75-1614Zgbufpzhols of glucose 1 hour after glucose challenge for glucose tolerance testGTT, 1 hour Lab Routine 15 weeks gestation of ([facility]) Abnormal glucose affecting ([facility]) Expected: 09/30/2024 (Approximate), Expires: 09/30/2025[facility] Work Phone: comment on above:Expected: 09/30/2024 (Approximate), Expires: 09/30/2025Start: 09-30-2024 End: 44-47-0981Ijvjkuy encounter typtemeqi36/14/2025 1:15 PM EDT Routine [facility] [address] [place] [address] [place] [phone] Aleida Kraft MD [address] [place] [address] [facility] OBStart: 09-30-2024 End: 52-99-8570Qiaoojzblmhy / ancillary services ljetgdhdzp84/14/2025 12:30 PM EDT Ancillary Procedure [facility] [address] [place] [address] [facility] OBStart: 09-17-2024 End: 57-66-9190Rjhawrr encounter ofospodjc72/01/2025 12:30 PM EDT Routine [facility] [address] [place] [address] Aleida Kraft MD [address] [place] [address] [facility] OBStart: 09-16-2024 End: 00-79-6223Uskloju encounter tnlggbgba82/30/2025 1:45 PM EDT Office Visit [facility] [address] [place] [address] Zhanna Martinez MD [address] [place] [address] [facility] Obstetrics/Gynecology SpecialistsStart: 91-90-3669[facility] Start: 03-75-5747Oyufcxgk identified in Urine by CultureHolzer Medical Center – Jacksontart: 09-03-2024 End: 20-78-0332ensmjldxeu93/17/2025 2:00 PM EDT Initial [facility] [address] [place] [phone] Aleida Kraft MD [address] [place] [address] [facility] OBStart: 09-03-2024 End: 04-36-4042Syhumcwbecgi / ancillary services vlxufvvfze11/17/2025 1:00 PM EDT Ancillary Procedure [facility] [address] [place] [address] [facility] OBStart: 08-26-2024 End: 81-19-8989Labcutysraik / ancillary services cneovopfvc37/09/2025 2:00 PM EDT Ancillary Procedure [facility] [address] [place] [address] [facility] OBStart: 08-01-2024 End: 30-73-3181Zotgvcpx identified in Urine by CultureUrine culture Microbiology Routine Encounter for supervision of normal first in first trimester Expected: 08/01/2024, Expires: 08/01/2025[facility] HealthcareComment on above: Expected: 08/01/2024, Expires: 08/01/2025Start: 08-01-2024 End: 40-95-2459Mhqtn type and Indirect antibody screen panel - BloodType and screen Lab Routine Encounter for supervision of normal first in first trimester Expected: 08/01/2024, Expires: 08/01/2025[facility] HealthcareComment on above:Expected: 08/01/2024, Expires: 08/01/2025Start: 08-01-2024 End: 37-57-8155ZSZ W Auto Differential panel - BloodCBC and differential Lab Routine Encounter for supervision of normal first in first trimester Expected: 08/01/2024, Expires: 08/01/2025[facility] HealthcareComment on above: Expected: 08/01/2024, Expires: 08/01/2025Start: 08-01-2024 End: 93-02-7521MLHW SCREEN 17 W/CONF, URDRUG SCREEN 17 W/CONF, UR Lab Routine Encounter for drug screening Expected: 08/01/2024, Expires: 08/01/2025[facility] CenterComment on above:Expected: 08/01/2024, Expires: 08/01/2025Start: 08-01-2024 End: 06-07-8990mFU, quantitativehCG, quantitative Lab Routine Encounter for supervision of normal first in first trimester Expected: 08/01/2024 (Approximate), Expires: 08/01/2025[facility] HealthcareComment on above:Expected: 08/01/2024 (Approximate), Expires: 08/01/2025Start: 08-01-2024 End: 30-20-0067Ofvodxrkt B virus surface Ag [Presence] in Serum or Plasma by ImmunoassayHepatitis B surface antigen Lab Routine Encounter for supervision of normal first in first trimester Expected: 08/01/2024, Expires: 08/01/2025[facility] CenterComment on above:Expected: 08/01/2024, Expires: 08/01/2025Start: 08-01-2024 End: 90-63-4308Tnzwdnytj C virus Ab [Presence] in Serum or Plasma by Immunoassay Hepatitis C antibody Lab Routine Encounter for supervision of normal first in first trimester Expected: 08/01/2024, Expires: 08/01/2025[facility] CenterComment on above:Expected: 08/01/2024, Expires: 08/01/2025Start: 08-01-2024 End: 04-57-6181DEB-2 antigen assayHIV-2 antigen Lab Routine Encounter for supervision of normal first in first trimester Expected: 08/01/2024, Expires: 08/01/2025[facility] CenterComment on above:Expected: 08/01/2024, Expires: 08/01/2025Start: 08-01-2024 End: 93-68-6596Hbg (dx) w/refl titer and confirmatory testingRpr (dx) w/refl titer and confirmatory testing Lab Routine Encounter for supervision of normal first in first trimester Expected: 08/01/2024, Expires: 08/01/2025[facility] CenterComment on above:Expected: 08/01/2024, Expires: 08/01/2025Start: 08-01-2024 End: 13-96-9239Pcsoter antibody, IgGRubella antibody, IgG Lab Routine Encounter for supervision of normal first in first trimester Expected: 08/01/2024, Expires: 08/01/2025[facility] CenterComment on above:Expected: 08/01/2024, Expires: 08/01/2025Start: 08-01-2024 End: 40-23-3044Gjaepwvszg complete panel - UrineUrinalysis with microscopic Lab Routine Encounter for supervision of normal first in first trimester Expected: 08/01/2024, Expires: 08/01/2025[facility] Work Phone: comment on above:Expected: 08/01/2024, Expires: 08/01/2025Start: 08-01-2024 End: 47-84-8995sydsdhruxy36/15/2025 1:00 PM EDT Initial [facility] [address] [place] [phone] [facility] OBStart: 01-04-2024 End: 09-67-3702Uxankou encounter aopnesevj56/17/2024 1:45 PM EDT Office Visit [facility] [address] [place] [address] Aleida Kraft MD [address] [place] [address] [facility] OBStart: 01-04-2024 End: 81-61-9596Obnjcrxsiqny / ancillary services tpeliavgze83/17/2024 1:00 PM EDT Ancillary Procedure [facility] OB [address] [place] [address] [facility] OBStart: 12-12-2023 End: 23-74-4155VdysriufHqgcrgzq Lab Routine Hormone imbalance Expected: 12/12/2023 (Approximate), Expires: 12/11/2024[facility] HealthcareComment on above: Expected: 12/12/2023 (Approximate), Expires: 12/11/2024Start: 12-12-2023 End: 09-97-7880BIVG-sulfateDHEA-sulfate Lab Routine Hormone imbalance Expected: 12/12/2023 (Approximate), Expires: 12/11/2024[facility] HealthcareComment on above: Expected: 12/12/2023 (Approximate), Expires: 12/11/2024Start: 12-12-2023 End: 14-50-7915OptwjyofcMgwcoptju Lab Routine Hormone imbalance Expected: 12/12/2023 (Approximate), Expires: 12/11/2024[facility] HealthcareComment on above: Expected: 12/12/2023 (Approximate), Expires: 12/11/2024Start: 12-12-2023 End: 17-51-7827WxygtmkSwtrxsu Lab Routine Hormone imbalance Expected: 12/12/2023 (Approximate), Expires: 12/11/2024[facility] HealthcareComment on above:Expected: 12/12/2023 (Approximate), Expires: 12/11/2024Start: 12-12-2023 End: 84-81-2337Sihfmsmp stimulating hormoneFollicle stimulating hormone Lab Routine Hormone imbalance Thyroid disorder screen Expected: 12/12/2023 (Approximate), Expires: 12/11/2024[facility] HealthcareComment on above:Expected: 12/12/2023 (Approximate), Expires: 12/11/2024Start: 12-12-2023 End: 73-60-8675mFR, quantitativehCG, quantitative Lab Routine Amenorrhea Expected: 12/12/2023 (Approximate), Expires: 12/11/2024[facility] HealthcareComment on above:Expected: 12/12/2023 (Approximate), Expires: 12/11/2024Start: 12-12-2023 End: 75-80-3030Vanmzlwai B virus surface Ag [Presence] in Serum or Plasma by ImmunoassayHepatitis B surface antigen Lab Routine Screen for STD (sexually transmitted disease) Expected: 12/12/2023 (Approximate), Expires: 12/11/2024[facility] HealthcareComment on above:Expected: 12/12/2023 (Approximate), Expires: 12/11/2024Start: 12-12-2023 End: 05-46-0873Bvrwliofs C virus Ab [Presence] in Serum or Plasma by Immunoassay Hepatitis C antibody Lab Routine Screen for STD (sexually transmitted disease) Expected: 12/12/2023(Approximate), Expires: 12/11/2024[facility] HealthcareComment on above:Expected: 12/12/2023 (Approximate), Expires: 12/11/2024Start: 12-12-2023 End: 89-57-2908AIP-1/HIV-2 antigen/antibody combination immunoassayHIV-1 and HIV-2 antibodies Lab Routine Screen for STD (sexually transmitted disease) Expected: 12/12/2023 (Approximate), Expires: 12/11/2024[facility] HealthcareComment on above:Expected: 12/12/2023 (Approximate), Expires: 12/11/2024Start: 12-12-2023 End: 54-82-7560NKZ 1 antibody, IgGHSV 1 antibody, IgG Lab Routine Screen for STD (sexually transmitted disease) Expected: 12/12/2023 (Approximate), Expires: 12/11/2024[facility] HealthcareComment on above:Expected: 12/12/2023 (Approximate), Expires: 12/11/2024Start: 12-12-2023 End: 09-70-4256ELR 2 antibody, IgGHSV 2 antibody, IgG Lab Routine Screen for STD (sexually transmitted disease) Expected: 12/12/2023 (Approximate), Expires: 12/11/2024[facility] HealthcareComment on above:Expected: 12/12/2023 (Approximate), Expires: 12/11/2024Start: 12-12-2023 End: 73-01-3249Iyezttcxqqh hormoneLuteinizing hormone Lab Routine Hormone imbalance Thyroid disorder screen Expected: 12/12/2023 (Approximate), Expires: 12/11/2024[facility] HealthcareComment on above:Expected: 12/12/2023 (Approximate), Expires: 12/11/2024Start: 12-12-2023 End: 79-90-8201EnrjnzcbbppkGwkmlqbrkufv Lab Routine Hormone imbalance Expected: 12/12/2023 (Approximate), Expires: 12/11/2024[facility] HealthcareComment on above: Expected: 12/12/2023 (Approximate), Expires: 12/11/2024Start: 12-12-2023 End: 97-17-8572Rcotbh Ab [Presence] in Serum by RPRRPR Lab Routine Screen for STD (sexually transmitted disease) Expected: 12/12/2023 (Approximate), Expires: 12/11/2024[facility] HealthcareComment on above:Expected: 12/12/2023 (Approximate), Expires: 12/11/2024Start: 12-12-2023 End: 60-97-6721Rlt hormone binding globulinSex hormone binding globulin Lab Routine Hormone imbalance Expected: 12/12/2023 (Approximate), Expires: 12/11/2024[facility] HealthcareComment on above:Expected: 12/12/2023 (Approximate), Expires: 12/11/2024Start: 12-12-2023 End: 15-69-6358Qhuicucwlqbb, free, totalTestosterone, free, total Lab Routine Hormone imbalance Expected: 12/12/2023 (Approximate), Expires: 12/11/2024[facility] HealthcareComment on above:Expected: 12/12/2023 (Approximate), Expires: 12/11/2024Start: 12-12-2023 End: 06-87-8423Hwyvkprhmkv [Units/volume] in Serum or PlasmaTSH Lab Routine Hormone imbalance Thyroid disorder screen Expected: 12/12/2023 (Approximate), Expires: 12/11/2024[facility] Healthcare Work Phone: comment on above:Expected: 12/12/2023 (Approximate), Expires: 12/11/2024Start: 83-87-3646Bayxs-19 Vaccine ( season)Covid- 19 Vaccine ( season)[facility]: 40-46-2116RJXWD-19 Vaccine ( season)COVID-19 Vaccine ( season)[facility]: 88-69-6674Bueactphm vaccinationInfluenza Vaccine (#1)[facility] HealthcareStart: 27-91-1607Pwnmpevkc A (HAV) Vaccine (optional start 19+ years)Hepatitis A (HAV) Vaccine (optional start 19+ years)[facility]: 12-98-1650Zrziqynpj B vaccinationHepatitis B (HBV) Vaccine (1 of 3 - 19+ 3-dose series)[facility] Start: 51-52-2875Pjdymnuzd B Vaccine (1 of 3 - 19+ 3-dose series)Hepatitis B Vaccine (1 of 3 - 19+ 3-dose series)[facility]: 30-60-4151Qhsbnucan B Vaccines (1 of 3 - 19+ 3-dose series)Hepatitis B Vaccines (1 of 3 - 19+ 3-dose series)[facility] HealthcareStart: 54-89-9944Qbjag microalbumin profileDTaP,Tdap,Td Vaccine (1 - Tdap)[facility]: 09-11-1026Ahsxcxj ScreeningAnxiety ScreeningSelect [facility] Specialty [facility]: 81-25-9280Zihrokrgpz ScreeningDepression ScreeningSelect [facility]: 56-14-3377DC (Gonorrhea) Screening (18-24)GC (Gonorrhea) Screening (18-24)[facility]: 31-33-5027Bymgqlpme C screeningMetroHealthStart: 26-75-9277UQB screeningHIV ScreeningOhio State [facility] Hospital Start: 42-65-3702Emaafzupn for Chlamydia trachomatisMetroHealthStart: 10-05-2021 Tdap BoosterTdap BoosterMetroHealthStart: 95-04-6956Difcslfleuvxv B (Bexsero,OMV) Vaccine (Optional,16-23 years)Meningococcal B (Bexsero,OMV) Vaccine (Optional,16-23 years)[facility]: 14-68-1627Rmalgcsleslsn B Vaccine (1 of 2 - Standard)Meningococcal B Vaccine (1 of 2 - Standard)[facility]: 22-57-3825DYU screeningHIV TestMetroHealthStart: 85-28-5195QVG Vaccine (1 - 3-dose series)HPV Vaccine (1 - 3-dose series)[facility]: 80-20-5528LCN Vaccines (1 - 3-dose series)HPV Vaccines (1 - 3-dose series)[facility] HealthcareStart: 20-24-1856Xftmnylnubr for human papillomavirusHPV Vaccine (1 - 3-dose series)[facility]: 58-02-8316Flzz To Adult Transition Annual AssessmentPeds To Adult Transition Annual AssessmentSelect [facility]: 26-05-6833Cqugzbz of varicella vaccinationVaricella Vaccines (1 of 2 - 13+ 2- dose series)[facility] HealthcareStart: 00-75-9664Awnq To Adult Transition Initial DiscussionPeds To Adult Transition Initial DiscussionSaint Marys ClinicStart: 03-56-1147MJgM/Tdap/Td Vaccines (1 - Tdap)DTaP/Tdap/Td Vaccines (1 - Tdap)[facility] HealthcareStart: 43-17-9061GNU Vaccines (1 of 1 - Standard series)MMR Vaccines (1 of 1 - Standard series)NOM HealthcareAlbumin/Globulin ratioWayne Healthcare Main CampusAnion gap measurementWayne Healthcare Main Campus Basophils [#/volume] in Blood by Automated countWayne Healthcare Main CampusBasophils/100 leukocytes in Blood by Automated countWayne Healthcare Main CampusEosinophils/100 leukocytes in Blood by Automated [facility] CenterErythrocyte distribution width [Ratio] by Automated count [facility] CampusErythrocytes [#/volume] in [facility] HospitalGlobulin [Mass/volume] in SerumWayne Healthcare Main CampusHematocrit [Volume Fraction] of [facility] Hemoglobin [Mass/volume] in [facility] HospitalHemoglobin, fetalHemoglobin, Lab Routine Trauma Ordered: 10/22/2024[facility] Work Phone: comment on above:Ordered: 10/22/2024Leukocytes [#/volume] corrected for nucleated erythrocytes in Blood by Automated coun [facility] CampusLeukocytes [#/volume] in [facility] HospitalLymphocytes [#/volume] in Blood by Automated count [facility] CampusLymphocytes/100 leukocytes in Blood by Automated [facility] CenterMayo miscellaneous testMayo miscellaneous test Lab Routine Screen for STD (sexually transmitted disease) Amenorrhea Vaginal discharge Ordered: 12/12/2023[facility] HealthcareComment on above: Ordered: 12/12/2023MCH [Entitic mass] by Automated [facility] CenterMCHC [Mass/volume] by Automated [facility] CenterMCV [Entitic volume] by Automated [facility] Monocytes [#/volume] in Blood by Automated [facility] CenterMonocytes/100 leukocytes in Blood by Automated [facility] CenterNeutrophils [#/volume] in Blood by Automated countWayne Healthcare Main CampusNeutrophils/100 leukocytes in Blood by Automated count [facility] CampusNucleated erythrocytes [Presence] in Blood by Automated [facility] Medical CenterNuSwab Vaginitis Plus (VG+) NuSwab Vaginitis Plus (VG+) Microbiology Routine Screen for STD (sexually transmitted disease) Amenorrhea Vaginal discharge Ordered: 12/12/2023NONE HealthcareComment on above:Ordered: 12/12/2023NuSwab Vaginitis Plus (VG+)NuSwab Vaginitis Plus (VG+) Microbiology Routine First trimester ([facility]) 11 weeks gestation of ([facility]) Ordered: 09/03/2024[facility] Work Phone: comment on above:Ordered: 09/03/2024Patient Education - [facility]Prov[facility] Work Phone: [facility] referralProvidence Hospital Ctr Work Phone: Platelet mean volume [Entitic volume] in Blood by Automated [facility] CenterPlatelets [#/volume] in Blood [facility] End: 90-36-0582HK for in second or third trimesterFDC SECOND/THIRD TRIMESTER OB Imaging Routine BMI 60.0-69.9, adult 1 Occurrences starting 09/04/2024 until 04/02/2025[facility] Work Phone: Comment on above:1 Occurrences starting 09/04/2024 until 04/02/2025 Payers DatePayer CategoryPayerPolicy [id number]-pay2025Medicaid [id number] [id number] Cross Blue [id number] 43-09-7982MpgauulGFPZ BCBS [id number] 2017[facility] [phone] [address] [place] [address].2.840.946964.1.13.693.2.7.3.341632.80580-71-7697 [id number] 2.16.840.1.929054.3.57[id number] 2.16.840.1.153862.3.579.2.10675-17-6573Iapunfm0355457 2.16840.1.933528.3.579.2.37551-61-3246Hhyivpk60897982 2.840.1.199106.3.579.2.277[id number] 2.840.1.206867.3.579.2.[id number] 2.840.1.744908.3.579.2.114681-85-8599Hkfbtwv99455749 2.840.1.464846.3.579.2.365238-88-0705Edngkxp86578011 2.840.1.497330.3.579.2.892805-48-3907Gfrrqcg92149103 2.840.1.083105.3.579.2.624804-20-8662Wwxanmv72150226 2.840.1.096108.3.579.2.107102-48-8569Rqqoash10115905 2.16840.1.746816.3.579.2.688641-17-1222Blokskv90269541 2.840.1.448152.3.579.2.186540-53-5045Wmncpdh33411506 2.16840.1.986010.3.579.2.109410-83-1204Tbmytnz40121122 2.16840.1.727383.3.579.2.712041-82-2351Zedayyu17042085 2..840.1.050934.3.579.2.507353-21-6994Qexysti2741925 2.16.840.1.836358.3.579.2.006109-39-6369CiwtdmtMRS856316241903Pisjnxa Health Tqoaddytm1ec2bj45-9kxy-83qg-6807-j72y9l49rf9hNrczvit71377096 2.16.840.1.917396.3.579.2.531 Social History DateTypeDetailFacilityStart: 12-12-2023 End: 56-68-7272Ruvvicj smoking status NHISNever smoked tobaccoNOMS Healthcare Start: 15-49-4668Ahjacws use and exposureSmokeless tobacco non-userNOMS HealthcareStart: 12-12-2023 End: 56-80-4536Avvgofosf beverage intakeCurrent drinker of alcohol (finding)[facility] HealthcareStart: 12-12-2023 End: 31-22-7977Cahmftl of Social functionNOMS HealthcareStart: 12-12-2023 End: 00-15-5917Mxlpsbk Use Disorder Identification Test - Consumption [AUDIT-C] [facility] HealthcareHow often to you have a drink containing alcohol?Monthly or less [facility] HealthcareHow many standard drinks containing alcohol do you have on a typical day?1 or 2N[facility]S HealthcareHow often do you have 6 or more drinks on 1 occasion?Less than monthlyNOMS HealthcareStart: 81-86-7762Ehu assigned at Not on fileNOMS HealthcareStart: 08-01-2024 End: 76-61-7384Glzlmnwet beverage intakeEx-drinker (finding)[facility] Start: 69-92-0839Lrtulux CommentCaffiene Intake- pt reports 1 can dailyNOMS HealthcareStart: 25-00-9490AvsjynqsgDvlwxafmqWayne Healthcare Main CampusTobacco smoking status NHISTobacco smoking consumption unknownMetroHealthStart: 76-49-2827HbySmupjx (finding)[facility]HealthStart: 67-17-3963Xxs Assigned At FemaleWayne Healthcare Main CampusTobacco smoking statusFulton County Health Center Start: 49-97-3529QtwNgqfgbOHNY Healthcare Medical Equipment Procedure CodeEquipment CodeEquipment Original TextEquipment IdentifierDatesUse as directed to test blood sugar three times per [id number]: 09-03-2024 End: Device 3 (three) times a [id number]: 91-45-7777Rglfv Sugar Diagnostic (Onetouch Ultra Test) stripStart: 68-43-3451Kzweaxa (Onetouch Delica Plus Lancet) 30 gauge miscStart: 11-25-2024 Goals DatePatient GoalDesired Activity/StatePersonal health goal Clinical Notes 12-12-2023 to 01-13-2025 Note Date & UlvhNfpmEsmnmdvh96-94-0542 History of Present illness Narrative* Aleida Kraft [...] Rh negative status during in second trimester ([facility]) 30 weeks gestation of ([facility]) - POCT urinalysis dipstick manually resulted Hyperemesis HGSIL (high grade 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 Vulvar lesion Abnormal glucose affecting ([facility]) Trauma Weight loss Third trimester ([facility]) - POCT urinalysis dipstick manually resulted Thyroid [...] - Lab work to be completed at [place] Pt says Rhogam was given at [place] during thr past 2 weeks - Ultrasound and follow-up appointment scheduled for 36 weeks documented in this encounterParkland Health CenterYylcgimnic37-17-8145 History of Present illness Narrative* Aleida Kraft [...] Second trimester ([facility]) 20 weeks gestation of ([facility]) Hyperemesis HGSIL (high grade 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 Vulvar lesion Abnormal glucose affecting ([facility]) Trauma Continue vitamin. Labs reviewed. Rhogam negative; [...] visits RT 2 weeks documented in this encounterParkland Health CenterKjnnezsikn79-69-0336 History of Present illness Narrative* Aleida Kraft [...] led to a nearly 6-day stay at [facility]. She mentions a fall on the [...] this visit: Trauma - Hemoglobin, Second trimester ([facility]) - POCT urinalysis dipstick manually resulted 18 weeks gestation of ([facility]) - POCT urinalysis dipstick manually resulted Hyperemesis HGSIL (high grade 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 Vulvar lesion Abnormal glucose affecting ([facility]) Continue vitamin. Labs reviewed. Rhogam A- GTT completed 10/01/23- Normal. Follow up in 2 weeks for a routine visit. Assessment & Plan 1. Assessment: Patient is currently , with concerns about well-being. Unable to detect heartbeat with home Doppler, which led to a 6-hour hospital stay at [facility]. Recent fall on deck raised additional concerns. [...] for anxiety management during documented in this encounterParkland Health CenterUtpeyoduof51-88-6095 Telephone encounter Note* Telephone Encounter - Kat Dietrich MA - 10/18/2024 3:37 PM EDT 3rd and final attempt to call and schedule pt re: referral from [facility]. No answer, LVM informing pt and asking to call back to schedule. Kat Dietrich MA [facility]08-01-2025 Miscellaneous Notes* Telephone Encounter - Kat Dietrich MA - 10/18/2024 3:37 PM EDT 3rd and final attempt to call and schedule pt re: referral from [facility]. No answer, LVM informing pt and asking to call back to schedule. Kat Dietrich MA documented in this encounterOhio [facility]07-30-2025 Radiology Diagnostic study [facility] [place] [address] Ultrasound Report Signed Patient: Jessica Baldwin MR#: [id number] : 2005 Acct:[id number] Age/Sex: 19 / F ADM Date: 5 [...] Mccloud M.D. 10/16/2024 9:30 PM Dictation Location: [place] [address] Tech: Andria Alfredo Transcribed By: CHRISTY 10/16/242129 Dictated By: Bradley Mccloud MD 10/16/242127 Signed By: 10/16/242129 [facility] Work Phone: 1(878) 562-578207-21-2025 Telephone encounter Note* Telephone Encounter - Kat Dietrich MA - 10/07/2024 10:29 AM EDT 2nd attempt to contact pt re: referral from [facility]. No answer, LVM asking pt to call back and schedule. Kat Dietrich MA [facility]07-21-2025 Miscellaneous Notes* Telephone Encounter - Kat Dietrich MA - 10/07/2024 10:29 AM EDT 2nd attempt to contact pt re: referral from [facility]. No answer, LVM asking pt to call back and schedule. Kat Dietrich MA documented in this encounterOhio [facility] Hospital07-16-2025 Telephone encounter Note * Telephone Encounter - Kat Dietrich MA - 10/02/2024 1:44 PM EDT Called pt re: referral from [facility]. No answer, LVM asking pt to call back and schedule. Kat Dietrich MA [facility]07-16-2025 Miscellaneous Notes* Telephone Encounter - Kat Dietrich MA - 10/02/2024 1:44 PM EDT Called pt re: referral from [facility]. No answer, LVM asking pt to call back and schedule. Kat Dietrich MA documented in this encounterOhio State [facility] Hospital07-14-2025 History of Present illness Narrative* Aleida [...] all orders for this visit: Second trimester ([facility]) - POCT urinalysis dipstick manually resulted 15 weeks gestation of ([facility]) - POCT urinalysis dipstick manually resulted - GTT, 1 hour; Future - Hematocrit; Future Hyperemesis HGSIL (high grade 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 Vulvar lesion Abnormal glucose affecting ([facility]) - GTT, 1 hour; Future - Hematocrit; Future Continue vitamin. Labs reviewed. Rhogam A- GTT to be completed today Incomplete anatomy US-referral to [facility] for completed survey Follow up in 2 weeks for a routine visit. Assessment & Plan documented in this encounterParkland Health [id number] History of Present illness Narrative* Aleida Kraft [...] clothing. 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 The lesions come [...] on Pap smear of cervix Second trimester ([facility]) - POCT urinalysis dipstick manually resulted 13 weeks gestation of ([facility]) - POCT urinalysis dipstick manually resulted Hyperemesis Vulvar lesion - HSV 1 AND 2 AB, IGG; Future Encounter for screening for chromosomal anomalies ([facility]) - SmprwncS70 PLUS Core+SCA; Future Continue vitamin. Labs reviewed. Rhogam to be ordered at 24 weeks, A- GTT to be completed gibson Follow up in 2 weeks for a routine visit. Assessment & Plan 1. : - Approximately 13 weeks gestation - heartbeat detected on previous visit - Blood pressure reported as great today - Family history of hypertension (hhobbg-fr-icn's blood pressure 126%, units unclear) - Plan: [...] lesions for next visit documented in this encounterParkland Health [id number] NoteExternal referral received for maternal medicine and ultrasound scheduling. Left message for patient to contact us to confirm visit. Due to limited availability visit scheduled when patient calls back please transfer to x [phone] [facility] HospitalTextRecruit [phone] Telephone encounter Note* Telephone Encounter - Kristina Larkin - 09/04/2024 3:12 PM EDT External referral received for maternal medicine and ultrasound scheduling. Left message for patient to contact us to confirm visit. Due to limited availability visit scheduled when patient calls back [phone] [id number] Miscellaneous Notes* Telephone Encounter - Kristina Larkin - 09/04/2024 3:12 PM EDT External referral received for maternal medicine and ultrasound scheduling. Left message for patient to contact us to confirm visit. Due to limited availability visit scheduled when patient calls back please transfer to x [phone] documented in this [id number] History of Present illness Narrative* Aleida Kraft [...] been significant enough to cause her to well puller head while drivingon the highway. The patient mentions [...] to 200 mg per day, lives in [place], and has cats at home. Shehas been [...] a day as needed fornausea First trimester ([facility]) - POCT urinalysis dipstick manually resulted - NuSwab Vaginitis Plus (VG+) 11 weeks gestation of ([facility]) - POCT urinalysis dipstick manually resulted - [...] 20- week ultrasound will be scheduled at [facility]. Regular appointments every 2 to 3 weeks will be scheduled to monitor her blood pressure. A Glucola monitor will be provided for her to check her fasting glucose levels three times a week. An ultrasound will be performed in a month, followed by another one at 20 weeks if [facility] does not conduct it. Follow-up Follow up in 2 weeks. 1. High-risk : - Assessment: - Patient classified as high-risk due to obesity (>400 lbs) and potential for gestational diabetes - Higher risk of section - Severe nausea and vomiting reported, including an episode requiring patient to well puller head while driving - heart rate detected - Current blood pressure: 120/70 (within normal limits) - Plan: a) Monitor weight and blood pressure every 2 weeks b) Perform glucose monitoring 3 times per week (fasting) c) Schedule ultrasound in 1 month d) Plan for 20-week anatomy scan at [facility] e) Arrange for dietary consult f) [...] Daily fasting glucose levels documented in this [facility]05-21-2025 History of Present illness Narrative* Aleida Kraft MD - 08/07/2024 7:45 PM EDT UTI documented in this [facility]05-15-2025 History of Present illness Narrative* Jessica Joyner [...] testing discussed. Pt was given brochure to [employer] insurance and discuss with PPJ at first appt. Last PAP: Under 21 ASSESSMENT / PLAN Labs Ordered to [facility] Appointments scheduled for OB US 08/26 and PPJ appt on 09/03. Jessica Joyner MA 08/01/2024 2:13 PM documented in this encounterParkland Health [id number] History of Present illness Narrative* Aleida Kraft MD - 01/04/2024 1:45 PM EDT Images from the original note were not included. Aleida Kratf MD Obstetrics and Gynecology Patient: Jessica Baldwin [...] pursue in the future. documented in this [facility]09-27-2024 History of Present illness Narrative* Aleida Kraft MD - 12/15/2023 7:24 PM EDT BV documented in this [facility]09-24-2024 History of Present illness Narrative* Aleida Kraft [...] evaluation. Return 1 year/prn documented in this encounterNONE HealthcareEvaluation + Plan note No data available for this section [facility] Evaluation note* Diagnosis Amenorrhea Absence of menstruation [...] weeks gestation of ([facility]) Abnormal glucose affecting ([facility]) documented in this encounter [facility]* Diagnosis BMI 60.0-69.9, adult- Primary Body Mass Index 60.0-69.9, adult documented in this encounter [facility] noteNo assessment information availableProvidence Hospital Ctr Work Phone: Evaluation note* Diagnosis HGSIL (high grade 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- Primary Second trimester ([facility]) state, incidental 13 weeks gestation of ([facility]) Hyperemesis Persistent vomiting Vulvar lesion Other specified noninflammatory disorder of vulva and perineum Encounter for screening for chromosomal anomalies ([facility]) documented in this encounter [facility]* Diagnosis Second trimester ([facility]) state, incidental 15 weeks gestation of ([facility]) Hyperemesis Persistent vomiting HGSIL (high grade 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 Vulvar lesion Other specified noninflammatory disorder of vulva and perineum Abnormal glucose affecting ([facility]) documented in this encounter [facility]* Diagnosis Trauma- Primary Injury, other and unspecified, unspecified site Second trimester ([facility]) state, incidental 18 weeks gestation of ([facility]) Hyperemesis Persistent vomiting HGSIL (high grade 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 Vulvar lesion Other specified noninflammatory disorder of vulva and perineum Abnormal glucose affecting ([facility]) documented in this encounter [facility]* Diagnosis Weight loss- Primary Loss of weight Second trimester ([facility]) state, incidental 20 weeks gestation of ([facility]) Hyperemesis Persistent vomiting HGSIL (high grade 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 Vulvar lesion Other specified noninflammatory disorder of vulva and perineum Abnormal glucose affecting ([facility]) Trauma Injury, other and unspecified, unspecified site documented in this encounter [facility] HealthcareEvaluation note* Diagnosis Onset Date Resolution Status Admit Date Sore throat noneactiveSept2024 2:12pm [facility] Work Phone: Evaluation note* Diagnosis Rh negative status during in second trimester ([facility]) 30 weeks gestation of ([facility]) Hyperemesis Persistent vomiting HGSIL (high grade 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 Vulvar lesion Other specified noninflammatory disorder of vulva and perineum Abnormal glucose affecting ([facility]) Trauma Injury, other and unspecified, unspecified site Weight loss Loss of weight Third trimester ([facility]) state, incidental Thyroid disorder screening Screening for thyroid disorder documented in this encounter [facility] HealthcareHospital Discharge instructions No data available for this section [facility] Progress note No data available for this section [facility] Reason for referral (narrative)No reason for referral information availableGeorgetown Behavioral Hospital Work Phone: Summary Purpose Family History [...] section and content) DATE CREATED AUTHOR 05/25/2022 [facility] DATE CREATED AUTHOR AUTHOR'S ORGANIZ ATION 09/20/2024 [facility] DATE CREATED AUTHOR AUTHOR'S ORGANIZ ATION 10/05/2024 [facility] DATE CREATED AUTHOR AUTHOR'S ORGANIZ ATION 10/21/2024 [facility] DATE CREATED AUTHOR AUTHOR'S ORGANIZ ATION 11/01/2024 [facility] DATE CREATED AUTHOR AUTHOR'S ORGANIZ ATION 01/28/2025 [facility] Reason for Visit (unrecogniz ed section and content) ReasonCommentsFollow-upReasonCommentsContraceptionFamily planningGynecologic ExamReasonCommentsInitial VisitNurse VisitReasonCommentsRoutine VisitPatient present for PNC, patient states she only has issues with nausea and vomiting. She does has the sickness feeling when waking up. P: NegG: NegReasonOnset DateCommentsAPPOINTMENT SKVHPZBXJQ03/18/2025natomy scan and MFM visitReasonCommentsRoutine VisitPatient present for PNC, patient states she was seen at [facility] on she states she was there [...] pressure. Patient states she was seen [place] [facility] [place] and was given keflex, [...] supervision of normal first , second trimester ([facility]) Procedures please check global maternity benefits EDC 03/24/2025 Aleida Kraft MD [address] [place] [address] Phone: tel: fax: Aleida Kraft MD [address] [facility] [address] [place] [address] Phone: tel: fax: Referral IDStatusReasonStart DateExpiration DateVisits RequestedVisits [id number] VisitPatient present for PNC, patient has complaints of hair loss. Patient denies any other issues or com plaints at this time. P: Neg G: Neg Care Teams (unrecognized sec tion and content) Team MemberRelationshipSpecialtyStart DateEnd Date Unallocated, Nicolás Roque MD [address] [facility] [place] [place] [address] PCP - [facility]01/04/24Te MemberRelationshipSpecialtyStart Date End Date Unallocated, Nicolás Roque MD [address] [place] [address] PCP - [facility]01/04/24Te MemberRelationshipSpecialtyStart Date End Date Unallocated, Nicolás Roque MD [address] [facility] [place] [address] PCP - [facility]01/04/24Te MemberRelationshipSpecialtyStart Date End Date Unallocated, Nicolás Roque MD [address] [place] [address] PCP - [facility]01/04/24Te MemberRelationshipSpecialtyStart Date End Date Unallocated, Nicolás Roque MD [address] [place] [address] PCP - [facility]01/04/24Team MemberRelationshipSpecialtyStart Date End Date Unallocated, Nicolás Roque MD [address] [place] [address] PCP - [facility] Ezzvgvnv64/17/24 Team Status: Inactive Member Role Status Dates Teresa eBal DO Attending Provider Active Start: September 11, 2024 End: September 11, 2024Team MemberRelationshipSpecialtyStart DateEnd Date Unallocated, Nicolás Roque MD [address] [place], [place] [address] [address] [facility] Xjwqgfjt89/17/24Team MemberRelationshipSpecialtyStart Date End Date Unallocated, Nicolás Roque MD [address] [place] [address] PCP - [facility] Ctqykmpo51/17/24Team MemberRelationshipSpecialtyStart Date End Date Luca Marshall MD PCP - [facility] Medicine07/18/14Team MemberRelationshipSpecialtyStart DateEnd Date Luca Marshall MD PCP - [facility] Medicine07/18/14Team MemberRelationshipSpecialtyStart DateEnd Date Luca Marshall MD PCP - [facility] Medicine07/18/14 Team Status: Active Member Role Status Dates Luca Marshall MD Primary Care Provider Active Team Status: Inactive Member Role Status Dates Luca Marshall MD Primary Care Provider Active Start: October 16, 2024 End: October 16, 2024Nancy Lim ProviderActiveStart: October 16, 2024 End: October 16, 2024Team MemberRelationshipSpecialtyStart DateEnd Date Luca Marshall MD [facility]07/18/14Team MemberRelationshipSpecialtyStart DateEnd Date Unallocated, Nicolás Roque MD [address] [facility] [place] [place] [address] PCP - [facility]01/04/24Team MemberRelationshipSpecialtyStart Date End Date Unallocated, Nicolás Roque MD [facility] [address] [facility] [place] [place] [address] PCP - [facility]01/04/24Team MemberRelationshipSpecialtyStart Date End Date Unallocated, Nicolás Roque MD [address] [place] [address] [place] [address] PCP - [facility]01/04/24Te MemberRelationshipSpecialtyStart Date End Date Unallocated, Nicolás Roque MD [address] [place] [address], [place] [address] PCP - [facility]01/04/24 Team Status: Inactive Member Role Status Dates Luca Marshall MD Primary Care Provider Active Start: November 25, 2024 End: November 25vilma Sheppard APRNAtpreston ProviderActiveStart: November 25, 2024 End: November 25, 2024Team MemberRelationshipSpecialtyStart DateEnd Date Unallocated, Nicolás Roque MD [address] [place] [address] [place] [address] PCP - [facility]01/04/24Team MemberRelationshipSpecialtyStart Date End Date Unallocated, Nicolás Roque MD [address] [place] [address] PCP - [facility]01/04/24 Goals (unrecognized section and content) Goals may [...] or prosecute any alcohol or drug abuse patient.[facility] HospitalIn the event this information is protected by the Federal Confidentiality of Alcohol and Drug Abuse Patient Records regulations: The Federal rules restrict any use of the information to criminally investigate or prosecute any alcohol or drug abuse patient.[facility] HospitalIn the event this information is protected by the Federal Confidentiality of Alcohol and Drug Abuse Patient Records regulations: The Federal rules restrict any use of the information to criminally investigate or prosecute any alcohol or drug abuse patient.[facility] HospitalIn the event this information is protected by the Federal Confidentiality of Alcohol and Drug Abuse Patient Records regulations: The Federal rules restrict any use of the information to criminally investigate or prosecute any alcohol or drug abuse patient.[facility] FOR RECORDS PERTAINING TO PATIENTS WHO [...] THE PRIMARY CLINICAL RECORDS. [facility] [facility]. provides no warranty or guarantee of the accuracy or completeness of information in this document.
[2025-03-17 17:06] VITALS: BP 123/85; PULSE 94; TEMP 36.6
[2025-03-17 17:09] LABS: Glucose Urine UA NEGATIVE (NEGATIVE)
[2025-03-17 17:21] LABS: Cast Seen? NONE SEEN #/LPF (NONE SEEN); Crystals Seen? None Seen #/HPF (None Seen); Urine Culture Indicated YES-FRMC
[2025-03-17 18:19] LABS: Hematocrit 40.4 % (36.0-48.0); Hemoglobin 13.3 g/dL (12.0-16.0); Immature Granulocytes Abs Auto 0.05 10^3/uL (0.00-0.03); Immature Granulocytes Pct Auto 0.4 % (0.0-0.5); Lymphocytes Absolute Auto 2.8 10^3/uL (1.2-3.8); Mean Corpuscular HGB Conc 32.9 g/dL (29.9-35.2); Mean Corpuscular Hemoglobin 26.6 pg (26.7-34.0); Mean Corpuscular Volume 80.8 fL (81.0-99.0); Platelet Count 332 10^3/uL (150-450); Red Blood Count 5.00 10^6/uL (4.20-5.40); White Blood Count 14.2 10^3/uL (4.0-11.0)
[2025-03-17 18:41] LABS: Cannabinoid Screen Urine NEGATIVE (NEGATIVE); Methamphetamines Screen Urine NEGATIVE (NEGATIVE); Tricyclic Antidepressant Urine NEGATIVE (NEGATIVE)
--- NOTE | 2025-03-17 19:04 | PM.OBPN ---
OB - PN: Subj Subjective Interval history: This is a 19 y/o WF, , EDC 03/24/24, AOG 39 weeks who presented with c/o leaking fluid since 8 or 9 am. She began having contractions this afternoon and that is what brought her to the hospital. She has care in [place] with Dr. Goodman and came to [place] on recommendation of her friend. Her medical history is significant for morbid obesity with a BMI 0f 67 and weight of 415 lbs. On exam she was 2 cm dilated, 50% and ballotable. FHR is CAT 1, 140s. She denies any problems with the . She has had care since she was 6 weeks. She denies any medical history other than her obesity. Her GBS was negative. Exam Constitutional Vital Signs, click to edit/add: Last Vital Signs Pulse 94 H 03/17/25 17:06 BP 123/85 03/17/25 17:06 Results Labs Labs: Short CBC 03/17/25 Range/Units 18:10 WBC 14.2 H (4.0-11.0) 10^3/uL Hgb 13.3 (12.0-16.0) g/dL Hct 40.4 (36.0-48.0) % Plt Count 332 (150-450) 10^3/uL Urine 03/17/25 Range/Units 16:45 Urine Color Lt. yellow (YELLOW) Urine Clarity Slightly cloudy A (CLEAR) Urine pH 7.0 (5.0-9.0) Ur Specific [place] <=1.005 A (1.005-1.025) Urine Protein 30 A (NEG/TRACE) mg/dL Urine Glucose (UA) Negative (NEGATIVE) mg/dL OB - PN: A/P Assessment and Plan (1) Obesity during third trimester, antepartum: Assessment and Plan: PT was counseled on the hospital's policy of maximum BMI of 55. She will need to be transferred to [place]. [facility], Dr. Dong accepted transfer of patient. (2) Ruptured, membranes, premature: Onset Date: ~02/2025 Qualifiers: PROM onset of labor timing: onset of labor within 24 hours of rupture PROM gestational age: full term Qualified Code(s): O42.02 - Full-term premature rupture of membranes, onset of labor within 24 hours of rupture Time Spent with Patient Time: Total time spent is greater than 50% in coordination of care (as documented) at patient's floor/unit and/or counseling patient: Total time spent with greater than 50% in coordination of care (as documented) at patient's floor/unit and/or counseling patient: 25 - 35 minutes
[2025-03-17] MEDS: TERBUTALINE SULFATE 1 MG/ML VIAL 0.25 MG SUBQ (20:14)
[2025-03-17] MEDS: AMPICILLIN SODIUM 2,000 MG in 0.9 % SODIUM CHLORIDE 100 ML 200 MG IV (20:44)
[2025-03-17 21:46] VITALS: TEMP 36.6
[2025-03-17 21:52] VITALS: BP 132/85; PULSE 120
== END 2025-03-17 22:32 | disposition short-term general hospital (02) ==
LOC: FBCO 16:37 → FBC 16:44
PROVIDERS: PCP Family Medicine; Visit Provider Obstetrics & Gynecology
DX: O26.893 Other specified pregnancy related conditions, third trimester (principal); Z3A.39 39 weeks gestation of pregnancy
CPT/HCPCS: 36415; 80307; 81001; 84112; 85025; 86850; 86900; 86901; 87086; J0290; J3105